=== PATIENT | female | born 1975 | race Caucasian/White ===

== ENCOUNTER 2022-03-19 15:25 | Outpatient (CLI) | payer OTHER, SELFPAY ==
--- NOTE | 2022-03-19 15:35 | ECG_ITS ---
Measurements Intervals [place] Rate: 85 P: 37 MO: 189 QRS: 49 QRSD: 89 T: 14 QT: 356 QTc: 425 Interpretive Statements SINUS RHYTHM POSSIBLE LEFT ATRIAL ENLARGEMENT [-0.1mV P WAVE IN V1/V2] NO PREVIOUS ECG AVAILABLE FOR COMPARISON Electronically Signed On 03-19-2022 21:12:52 CDT by Case Chauhan MD
[2022-03-19 16:15] LABS: Anion Gap 6 mmol/L (8-16); Blood Urea Nitrogen 15 mg/dL (7-17); Calcium 8.7 mg/dL (8.4-10.2); Carbon Dioxide 27 mmol/L (22-30); Chloride 103 mmol/L (98-107); Estimated Glomerular Filt Rate > 60; Glucose 254 mg/dL (65-110); Potassium 4.2 mmol/L (3.4-5.0); Sodium 136 mmol/L (137-145)
[2022-03-19 16:32] LABS: Beta HCG Quantitative < 2.39 mIU/ML
== END 2022-03-19 15:26 | disposition home or self-care (01) ==
PROVIDERS: Anesthesiology; PCP Family Medicine; Visit Provider Obstetrics & Gynecology
DX: Z30.09 Encounter for other general counseling and advice on contraception (principal); I10 Essential (primary) hypertension; N92.1 Excessive and frequent menstruation with irregular cycle; E11.9 Type 2 diabetes mellitus without complications
CPT/HCPCS: 36415; 80048; 84702; 86850; 86900; 86901; 93005

== ENCOUNTER 2022-03-21 00:08 | Day surgery (SDC) | payer OTHER, SELFPAY ==
[2022-03-13 18:49] VITALS: BMI 29.2
--- NOTE | 2022-03-13 19:06 | SUR.PREOP ---
Report to the Outpatient Waiting Room, entrance under the green pavilion located off [facility], at time _0900 on date _03/21/22 . OR Time: _1100 - You and your visitor will be asked a series of questions to screen for COVID 19 for your protection. - Only one visitor is allowed at this time. - The patient visitor is requested to leave or wait in car when not with patient. - A mask is required within the hospital. Patients may have clear liquids (water, carbonated beverages, clear teas, apple juice) until 3 hours prior to surgery with a maximum of 20 ounces. - No food from midnight until time of surgery - Infants may have breast milk until 4 hours before surgery, formula 6 hours prior to surgery. - Children will be allowed to drink immediately following surgery. If applicable, please bring a bottle or sippy cup to assist with drinking. Juice, water, soda, and popsicles are readily available. For infants on formula, please bring formula the day of surgery. Pacifiers are allowed. Take the following medications with a SIP of water the morning of surgery: _norvasc,symbicort,prednisone,albuterol neb,bring albuterol inhaler Medications to discontinue per physician ____vitamin supplements Date to take last dose__03/18/22 Please no make-up, nail kyrgyz, hairspray, perfume, deodorant, or body powder the day of surgery. No jewelry (including any body piercings) or valuables the day of surgery, leave them at home. Please take a shower or bath the night before, or the morning of, surgery with an antibacterial soap. Wear comfortable, loose fitting clothing. Children are encouraged to wear pajamas. - Jewelry must be removed prior to entering the operating room. Rings and piercings that are not removed may be cut off. - The hospital will not accept responsibility for valuables. - Please leave all valuables, including medications, at home the day of surgery. If you are going home after surgery, a licensed transport driver must drive you home. - NO public transportation without another adult. - We recommend that an adult stay with you for 24 hours following discharge. - We also recommend that you do not drive, make important decision, drink alcoholic beverages, or take any drugs that were not prescribed by your health care provider for at least 24 hours after your discharge time. For Pediatric surgeries, we recommend two adults accompany the child home (only one inside the building at this time). Follow any additional instructions given to you from your surgeon. If you or anyone in your household have experienced Covid symptoms in the past week, please notify your surgeon or the nurse liaison at the phone number below for possible testing. Telephone instructions given to janna simon and asked if any additional questions and then verbalized understanding. Patient advised to call surgeon office or pre surgery nurse liaison [phone] if any additional questions.
--- NOTE | 2022-03-20 15:10 | PM.IMHP ---
H&P: HPI History of Present Illness Date/Time: 03/20/22 15:11 47-year-old female 0 presents with longstanding though increasing recently symptomatology. States her cycles are coming at 2-3 week intervals and lasting 5-7 days with clotting cramping significant flow increased. She also is having pelvic pain intermittently in between her menstrual cycles which is also increasing. Between the bleeding and pain this is affecting her normal daily activities. We have discussed multiple options and she does desire to proceed with hysterectomy with ovarian preservation. Will be attempting this laparoscopically though she understands there is always a small chance that conversion to open procedure may be necessary both for completing stated procedure and or to evaluate for other potential abnormalities and complications intraoperatively. Chief Complaint: Symptomatic uterine fibroid Review of Systems Review of Systems: All systems reviewed & are unremarkable except as noted in HPI and below PMFSH Past Medical History Medical History Asthma Bronchitis COPD (chronic obstructive pulmonary disease) Diabetes type 2, controlled Fatty liver GERD (gastroesophageal reflux disease) Headache High cholesterol History of hypertension Screening mammogram, encounter for Stomach ulcer Surgical History Surgical History History of tonsillectomy Family History Family History Father Asthma Hypertension Diabetes mellitus Sibling Asthma Hypertension sister and brother Diabetes mellitus sister and brother Hypothyroidism sister Mother Hypertension Diabetes mellitus Hypothyroidism Social History Social History Smoking status: Never smoker Alcohol intake: never Substance use: never Substance use type: does not use Additional living arrangements comments: single Gender identity (if verbalized by the patient): Female Sexual Orientation (if Verbalized by the Patient): Straight or Heterosexual Spiritual care concerns: No Meds Home Medications and Allergies Home Medications Medication Instructions Recorded Confirmed Type atorvastatin 40 mg tablet 40 mg PO DAILY 01/23/22 03/13/22 History 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 meter,continuous 01/23/22 02/05/22 History (Dexcom G6 Hole Puncher Strap misc) budesonide-formoterol HFA 160 1 inh inhalation ONCE 01/23/22 03/13/22 History mcg-4.5 mcg/actuation aerosol inhaler (Symbicort) cholecalciferol (vitamin D3) 50 50 mcg PO DAILY 01/23/22 03/13/22 History mcg (2,000 unit) capsule (Vitamin D3) cyanocobalamin (vitamin B-12) 1,000 mcg sublingual DAILY 01/23/22 03/13/22 History 1,000 mcg sublingual tablet hydrochlorothiazide 25 mg tablet 25 mg PO DAILY 01/23/22 03/13/22 History metformin 500 mg tablet,extended 1,000 mg PO BID 01/23/22 03/13/22 History release 24 hr prednisone 10 mg tablet 10 mg PO DAILY 01/23/22 03/13/22 History prednisone 20 mg tablet 20 mg PO DAILY 01/23/22 03/13/22 History albuterol sulfate 2.5 mg/3 mL 1 ml inhalation Q4H 03/13/22 03/13/22 History (0.083 %) solution for nebulization albuterol sulfate 90 mcg/actuation 1 inh inhalation PRN 03/13/22 03/13/22 History aerosol inhaler amlodipine 10 mg tablet (Norvasc) 10 mg PO DAILY 03/13/22 03/13/22 History aspirin 81 mg tablet,delayed 81 mg PO DAILY 03/13/22 03/13/22 History release cetirizine 10 mg capsule (Zyrtec) 10 mg PO DAILY 03/13/22 03/13/22 History famotidine 40 mg tablet 1 tablet PO DAILY 03/13/22 03/13/22 History fenofibrate 160 mg tablet 1 tablet PO DAILY 03/13/22 03/13/22 History insulin glargine 100 unit/mL (3 20 unit subcut QAM 03/13/22 03/13/22 History mL) subcutaneous pen (Lantus Solostar U-100 Insulin) insulin lispro 100 unit/mL 1
[2022-03-21] VITALS (11 sets, daily range): BP systolic 111–157; BP diastolic 65–89; PULSE 69–102; RESP 11–20; TEMP 36.2–36.6; O2SAT 92–100
--- NOTE | 2022-03-21 07:22 | WPDHPUPDATE1 ---
History and Physical Update Update Date/Time: 03/21/22 07:22 History and Physical has been reviewed, including an updated exam of the patient. There are NO changes in the patient's condition. Risks, benefits, and alternatives have been discussed and questions answered. Patient agrees to proceed with procedure.
[2022-03-21] MEDS: ACETAMINOPHEN 500 MG TABLET 1000 MG PO (07:37)
--- NOTE | 2022-03-21 07:42 | WPDANESEPPF ---
Anes - Initial Pre Proc Eval Procedure: Operation Date: 03/21/22 08:30 Proposed Procedures p Robotic Assisted Total Laparoscopic Hysterectomy with Bilateral Salpingectomy - Blane Granda MD Date/Time: 03/21/22 07:42 Surgeon: lBane Granda MD Pre Op Diagnosis: menometrorrhagia, uterine fibroid Patient Data Age: 47 Gender: F Height: 1.6 m Weight: 75 kg Allergies Allergy/AdvReac Type Severity Reaction Status Date / Time prochlorperazine Allergy Severe BODY Verified 03/21/22 06:13 [From Compazine] BRIGHT RED/HOT, DIFFICULTY BREATHING sulfamethoxazole Allergy Mild HEADACHES Verified 03/21/22 06:13 AND NOSEBLEEDS trimethoprim Allergy Mild HEADACHES Verified 03/21/22 06:13 AND NOSEBLEEDS PHENAZOPYRIDINE HCL Allergy Severe ANAPHYLACTIC Uncoded 03/21/22 06:13 SHOCK Home Medications Medication Instructions Recorded Confirmed Type atorvastatin 40 mg tablet 40 mg PO DAILY 01/23/22 03/21/22 History 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 meter,continuous 01/23/22 03/21/22 History (Dexcom G6 Scrap Drop Operator misc) budesonide-formoterol HFA 160 1 inh inhalation ONCE 01/23/22 03/21/22 History mcg-4.5 mcg/actuation aerosol inhaler (Symbicort) cholecalciferol (vitamin D3) 50 50 mcg PO DAILY 01/23/22 03/21/22 History mcg (2,000 unit) capsule (Vitamin D3) cyanocobalamin (vitamin B-12) 1,000 mcg sublingual DAILY 01/23/22 03/21/22 History 1,000 mcg sublingual tablet hydrochlorothiazide 25 mg tablet 25 mg PO DAILY 01/23/22 03/21/22 History metformin 500 mg tablet,extended 1,000 mg PO BID 01/23/22 03/21/22 History release 24 hr prednisone 10 mg tablet 10 mg PO DAILY 01/23/22 03/21/22 History prednisone 20 mg tablet 20 mg PO DAILY 01/23/22 03/21/22 History albuterol sulfate 2.5 mg/3 mL 1 ml inhalation Q4H 03/13/22 03/21/22 History (0.083 %) solution for nebulization albuterol sulfate 90 mcg/actuation 1 inh inhalation PRN 03/13/22 03/21/22 History aerosol inhaler amlodipine 10 mg tablet (Norvasc) 10 mg PO DAILY 03/13/22 03/21/22 History aspirin 81 mg tablet,delayed 81 mg PO DAILY 03/13/22 03/21/22 History release cetirizine 10 mg capsule (Zyrtec) 10 mg PO DAILY 03/13/22 03/21/22 History famotidine 40 mg tablet 1 tablet PO DAILY 03/13/22 03/21/22 History fenofibrate 160 mg tablet 1 tablet PO DAILY 03/13/22 03/21/22 History insulin glargine 100 unit/mL (3 20 unit subcut QAM 03/13/22 03/21/22 History mL) subcutaneous pen (Lantus Solostar U-100 Insulin) insulin lispro 100 unit/mL 15 sliding scale dose subcut AC 03/13/22 03/21/22 History subcutaneous pen ipratropium bromide 0.02 % 1 ml inhalation Q2H 03/13/22 03/21/22 History solution for inhalation montelukast 10 mg tablet 1 tablet PO DAILY 03/13/22 03/21/22 History pantoprazole 40 mg tablet,delayed 40 mg PO QAM 03/13/22 03/21/22 History release (Protonix) tramadol 50 mg tablet 1 tablet PO PRN 03/13/22 03/21/22 History ECG: Date of Service: 03/19/22 Procedure(s): CA 12 lead EKG Accession Number(s): [id number] cc: ~ ? Measurements Intervals? [place]? Rate: ? 85 ? P:? 37 UT: ? 189? QRS:? 49 QRSD: ? 89 ? T:? 14 QT: ? 356? QTc:? 425? Interpretive Statements SINUS RHYTHM POSSIBLE LEFT ATRIAL ENLARGEMENT [-0.1mV P WAVE IN V1/V2] NO PREVIOUS ECG AVAILABLE FOR COMPARISON Electronically Signed On 03-19-2022 21:12:52 CDT by Case Chauhan MD Patient hx anesthesia problems: none Family hx anesthesia problems: none Results Review: All pre-operative results and documents have been reviewed as part of the pre-operative evaluation. [facility] Past Medical History Medical History (Updated 03/21/22 @ 07:48 by Constantine Hernandez MD)
[2022-03-21] MEDS: LACTATED RINGERS 1,000 ML 30 ML IV CONT ×2 (07:45→10:36)
[2022-03-21] MEDS: KETOROLAC 15 MG/ML VIAL (*BKC) IV PUSH (07:46)
[2022-03-21 07:54] LABS: Glucose Point of Care 191 mg/dl (65-105)
[2022-03-21] MEDS: ceFAZolin 2 GM/D5W 50 ML 2 GM/50 ML BAG IVPB (08:32)
--- NOTE | 2022-03-21 10:29 | W.PM.PROC2 ---
Procedure Note - Detailed Date of Procedure 03/21/22 Pre-op Diagnosis menometrorrhagia, uterine fibroid Post-op Diagnosis Same Procedure Performed Robotic assisted laparoscopic hysterectomy preservation. Also with bilateral salpingectomy. Surgeon Blane Granda MD Anesthesia General Findings Enlarged fibroid uterus. Ovaries without abnormality. Description of Procedure Patient prepped and draped usual manner for this procedure. Cervical os was placed for uterine mobility throughout the case. Abdominal trocar sites were marked and placed under direct visualization and then attached to the DA Simón system. Instruments were then placed under direct visualization. Surgeon moved to the console and findings were noted as above with enlarged uterus with normal tubes and ovaries. Round ligaments bilaterally cauterize cut bladder flap developed without difficulty. Posteriorly the broad ligament was also incised to isolate the uterine vessels. These were cauterized cut. Prior to this the utero-ovarian ligaments were cauterized cut and the fallopian tubes were removed by cauterized the mesosalpinx and removing the tubes separately. Once the uterine vessels had been cauterized and cut the posterior colpotomy incision was made this was carried circumferentially to separate the cervix from the vagina. The uterus was then delivered into the vagina without difficulty and the cuff was closed using V lock suture from the right angle to midline in the left and to midline with good approximation and hemostasis noted. Aleena was placed empirically over the vaginal incision. Gas was allowed to escape, instruments removed and the incisions were approximated using 4-0 Monocryl. Patient was then sent to recovery room in stable condition. Estimated Blood Loss 50 Drains No Packing No Pathology Yes Complications No immediate complications Disposition PACU [facility] Billing Surgery - Charge Forward: Surgery Billing
[2022-03-21] MEDS: fentaNYL CITRATE INJ (*CRX) 100 MCG/2 ML VIAL 25 MCG IV PUSH ×6 (10:42→11:52)
[2022-03-21 10:49] LABS: Glucose Point of Care 209 mg/dl (65-105)
[2022-03-21] MEDS: ONDANSETRON INJ 4 MG/2 ML VIAL IV PUSH (12:18)
--- NOTE | 2022-03-21 12:29 | PC.NURSE ---
This patient, Gaby Carey, was received from PACU via bed on 03/21/22 at 1215. Patient/family oriented to unit policies and routines
--- NOTE | 2022-03-21 14:00 | PC.NURSE ---
Pt requesting to wear O2 per NC while she is sleeping. She states she wears it sometimes at home during the night. O2 2L initiated per NC. Pt removed O2 about 45 minutes after initiating and decided to sit in a chair. No c/o difficulty breathing or SOB.
[2022-03-21] MEDS: LACTATED RINGERS 1,000 ML 125 ML IV CONT (14:08)
[2022-03-21] MEDS: KETOROLAC 30 MG/ML VIAL (*BKC) IV PUSH (14:10)
[2022-03-21] MEDS: METOCLOPRAMIDE HCL INJ 10 MG/2 ML VIAL IV PUSH (14:11)
[2022-03-21 14:28] LABS: Glucose Point of Care 230 mg/dl (65-105)
[2022-03-21] MEDS: LORazepam (*CRX) 0.5 MG TABLET 1 MG PO (15:40)
[2022-03-21] MEDS: ALBUTEROL SULFATE NEB 2.5 MG/3 ML INH INHALATION (15:46)
[2022-03-21] MEDS: IPRATROPIUM BR 0.02% INH SOLN 0.5 MG/2.5 ML VIAL INHALATION (15:46)
[2022-03-21] MEDS: metFORMIN HCL XR 500 MG TAB.SR.24H 1000 MG PO (17:03)
[2022-03-21] MEDS: HYDROcodone/acetaminophen (*CRX) 10-325 MG TABLET 1 TAB PO ×2 (17:03→23:08)
--- NOTE | 2022-03-21 19:00 | PC.NURSE ---
1440: Pt wanted to sit up in a chair; pt appeared restless in chair, shifting from one buttock to the other and stated that she could not get comfortable. Pt requested a rocking chair, stating that she likes to rock when she is in pain and feels anxious at home. Rocking chair brought into pt's room. Pt independently moved from chair to rocking chair with assistance of RN to hold IV tubing and cuellar catheter. Pt states she is more comfortable in rocking chair. 1510: Pt requesting to go back to bed; assisted pt back to bed; tolerated well. O2 2L per NC placed on pt per her request. 1540: Pr requesting to sit in rocking chair; assisted pt to rocking chair. 1542: Respiratory therapy here to give breathing treatment per pt's request. 1600: Assisted pt back to bed per her request. 1700: pt back in the rocking chair. Pt's family states they assisted her there per her request. 1715: Assisted pt back to the bed per her request. IV fluids d/c'd. Pt requesting her cuellar catheter come out tonight.
[2022-03-22 04:20] VITALS: BP 143/70; PULSE 78; RESP 16; TEMP 36.4
[2022-03-22] MEDS: HYDROcodone/acetaminophen (*CRX) 5-325 MG TABLET 1 TAB PO (04:34)
[2022-03-22 05:10] LABS: Basophils Percent Auto 0.4 % (0.2-1.2); Eosinophils Percent Auto 0.3 % (0-4.4); Hematocrit 36.8 % (37.0-47.0); Hemoglobin 11.3 g/dL (12.0-15.0); Immature Granulocyte Absolute 0.06 K/mm3 (0.00-0.031); Immature Granulocyte Percent A 0.5 % (0-0.5); Lymphocytes Absolute Auto 2.69 K/mm3 (0.9-3.2); Lymphocytes Percent Auto 23.6 % (18.3-44.2); Mean Corpuscular HGB Conc 30.7 g/dl (32-36); Mean Corpuscular Hemoglobin 25.2 pg (26-34); Mean Platelet Volume 10.4 fl (7.4-10.4); Monocytes Absolute Auto 0.9 K/mm3 (0.1-0.6); Monocytes Percent Auto 7.9 % (2.6-8.5); Neutrophils Absolute Auto 7.7 K/mm3 (1.3-6.7); Neutrophils Percent Auto 67.3 % (45.5-73.1); Platelet Count Result 363 k/mm3 (150-375); Red Blood Count 4.49 M/mm3 (4.2-5.4); Red Cell Distribution Width 14.6 % (11.5-14.5); White Blood Count 11.4 K/mm3 (4.5-10.0)
[2022-03-22 07:37] LABS: Glucose Point of Care 154 mg/dl (65-105)
[2022-03-22] MEDS: INSULIN GLARGINE (*BKC) 100 UNITS/ML 20 UNITS SUB-Q (07:44)
[2022-03-22 07:50] VITALS: BP 159/62; PULSE 77; RESP 18; TEMP 36.6; O2SAT 100
--- NOTE | 2022-03-22 07:52 | PM.DS ---
DS: Admitting Diagnosis Discharge Date 03/22/2022 Admitting Diagnosis symptomatic fibroid DS: Summary Hospital Course Hospital Course: 47-year-old female admitted for laparoscopic hysterectomy. Underwent procedure without difficulty and on the 1st postoperative day is ambulating voiding tolerated regular diet and on oral pain medications. Also has urinated and passing gas as well. Time Spent with Patient Time attestation: Total time spent providing and/or coordinating discharge services: Exam Narrative: Abdomen is soft with good bowel sounds. Incisions covered with dry bandage. DS: Data Data Completed and Pending Pending studies at discharge: Pending at discharge 03/21/22 09:39 Surgical [PTH] Routine Labs on day of discharge: Labs from last 24 hours 03/22/22 03/22/22 03/21/22 07:33 04:29 14:20 WBC 11.4 H RBC 4.49 Hgb 11.3 L Hct 36.8 L MCV 82.0 MCH 25.2 L MCHC 30.7 L RDW 14.6 H Plt Count 363 MPV 10.4 Immature Gran % (Auto) 0.5 Neut % (Auto) 67.3 Lymph % (Auto) 23.6 [place] % (Auto) 7.9 Eos % (Auto) 0.3 Baso % (Auto) 0.4 Lymph # (Auto) 2.69 [place] # (Auto) 0.9 H Eos # (Auto) 0.0 Baso # (Auto) 0.0 Abs Immat Gran (auto) 0.06 H Absolute Neuts (auto) 7.7 H Absolute Nucleated RBC 0.0 Nucleated RBC % 0.0 POC Capillary Glucose 154 H 230 H 03/21/22 03/21/22 10:46 07:49 WBC RBC Hgb Hct MCV MCH MCHC RDW Plt Count MPV Immature Gran % (Auto) Neut % (Auto) Lymph % (Auto) [place] % (Auto) Eos % (Auto) Baso % (Auto) Lymph # (Auto) [place] # (Auto) Eos # (Auto) Baso # (Auto) Abs Immat Gran (auto) Absolute Neuts (auto) Absolute Nucleated RBC Nucleated RBC % POC Capillary Glucose 209 H 191 H Procedures/Treatments: Robotic assisted hysterectomy with ovarian preservation Discharge Plan Discharge Patient Disposition: Home, Self-Care Patient Instructions: Laparoscopic Hysterectomy (DC) Discharge Medications: New hydrocodone-acetaminophen 5-325 mg Tablet 1 tablet PO Q3H PRN (Reason: Pain Rated 5 Or Less) Qty: 30 0RF ibuprofen 800 mg tablet 800 mg PO TID PRN (Reason: pain) Qty: 30 0RF Continued atorvastatin 40 mg tablet 40 mg PO DAILY cyanocobalamin (vitamin B-12) 1,000 mcg tablet, sublingual 1,000 mcg sublingual DAILY (DME) Dexcom G6 Columnist/Commentator Misc See Rx Instructions .Route Rx Instructions: As directed hydrochlorothiazide 25 mg tablet 25 mg PO DAILY metformin 500 mg tablet extended release 24 hr 1,000 mg PO BID prednisone 10 mg tablet 10 mg PO DAILY prednisone 20 mg tablet 20 mg PO DAILY budesonide-formoterol [Symbicort] 160-4.5 mcg/actuation HFA aerosol inhaler 1 inh inhalation ONCE cholecalciferol (vitamin D3) [Vitamin D3] 50 mcg (2,000 unit) capsule 50 mcg PO DAILY albuterol sulfate 2.5 mg /3 mL (0.083 %) solution for nebulization 1 ml inhalation Q4H famotidine 40 mg tablet 1 tablet PO DAILY montelukast 10 mg tablet 1 tablet PO DAILY albuterol sulfate 90 mcg/actuation HFA aerosol inhaler 1 inh INHALATION PRN ipratropium bromide 0.02 % solution 1 ml inhalation Q2H insulin lispro 100 unit/mL insulin pen 15 sliding scale dose subcut AC fenofibrate 160 mg tablet 1 tablet PO DAILY insulin glargine [Lantus Solostar U-100 Insulin] 100 unit/mL (3 mL) insulin pen 20 unit SUBCUT QAM aspirin 81 mg Tablet,Delayed Release (Dr/Ec) 81 mg PO DAILY amlodipine [Norvasc] 10 mg Tablet 10 mg PO DAILY pantoprazole [Protonix] 40 mg Tablet,Delayed Release (Dr/Ec) 40 mg PO QAM Zyrtec 10 mg Capsule 10 mg PO DAILY Held tramadol 50 mg tablet 1 tablet PO PRN Hold Instructions: Resume on 03/29/22. do not take concurrently with [place]
[2022-03-22] MEDS: HYDROcodone/acetaminophen (*CRX) 10-325 MG TABLET 1 TAB PO (08:25)
--- NOTE | 2022-03-22 08:33 | PC.NURSE ---
Pt refused all AM meds except for the Lantus insulin. She states she would take them at home after discharge.
--- NOTE | 2022-03-22 09:19 | WPDANESPN ---
Anes - Prog Note Post-Op Date/Time: 03/22/22 09:19 Cardiovascular status: normal Respiratory status: normal Airway patency: baseline Mental status: baseline Post-Op hydration status: normal Vital Signs: Last Vital Signs Temp 97.5 F L 03/22/22 04:20 Pulse 78 03/22/22 04:20 Resp 16 03/22/22 04:20 BP 143/70 H 03/22/22 04:20 Pulse Ox 100 03/21/22 12:20 O2 Del Method Room Air 03/22/22 07:40 O2 Flow Rate 10 03/21/22 11:21 Pain Score (VAS): 10/23 I/O: Intake & Output 03/21/22 03/22/22 03/22/22 23:59 07:59 15:59 Intake Total 1300 50 Output Total 2750 400 Balance -1450 -400 50 Laboratory Tests 03/22/22 04:29 03/21/22 03/21/22 03/22/22 10:46 14:20 04:29 WBC 11.4 H RBC 4.49 Hgb 11.3 L Hct 36.8 L MCV 82.0 MCH 25.2 L MCHC 30.7 L RDW 14.6 H Plt Count 363 MPV 10.4 Immature Gran % (Auto) 0.5 Neut % (Auto) 67.3 Lymph % (Auto) 23.6 [place] % (Auto) 7.9 Eos % (Auto) 0.3 Baso % (Auto) 0.4 Lymph # (Auto) 2.69 [place] # (Auto) 0.9 H Eos # (Auto) 0.0 Baso # (Auto) 0.0 Abs Immat Gran (auto) 0.06 H Absolute Neuts (auto) 7.7 H Absolute Nucleated RBC 0.0 Nucleated RBC % 0.0 POC Capillary Glucose 209 H 230 H 03/22/22 07:33 WBC RBC Hgb Hct MCV MCH MCHC RDW Plt Count MPV Immature Gran % (Auto) Neut % (Auto) Lymph % (Auto) [place] % (Auto) Eos % (Auto) Baso % (Auto) Lymph # (Auto) [place] # (Auto) Eos # (Auto) Baso # (Auto) Abs Immat Gran (auto) Absolute Neuts (auto) Absolute Nucleated RBC Nucleated RBC % POC Capillary Glucose 154 H Post-procedural complaints: none Patient Feedback: Patient satisfied with anesthetic care.
== END 2022-03-22 08:26 | disposition home or self-care (01) ==
LOC: ANHSURGERY 05:49 → ANHOB2 14:58
PROVIDERS: PCP Family Medicine; Visit Provider Obstetrics & Gynecology
PROC: (CPT 58552; principal; 2022-03-21 08:30)
DX: N92.1 Excessive and frequent menstruation with irregular cycle (principal); D25.2 Subserosal leiomyoma of uterus; N80.0 Endometriosis of uterus; N94.6 Dysmenorrhea, unspecified; Z79.82 Long term (current) use of aspirin; Z79.84 Long term (current) use of oral hypoglycemic drugs; Z79.4 Long term (current) use of insulin; Z79.51 Long term (current) use of inhaled steroids; J45.909 Unspecified asthma, uncomplicated; K21.9 Gastro-esophageal reflux disease without esophagitis; E78.00 Pure hypercholesterolemia, unspecified; K76.0 Fatty (change of) liver, not elsewhere classified; I10 Essential (primary) hypertension; E11.9 Type 2 diabetes mellitus without complications; J44.9 Chronic obstructive pulmonary disease, unspecified
CPT/HCPCS: 58552; S2900; 36415; 82948; 85025; 88307; 94640; 99199; A9270; J0360; J0690; J1100; J1815; J1885; J2250; J2405; J2704; J2710; J2765; J3010; J7030; J7120

== ENCOUNTER 2022-10-23 11:06 | Emergency (ER) | payer OTHER, SELFPAY ==
[2022-10-23] VITALS (10 sets, daily range): BP systolic 139–168; BP diastolic 89–97; PULSE 64–100; RESP 16–18; TEMP 36.6; O2SAT 95–100
--- NOTE | ~2022-10-23 | CT_ITS ---
EXAMINATION: CT abdomen pelvis w con DATE: 10/23/2022 14:36 INDICATION: Left upper quadrant abdominal pain. Vomiting. TECHNIQUE: Computed tomography (CT) of the abdomen and pelvis was performed without intravenous contr ast. Automated exposure control and iterative reconstruction technique were employed. The dose-length product was 568.86 mGy-cm. COMPARISON: None. FINDINGS: The visualized portions of the lung bases are clear without pneumonia or pleural effusion. The heart size is normal. No pericardial effusion. The liver, gallbladder, spleen, pancreas, adrenal glands, and kidneys are normal. There are no dilated loops of bowel. The appendix is normal. There is diverticulosis of the colon without evidence of diverticulitis. There are no pathologically enlarged lymph nodes. There is no free intraperitoneal fluid. There is mild thoracolumbar spondylosis. IMPRESSION: 1. No etiology for the patient's symptoms. Reviewed, dictated and finalized at [facility]. [employer]PECT[employer]
[2022-10-23 12:55] LABS: Basophils Percent Auto 0.4 % (0.2-1.2); Eosinophils Absolute Auto 0.1 K/mm3 (0-0.3); Eosinophils Percent Auto 0.5 % (0-4.4); Hematocrit 42.1 % (37.0-47.0); Hemoglobin 13.2 g/dL (12.0-15.0); Immature Granulocyte Absolute 0.05 K/mm3 (0.00-0.031); Immature Granulocyte Percent A 0.5 % (0-0.5); Lymphocytes Absolute Auto 2.41 K/mm3 (0.9-3.2); Lymphocytes Percent Auto 25.6 % (18.3-44.2); Mean Corpuscular HGB Conc 31.4 g/dl (32-36); Mean Corpuscular Hemoglobin 26.3 pg (26-34); Mean Platelet Volume 10.7 fl (7.4-10.4); Monocytes Absolute Auto 0.7 K/mm3 (0.1-0.6); Monocytes Percent Auto 7.9 % (2.6-8.5); Neutrophils Absolute Auto 6.1 K/mm3 (1.3-6.7); Neutrophils Percent Auto 65.1 % (45.5-73.1); Platelet Count Result 391 k/mm3 (150-375); Red Blood Count 5.01 M/mm3 (4.2-5.4); Red Cell Distribution Width 15.2 % (11.5-14.5); White Blood Count 9.4 K/mm3 (4.5-10.0)
[2022-10-23 13:03] LABS: Add Urine Microscopic? YES; Appearance Urine Clear (Clear); Blood Urine Negative (Negative); Color Urine Yellow (Yellow); Glucose Urine UA 3+ mg/dL (Negative); Ketones Urine Trace mg/dL (Negative); Protein Urine Negative (Negative); Specific Grav Ur 1.015 (1.001-1.035); pH Urine 5.5 (5.0-9.0)
[2022-10-23 13:04] LABS: Bilirubin Urine Negative (Negative); Leukocyte Esterase Ur Negative LEU/UL (Negative); Nitrate Urine Negative (Negative); Urobilinogen Urine 0.2 mg/dL (<2.0)
[2022-10-23 13:07] LABS: Bacteria Urine Trace /hpf; Mucus Urine Rare /lpf; Squamous Epithelial Cell Urine Occasional /hpf (Few); WBC Urine 0-3 /hpf
[2022-10-23 13:11] LABS: Alanine Aminotransferase 40 U/L (6-35); Albumin Level 4.7 g/dL (3.5-5.1); Alkaline Phosphatase 47 U/L (38-126); Anion Gap 9 mmol/L (8-16); Aspartate Amino Transferase 28 U/L (14-36); Bilirubin,Total 0.5 mg/dL (0.2-1.3); Blood Urea Nitrogen 15 mg/dL (7-17); Calcium 9.5 mg/dL (8.4-10.2); Carbon Dioxide 25 mmol/L (22-30); Chloride 96 mmol/L (98-107); Estimated CRCL calculation 78 ml/min; Estimated Glomerular Filt Rate > 60; Glucose 306 mg/dL (65-110); Lipase 170 U/L (23-300); Potassium 3.6 mmol/L (3.4-5.0); Sodium 130 mmol/L (137-145)
--- NOTE | 2022-10-23 13:55 | ED.ABDPAIN ---
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 Patient states that she got her monthly IgG infusion approximately 4 days ago. States that she often feels unwell following these infusions. States that the next day she then got her flu shot. States that she has had left upper quadrant pain for the last several days associated with vomiting. She has not used any of her Zofran at home. She denies fevers or chills, headache, chest pain, shortness of breath, cough, dysuria, diarrhea. States she had a normal bowel movement this morning. Related Data Home Medications Medication Instructions Recorded Confirmed atorvastatin 40 mg tablet 40 mg PO DAILY 01/23/22 05/08/22 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 meter,continuous 01/23/22 05/08/22 ([employer] G6 [employer] Feeder) budesonide-formoterol HFA 160 1 inh inhalation ONCE 01/23/22 05/08/22 mcg-4.5 mcg/actuation aerosol inhaler (Symbicort) cholecalciferol (vitamin D3) 50 50 mcg PO DAILY 01/23/22 05/08/22 mcg (2,000 unit) capsule (Vitamin D3) cyanocobalamin (vitamin B-12) 1,000 mcg sublingual DAILY 01/23/22 05/08/22 1,000 mcg sublingual tablet hydrochlorothiazide 25 mg tablet 25 mg PO DAILY 01/23/22 05/08/22 metformin 500 mg tablet,extended 1,000 mg PO BID 01/23/22 05/08/22 release 24 hr prednisone 10 mg tablet 10 mg PO DAILY 01/23/22 05/08/22 prednisone 20 mg tablet 20 mg PO DAILY 01/23/22 05/08/22 albuterol sulfate 2.5 mg/3 mL 1 ml inhalation Q4H 03/13/22 05/08/22 (0.083 %) solution for nebulization albuterol sulfate 90 mcg/actuation 1 inh inhalation PRN 03/13/22 05/08/22 aerosol inhaler amlodipine 10 mg tablet (Norvasc) 10 mg PO DAILY 03/13/22 05/08/22 aspirin 81 mg tablet,delayed 81 mg PO DAILY 03/13/22 05/08/22 release cetirizine 10 mg capsule (Zyrtec) 10 mg PO DAILY 03/13/22 05/08/22 famotidine 40 mg tablet 1 tablet PO DAILY 03/13/22 05/08/22 fenofibrate 160 mg tablet 1 tablet PO DAILY 03/13/22 05/08/22 insulin glargine 100 unit/mL (3 20 unit subcut QAM 03/13/22 05/08/22 mL) subcutaneous pen (Lantus Solostar U-100 Insulin) insulin lispro 100 unit/mL 15 sliding scale dose subcut AC 03/13/22 05/08/22 subcutaneous pen ipratropium bromide 0.02 % 1 ml inhalation Q2H 03/13/22 05/08/22 solution for inhalation montelukast 10 mg tablet 1 tablet PO DAILY 03/13/22 05/08/22 pantoprazole 40 mg tablet,delayed 40 mg PO QAM 03/13/22 05/08/22 release (Protonix) tramadol 50 mg tablet 1 tablet PO PRN 03/13/22 05/08/22 Allergies Allergy/AdvReac Type Severity Reaction Status Date / Time phenazopyridine Allergy Severe Anaphylactic Verified 05/08/22 15:32 Shock prochlorperazine Allergy Severe BODY Verified 05/08/22 15:32 [From Compazine] BRIGHT RED/HOT, DIFFICULTY BREATHING sulfamethoxazole Allergy Mild HEADACHES Verified 05/08/22 15:32 AND NOSEBLEEDS trimethoprim Allergy Mild HEADACHES Verified 05/08/22 15:32 AND NOSEBLEEDS Review of Systems Review of Systems: All systems reviewed & are unremarkable except as noted in HPI and below PMFSH Past Medical History Medical History Asthma Bronchitis CAD (coronary artery disease) Common variable immunodeficiency COPD (chronic obstructive pulmonary disease) home o2 at night Diabetes type 2, controlled Fatty liver GERD (gastroesophageal reflux disease) Headache High cholesterol History of hypertension Overweight (BMI 25.0-29.9) Screening mammogram, encounter for Stomach ulcer Surgical History Surgical History H/O: hysterectomy (03/21/22) RATLH w/ salpingecto
[2022-10-23] MEDS: SODIUM CHLORIDE 0.9% IV 1,000 ML 999 ML IV CONT (14:12)
[2022-10-23] MEDS: KETOROLAC 15 MG/ML VIAL (*BKC) IV PUSH (14:13)
[2022-10-23 14:25] LABS: CRP < 0.5 mg/dL (<1.0)
[2022-10-23 14:46] LABS: Erythrocyte Sedimentation Rate 4 mm/hr (0-20)
== END 2022-10-23 15:41 | disposition home or self-care (01) ==
PROVIDERS: Emergency Medicine; Emergency Provider Emergency Medicine; PCP Family Medicine
DX: R10.12 Left upper quadrant pain (principal); J45.909 Unspecified asthma, uncomplicated; I25.10 Atherosclerotic heart disease of native coronary artery without angina pectoris; J44.9 Chronic obstructive pulmonary disease, unspecified; K21.9 Gastro-esophageal reflux disease without esophagitis; E11.9 Type 2 diabetes mellitus without complications; I10 Essential (primary) hypertension; Z79.4 Long term (current) use of insulin
CPT/HCPCS: 36415; 74177; 80053; 81001; 83690; 85025; 85652; 86140; 96361; 96374; 96375; 99284; J0131; J1885; J7030; Q9967

== ENCOUNTER 2023-06-08 13:31 | Emergency (ER) | payer OTHER, SELFPAY ==
--- NOTE | ~2023-06-08 | CT_ITS ---
EXAMINATION: CT abdomen pelvis w con DATE: 06/08/2023 14:29 INDICATION: Upper abdominal pain TECHNIQUE: Computed tomography (CT) of the abdomen and pelvis was performed with 100 CC Omnipaque 350 intravenous contrast. Automated exposure control and iterative reconstruction technique were employe d. Exam dose: 626.70 mGy-cm total exam DLP. COMPARISON: None. FINDINGS: The lung bases are clear. Normal heart size. No pericardial or pleural effusion. Very small sliding hiatal hernia. There is diffuse hepatic steatosis. The liver, gallbladder, bile ducts, pancreas, pancreatic duct, sp danny, and adrenal glands and kidneys are unremarkable. No urinary tract calculus or hydroureteronephr osis. Small fat-containing umbilical hernia. No suspicious osteolytic or osteoblastic lesions. Normal appendix. Mild colonic diverticulosis; no CT evidence of diverticulitis. No bowel obstruction, bowel wall thickening, pneumatosis or intraperitoneal free air. Normal caliber and minimal atherosclerotic calcification of the abdominal aorta. No intraperitoneal o r retroperitoneal or pelvic mass lesion or adenopathy or ascites. Status post hysterectomy. The urinary bladder is unremarkable. The right ovary appears unremarkable. IMPRESSION: Very small sliding hiatal hernia Diffuse hepatic steatosis Normal appendix Mild colonic diverticulosis; no evidence of diverticulitis Status post hysterectomy Reviewed, dictated and finalized at [facility]. Reviewed, dictated and finalized at [facility].
[2023-06-08 13:36] VITALS: BP 173/80; PULSE 78; RESP 17; TEMP 36.9; O2SAT 100
--- NOTE | 2023-06-08 13:54 | ED.ABDPAIN ---
HPI - Abdominal Pain General Chief Complaint: Abdominal Pain Stated Complaint: UPPER ABD PAIN Time Seen by Provider: 06/08/23 13:54 Source: patient and family Mode of arrival: ambulatory History of Present Illness HPI narrative: 48 years old white female presented to the ED by private car with her complaining of upper abdominal pain for the last 4 days, steady, denies aggravating or relieving factors, associated with nausea. She denies any fever, chills, vomiting, diarrhea, constipation or urinary symptoms. History of pancreatitis/medication induced, hypertension, diabetes, hyperlipidemia, asthma, patient still me that she is immune compromised on IgG infusion every 20 days. Last 1 was 1 week ago. Patient denies smoking drinking or using drugs. History of hysterectomy. Patient reports a lot of stress lately history of panic attack Related Data Home Medications Medication Instructions Recorded Confirmed atorvastatin 40 mg tablet 40 mg PO DAILY 01/23/22 06/05/23 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 meter,continuous 01/23/22 06/05/23 (Dexcom G6 Child Adolescent Care) budesonide-formoterol HFA 160 1 inh inhalation ONCE 01/23/22 06/05/23 mcg-4.5 mcg/actuation aerosol inhaler (Symbicort) cholecalciferol (vitamin D3) 50 50 mcg PO DAILY 01/23/22 06/05/23 mcg (2,000 unit) capsule (Vitamin D3) cyanocobalamin (vitamin B-12) 1,000 mcg sublingual DAILY 01/23/22 06/05/23 1,000 mcg sublingual tablet hydrochlorothiazide 25 mg tablet 25 mg PO DAILY 01/23/22 06/05/23 metformin 500 mg tablet,extended 1,000 mg PO BID 01/23/22 06/05/23 release 24 hr albuterol sulfate 2.5 mg/3 mL 1 ml inhalation Q4H 03/13/22 06/05/23 (0.083 %) solution for nebulization albuterol sulfate 90 mcg/actuation 1 inh inhalation PRN 03/13/22 06/05/23 aerosol inhaler amlodipine 10 mg tablet (Norvasc) 10 mg PO DAILY 03/13/22 06/05/23 aspirin 81 mg tablet,delayed 81 mg PO DAILY 03/13/22 06/05/23 release cetirizine 10 mg capsule (Zyrtec) 10 mg PO DAILY 03/13/22 06/05/23 famotidine 40 mg tablet 1 tablet PO DAILY 03/13/22 06/05/23 fenofibrate 160 mg tablet 1 tablet PO DAILY 03/13/22 06/05/23 insulin glargine 100 unit/mL (3 20 unit subcut QAM 03/13/22 06/05/23 mL) subcutaneous pen (Lantus Solostar U-100 Insulin) insulin lispro 100 unit/mL 15 sliding scale dose subcut AC 03/13/22 06/05/23 subcutaneous pen ipratropium bromide 0.02 % 1 ml inhalation Q2H 03/13/22 06/05/23 solution for inhalation montelukast 10 mg tablet 1 tablet PO DAILY 03/13/22 06/05/23 pantoprazole 40 mg tablet,delayed 40 mg PO QAM 03/13/22 06/05/23 release (Protonix) tramadol 50 mg tablet 1 tablet PO PRN 03/13/22 06/05/23 prednisolone sodium phosphate 30 60 mg PO DAILY 06/05/23 06/05/23 mg disintegrating tablet Allergies Allergy/AdvReac Type Severity Reaction Status Date / Time phenazopyridine Allergy Severe Anaphylactic Verified 06/05/23 09:25 Shock prochlorperazine Allergy Severe BODY Verified 06/05/23 09:25 [From Compazine] BRIGHT RED/HOT, DIFFICULTY BREATHING sulfamethoxazole Allergy Mild HEADACHES Verified 06/05/23 09:25 AND NOSEBLEEDS trimethoprim Allergy Mild HEADACHES Verified 06/05/23 09:25 AND NOSEBLEEDS Review of Systems Review of Systems: All systems reviewed & are unremarkable except as noted in HPI and below PMFSH Past Medical History Medical History Asthma Bronchitis CAD (coronary artery disease) Common variable immunodeficiency COPD (chronic obstructive pulmonary disease) home o2 at night Diabetes type 2, controlled Fatty liver GERD (gastroesophageal reflux disease) Headache High cholesterol History of hypertension Overweight (BMI 25.0-29.9) Screening mammogram, encounter for Stomach ulcer Surgical History Surgical History H/O: hysterectomy (03/21/22) RATLH w/ salpingectomy History of tonsillectomy Fami
[2023-06-08 13:59] LABS: Basophils Absolute Auto 0.1 K/mm3 (0.0-0.1); Basophils Percent Auto 1.1 % (0.2-1.2); Eosinophils Absolute Auto 0.2 K/mm3 (0-0.3); Eosinophils Percent Auto 1.6 % (0-4.4); Hematocrit 39.2 % (37.0-47.0); Hemoglobin 12.5 g/dL (12.0-15.0); Immature Granulocyte Absolute 0.13 K/mm3 (0.00-0.031); Immature Granulocyte Percent A 1.4 % (0-0.5); Lymphocytes Absolute Auto 3.86 K/mm3 (0.9-3.2); Lymphocytes Percent Auto 40.6 % (18.3-44.2); Mean Corpuscular HGB Conc 31.9 g/dl (32-36); Mean Corpuscular Hemoglobin 26.9 pg (26-34); Mean Corpuscular Volume 84.3 fl (80-100); Mean Platelet Volume 10.8 fl (7.4-10.4); Monocytes Absolute Auto 0.9 K/mm3 (0.1-0.6); Monocytes Percent Auto 9.8 % (2.6-8.5); Neutrophils Absolute Auto 4.3 K/mm3 (1.3-6.7); Neutrophils Percent Auto 45.5 % (45.5-73.1); Platelet Count Result 487 k/mm3 (150-375); Red Blood Count 4.65 M/mm3 (4.2-5.4); Red Cell Distribution Width 13.9 % (11.5-14.5); White Blood Count 9.5 K/mm3 (4.5-10.0)
[2023-06-08 14:00] LABS: Appearance Urine Clear (Clear); Bilirubin Urine Negative (Negative); Blood Urine Negative (Negative); Color Urine Yellow (Yellow); Glucose Urine UA Negative (Negative); Ketones Urine Negative (Negative); Leukocyte Esterase Ur Negative LEU/UL (Negative); Nitrate Urine Negative (Negative); Protein Urine Negative (Negative); Specific Grav Ur 1.012 (1.001-1.035); Urobilinogen Urine 0.2 mg/dL (<2.0)
[2023-06-08] MEDS: ONDANSETRON INJ 4 MG/2 ML VIAL IV PUSH (14:02)
[2023-06-08] MEDS: SODIUM CHLORIDE 0.9% IV 1,000 ML 999 ML IV CONT (14:02)
[2023-06-08 14:07] LABS: Add Urine Microscopic? NO
[2023-06-08 14:10] LABS: Alanine Aminotransferase 35 U/L (6-35); Albumin Level 4.2 g/dL (3.5-5.1); Alkaline Phosphatase 51 U/L (38-126); Anion Gap 9 mmol/L (8-16); Aspartate Amino Transferase 25 U/L (14-36); Bilirubin,Total 0.5 mg/dL (0.2-1.3); Blood Urea Nitrogen 14 mg/dL (7-17); Calcium 9.2 mg/dL (8.4-10.2); Carbon Dioxide 25 mmol/L (22-30); Chloride 101 mmol/L (98-107); Estimated CRCL calculation 77 ml/min; Estimated Glomerular Filt Rate > 60; Glucose 171 mg/dL (65-110); Lipase 145 U/L (23-300); Potassium 3.7 mmol/L (3.4-5.0); Sodium 135 mmol/L (137-145)
[2023-06-08 15:39] VITALS: BP 172/85; PULSE 75; RESP 18; O2SAT 99
== END 2023-06-08 16:12 | disposition home or self-care (01) ==
PROVIDERS: Student in an Organized Health Care Education/Training Program; Emergency Provider Emergency Medicine; PCP Family Medicine
DX: R10.10 Upper abdominal pain, unspecified (principal); F41.9 Anxiety disorder, unspecified; I10 Essential (primary) hypertension; E11.9 Type 2 diabetes mellitus without complications; E78.5 Hyperlipidemia, unspecified; I25.10 Atherosclerotic heart disease of native coronary artery without angina pectoris; J44.9 Chronic obstructive pulmonary disease, unspecified
CPT/HCPCS: 36415; 74177; 80053; 81003; 83690; 85025; 96361; 96374; 96375; 99284; J2405; J7030; Q9967

== ENCOUNTER 2023-07-12 18:28 | Emergency (ER) | payer OTHER, SELFPAY ==
[2023-07-12 18:35] VITALS: BP 183/86; PULSE 96; RESP 18; TEMP 36.3; O2SAT 100
--- NOTE | 2023-07-12 19:04 | PC.NURSE ---
patient ambulatory to desk and stated she was leaving at this time. informed to come back if symptoms get worse.
== END 2023-07-12 19:04 | disposition left against medical advice (07) ==
PROVIDERS: PCP Family Medicine
DX: R51.9 Headache, unspecified (principal)
CPT/HCPCS: 99199

== ENCOUNTER 2023-12-06 06:39 | Emergency (ER) | payer OTHER, SELFPAY ==
[2023-12-06 06:41] VITALS: BP 151/88; PULSE 87; RESP 16; TEMP 36.6; O2SAT 99
[2023-12-06 07:00] LABS: Appearance Urine Clear (Clear); Bilirubin Urine Negative (Negative); Blood Urine Negative (Negative); Color Urine Yellow (Yellow); Glucose Urine UA 1+ mg/dL (Negative); Ketones Urine Negative (Negative); Leukocyte Esterase Ur Negative LEU/UL (Negative); Nitrate Urine Negative (Negative); Protein Urine Negative (Negative); Specific Grav Ur 1.013 (1.001-1.035); Urobilinogen Urine 0.2 mg/dL (<2.0); pH Urine 7.5 (5.0-9.0)
[2023-12-06 07:03] LABS: Add Urine Microscopic? NO
--- NOTE | 2023-12-06 07:10 | ED.ABDPAIN ---
HPI - Abdominal Pain General Chief Complaint: Abdominal Pain Stated Complaint: UTI or kidney infection Time Seen by Provider: 12/06/23 06:59 History of Present Illness HPI narrative: Patient is a 48-year-old female with a history of common variable immunodeficiency, chronic pancreatitis presenting with urinary frequency. Patient states that she was up all night last night due to frequent urination. She denies dysuria or hematuria. No vaginal discharge or irritation. States that she has had a hysterectomy. Complains of mild suprapubic and right lower abdominal pain. Complains of chronic nausea, no vomiting. No further complaints. Related Data Home Medications Medication Instructions Recorded Confirmed atorvastatin 40 mg tablet 40 mg PO DAILY 01/23/22 08/29/23 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 meter,continuous 01/23/22 08/29/23 ([employer] G6 [employer]) budesonide-formoterol HFA 160 1 inh inhalation ONCE 01/23/22 08/29/23 mcg-4.5 mcg/actuation aerosol inhaler (Symbicort) cholecalciferol (vitamin D3) 50 50 mcg PO DAILY 01/23/22 08/29/23 mcg (2,000 unit) capsule (Vitamin D3) cyanocobalamin (vitamin B-12) 1,000 mcg sublingual DAILY 01/23/22 08/29/23 1,000 mcg sublingual tablet hydrochlorothiazide 25 mg tablet 25 mg PO DAILY 01/23/22 08/29/23 metformin 500 mg tablet,extended 1,000 mg PO BID 01/23/22 08/29/23 release 24 hr albuterol sulfate 2.5 mg/3 mL 1 ml inhalation Q4H 03/13/22 08/29/23 (0.083 %) solution for nebulization albuterol sulfate 90 mcg/actuation 1 inh inhalation PRN 03/13/22 08/29/23 aerosol inhaler amlodipine 10 mg tablet (Norvasc) 10 mg PO DAILY 03/13/22 08/29/23 aspirin 81 mg tablet,delayed 81 mg PO DAILY 03/13/22 08/29/23 release famotidine 40 mg tablet 1 tablet PO DAILY 03/13/22 08/29/23 fenofibrate 160 mg tablet 1 tablet PO DAILY 03/13/22 08/29/23 insulin lispro 100 unit/mL 15 sliding scale dose subcut AC 03/13/22 06/05/23 subcutaneous pen ipratropium bromide 0.02 % 1 ml inhalation Q2H 03/13/22 08/29/23 solution for inhalation montelukast 10 mg tablet 1 tablet PO DAILY 03/13/22 08/29/23 pantoprazole 40 mg tablet,delayed 40 mg PO QAM 03/13/22 08/29/23 release (Protonix) tramadol 50 mg tablet 1 tablet PO PRN 03/13/22 08/29/23 prednisolone sodium phosphate 30 60 mg PO DAILY 06/05/23 08/29/23 mg disintegrating tablet cetirizine 10 mg capsule (Zyrtec) 10 mg PO BID 08/29/23 08/29/23 insulin glargine 100 unit/mL (3 20 unit subcut .sliding scale 08/29/23 08/29/23 mL) subcutaneous pen (Lantus Solostar U-100 Insulin) Allergies Allergy/AdvReac Type Severity Reaction Status Date / Time phenazopyridine Allergy Severe Anaphylactic Verified 12/06/23 07:11 Shock prochlorperazine Allergy Severe BODY Verified 12/06/23 07:11 [From Compazine] BRIGHT RED/HOT, DIFFICULTY BREATHING sulfamethoxazole Allergy Mild HEADACHES Verified 12/06/23 07:11 AND NOSEBLEEDS trimethoprim Allergy Mild HEADACHES Verified 12/06/23 07:11 AND NOSEBLEEDS Review of Systems Review of Systems: All systems reviewed & are unremarkable except as noted in HPI and below PMFSH Past Medical History Medical History Asthma Bronchitis CAD (coronary artery disease) Common variable immunodeficiency COPD (chronic obstructive pulmonary disease) home o2 at night Diabetes type 2, controlled Fatty liver GERD (gastroesophageal reflux disease) Headache High cholesterol History of hypertension Overweight (BMI 25.0-29.9) Screening mammogram, encounter for Stomach ulcer Surgical History Surgical History H/O: hysterectomy (03/21/22) RATLH w/ salpingectomy History of tonsillectomy Family History Family History Father Asthma Hypertension Diabetes mellitus Sibling Asthma Hypertension sister and brother
[2023-12-06 07:13] LABS: Basophils Absolute Auto 0.1 K/mm3 (0.0-0.1); Basophils Percent Auto 1.1 % (0.2-1.2); Eosinophils Absolute Auto 0.4 K/mm3 (0-0.3); Eosinophils Percent Auto 7.6 % (0-4.4); Hematocrit 43.2 % (37.0-47.0); Hemoglobin 13.6 g/dL (12.0-15.0); Immature Granulocyte Absolute 0.05 K/mm3 (0.00-0.031); Immature Granulocyte Percent A 0.9 % (0-0.5); Lymphocytes Absolute Auto 2.22 K/mm3 (0.9-3.2); Lymphocytes Percent Auto 39.9 % (18.3-44.2); Mean Corpuscular HGB Conc 31.5 g/dl (32-36); Mean Corpuscular Volume 85.9 fl (80-100); Mean Platelet Volume 10.9 fl (7.4-10.4); Monocytes Absolute Auto 0.5 K/mm3 (0.1-0.6); Monocytes Percent Auto 8.3 % (2.6-8.5); Neutrophils Absolute Auto 2.4 K/mm3 (1.3-6.7); Neutrophils Percent Auto 42.2 % (45.5-73.1); Platelet Count Result 378 k/mm3 (150-375); Red Blood Count 5.03 M/mm3 (4.2-5.4); Red Cell Distribution Width 13.9 % (11.5-14.5); White Blood Count 5.6 K/mm3 (4.5-10.0)
[2023-12-06 07:27] LABS: Alanine Aminotransferase 58 U/L (6-35); Albumin Level 5.3 g/dL (3.5-5.1); Alkaline Phosphatase 52 U/L (38-126); Anion Gap 9 mmol/L (8-16); Aspartate Amino Transferase 35 U/L (14-36); Bilirubin,Total 0.5 mg/dL (0.2-1.3); Blood Urea Nitrogen 15 mg/dL (7-17); Calcium 10.1 mg/dL (8.4-10.2); Carbon Dioxide 27 mmol/L (22-30); Chloride 103 mmol/L (98-107); Estimated CRCL calculation 77 ml/min; Estimated Glomerular Filt Rate > 60; Glucose 226 mg/dL (65-110); Sodium 139 mmol/L (137-145)
[2023-12-06 08:47] VITALS: BP 130/88; PULSE 80; RESP 14; O2SAT 98
== END 2023-12-06 08:48 | disposition home or self-care (01) ==
PROVIDERS: Student in an Organized Health Care Education/Training Program; Emergency Provider Emergency Medicine; PCP Family Medicine
DX: R35.0 Frequency of micturition (principal); D83.9 Common variable immunodeficiency, unspecified; J44.9 Chronic obstructive pulmonary disease, unspecified; I10 Essential (primary) hypertension; E11.9 Type 2 diabetes mellitus without complications; E78.00 Pure hypercholesterolemia, unspecified; E66.3 Overweight; K86.1 Other chronic pancreatitis; K21.9 Gastro-esophageal reflux disease without esophagitis; Z68.30 Body mass index [BMI] 30.0-30.9, adult; Z90.710 Acquired absence of both cervix and uterus; Z79.82 Long term (current) use of aspirin; Z79.4 Long term (current) use of insulin
CPT/HCPCS: 36415; 80053; 81003; 81025; 85025; 99283

== ENCOUNTER 2025-03-26 08:55 | Outpatient (CLI) | payer OTHER, SELFPAY ==
--- NOTE | ~2025-03-26 | XR_ITS ---
MODIFIED ESOPHAGRAM HISTORY: Orolaryngeal dysphagia TECHNIQUE: Modified barium esophagram was performed on 03/26/2025. I administered fluoroscopy and perf ormed the exam with speech pathologist. Patient was seated for lateral fluoroscopic imaging for jesenia stion of thin liquids, pudding, solids and quantified amounts, followed by thin liquids in uncontroll ed amounts. This was recorded on tape. A single fluoroscopic spot image was also recorded. The DAP fo r this procedure was 0.815 Gycm2. The amount of fluoroscopy time used during this procedure was 1 min utes. FINDINGS: Oral stage: Adequate function. Pharyngeal stage: Adequate function. Cervical/esophageal stage: Adequate function. IMPRESSION: Patient tolerated regular consistency oral feedings in the upright position. Please jaime elate with speech pathologist findings and specific feeding recommendations. Reviewed, dictated and finalized at location A. IMPRESSION: Patient tolerated regular consistency oral feedings in the upright position. Please correlate with speech pathologist findings and specific feedi ng recommendations.
--- OUTSIDE RECORDS SUMMARY | 2025-03-26 09:00 | XMS_ITS | Clinical Summary ---
Author Organization [facility] Address [address] [place] [address] Phone Care Team Providers Care Pest Management Supervisor Name Role Phone Tez Raya MD Primary Care Provider [phone] Allergies Active Allergy Reactions Criticality Noted Date Comments Aspirin Unknown 07/31/2017 Prochlorperazine Anxiety 07/23/2021 Phenazopyridine Hcl Unknown 07/02/2019 Sulfamethoxazole-Trimethoprim Unknown 2016 Medications montelukast (SINGULAIR) 10 MG Tablet Take 10 mg by mouth every evening. Active predniSONE (DELTASONE) 10 MG Tablet Take 30 mg by mouth daily. Active fenofibrate 160 MG Tablet Take 160 mg by mouth daily. Active hydroCHLOROthia zide 12.5 MG Tablet Take 25 mg by mouth daily. Active amLODIPine (NORVASC) 10 MG Tablet Take 10 mg by mouth daily. Active ipratropium (ATROVENT) 0.03 % Solution 2 Sprays by Nasal route every 12 hours. Active albuterol (VENTOLIN HFA) 108 (90 Base) MCG/ACT Aerosol Solution take 2 Puffs by inhalation every 4 hours as needed for Wheezing. Active albuterol (PROVENTIL, VENTOLIN) (2.5 MG/3ML) 0.083% Nebulizer Soln 2.5 mg by Nebulization route. Active fluticasone-ayo meterol (ADVAIR) 500-50 MCG/DOSE AEROSOL POWDER, BREATH ACTIVATED take 1 Puff by inhalation 2 times daily. Active ascorbic acid (ASCORBIC ACID) 500 MG Tablet Take 500 mg by mouth daily. Active Hydrocodone-Chl orpheniramine 5-4 MG/5ML Solution Take by mouth. Activ e atorvastatin (LIPITOR) 40 MG Tablet Take 40 mg by mouth daily. Active metFORMIN (GLUCOPHAGE) 500 MG Tablet Take 2 Tabs by mouth 2 times daily (with meals). 180 Tab 7 Active Lancets Misc Test twice daily 200 Lancet 3 7 Active Blood Glucose Monitoring Suppl Device Diagnosis: Diabetes type 2 Blood testing frequency: twice a day 200 Each 3 8 Active lisinopril (PRINIVIL, ZESTRIL) 20 MG Tablet TAKE 1 TABLET BY MOUTH EVERY DAY 90 Tab 8 Active Additional Information Patient taking differently: 2.5 mg Oral DAILY, Reported on 08/05/2021 SYMBICORT 160-4.5 MCG/ACT Aerosol 9 Active Glucose Blood (ONE TOUCH ULTRA TEST) Strip Test three times daily. 300 Strip 3 9 Active insulin glargine (LANTUS SOLOSTAR) 100 UNIT/ML Solution Pen-injector 16 Units by Subcutaneous route every morning. 15 mL 3 0 Active Additional Information Patient taking differently:16 Units Subcutaneous EVERY MORNING,Indications: sliding scale, Reported on 08/05/2021 Insulin Pen Needle (PEN NEEDLES) 32G X 5 MM Misc 4 times a day 400 Each 3 0 Active LORazepam (ATIVAN) 1 MG Tablet Take 1 Tab by mouth every 8 hours as needed for Anxiety. 12 Tab 1 Active glimepiride (AMARYL) 4 MG Tablet Take 4 mg by mouth every morning. Active nitroGLYCERIN (NITROSTAT) 0.4 MG SL Tablet 0.4 mg by Sublingual route as needed. 0 Active cetirizine (ZyrTEC Allergy) 10 MG Tablet Take 10 mg by mouth daily. Active glimepiride (AMARYL) 2 MG TabletIndicatio ns:may add a second 2mg for elevated blood sugar Take 2 mg by mouth nightly. Indications: may add a second 2mg for elevated blood sugar Active famotidine (Pepcid) 20 MG Tablet Take 40 mg by mouth 2 times daily. Active pantoprazole (PROTONIX) 40 MG Tablet Delayed Response Take 40 mg by mouth daily. Active Active Problems Problem Noted Date Diagnosed Date Type 2 diabetes mellitus wit hout complication, with long-term current use of insulin 05/07/2019 Class 1 obesity due to exces s calories with serious comorbidity and body mass index (BMI) of 31.0 to 31.9 in adult 05/07/2019 Current use of steroid medication 05/07/2019 Uncontrolled type 2 diabetes mellitus with hyper glycemia 2019 Family History Medical History Relation Name Comments Cancer Father Diabetes Father Heart Disease Father High Cholesterol Father Diabetes Mother High Cholesterol Mother Hypertension Mother Relation Name Status Comments Father Mother Alive Social History Tobacco Use Types Packs/Day Years Used Date Smoking Tobacco: Never Smokeless Tobacco: Never Tobacco Cessation:Counseling Given: No Alcohol Use Standard Drinks/Week Comments No 0 (1 standard drink = 0.6 oz pur e alcohol) Sexually Active Control Partners Comments Never Comments No Sex and Gender Information Value Date Recorded Sex Assigned at Not on file Legal Sex Female 1:17 PM CDT Gender Identity Not on file Sexual Orientation Not on file Last Filed Vital Signs Vital Sign Reading Time Taken Comments Blood Pressure 162/86 11/04/2022 12:22 PM VOCATIONAL EDUCATION TEACHER Pulse 87 11/04/2022 12:22 PM VOCATIONAL EDUCATION TEACHER Temperature 36.4 C (97.6 F) 11/04/2022 12:22 PM VOCATIONAL EDUCATION TEACHER Respiratory Rate 19 11/04/2022 12:22 PM VOCATIONAL EDUCATION TEACHER Oxygen Saturation 99% 11/04/2022 12:22 PM VOCATIONAL EDUCATION TEACHER Inhaled Oxygen Concentration - - Weight 77.1 kg (170 lb) 11/04/2022 12:22 PM VOCATIONAL EDUCATION TEACHER Height 160 cm (5' 3) 11/04/2022 12:22 PM VOCATIONAL EDUCATION TEACHER Body Mass Index 30.11 11/04/2022 12:22 PM VOCATIONAL EDUCATION TEACHER Plan of Treatment Health Maintenance Due Date Last Done Comments Diabetes: Foot Exam 1975 Hepatitis C Virus (HCV) Screening 1975 Mammogram 1975 Hepatitis B Immunization (1 of 3 - 19+ 3-dose series) 01/12/1995 Pap Smear 01/12/1997 Cervical Cancer Screening (CCS) 01/12/2006 HPV/Cotest 01/12/2006 Discussion re Starting/Frequency of Mammograms 2016 Diabetes: Eye Exam 08/28/2018 08/28/2017 Cologuard 01/12/2021 Colonoscopy 01/12/2021 Colorectal Cancer Screening 01/12/2021 Immunochemical Fecal Occult Blood 01/12/2021 Diabetes: Hemoglobin A1c 06/27/2023 023, 06/07/2022, 02/01/2022, Additional history exists Diabetes: Nephropathy Screening 04/04/2024 04/04/2023, 12/25/2022, 02/09/2022, Additional history exists SARS-COV-2 Immunization ( season) 2024 07/17/2021, 01/14/2021, 12/17/2020 Influenza Immunization (Season Ended) 2025 10/17/2021, 07/19/2020, 07/29/2019, Additional history exists Pneumococcal Immunization Combined (3 of 3 - PCV20 or PCV21) 01/12/2026 03/29/2020, 03/14/2015, 06/24/2013, Additional history exists Respiratory Syncytial Virus (RSV) Immunization (Adult) (1 - 1-dose 75+ series) 01/12/2051 DTaP/Tdap/Td Immunization Discontinued 04/06/2015 TdaP Immunization Completed 04/06/2015 Human Papillomavirus (HPV) Immunization Aged Out No longer eligible based on patient's age to complete this topic Meningococcal Immunization (ACWY) Aged Out No longer eligible based on patient's age to complete this topic Rotavirus Immunization Aged Out No lo nger eligible based on patient's age to complete this topic Procedures Procedure Name Priority Date/Time Associated Diagnosis Comments CMP (COMPREHENSIVE METABOLIC PANEL) 04/04/2023 12:00 AM CDT HEMOGLOBIN, A1C 12/25/2022 12:00 AM CDT from Last 3 Months or Most Recently Relevant to Health Maintenance Results * CMP (COMPREHENSIVE METABOLIC PANEL) (04/04/2023 12:00 AM CDT) 04/04/2023 us Provider Scan CHEMISTRY ORDERABLES Final Resul t SCAN * HEMOGLOBIN, A1C (12/25/2022 12:00 AM CDT) HGB-A1C 9 % SCAN 12/25/2022 us Provider Scan CHEMISTRY ORDERABLES Final Resul t SCAN from Last 3 Months or Most Recently Relevant to Health Maintenance Insurance MEDICAID [facility] Care Teams Pest Management Supervisor Relationship Specialty Start Date End Date Tez Raya MD [facility] [place] [address] PCP - General Utility Division Project Manager 07/23/21
--- OUTSIDE RECORDS SUMMARY | 2025-03-26 09:01 | XMS_ITS | Data Portability ---
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 Plan of Treatment Reminders Order Date Submit Date Provider Last Modified By Organization Details Last Modified Time Details Appointments None recorded. Lab hemoglobin A1C, fingerstic k 2024 025 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 Thank you, may have esophageal strictures ? Please call patient to schedule an appointmen t. Thank you. 2024 025 [facility], [address], [address], [place], [address], 5 11:15:29 Procedures None recorded. Surgeries None recorded. Imaging MAMMO, screening, digital, bilateral 2024 025 [facility], [address], [address], [place], [address], 5 14:23:00 Medication Orders promethazi ne-DM 6.25 mg-15 mg/5 mL oral syrup 2024 025 [facility][id number], [address], [place], [id number], 5 09:17:28 nitroglyce rin 0.4 mg sublingual tablet 2024 [facility]66, [address], [place], [id number], 5 09:15:11 acetaminop hen 300 mg-codeine 30 mg tablet 2024 [facility] #84759, [address], [place], [id number], 5 09:15:13 hydrochlor othiazide 25 mg tablet 2024 [facility]48703, [address], [place], [id number], 5 09:15:16 fenofibrat e 160 mg tablet 2024 [facility]46287, [address], [place], [id number], 5 16:13:11 fluticason e propionate 50 mcg/actuat ion nasal spray,susp ension [email or web address] [facility]99528, [address], [place], [id number], 5 13:12:44 lorazepam 1 mg tablet 2024 [facility]34084, [address], [place], [id number], 5 16:23:22 Humalog KwikPen (U-100) Insulin 100 unit/mL [facility] 20[facility] #59680, [address], [place], [id number], 5 16:32:41 pantoprazo le 40 mg tablet,del ayed release 2024 [facility] #81176, [address], [place], [id number], 5 16:59:33 amoxicilli n 875 mg-potassi um clavulanat e 125 mg tablet 2024 [facility] #37106, [address], [place], [id number], 5 16:23:21 prednisone 20 mg tablet 2024 [facility] #61924, [address], [place], [id number], 5 16:26:35 prednisone 20 mg tablet 2024 [facility] #29990, [address], [place], [id number], 5 10:47:23 azithromyc in 250 mg tablet 2024 [facility] #38357, [address], [place], [id number], 5 10:47:23 promethazi ne-DM 6.25 mg-15 mg/5 mL oral syrup 2024 [facility] #05330, [address], [place], [id number], 5 10:47:59 amoxicilli n 875 mg-potassi um clavulanat e 125 mg tablet 2024 025 [facility] #25031, [address], [place], [id number], 5 12:36:12 Depo-Medro l 80 mg/mL suspension for injection 2024 [email or web address] Not available 11:30:50 prednisone 20 mg tablet 2024 025 [facility] #46120, [address], [place], [id number], 5 11:02:04 erythromyc in 5 mg/gram (0.5 %) eye ointment 2024 [facility] #25559, [address], [place], [id number], 5 11:00:57 ofloxacin 0.3 % eye drops 2024 025 [facility] #59974, [address], [place], [id number], 5 11:00:55 ofloxacin 0.3 % eye drops 2024 025 [facility] #43642, [address], [place], [id number], 5 12:39:45 Pataday Once Daily Relief 0.2 % eye drops 2024 025 [facility] #28727, [address], [place], [id number], 5 12:41:53 Patient TargetsNo targets recorded. 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 Thank you, may have esophageal strictures? Please call patient to schedule an appointment. Thank you. Referring Physician: Gary Cade, Family Medicine, Encounter Date: 12/25/2024 Results Created Date Observation Date Name Description Value Unit Range Abnormal Flag Note LastModifiedBy Organization Detail LastModifiedTime 12/24/19 25 12/22/2024 imagi ng/di agnos tic resul t No observ ation record ed. [facility] [address] [place], [address], 12/23/2024 00:50:31 Result Notes None recorded. Problems Name Problem SNOMED Code Status Onset Date Resolution Date Notes Provider Name and Address Organization Details Recorded Time Hyperchol esterolem ia 32408849 Active 2020 Not Available [facility] 4 18:49:51 Asthma 373387493 Active 2020 Not Available [facility] 4 18:49:51 Steatotic liver disease 519009469 Active Not Available [facility] 4 18:49:51 Immunodef iciency disorder 876353613 Active 2020 getting infusions CHRISTIANO Peñaloza [address] [facility], [facility] [address], [place], [address] , [facility] [employer] [facility] 4 13:02:44 Mixed hyperlipi demia 926628208 Active 2021 Not Available [facility] 4 18:49:51 Occlusion of artery 3640122 Active 2020 Not Available [facility] 4 18:49:51 Bronchiti s 76957614 Active 2020 Not Available [facility] 4 18:49:51 Hypertens choco disorder 87621272 Active 2020 Not Available [facility] 4 18:49:51 Nausea 169786764 Active Not Available [facility] 4 18:49:52 Uncontrol led type 2 diabetes mellitus 758314180 Active 2021 Not Available [facility] 4 18:49:52 Derangeme nt of knee 01540560 Active Not Available [facility] 4 18:49:52 Diabetes mellitus 28829303 Active 2020 Not Available [facility] 4 18:49:52 Pancreati tis 97114859 Active 2020 Not Available [facility] 4 18:49:52 Fissure in skin 96327511 Active 2022 Not Available [facility] 4 18:49:52 Foot callus 023662694 Active 2022 Not Available [facility] 4 18:49:51 Pain in right foot 30429782230 9107 Active 2022 Not Available [facility] 4 18:49:51 Pain in both feet 53513677390 684058 Active 2022 Not Available [facility] 4 18:49:51 Vitamin B12 deficienc y (non anemic) 03838759 Active 2022 Not Available [facility] 4 18:49:52 Chronic back pain 678015206 Active 2022 Not Available [facility] 4 18:49:51 Psoriasis 7100260 Active 2022 Not Available [facility] 4 18:49:52 Anxiety disorder 598378170 Active 2022 Not Available [facility] 4 18:49:51 Persisten t cough 471249090 Active 2022 Not Available [facility] 4 18:49:51 Anxiety 37720904 Active 2022 Not Available [facility] 4 18:49:52 Left upper quadrant pain 770023175 Active 2022 Not Available [facility] 4 18:49:51 Acute sinusitis 70072886 Active 2022 Not Available [facility] 4 18:49:51 Type 2 diabetes mellitus without complicat ion 494038156 Active 2022 Not Available [facility] 4 18:49:51 Well controlle d type 2 diabetes mellitus 913772611 Active 2022 Not Available [facility] 4 18:49:52 Exocrine pancreati c insuffici ency 39999819 Active 2022 Not Available [facility] 4 18:49:52 Spasm of back muscles 816116862 Active 2022 Not Available [facility] 4 18:49:51 Epigastri c pain 86317042 Active 2022 Not Available [facility] 4 18:49:52 Cobalamin deficienc y 208368771 Active 2022 Not Available [facility] 4 18:49:51 Chronic sinusitis 42922667 Active 2022 Not Available [facility] 4 18:49:51 Migraine 40166436 Active 2022 Not Available [facility] 4 18:49:51 Acute conjuncti vitis 30089949 Active 2022 Not Available [facility] 4 18:49:52 Cough 65314408 Active 2022 Not Available [facility] 4 18:49:52 Acute right otitis media 701262220 Active 2023 Not Available [facility] 4 18:49:51 Diverticu litis of colon 050263999 Active 2023 CHRISTIANO Peñaloza [address], [address], [place], [address] , [employer] 4 10:10:45 Pain of right calf 96112862419 46159 Active 2023 CHRISTIANO Peñaloza [address], [address], [place], [address] , [employer] 4 12:10:25 Angina pectoris 722220327 Active 2023 CHRISTIANO Peñaloza [address], [address], [place], [address] , [employer] 4 11:16:40 Hypertrig lyceridem ia 634621120 Active 2023 CHRISTIANO Peñaloza [address], [address], [place], [address] , [facility] [employer] [facility] 4 09:19:06 Sinusitis 04887785 Active 2023 CHRISTIANO Peñaloza [address], [address], [place], [address] , [facility] [employer] [facility] [employer] [facility] 4 12:15:33 Adult health examinati on Active 2023 CHRISTIANO Peñaloza [address], [address], [place], [address] , [facility] [employer] [facility] [employer] [facility] 4 11:27:33 Allergic rhinitis 08947348 Active 2023 CHRISTIANO Peñaloza [address], [address], [place], [address] , [facility] [employer] [facility] 4 11:28:02 Gastroeso phageal reflux disease 317385859 Active 2023 Tran Tillman RN null, [facility] [employer] [facility] 4 14:28:50 Diverticu litis 689118535 Active 2023 CHRISTIANO Peñaloza [address], [address], [place], [address] , [facility] [employer] [facility] 4 13:03:13 Gastropar esis syndrome 046909696 Active 2023 CHRISTIANO Peñaloza [address], [address], [place], [address] , [facility] [employer] [facility] 4 13:08:58 Nausea and vomiting 51443211 Active 2023 Fanta Delarosa RN null, [facility] 4 15:13:43 Conjuncti vitis 0313918 Active 2024 CHRISTIANO Peñaloza [address], [address], [place], [address] , [employer] 5 12:38:51 Choking sensation 918134197 Active 2024 CHRISTIANO Peñaloza [address], [address], [place], [address] , [employer] 5 10:43:27 Screening mammograp hy Active 2024 CHRISTIANO Peñaloza [address], [address], [place], [address] , [facility] 5 10:50:45 Notes:Some problems listed i n Documents: #[id number], #[id number] could not be added to this patient's chart. Please review these documents and add these problems to the patient's chart manually as needed. Problem Notes None recorded. Procedures Surgical History Date Name Laterality Status Provider Name and Address Organization Details Recorded Time 02/27/20 23 Callus Debridement 2-4 completed Ed Bishop DPM [address], [place], [address], [employer] 02/26/2023 17:53:24 12/14/19 23 Callus Debridement 2-4 completed Ed Bishop DPM [address], [address], [place], [address], [employer] 12/13/2022 16:54:54 Tonsillectomy completed Not Available [facility] 12/12/2022 02:42:04 Imaging Results None recorded. Procedure Notes None recorded. Medical Equipment None Reported. Allergies Allergen ID Allergen Name Allergen Category Reaction Reaction Severity Criticality Documentation Date Start Date Code Code System Note Provider Name and Address Organization Details Recorded Time 4005 sulfameth oxazole / trimethop rim medicatio n Not available Not available Not available 12/12/2022 69465 RxNorm Not Available [facility] 02:51:50 4006 ibuprofen medicatio n Not available Not available Not available 12/12/2022 5640 RxNorm Tez Raya MD [address], [address], [place], [address], [employer] [facility] 3 06:26:56 4007 Compazine medicatio n Not available Not available Not available 12/12/202235544 6 RxNorm Not Available [facility] 3 02:51:50 4008 aspirin medicatio n Not available Not available Not available 12/12/2022 1191 RxNorm Not Available [facility] 3 02:51:50 13760 tomato allergeni c extract food Not available Not available Not available 12/31/2023 42964 9 RxNorm CHRISTIANO Peñaloza [address] [facility], [address], [place], [address] [place] [address] - [facility] [employer] 4 10:47:12 Medications Name Sig Start Date Stop Date Status Note LastModified by Organization Details LastModified Time Prescript ion - Renewal active Not Available Not Available Not Available cyclobenz aprine 10 mg tablet TAKE 1 TABLET BY MOUTH DAILY AT BEDTIME NEEDED FOR MUSCLE SPASMS active Not Available Not Available No t Available amoxicill in 500 mg capsule 12/17 completed Not Available Not Available Not Available pioglitaz one 15 mg tablet TK 1 T PO QD 01/11 completed Not Available Not Available Not Available atorvasta tin 40 mg tablet TAKE 1 TABLET BY MOUTH ONCE DAILY active Not Available Not Available No t Available Qvar 80 mcg/actua tion Metered Aerosol oral inhaler INHALE 2 PUFFS PO BID 01/11 completed Not Available Not Available Not Available promethaz ine-DM 6.25 mg-15 mg/5 mL oral syrup TAKE 5 ML BY MOUTH EVERY 4 HOURS FOR 10 DAYS NEEDED active Not Available Not Available No t Available prednison e 10 mg tablet TAKE 3 TABLETS BY MOUTH ONCE DAILY. DO NOT TAKE WHILE TAKING 40MG BEFORE IVIG INFUSION active Not Available Not Available No t Available doxycycli ne hyclate 100 mg capsule Take 1 capsule twice a day by oral route. active Not Available Not Available No t Available clindamyc in HCl 300 mg capsule Take 1 capsule every 6 hours by oral route for 10 days. active Not Available Not Available No t Available albuterol sulfate 2.5 mg/3 mL (0.083 %) solution for nebulizat ion USE 3 ML VIA NEBULIZE R EVERY 4 HOURS NEEDED FOR WHEEZING OR SHORTNES S OF BREATH active Not Available Not Available No t Available ammonium lactate 12 % lotion APPY TO THE AFFECTED AREA ONCE DAILY NEEDED FOR DRY SKIN active Not Available Not Available No t Available cetirizin e 10 mg tablet TAKE 1 TABLET BY MOUTH THREE TIMES DAILY active Not Available Not Available No t Available azithromy john 250 mg tablet TAKE 2 TABLETS BY MOUTH FOR 1 DAY THEN TAKE 1 TABLET BY MOUTH DAILY FOR 4 DAYS active Not Available Not Available No t Available cetirizin e 5 mg tablet TK 1 T PO BID active Not Available Not Available No t Available ibuprofen 800 mg tablet TAKE 1 TABLET BY MOUTH THREE TIMES DAILY active Not Available Not Available No t Available Glucagon Emergency Kit 1 mg solution for injection INJECT 1 MG UNDER THE SKIN PRN 12/30 completed Not Available Not Available Not Available ofloxacin 0.3 % eye drops INSTILL 1 DROP INTO THE AFFECTED LEFT EYE FOUR TIMES DAILY active Not Available Not Available No t Available theophyll ine ER 400 mg tablet,ex tended release 24 hr 01/11 completed Not Available Not Available Not Available fluconazo le 150 mg tablet TK 1 T PO ONCE 1 DOSE 01/11 completed Not Available Not Available Not Available benzonata te 200 mg capsule TAKE 1 CAPSULE BY MOUTH THREE TIMES DAILY NEEDED active Not Available Not Available No t Available metoprolo l succinate ER 50 mg tablet,ex tended release 24 hr TAKE 1 TABLET BY MOUTH EVERY EVENING 09/16 completed Not Available Not Available Not Available ketotifen 0.025 % (0.035 %) eye drops APPLY 2 DROPS INTO BOTH EYES EVERY DAY active Not Available Not Available No t Available hydrocodo ne 5 mg-acetam inophen 325 mg tablet 08/16 completed Not Available Not Available Not Available ondansetr on HCl 8 mg tablet TAKE 1 TABLET BY MOUTH EVERY 8 HOURS NEEDED 06/13 completed Not Available Not Available Not Available sucralfat e 1 gram tablet TAKE 1 TABLET BY MOUTH FOUR TIMES DAILY BEFORE MEALS active Not Available Not Available No t Available lisinopri l 20 mg tablet TK 1 T PO QD 01/11 completed Not Available Not Available Not Available famotidin e 40 mg tablet TAKE 1 TABLET BY MOUTH TWICE DAILY active Not Available Not Available No t Available prednison e 20 mg tablet Take 2 tabs PO twice daily for 2 days; 1 tab PO twice daily for 5 days; 1/2 tab PO twice daily for 2 days; 1/2 tab PO once for 1 day. TAKE 2ND DOSE EVERYDAY AT NOON-10 DAY COURSE active Not Available Not Available No t Available prednison e 5 mg tablet TAKE 1 TABLET BY MOUTH DAILY active Not Available Not Available No t Available terconazo le 0.8 % vaginal cream INSERT 1 APL VAGINALL Y QD FOR 3 DAYS 01/11 completed Not Available Not Available Not Available clobetaso l 0.05 % topical cream APPLY A THIN LAYER TO THE AFFECTED AREA(S) TOPICALL Y TWICE DAILY FOR 10 DAYS 12/30 completed Not Available Not Available Not Available clindamyc in HCl 150 mg capsule 08/16 completed Not Available Not Available Not Available penicilli n V potassium 500 mg tablet TK 1 T PO BID FOR 10 DAYS UTD 01/11 completed Not Available Not Available Not Available acetamino phen 300 mg-codein e 30 mg tablet TAKE 1 TABLET BY MOUTH THREE TIMES DAILY NEEDED active Not Available Not Available No t Available ciproflox acin 500 mg tablet TAKE 1 TABLET BY MOUTH EVERY 12 HOURS FOR 10 DAYS 11/18 completed Not Available Not Available Not Available folic acid 400 mcg tablet TAKE 1 TABLET BY MOUTH EVERY MORNING active Not Available Not Available No t Available omeprazol e 40 mg capsule,d elayed release TAKE 1 CAPSULE BY MOUTH TWICE DAILY active Not Available Not Available No t Available tramadol 50 mg tablet TAKE 1 TO 2 TABLETS BY MOUTH EVERY 8 HOURS 12/04 completed headache s Not Available Not Available Not Available triamcino lone acetonide 0.1 % topical cream APPLY TOPICALL Y TO THE AFFECTED AREA TWICE DAILY FOR 14 DAYS DIRECTED active Not Available Not Available No t Available simvastat in 40 mg tablet TK 1 T PO QD 11/14 completed Not Available Not Available Not Available glimepiri de 2 mg tablet TAKE 1 TABLET BY MOUTH EVERY DAY IN THE MORNING WITH FOOD 03/19 completed on 4 mg Not Available Not Available Not Available ondansetr on 8 mg disintegr ating tablet DISSOLVE 1 TABLET ON THE TONGUE EVERY 8 HOURS NEEDED FOR NAUSEA active Not Available Not Available No t Available theophyll ine ER 300 mg tablet,ex tended release,1 2 hr 06/13 completed Not Available Not Available Not Available Depo-Medr ol 80 mg/mL suspensio n for injection Take 1 mL by injectio n route. 02/05/ 2025 active Not Available Not Available Not Avai lable glimepiri de 1 mg tablet TK 1 T PO D active Not Available Not Available No t Available famotidin e 20 mg tablet TK 2 TS PO BID 06/13 completed Not Available Not Available Not Available metoclopr amide 5 mg tablet TAKE 1 TABLET BY MOUTH FOUR TIMES DAILY 01/27 completed dose adjustme nt Not Available Not Available Not Available dicyclomi ne 20 mg tablet TAKE 1 TABLET BY MOUTH FOUR TIMES DAILY NEEDED active Not Available Not Available No t Available OneToDmailer Ultra Test strips USE TO TEST FIVE TIMES DAILY active Not Available Not Available No t Available amitripty line 10 mg tablet TAKE 1 TABLET BY MOUTH EVERY DAY AT BEDTIME active Not Available Not Available No t Available meclizine 25 mg tablet TAKE 1 TABLET BY MOUTH THREE TIMES DAILY NEEDED 06/13 completed Not Available Not Available Not Available amlodipin e 10 mg tablet TAKE 1 TABLET BY MOUTH EVERY DAY active Not Available Not Available No t Available pantopraz ole 40 mg tablet,de layed release TAKE 1 TABLET BY MOUTH TWICE DAILY BEFORE MEALS active Not Available Not Available No t Available erythromy john 5 mg/gram (0.5 %) eye ointment APPLY 1 CM RIBBON INTO THE LOWER CONJUCTI CINDY SAC(S) IN THE AFFECTED EYE(S) EVERY NIGHT AT BEDTIME active Not Available Not Available No t Available oseltamiv ir 75 mg capsule 12/30 completed Not Available Not Available Not Available neomycin- polymyxin -dexameth 3.5 mg/mL-10, 000 unit/mL-0 .1% eye drops SHAKE LIQUID AND INSTILL 1 DROP IN AFFECTED EYE(S) EVERY 3 TO 4 HOURS 12/30 completed Not Available Not Available Not Available ranitidin e 150 mg tablet TK 1 T PO BID 01/11 completed Not Available Not Available Not Available lisinopri l 10 mg tablet Take 1 tablet every day by oral route. 02/14 completed pt states she is not taking this Not Available Not Available Not Available glimepiri de 4 mg tablet TAKE 1 TABLET BY MOUTH TWICE DAILY active Not Available Not Available No t Available hydrochlo rothiazid e 12.5 mg capsule TAKE 1 CAPSULE BY MOUTH EVERY DAY DIRECTED 09/16 completed Not Available Not Available Not Available Advair Diskus 500 mcg-50 mcg/dose powder for inhalatio n INL 1 PUFF PO BID 12/17 completed Not Available Not Available Not Available nitroglyc jo ann 0.4 mg sublingua l tablet DISSOLVE 1 TABLET UNDER THE TONGUE ONCE DAILY active Not Available Not Available No t Available betametha sone dipropion ate 0.05 % topical cream APPLY A THIN LAYER TO THE AFFECTED AREA ON HEELS ONCE DAILY 02/27 completed Not Available Not Available Not Available verapamil ER (SR) 240 mg tablet,ex tended release TAKE 1 TABLET BY MOUTH EVERY DAY 12/30 completed Not Available Not Available Not Available monteluka st 10 mg tablet TAKE 1 TABLET BY MOUTH EVERY DAY active Not Available Not Available No t Available ammonium lactate 12 % topical cream APPLY TOPICALL Y TO THE DRY SKIN NEEDED active Not Available Not Available No t Available codeine 10 mg-guaife nesin 100 mg/5 mL oral liquid TK 10 ML PO Q 4 TO 6 H PRN FOR COUGH 05/12 completed Not Available Not Available Not Available cyanocoba flores (vit B-12) 1,000 mcg sublingua l tablet Place 1 tablet every day by sublingu al route in the morning for 30 days. 07/13 completed Not Available Not Available Not Available lisinopri l 5 mg tablet TK 1 T PO QD active Not Available Not Available No t Available hydrochlo rothiazid e 25 mg tablet TAKE 1 TABLET BY MOUTH EVERY DAY 2024 active Not Available Not Available Not Avai lable lorazepam 1 mg tablet TAKE 1 TABLET BY MOUTH EVERY 8 HOURS NEEDED FOR ANXIETY MUST LAST 30 DAYS active Not Available Not Available No t Available azelastin e 137 mcg (0.1 %) nasal spray SPRAY TWICE IN EACH NOSTRIL TWICE DAILY 12/30 completed Not Available Not Available Not Available epinephri ne 0.3 mg/0.3 mL injection , auto-inje ctor INJECT 1 PEN INTO THE MUSCLE NEEDED FOR ANAPHYLA XIS active Not Available Not Available No t Available levofloxa john 500 mg tablet TAKE 1 TABLET BY MOUTH EVERY 24 HOURS FOR 10 DAYS active Not Available Not Available No t Available levofloxa john 750 mg tablet TAKE 1 TABLET BY MOUTH EVERY DAY 12/30 completed Not Available Not Available Not Available hydrocodo ne 10 mg-chlorp heniramin e 8 mg/5 mL oral susp extend.re l 12hr SHAKE LIQUID AND TAKE 5 ML BY MOUTH EVERY 12 HOURS NEEDED FOR COUGH active Not Available Not Available No t Available albuterol sulfate HFA 90 mcg/actua tion aerosol inhaler INHALE 2 PUFFS BY MOUTH EVERY 4 HOURS NEEDED FOR WHEEZING active Not Available Not Available No t Available ketoconaz ole 2 % topical cream APPLY TO THE AFFECTED AREA(S) heels BY TOPICAL ROUTE ONCE DAILY, 1 week 12/30 completed Not Available Not Available Not Available ondansetr on 4 mg disintegr ating tablet TAKE 1 TABLET BY MOUTH THREE TIMES DAILY NEEDED active Not Available Not Available No t Available cefdinir 300 mg capsule Take 1 capsule every 12 hours by oral route for 14 days. 12/30 completed Not Available Not Available Not Available losartan 100 mg tablet TAKE 1 TABLET BY MOUTH EVERY DAY active Not Available Not Available No t Available fluticaso ne propionat e 50 mcg/actua tion nasal spray,juju pension SHAKE LIQUID AND USE 2 SPRAYS IN EACH NOSTRIL TWICE DAILY active Not Available Not Available No t Available metformin ER 500 mg tablet,ex tended release 24 hr TAKE 2 TABLETS BY MOUTH TWICE DAILY WITH BREAKFAS T AND SUPPER active Not Available Not Available No t Available lisinopri l 2.5 mg tablet TAKE 1 TABLET BY MOUTH THREE TIMES DAILY active Not Available Not Available No t Available doxycycli ne hyclate 100 mg tablet 01/11 completed Not Available Not Available Not Available dicyclomi ne 10 mg capsule 11/02 completed Not Available Not Available Not Available ipratropi um bromide 21 mcg (0.03 %) nasal spray USE 2 SPRAYS IN EACH NOSTRIL FOUR TIMES DAILY NEEDED FOR RHINITIS active Not Available Not Available No t Available ipratropi um bromide 0.02 % solution for inhalatio n USE 1 VIAL VIA NEBULIZE R FOUR TIMES DAILY active Not Available Not Available No t Available metoclopr amide 10 mg tablet TAKE 1 TABLET BY MOUTH FOUR TIMES DAILY FOR 14 DAYS active Not Available Not Available No t Available amoxicill in 875 mg-potass ium clavulana te 125 mg tablet TAKE 1 TABLET BY MOUTH EVERY 12 HOURS FOR 14 DAYS active Not Available Not Available No t Available neomycin 3.5 mg/g-poly myxin B 10,000 unit/g-de xameth 0.1 % eye oint active Not Available Not Available Not Available neomycin- polymyxin -hydrocor t 3.5 mg-10,000 unit/mL-1 % ear drops,juju p INSTILL 3 DROPS INTO EACH EAR TWICE DAILY FOR 10 DAYS 05/12 completed Not Available Not Available Not Available escitalop seda 10 mg tablet TAKE 1 TABLET BY MOUTH EVERY DAY 03/15 completed Not Available Not Available Not Available Laxative (bisacody l) 5 mg tablet TK ALL 6 TS PO AT 8 AM ON 11/09 completed Not Available Not Available Not Available ciproflox acin 0.3 %-dexamet hasone 0.1 % ear drops,juju pension ADMINIST ER 4 DROPS INTO EACH EAR TWICE DAILY 09/16 completed Not Available Not Available Not Available Lancets,U ltra Thin TEST BS BID 12/30 completed Not Available Not Available Not Available fenofibra te 160 mg tablet TAKE 1 TABLET BY MOUTH EVERY DAY DIRECTED 2024 active Not Available Not Available Not Avai lable Asmanex Twisthale r 220 mcg/actua tion(120 doses) breath activated inhlr INHALE 2 PUFFS BY MOUTH TWICE DAILY active Not Available Not Available No t Available Pharos InnovationsTouch Ultra2 Meter kit USE TO TEST BID 12/30 completed Not Available Not Available Not Available Januvia 100 mg tablet TAKE 1 TABLET BY MOUTH EVERY DAY IN THE MORNING active Not Available Not Available No t Available olopatadi ne 0.2 % eye drops INSTILL 1 DROP INTO THE AFFECTED LEFT EYE ONCE DAILY active Not Available Not Available No t Available Symbicort 160 mcg-4.5 mcg/actua tion HFA aerosol inhaler INHALE 2 PUFFS BY MOUTH TWICE DAILY. RINSE MOUTH WITH WATER AFTER USE. DO NOT SWALLOW active Not Available Not Available No t Available Lantus Solostar U-100 Insulin 100 unit/mL (3 mL) subcutane ous pen INJECT 70 UNITS UNDER THE SKIN TWICE DAILY active Not Available Not Available No t Available Humalog KwikPen (U-100) Insulin 100 unit/mL subcutane ous INJECT 80 UNITS UNDER THE SKIN BEFORE EACH MEAL. 2024 active Not Available Not Available Not Avai lable olopatadi ne 0.6 % nasal spray SPRAY 1 SPRAY IN EACH NOSTRIL TWICE DAILY 12/30 completed Not Available Not Available Not Available cholecalc iferol (vitamin D3) 50 mcg (2,000 unit) capsule TAKE ONE CAPSULE BY MOUTH EVERY MORNING active Not Available Not Available No t Available cholecalc iferol (vitamin D3) 50 mcg (2,000 unit) tablet TAKE 2 TABLETS BY MOUTH EVERY MORNING 06/13 completed Not Available Not Available Not Available GaviLyte- G 236 gram-22.7 4 gram-6.74 gram-5.86 gram oral solution 03/10 completed Not Available Not Available Not Available Prevnar 13 (PF) 0.5 mL intramusc ular syringe ADM 0.5ML IM UTD 11/14 completed Not Available Not Available Not Available butalbita l-acetami nophen-ca ffeine 50 mg-300 mg-40 mg capsule TAKE 1 CAPSULE BY MOUTH EVERY 4 HOURS NEEDED FOR HEADACHE active Not Available Not Available No t Available Dulera 200 mcg-5 mcg/actua tion HFA aerosol inhaler INL 2 PFS PO BID 01/11 completed Not Available Not Available Not Available Gamunex-C 10 gram/100 mL (10 %) injection solution 06/13 completed Not Available Not Available Not Available Gamunex-C 5 gram/50 mL (10 %) injection solution 06/13 completed Not Available Not Available Not Available Gamunex-C 20 gram/200 mL (10 %) injection solution active Not Available Not Available Not Available OptiChamb er Marilu C spacer 12/30 completed Not Available Not Available Not Available Easy Touch Alcohol Prep Pads USE WITH INSULIN INJECTIO NS active Not Available Not Available No t Available TRUEplus Insulin 1 mL 31 gauge x 5/16 syringe USE THREE TIMES DAILY BEFORE MEALS active Not Available Not Available No t Available Victoza 2-Marko 0.6 mg/0.1 mL (18 mg/3 mL) subcutane ous pen injector 01/11 completed Not Available Not Available Not Available Vascepa 1 gram capsule TAKE 2 CAPSULES BY MOUTH TWICE DAILY 06/13 completed Not Available Not Available Not Available butalbita l 50 mg-acetam inophen 300 mg-caffei ne 40 mg-codein e 30 mg cap TAKE 1 CAPSULE BY MOUTH EVERY 4 HOURS active Not Available Not Available No t Available Trulicity 0.75 mg/0.5 mL subcutane ous pen injector ADMINIST ER 0.75 MG UNDER THE SKIN EVERY WEEK active Not Available Not Available No t Available Spiriva Respimat 2.5 mcg/actua tion solution for inhalatio n INL 2 PFS PO D 01/11 completed Not Available Not Available Not Available Incruse Ellipta 62.5 mcg/actua tion powder for inhalatio n INL 1 PUFF PO D active Not Available Not Available No t Available Spiriva Respimat 1.25 mcg/actua tion solution for inhalatio n INHALE 2 PUFFS BY MOUTH TWICE DAILY active Not Available Not Available No t Available TRUEplus Pen Needle 31 gauge x 5/16 USE TO INJECT 4-5 TIMES DAILY 07/13 completed Not Available Not Available Not Available TRUEplus Pen Needle 31 gauge x 1/4 USE WITH INJECTIO NS FIVE TIMES DAILY 07/13 completed Not Available Not Available Not Available TRUEplus Pen Needle 31 gauge x 3/16 USE TO INJECT INSULIN 4 TO 5 TIMES DAILY active Not Available Not Available No t Available Dupixent 300 mg/2 mL subcutane ous syringe 01/11 completed Not Available Not Available Not Available immun glob,rolando( IgG) 10 %-gly-IgA 0 to 50 mcg/mL intraveno us solution Inject every month by intraven ous route. 11/02 completed Not Available Not Available Not Available Zenpep 40,000 unit-126, 000 unit-168, 000 unit capsule,d elayed release TAKE 1 CAPSULE BY MOUTH THREE TIMES DAILY BEFORE MEALS x 90 DAYS 2023 active Not Available Not Available Not Avai lable OneTouch Ultra Blue Test Strip test 3 TIMES DAILY WITH MEALS x 90 days 07/13 completed Not Available Not Available Not Available Dexcom G6 Transmitt er device USE EVERY 90 DAYS active Not Available Not Available No t Available BD Joellen 2nd Gen Pen Needle 32 gauge x 5/32 USE TO INJECT INSULIN 5X DAILY active Not Available Not Available No t Available OneTouch Delica Plus Lancet 33 gauge USE TO TEST BLOOD SUGAR FOUR TIMES DAILY active Not Available Not Available No t Available M-Dryl 12.5 mg/5 mL oral liquid 06/13 completed Not Available Not Available Not Available Gvoke HypoPen 2-Pack 1 mg/0.2 mL subcutane ous auto-inje ctor INJECT 1 MG UNDER THE SKIN ONCE NEEDED FOR VERY LOW BLOOD SUGAR active Not Available Not Available No t Available Afluria Qd 2019- (36 mos up)(PF)60 mcg (15 mcg x4)/0.5 mL IM syringe ADM 0.5ML IM UTD 11/14 completed Not Available Not Available Not Available Paxlovid 300 mg (150 mg x 2)-100 mg tablets in a dose pack Use as directed 3 capsule BID x 5 days. 06/13 completed Not Available Not Available Not Available Dexcom G7 Supervisor Last Model Department USE DIRECTED active Not Available Not Available No t Available Dexcom G7 Sensor device CHANGE SENSOR EVERY 10 DAYS active Not Available Not Available No t Available Vitals Date Recorded Body height Body mass index (BMI) Body weight Body temperature Heart rate Oxygen saturation Oxygen saturation in Arterial blood by Pulse oximetry Systolic blood pressure Diastolic blood pressure Provider Name and Address Organization Details Last Updated DateTime 5 162.56 cm 28.5 kg/m2 59501.9 7 g 98.1 [degF] 91 /min 98 % 98 % 150 mm[Hg] 90 mm[Hg] CLARICE Costa [employer] [facility] 5 12:16:03 Date Recorded Body height Body mass index (BMI) Body weight Body temperature Oxygen saturation Oxygen saturation in Arterial blood by Pulse oximetry Heart rate Systolic blood pressure Diastolic blood pressure Provider Name and Address Organization Details Last Updated DateTime 5 162.56 cm 28.6 kg/m2 85849.2 1 g 98.1 [degF] 95 % 95 % 78 /min 160 mm[Hg] 84 mm[Hg] CLARICE Costa [employer] [facility] 5 10:47:54 Date Recorded Body height Body mass index (BMI) Body weight Body temperature Oxygen saturation Oxygen saturation in Arterial blood by Pulse oximetry Heart rate Systolic blood pressure Diastolic blood pressure Provider Name and Address Organization Details Last Updated DateTime 5 162.56 cm 27.7 kg/m2 19080.1 7 g 98.6 [degF] 97 % 97 % 89 /min 170 mm[Hg] 80 mm[Hg] Gaby Reardon RN [facility] [employer] [facility] 5 10:21:56 Date Recorded Body height Body mass index (BMI) Body weight Body temperature Systolic blood pressure Diastolic blood pressure Provider Name and Address Organization Details Last Updated DateTime 162.56 cm 28.5 kg/m2 94199.3 3 g 97.6 [degF] 142 mm[Hg] 82 mm[Hg] Ligia Singer [facility] [employer] [facility] 5 15:41:23 Date Recorded Body height Body mass index (BMI) Body weight Body temperature Oxygen saturation Oxygen saturation in Arterial blood by Pulse oximetry Heart rate Systolic blood pressure Diastolic blood pressure Provider Name and Address Organization Details Last Updated DateTime 162.56 cm 28.2 kg/m2 66569.1 5 g 97.3 [degF] 99 % 99 % 88 /min 140 mm[Hg] 86 mm[Hg] Ligia Singer [facility] [employer] [facility] 5 09:02:55 Social History Question Answer Notes LastModified by Organizat ion Details LastModified Time Tobacco Smoking Status Never Smoker Not Available [facility] 12/12/2022 02:41:44 If You Are , What Was Your Level Of Alcohol Consumption Prior To ? None Information not available 12/13/2022 What Is Your Level Of Caffeine Consumption? Moderate [id number] Information not available 12/12/2022 How Much Tobacco Do You Chew? None [id number] Information not available 12/12/2022 In The 14 Days Before Symptom Onset, Have You Had Close Contact With A Laboratory-confirm ed COVID-19 While That Case Was Ill? No [id number] Information not available 12/12/2022 In The 14 Days Before Symptom Onset, Have You Had Close Contact With A Person Who Is Under Investigation For COVID-19 While That Person Was Ill? No [id number] Information not available 12/12/2022 Which Illicit Or Recreational Drugs Have You Used? None [id number] Information not available 12/12/2022 What Was The Date Of Your Most Recent Tobacco Screening? 12/13/2022 Information not available 12/13/2022 Has Tobacco Cessation Counseling Been Provided? No Information not available 12/13/2022 Have You Recently Traveled Abroad? No [id number] Information not available 12/12/2022 Sex: Unknown Functional Status Question Answer Note LastModified by Organizat ion Details LastModified Time Do you use any illicit or recreational drugs? No Information not available 12/13/2022 Do you or have you ever used any other forms of tobacco or nicotine? No Information not available 12/13/2022 What is your level of alcohol consumption? None [id number] Information not available 12/12/2022 Do you or have you ever used smokeless tobacco? Never used smokeless tobacco [id number] Information not available 12/12/2022 Do you or have you ever used e-cigarettes or vape? Never used electronic cigarettes [id number] Information not available 12/12/2022 Mental Status None recorded. Family History Relationship Description Onset Age of this Age Resolved Age Notes LastModified by Organization Details LastModified Time Sister Asthma [id number] Not available 12/12/2022 02:42:09 Sister Hypertensive disorder [id number] Not available 12/12/2022 02:42:09 Sister Diabetes mellitus [id number] Not available 12/12/2022 02:42:09 Sister Hyperthyroid ism [email or web address] Not available 09/16 13:51:31 Father Asthma [id number] Not available 12/12/2022 02:42:09 Father Hypertensive disorder [id number] Not available 12/12/2022 02:42:09 Father Diabetes mellitus [id number] Not available 12/12/2022 02:42:09 Father Family history of malignant neoplasm [email or web address] Not available 09/16 13:51:31 Mother Hypertensive disorder [id number] Not available 12/12/2022 02:42:09 Mother Diabetes mellitus [id number] Not available 12/12/2022 02:42:09 Mother Hyperthyroid ism [email or web address] Not available 09/16 13:51:31 Brother Hypertensive disorder [id number] Not available 12/12/2022 02:42:09 Brother Diabetes mellitus [id number] Not available 12/12/2022 02:42:09 Maternal Uncle Family history of malignant neoplasm [email or web address] Not available 09/16 13:51:31 Medical History Condition Response MRSA N SLEEP APNEA N ALLERGIES/HAYFEVER N LUNG DISEASE/DISORDER Y HISTORY OF DRUG ABUSE N INSOMNIA N RADIATION / CHEMOTHERAPY N COPD Y HIGH CHOLESTEROL / HYPERLIPIDEMIA Y HYPERTHYROIDISM N BLOOD DISEASES N EAR OR HEARING PROBLEMS N HYPOTHYROIDISM N SHINGLES N DEPRESSION (INCLUDING POST ) N HAVE YOU BEEN HOSPITALIZED OR SEEN IN [facility] ER IN THE PAST YEAR ? N STROKE/TIA N ULCERS N OBESITY N ANEURYSM N HISTORY WITH COMPLICATIONS WITH ANESTHES IA ? N USE OF BLOOD THINNERS Y NO SIGNIFICANT PAST MEDICAL HISTORY N DIABETES, TYPE Y PARATHYROID DISEASE N ENT N SEASONAL ALLERGIES Y HEARTBURN / REFLUX Y HEPATITIS / LIVER DISEASE N PULMONARY DISEASE Y SLEEP DISORDER N SEIZURES/EPILEPSY N HEADACHES/MIGRAINES Y CHF N PACEMAKER N DIZZINESS N AIDS/HIV N KIDNEY DISEASE Y HEART DISEASE/HEART PROBLEMS Y FRACTURES N LIVER DISEASE Y HYPERTENSION Y CANCER: SPECIFY N TOURETTE'S N BLOOD TRANSFUSION N ANEMIA/BLOOD DISORDER N ANESTHESIA COMPLICATIONS N CHRONIC EAR INFECTIONS N TUBERCULOSIS N Gynecological HistoryNo gynecological history recorded. Obstetrics History GPAL:G 0 P 0 0 0 0 Immunizations Vaccine Type Date Status Note Provider Nam e and Address Organization Details Recorded Time Influenza, split virus, quadrivalent, PF 10/17/2021 completed Not Available [facility] 18:49:53 Past Encounters Encounter ID Performer Location Encounter Start Date Encounter Closed Date Diagnosis/Indication Diagnosis SNOMED-CT Code Diagnosis ICD10 Code Diagnosis Note [id number] Tez Raya MD [facility] Krissy tucker [facility] [place] [address] 12/29/2020 00:00:00 12/29/2020 21:27:14 [id number] Rachael Padilla MD _CARLOS_ IGRATION_ DEFAULT_1 _1 , 01/19/2021 00:00:00 01/19/2021 18:43:29 [id number] Tez Raya MD [facility] Krissy tucker [address] [place] [address] 03/20/2021 00:00:00 03/20/2021 21:06:49 [id number] Tez Raya MD [facility] Family [facility] [place] [address] [address] , [place] [address] 04/04/2021 00:00:00 04/04/2021 21:10:27 [id number] [facility] [place] [address] , [place] [address] 08/18/2021 00:00:00 08/18/2021 15:35:59 [id number] Franklin Newell MD [facility] ENT [place] Boyer [address] [place] [address] 09/05/2021 00:00:00 09/05/2021 14:25:49 [id number] Rachael Padilla MD _ATHENA_M IGRATION_ DEFAULT_1 _1 , 10/12/2021 00:00:00 10/12/2021 14:42:15 [id number] [facility] Family Practice [address] , [place] [address] 10/17/2021 00:00:00 10/17/2021 19:03:[id number] [facility] Family Practice [place] [address] , [place] [address] 12/08/2021 00:00:00 12/08/2021 21:37:[id number] [facility] Family Practice [place] [address] [place] [address] 12/22/2021 00:00:00 12/22/2021 15:40:58 [id number] Tez Raya MD [facility] Family Practice [address] [place] [address] 02/14/2022 00:00:00 02/15/2022 05:44:10 [id number] [facility] _ATHENA_M IGRATION_ DEFAULT_1 _1 , 04/12/2022 00:00:00 04/12/2022 12:37:24 [id number] Tez Raya MD [facility] Family Practice [address] , [place] [address] 05/09/2022 00:00:00 05/09/2022 12:50:09 [id number] Tez Raya MD [facility] Family Practice [address] [address] , [place] [address] 06/05/2022 00:00:00 06/05/2022 10:38:[id number] [facility] Family Practice [place] [address] [facility] y , [place] [address] 08/09/2022 00:00:00 08/09/2022 18:34:12 [id number] Rachael Padilla MD [facility] Endo Rogers [address] [place] [address] 08/16/2022 00:00:00 08/16/2022 10:18:[id number] [facility] Family Practice [place] [address] [facility] y , [place] [address] 09/17/2022 00:00:00 09/17/2022 20:22:56 [id number] Clarke garcia MD [facility] General Surgery [address] [facility] [address] [place] [address] 09/25/2022 00:00:00 09/25/2022 16:12:12 [id number] Rachael Padilla MD [facility] Endo Rogers [address] [place] [address] 10/23/2022 00:00:00 10/23/2022 11:58:07 [id number] Tez Raya MD [address] [place] [address] 11/02/2022 00:00:00 11/02/2022 17:54:55 [id number] [address] Bishop [address]PM [facility] Podiatry [place] [address] [place] [address] 12/13/2022 15:55:09 12/18/2022 16:20:52 Fissure in skin 29262307 R23.4 x1 bilateral heeldebrid ed without incidentCo ntinue AmlactinEd ucated on shoe gearRecomm end no further use of sandalsmay require orthoticsf ollow-up 1 month Foot callus 795393642 L8 4 as above Pain in both feet 006281 8229 8975219 M79.671 M79.672 secondary to skin fissure and callusing of the heelno signs of infectionr ecommend supportive shoe gear [id number] Tez Raya MD [address] [place] [address] 12/17/2022 11:48:54 12/17/2022 12:11:26 Asthma 141882071 J45.909 Breztri samples given x 4 [id number]PM [facility] Podiatry [place] [address] [place] [address] 01/10/2023 16:21:51 01/11/2023 15:12:03 Fissure in skin 25085992 R23.4 x1 bilateral heeldebrid ed without incidentCo ntinue AmlactinEd ucated on shoe gearRecomm end no further use of sandalsmay require orthoticsf ollow-up 1 month Foot callus 627832893 L8 4 as aboveRx custom orthotics control heel and foot function to reduce friction and calluses Pain in both feet 118257 3177 2387269 M79.671 M79.672 secondary to skin fissure and callusing of the heelno signs of infectionr ecommend supportive shoe gear Psoriasis 9101044 L40.9 referral rheumatolo gy [id number] Tez Raya MD [facility] Kriss[address] t[address] [place] [address] 02/01/2023 11:57:01 02/01/2023 12:36:53 Anxiety disorder 982147504 F41.9 May try taking 1/2 tab of lorazepam in the day time.F/u in 6 weeks. s/e of meds discussed with pt. [id number] Ed Bishop DPM [facility] Podiatry [place] [address] [facility] [address] [place] [address] 02/26/2023 16:51:20 02/26/2023 17:57:40 Fissure in skin 72546910 R23.4 x2 bilateral heeldebrid ed without incidentCo ntinue AmlactinEd ucated on shoe gearRecomm end no further use of sandalsfol low-up 1 month Foot callus 503655720 L8 4 as aboveRx custom orthotics Did not obtain [id number] Tez Raya MD [facility] Krissy tucker [address] [place] [address] [place] [address] 03/15/2023 10:39:52 03/15/2023 11:26:49 Anxiety 11518044 F41.9 Continue lorazepam as needed f/u in 3 months. [id number] Tez Raya MD [facility] Krissy tucker [facility] [place] [address] 04/04/2023 14:00:35 04/04/2023 14:24:18 Pancreatitis 69440617 K85.90 Left upper quadrant pain 627926491 R10.12 Could be d/t gastropare sis. [id number] Tez Raya MD [facility] Krissy tucker [address] [place] [address] 05/02/2023 13:53:15 05/02/2023 14:20:21 Acute sinusitis 67673038 J01.90 Simply saline nasal spray, hot packs to face [id number] Tez Raya MD [facility] Family Practice [place] [address] [place] [address] 06/10/2023 09:04:32 06/10/2023 09:30:27 Epigastric pain 04772364 R10.13 Was given doxy for stomach. Chronic back pain 304260 002 M54.9 [id number] Rachael Padilla MD [facility] Endo Fernando Boyer [address] [place] [address] 06/13/2023 10:52:26 06/13/2023 11:51:16 Uncontrolled type 2 diabetes mellitus 733867624 E11.65 a1c of 8.3% down from 8.8%- she is on high doses of insulin due to high dose prednisone therapy and insurance will not cover humalog- we have tried multiple times in past for approval and they will only approve lispro which patient has to double her dose to get same effect - she is taking up to 50-60 units TID before meals- she is on carb ratio 1:2 along with correction of 2U:05>150 mg/dL on premeal sugars. Continue lantus 60 units twice daily and she is aware of self titration to maintain fasting glucose of 90-130 mg/dL. Send in [facility] for hypoglycem ia rescue. Continue on dexcom as patient is compliant with use and shares her data with clinic- she wishes to continue therapy. Patient will be transition ed to see Dr. Hamlin at [facility] in October due to my resignatio n. She has refills up to 6 months for transition . Mixed hyperlipidemia 267 360467 E78.2 Continue statin therapy as LDL in range. Vitamin B1 2 deficiency (non anemic) 67604774 E53.8 Continue folic acid and B12 supplement ation. Exocrine p ancreatic insufficiency 17690527 K86.81 Continue zenpep to help regulate stools and digestion. Spent up to 25 minutes preparing to see the patient (eg, review of tests), obtaining and/or reviewing separately obtained history, performing a medically appropriat e examinatio n and evaluation , counseling and educating the patient, ordering medication s, tests, along with documentin g clinical informatio n in the electronic health record, independen tly interpreti ng results and communicat ing results to the patient. Patient can be followed by PCP - she/he is aware of my resignatio n and last day of July 26. If needed his/her PCP can refer patient to another endocrinol ogist in the area. All questions /concerns answered and refills necessary at visit today. [id number] Tez Raya MD [facility] rKissy tucker [address] [place] [address] [address] [place] [address] 06/26/2023 14:24:59 06/26/2023 15:32:50 Chronic sinusitis 19091356 J32.9 Persistent cough 5961857 02 R05.3 [id number] Tez Raya MD [facility] Krissy tucker [address] [place] [address] [address] [place] [address] 07/31/2023 16:14:43 08/01/2023 08:06:52 Chronic sinusitis 98460882 J32.9 Use saline nasal spray ice packs to face Migraine 63644375 G43.90 9 [facility] Screening for malignant neoplasm of breast 369089079 Z12.39 [id number] Tez Raya MD [facility] Krissy tucker [address] [place] [address] [address] [place] [address] 10/01/2023 09:18:25 10/01/2023 10:02:32 Essential hypertension 35324165 I10 Type 2 lisa betes mellitus without complication 701904054 E11.9 Diabetes mellitus 240688 09 E11.9 [id number] Tez Raya MD [facility] Krissy tucker [address] [place] [address] [address] [place] [address] 11/26/2023 11:57:29 11/26/2023 12:26:51 Acute right otitis media 810293200 H66.91 Acute sinusitis 69148341 J01.90 Anxiety 36874872 F41.9 Asthma 992252495 J45.90 9 Chronic back pain 071742 002 M54.9 Hypertensive disorder 38 421387 I10 Immunodefi ciency disorder 535162380 D84.9 Type 2 lisa betes mellitus without complication 379391388 E11.9 Vitamin B1 2 deficiency (non anemic) 21837895 E53.8 [id number] Tez Raya MD [place] [address] [address] [place] [address] 12/31/2023 09:53:30 12/31/2023 10:22:58 Diverticulitis of colon 241600817 K57.32 Irritable bowel syndrome 85069765 K58.9 Pancreatitis 67217269 K8 5.90 Nausea 028410910 R11.0 Anxiety 19267342 F41.9 Asthma 378932331 J45.90 9 Chronic back pain 118412 002 M54.9 Cobalamin deficiency 190 735306 E53.8 Exocrine p ancreatic insufficiency 68741768 K86.81 Immunodefi ciency disorder 259393609 D84.9 Mixed hyperlipidemia 267 807906 E78.2 Steatotic liver disease 724500330 K76.0 Type 2 lisa betes mellitus without complication 656746860 E11.9 [id number] Inderjit Camarillo [facility] [place] [address] 01/28/2024 11:46:40 01/28/2024 12:13:47 Asthma 425468866 J45.909 Spasm of back muscles 20 2596072 M62.830 Pain of right calf 49201 92944 979132 M79.661 Anxiety 86352547 F41.9 Chronic back pain 110573 002 M54.9 Cobalamin deficiency 190 749512 E53.8 Diverticul itis of colon 925670611 K57.32 Exocrine p ancreatic insufficiency 60118677 K86.81 Hypertensive disorder 38 299295 I10 Immunodefi ciency disorder 275598688 D84.9 Mixed hyperlipidemia 267 215476 E78.2 Type 2 lisa betes mellitus without complication 689818870 E11.9 Psoriasis 2163442 L40.9 [id number] Inderjit Camarillo MD [facility] [place] [address] 02/25/2024 11:54:22 02/25/2024 12:33:18 Acute sinusitis 75077186 J01.90 Anxiety 05726806 F41.9 Asthma 702729593 J45.90 9 Cobalamin deficiency 190 326421 E53.8 Exocrine p ancreatic insufficiency 80214292 K86.81 Hypertensive disorder 38 641762 I10 Immunodefi ciency disorder 093167591 D84.9 Mixed hyperlipidemia 267 133869 E78.2 Type 2 lisa betes mellitus without complication 265504966 E11.9 Vitamin B1 2 deficiency (non anemic) 82301593 E53.8 [id number] Inderjit Camarillo MD [facility] Krissy tucker [address] [facility] [place] [address] 04/10/2024 11:53:05 04/10/2024 12:19:20 Diverticulitis of colon 810441192 K57.32 Sinusitis 19510038 J32.9 [id number] Inderjit Camarillo MD [facility] Krissy tucker [facility] [facility] [place] [address] 05/12/2024 10:40:58 05/12/2024 11:28:00 Adult health examination 140602295 Z00.00 Allergic rhinitis 548674 04 J30.9 Anxiety disorder 9799629 06 F41.9 Asthma 306626402 J45.90 9 Chronic back pain 105386 002 M54.9 [id number] Inderjit Camarillo MD [facility] Krissy tucker [facility] [facility] [place] [address] 07/29/2024 14:44:14 07/29/2024 15:33:08 Cough 42193238 R05.9 Acute righ t otitis media 816843589 H66.91 Asthma 076448309 J45.90 9 Anxiety 32114652 F41.9 Allergic rhinitis 840972 04 J30.9 Gastroesop hageal reflux disease 197404352 K21.9 Hypertensive disorder 38 790794 I10 Mixed hyperlipidemia 267 864560 E78.2 Type 2 lisa betes mellitus without complication 698806862 E11.9 Vitamin B1 2 deficiency (non anemic) 97276427 E53.8 [id number] Inderjit Camarillo MD [facility] [address] [place] [address] [address] [place] [address] 08/12/2024 11:41:52 08/12/2024 12:02:12 Well controlled type 2 diabetes mellitus 326135323 E11.9 Type 2 lisa betes mellitus without complication 708767239 E11.9 Allergic rhinitis 627210 04 J30.9 Anxiety 40253779 F41.9 Asthma 457739743 J45.90 9 Chronic back pain 765355 002 M54.9 Gastroesop hageal reflux disease 500476556 K21.9 Hypertensive disorder 38 984038 I10 Mixed hyperlipidemia 267 482443 E78.2 Psoriasis 9966711 L40.9 Steatotic liver disease 580784745 K76.0 [id number] Inderjit Camarillo [facility] [address] [facility] y Kael [place] [address] 08/26/2024 12:14:16 08/26/2024 13:17:14 Diverticulitis 130664613 K57.92 Hypercholesterolemia 136 47978 E78.00 Gastropare sis syndrome 810241517 K31.84 Exocrine p ancreatic insufficiency 08449500 K86.81 Epigastric pain 46199626 R10.13 Type 2 lisa betes mellitus without complication 439197168 E11.9 [id number] Inderjit Camarillo MD [address] [address] 09/16/2024 13:51:21 09/16/2024 14:26:25 Diverticulitis 807916876 K57.92 Irritable bowel syndrome 50097924 K58.9 Asthma 071068267 J45.90 9 [id number] Inderjit Camarillo MD [address] [address] 10/29/2024 12:07:37 10/29/2024 12:58:13 Acute conjunctivitis 85838925 H10.33 left [id number] Inderjit Camarillo MD [address] [address] 11/18/2024 10:33:47 11/18/2024 11:30:03 Type 2 diabetes mellitus without complication 910471491 E11.9 Conjunctivitis 0413626 H 10.9 Asthma 790096203 J45.90 9 Acute righ t otitis media 499827766 H66.91 [id number] Inderjit Camarillo MD [address] [address] 12/25/2024 10:05:03 12/25/2024 12:34:50 Choking sensation 577721263 R09.89 Bronchitis 98976718 J40 Screening mammography 24 358164 Z12.31 Type 2 lisa betes mellitus without complication 190118797 E11.9 [id number] Inderjit Camarillo MD [address] [address] 02/09/2025 15:30:46 02/09/2025 16:46:52 Hypertriglyceridemia 785205741 E78.2 Allergic rhinitis 464149 04 J30.9 Sinusitis 56343517 J32.9 Anxiety 03684758 F41.9 Uncontroll ed type 2 diabetes mellitus 774753071 E11.65 Gastroesop hageal reflux disease without esophagitis 145809922 K21.9 [id number] Inderjit Camarillo MD [address] [address] 02/24/2025 08:55:38 02/24/2025 09:28:25 Exocrine pancreatic insufficiency 67526626 K86.81 Essential hypertension 85653975 I10 Angina pectoris 78167311 0 I20.9 Bronchitis 22655158 J40 Allergic rhinitis 377190 04 J30.9 Anxiety 75057157 F41.9 Asthma 661634602 J45.90 9 Chronic back pain 236845 002 M54.9 Gastroesop hageal reflux disease 045714617 K21.9 Immunodefi ciency disorder 956870543 D84.9 Steatotic liver disease 499981153 K76.0 Well contr olled type 2 diabetes mellitus 829276160 E11.9 Vitamin 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 deficiency (non anemic) 49370581 E53.8 Health Concerns Section Related Observation LastModified by Organization Detai ls LastModified Time None Recorded Concern Status LastModified by Organization Details LastModified Time None Recorded Advance Directives Directive None Recorded Payers Insurance Date Sequence Insurance Name Policy Number Policy Lazaro Covered Member ID Lazaro Member ID Guarantor Name 03/02/2025 1 [facility] - DOS ON OR AFTER 21 (MEDICAID REPLACEMENT - HMO) Gaby Wolfbrook [id number] Gaby Wolfbrook Notes Date Note Type Note Provider Name and Address Organization Details Recorded Time 10/29/2024 text/html eyes red . burning , ointment does not help CHRISTIANO Peñaloza [address], [place], [address], [employer] 11/04/2024 16:41:29 11/18/2024 text/html itchy , gravely eyes , CHRISTIANO Peñaloza [address], [place], [address], [employer] 11/21/2024 09:43:00 12/25/2024 text/html coughing , sore epigastrum from coughing so much , no fever CHRISTIANO Peñaloza [address], [place], [address], [employer] 01/02/2025 12:43:02 02/09/2025 text/html this is a recurring thing , they will not do an endoscopy because her blood sugar .is not controlled . No fever . also lispro does not work at all , wants to go back to [facility] CHRISTIANO Peñaloza [address], [place], [address], [employer] 02/15/2025 12:05:23 02/24/2025 text/html she just got her cough back , no fever . needs refills CHRISTIANO Peñaloza [address], [place], [address], [employer] 02/28/2025 17:35:09 OBGyn Episode No OBEpisode recorded.
--- OUTSIDE RECORDS SUMMARY | 2025-03-26 09:01 | XMS_ITS | Data Portability ---
Author Organization JONNA Cornelius HUBBARD Address [address] [place] [address] Care Team Providers Care Dairy Husbandry Teacher Name Role Phone ESTUARDOYann REYES Target Man [phone] DENIZ ELIZABETH Nurse Chemical Dependency Unavailable Assessment No assessment recorded. Plan of Treatment Reminders Order Date Submit Date Provider Last Modified By Organization Details Last Modified Time Details Appointments None recorded . Lab drug screen, urine 2019 020 [facility], [address] [place] [address], [address], [place], [address], 0 17:07:35 lipase, serum or plasma 2019 020 [facility], [address] [place] [address], [address], [place], [address], 0 17:07:36 HbA1c (hemoglo bin A1c), blood 2019 020 [facility], [address] [place] [address], [address], [place], [address], 0 09:11:04 lipid panel, serum 2019 020 [facility], [address] [place] [address], [address], [place], [address], 0 09:11:03 Referral diabetic ophthalm ology referral 2020 021 [email or web address], [address], [place], [address], 1 12:07:09 psychiat rist referral 2020 021 [email or web address] Not available 1 16:57:[address] referral - Recurent pancreat itis 2019 020 ankur Yan MD, [address] [facility], [address], [place], [address], 0 10:11:44 gynecolo gist referral 2019 [facility] Not available 0 15:52:20 Procedures None recorded . Surgeries None recorded . Imaging MAMMO, screenin g, bilatera l 2020 021 [facility] ([facility]), [address] [place], [address], 1 11:15:53 US, abdomen, limited - Reported mass LUQ, left subcosta l margin 2019 020 [facility] ([facility]), [address] [place], [address], 0 10:32:34 Medication Orders acetamin ophen 300 mg-codei ne 30 mg tablet 2019 020 [id number] [address], [place], [id number], 0 15:57:53 Patient TargetsNo targets recorded. Patient Instructions Encounter Date Encounter Id Patient Instructions Last Modified By Organization Details Last Modified Time 10/19/2019 [id number] Please have the endocrinology referral resent with her new insurance Labs Follow up in 4 months oajao Not available 10/19/2019 15:54:31 Her medication reconciliation was done, she takes Metformin XR/24 hour 1000 mg BID instead of 2000 mg daily. She states that her contract administration coordinator is aware. oajao Not available 10/19/2019 15:55:51 02/03/2020 [id number] Stress Incontinence: Care Instructions oajao Not available 02/04/2020 08:48:47 Tylenol #3, side effects were discussed GI follow up ER with worsening of her symptoms Follow up in 4 weeks ER reports Most recent office consultation notes from her picking supervisor, Dr Yan oajustinao Not available 02/03/2020 15:39:55 She can be seeen in the office, however due to the current pandemic, office visits have been discouraged. She also has a lot of risk factors and should probably limit unnecessary exposure. oajao Not available 02/03/2020 18:40:07 02/23/2020 [id number] Labs as previous ly ordered US GI as previously referred or in the event that we are not making much progress, she may warrant a second opinion. Tylenol #3 as prescribed on the lat visit oajao Not available 02/23/2020 13:06:03 Detailed explanation oajao Not available 02/23/2020 13:06:12 07/13/2020 [id number] thyroid nodules: care instructions oajao Not available 07/13/2020 17:10:43 abdominal pain: care instructions oajao Not available 07/13/2020 17:09:01 ER report, daniel delcid Most recent consultation note from her flexible shaft winder, Dr Manuel Follow up in 4 months oajao Not available 07/13/2020 19:44:31 11/07/2020 [id number] learning about breast cancer screening oajao Not available 11/07/2020 10:45:11 Most recent HBA1 C and lipid panel from [facility] Endocrinology note from Dr Padilla Follow up with the flexible shaft winder and contract administration coordinator She needs to clarify with her flexible shaft winder how much HCTZ they want her on Follow up in 3 months and PRN Psychiatrist to see regarding the neeed for a BZD Addendum [facility] oajao Not available 11/07/2020 10:52:41 Detailed discuss ion Detailed visit Ms Brown ended the call oajao Not available 11/07/2020 10:55:17 Reason for Referral Nurse Chemical Dependency Referral for Sc reening for malignant neoplasm of cervix Referring Physician: James Jordan, Internal Medicine, Encounter Date: 10/19/2019 Office Clinician Referral for Recurrent pancreatitis Recurrent pancreatitis Recurent pancreatitis Referring Physician: James Jordan, Internal Medicine, Encounter Date: 02/03/2020 Psychiatrist Referral for An xiety Anxiety disorder Referring Physician: James Jordan, Internal Medicine, Encounter Date: 11/07/2020 Diabetic Ophthalmology Refer ral for Uncontrolled type 2 diabetes mellitus Referring Physician: James Jordan, Internal Medicine, Encounter Date: 11/07/2020 Results Created Date Observation Date Name Description Value Unit Range Abnormal Flag Note LastModifiedBy Organization Detail LastModifiedTime 02/23/2002/24/2020 lipid panel , serum cholesterol, total 162 mg/dL 100-19 9 Not Available [facility] ([facility]) [address] [place], [address], 02/24/2020 09:11:03 02/23/2002/24/2020 lipid panel , serum triglyceride s 117 mg/dL 0-149 Not Available [facility] ([facility]) [address] [place], [address], 02/24/2020 09:11:03 02/23/2002/24/2020 lipid panel , serum HDL cholesterol 49 mg/dL >39 Not Available [facility]) [address] [place], [address], 02/24/2020 09:11:03 02/23/2002/24/2020 lipid panel , serum VLDL cholesterol acosta 23 mg/dL 5-40 Not Available [facility] ([facility]) [address] [place], [address], 02/24/2020 09:11:03 02/23/2002/24/2020 lipid panel , serum LDL cholesterol calc 90 mg/dL 0-99 Not Available [facility] ([facility]) [address] [place], [address], 02/24/2020 09:11:03 02/23/2002/24/2020 lipid panel , serum comment: SENIOR CATEGORY MANAGER Not Available [facility] ([facility]) [address] [place], [address], 02/24/2020 09:11:03 02/23/2002/24/2020 lipid panel , serum LDL/HDL ratio 1.8 ratio 0.0-3. 2 LDL/H DL Ratio Men Women 1/2 Avg.R isk 1.0 1.5 Avg.R isk 3.6 3.2 2X Avg.R isk 6.2 5.0 3X Avg.R isk 8.0 6.1 Not Available [facility] ([facility]) [address] [facility], [place], [address], 02/24/2020 09:11:03 02/23/2002/24/2020 HbA1c (hemo globi n A1c), blood hemoglobin A1C 8.6 % 4.8-5. 6 above high normal Predi abete s: 5.7 - 6.4 Diabe leo: >6.4 Glyce michael contr ol for adult s with diabe leo: <7.0 Not Available [facility] ([facility]) [address] [facility], [place], [address], 02/24/2020 09:11:04 02/23/2002/24/2020 diabe leo patie nt educa tion pdf image . Not Available [facility] ([facility]) [address] [place], [address], 02/24/2020 09:11:05 03/17/2003/18/2020 drug scree n, urine amphetamines , urine NEGATI VE NG/mL cutoff =1000 Amphe tamin e test inclu rah Amphe tamin e and Metha mphet amine . Not Available [facility] ([facility]) [address] [place], [address], 03/20/2020 17:07:35 03/17/20 03/18/2020 drug scree n, urine barbiturate NEGATI VE NG/mL cutoff =300 Not Available [facility] ([facility]) [address] [place], [address], 03/20/2020 17:07:35 03/17/20 20 03/18/2020 drug scree n, urine benzodiazepi lauren NEGATI VE NG/mL cutoff =300 Not Available [facility] ([facility]) [address] [place], [address], 03/20/2020 17:07:35 03/17/20 20 03/18/2020 drug scree n, urine cannabinoid NEGATI VE NG/mL cutoff =50 Not Available [facility] ([facility]) [address] [place], [address], 03/20/2020 17:07:35 03/17/20 20 03/18/2020 drug scree n, urine cocaine (metab.) NEGATI VE NG/mL cutoff =300 Not Available [facility] ([facility]) [address] [place], [address], 03/20/2020 17:07:35 03/17/20 20 03/18/2020 drug scree n, urine opiates SEE FINAL RESULT S NG/mL cutoff =300 Opiat e test inclu rah Codei ne and Morph ine only. Not Available [facility] ([facility]) [address] [place], [address], 03/20/2020 17:07:35 03/17/20 20 03/18/2020 drug scree n, urine phencyclidin e NEGATI VE NG/mL cutoff =25 Not Available [facility] ([facility]) [address] [place], [address], 03/20/2020 17:07:35 03/17/20 20 03/18/2020 drug scree n, urine methadone screen, urine NEGATI VE NG/mL cutoff =300 Not Available [facility] ([facility]) [address] [facility], [place], [address], 03/20/2020 17:07:35 03/17/20 20 03/18/2020 drug scree n, urine propoxyphene , urine NEGATI VE NG/mL cutoff =300 Not Available [facility] ([facility]) [address] [place], [address], 03/20/2020 17:07:35 03/17/20 20 03/20/2020 drug scree n, urine opiates NEGATI VE cutoff =300 Opiat e test inclu rah Codei ne and Morph ine only. Not Available [facility] ([facility]) [address] [facility], [place], [address], 03/20/2020 17:07:35 03/17/20 20 03/18/2020 lipas e, serum or plasm a lipase 30 U/L Not Available [facility] ([facility]) [address] [facility], [place], [address], 03/20/2020 17:07:36 08/04/20 20 08/08/2020 drug scree n, urine summary report (summary) FINAL ===== ===== ===== ===== ===== ===== ===== ===== ===== ===== ===== ===== ===== === TOXAS SURE COMP DRUG YUSRA SIS,U R ===== ===== ===== ===== ===== ===== ===== ===== ===== ===== ===== ===== ===== === Test Resul t Flag Units Drug Absen t but Decla red for Presc ripti on Verif icati on Codei ne Not Detec jone UNEXP ECTED ng/mg creat [place] codon e Not Detec jone UNEXP ECTED ng/mg creat Cyclo benza mckinley Not Detec jone UNEXP ECTED Aceta minop hen Not Detec jone UNEXP ECTED Aceta minop hen, as indic ated in the decla red medic ation list, is not alway s detec jone even when used as direc jone. Chlor pheni johana e Not Detec jone UNEXP ECTED ===== ===== ===== ===== ===== ===== ===== ===== ===== ===== ===== ===== ===== === Test Resul t Flag Units Ref Range Creat inine 45 mg/dL >=20 ===== ===== ===== ===== ===== ===== ===== ===== ===== ===== ===== ===== ===== === Decla red Medic ation s: The james ing and inter preta tion on this repor t are based on the follo wing decla red medic ation s. Unexp ected resul ts may arise from inacc uraci es in the decla red medic ation s. Not e: The testi ng scope of this panel inclu rah these medic ation s: Chlor pheni johana e Codei ne Cyclo benza mckinley [place] codon e Not e: The testi ng scope of this panel does not inclu de small to moder ate amoun ts of these repor jone medic ation s: Aceta minop hen Not e: The testi ng scope of this panel does not inclu de follo wing repor jone medic ation s: Albut bernadine Amlod ipine Atorv astat in Azela yancy Cetir izine Epine phrin e Famot idine Fenof ibrat e Fluti rona e Glime pirid e Gluca justyn [place] chlor othia zide (HCTZ ) Insul in Iprat ropiu m Topic al ===== ===== ===== ===== ===== ===== ===== ===== ===== ===== ===== ===== ===== === For clini acosta consu ltati on, pleas e call . ===== ===== ===== ===== ===== ===== ===== ===== ===== ===== ===== ===== ===== === Not Available [facility] [address], [place], [address], 08/08/2020 17:08:56 08/04/20 20 08/08/2020 drug scree n, urine pdf . Not Available [facility] [address] [facility], [place], [address], 08/08/2020 17:08:56 05/23/20 21 05/23/2021 lab* CMP Not Available [facility] [address] [place], [address], 05/23/2021 12:49:10 05/23/20 21 05/23/2021 lab* [facility] [address] [place], [address], 05/23/2021 12:49:10 05/23/20 21 05/23/2021 lab* A1C Not Available [facility] [address] [place], [address], 05/23/2021 12:49:10 10/28/19 20 10/28/2019 CT, abdom en + pelvi s, w/ contr ast No observ ation record ed. [facility] (Im[facility]) [address] [place], [address], 02/03/2020 15:04:45 10/31/19 20 10/31/2019 CT, abdom en + pelvi s, w/o contr ast No observ ation record ed. [facility] ([facility]) [address] [place], [address], 02/03/2020 15:04:45 03/01/20 20 03/01/2020 US, abdom en, limit ed No observ ation record ed. [facility] ([facility]) [address] [place], [address], 07/13/2020 17:03:39 03/01/20 20 03/01/2020 US, head + neck, soft tissu e No observ ation record ed. [facility] ([facility]) [address] [place], [address], 07/13/2020 17:03:39 06/28/20 20 06/27/2020 CT, abdom en + pelvi s, w/o contr ast No observ ation record ed. [facility] ([facility]) [address] [place], [address], 07/13/2020 17:03:39 09/20/20 20 09/20/2020 XR, chest , 2 view No observ ation record ed. [facility] [address] [place], [address], 11/07/2020 10:10:27 04/08/20 23 04/08/2023 trans -thor acic echoc ardio gram (TTE) (PROC ) No observ ation record ed. [facility] [address], [place], [address], 04/08/2023 22:31:53 Result Notes None recorded. Problems Name Problem SNOMED Code Status Onset Date Resolution Date Notes Provider Name and Address Organization Details Recorded Time Severe persistent asthma 606244078 Active 2016 Not Available [facility] 2 00:28:43 Subluxation of patellofemora l joint 594293541 Active 2017 Not Available [facility] 2 00:28:43 Calcification of coronary artery 771587480 Active 2018 Not Available [facility] 2 00:28:42 Metabolic dysfunction-a ssociated steatohepatit is 427474594 Active 2018 Not Available [facility] 2 00:28:42 Urinary incontinence 667361678 Active 2019 Not Available [facility] 2 00:28:43 Recurrent pancreatitis 482048636 Active 2019 Not Available [facility] 2 00:28:42 Laboratory test result abnormal 253481163 Active 2020 Not Available [facility] 2 00:28:42 Essential hypertension 15936540 Active 2020 Not Available [facility] 2 00:28:43 Diabetes mellitus 71277676 Active Not Available [facility] 2 00:28:43 Gastroesophag eal reflux disease 455965427 Active Not Available [facility] 2 00:28:43 Disorder of lipid metabolism 434671657 Active Not Available [facility] 2 00:28:42 Uncontrolled type 2 diabetes mellitus 405810349 Active Not Available [facility] 2 00:28:42 Genital herpes simplex 40715705 Active Not Available [facility] 2 00:28:42 Herpes simplex 08783998 Active Not Available [facility] 2 00:28:43 Problem Notes Documentation Provider Name and Address Organization Details Recorded Time Allergy Consult Note : This document (1 of 1) was received from [email or web address] on 07/12/2023 through Direct Message along with the following message body content: Patient Name: PAULIE BROWN. Patient : 1975. Patient . JONNA Yusuf SINess 08/07/2023 15:17:04 Allergy Consult Note : This document (1 of 1) was received from [email or web address] on 08/03/2023 through Direct Message along with the following message body content: Patient Name: PAULIE BROWN. Patient : 1975. Patient . [facility], [facility] 08/14/2023 15:49:18 Procedures Surgical History Date Name Laterality Status Provider Name and Address Organization Details Recorded Time 0 EGD completed James Jordan MD Attn: Accounting,[address] [place], [address], [facility] 11/27/2019 10:17:13 0 Colonoscopy completed James Jordan MD Attn: Accounting[address] [place], [address], [facility] 11/13/2019 12:41:40 Tonsillectomy completed James scott MD Attn: Accounting[address] [place], [address], [facility] 11/28/2015 11:56:01 Imaging Results None recorded. Procedure Notes None recorded. Medical Equipment None Reported. Allergies Allergen ID Allergen Name Allergen Category Reaction Reaction Severity Criticality Documentation Date Start Date Code Code System Note Provider Name and Address Organization Details Recorded Time 464329 Compazine medicatio n other Not available Not available 11/07/202010742 6 RxNorm Elva Phillips MA null, [facility] 1 09:55:31 95304 aspirin medicatio n other Not available Not available 04/06/2015 1191 RxNorm Epist axis James Jordan MD Attn: Lali dennis,[address] [facility], [place], [address], [facility] 6 11:55:18 52793 sulfameth oxazole / trimethop rim medicatio n Not available Not available Not available 06/30/2015 41248 RxNorm ? James Jordan MD Attn: Lali dennis,[address] [place], [address], [facility] 6 11:55:18 Medications Name Sig Start Date Stop Date Status Note LastModified by Organization Details LastModified Time Prescript ion - Prior Authoriza tion Request active Not Available Not Available Not Available OneTouch Ultra Blue Test Strips BID testing 2018 active Not Available Not Available Not Avai lable cyclobenz aprine 10 mg tablet One po daily PRN active Not Available Not Available No t Available pioglitaz one 15 mg tablet TAKE 1 TABLET BY MOUTH EVERY DAY active Not Available Not Available No t Available atorvasta tin 40 mg tablet TAKE 1 TABLET BY MOUTH EVERY DAY active Not Available Not Available No t Available Qvar 80 mcg/actua tion Metered Aerosol oral inhaler 02/25 completed Not Available Not Available Not Available prednison e 10 mg tablet TK 1 T PO TID active Not Available Not Available No t Available clindamyc in HCl 300 mg capsule 07/15 completed Not Available Not Available Not Available albuterol sulfate 2.5 mg/3 mL (0.083 %) solution for nebulizat ion INHALE 3 ML VIA NEBULIZE R EVERY 4 HOURS NEEDED FOR WHEEZING OR SHORTNES S OF BREATH active Not Available Not Available No t Available ammonium lactate 12 % lotion APPLY TOPICALL Y DAILY NEEDED FOR DRY SKIN active Not Available Not Available No t Available azithromy john 250 mg tablet 07/13 completed Not Available Not Available Not Available cetirizin e 5 mg tablet active Not Available Not Available Not Available Glucagon Emergency Kit 1 mg solution for injection INJECT 1 MG UNDER THE SKIN PRN active Not Available Not Available No t Available theophyll ine ER 400 mg tablet,ex tended release 24 hr 07/15 completed Not Available Not Available Not Available fluconazo le 150 mg tablet Take 1 tablet every day by oral route. 07/29 completed Not Available Not Available Not Available ketotifen 0.025 % (0.035 %) eye drops INSTILL 2 DROPS INTO BOTH EYES BID active Not Available Not Available No t Available hydrocodo ne 5 mg-acetam inophen 325 mg tablet 01/08 completed Not Available Not Available Not Available lisinopri l 20 mg tablet Take 1 tablet every day by oral route for 30 days. 07/29 completed Not Available Not Available Not Available famotidin e 40 mg tablet TAKE 1 TABLET BY MOUTH TWICE DAILY active Not Available Not Available No t Available prednison e 20 mg tablet Take 2 tablets every day by oral route with meals for 5 days. 09/07 completed Not Available Not Available Not Available prednison e 5 mg tablet 10/03 completed Not Available Not Available Not Available terconazo le 0.8 % vaginal cream Insert 1 applicat orful every day by vaginal route for 3 days. 04/21 completed Not Available Not Available Not Available clindamyc in HCl 150 mg capsule 01/08 completed Not Available Not Available Not Available pioglitaz one 45 mg tablet 02/05 completed Not Available Not Available Not Available penicilli n V potassium 500 mg tablet Take 1 tablet twice a day by oral route as directed for 10 days. 07/29 completed Not Available Not Available Not Available acetamino phen 300 mg-codein e 30 mg tablet Take 1 tablet(s ) every day by oral route as needed for 10 days. active Not Available Not Available No t Available ciproflox acin 500 mg tablet 07/15 completed Not Available Not Available Not Available folic acid 400 mcg tablet TAKE 1 TABLET BY MOUTH EVERY MORNING FOR 30 DAYS active Not Available Not Available No t Available tramadol 50 mg tablet TAKE 1 TABLET BY MOUTH EVERY 6 HOURS FOR 14 DAYS active Before her infusion s from Dr Bradley Not Available Not Available Not Available triamcino lone acetonide 0.1 % topical cream APPLY TOPICALL Y TO THE AFFECTED AREA TWICE DAILY FOR 14 DAYS DIRECTED . FOLLOW UP active Not Available Not Available No t Available simvastat in 40 mg tablet Take 1 tablet every day by oral route for 30 days. 02/25 completed Not Available Not Available Not Available glimepiri de 2 mg tablet TAKE 1 TABLET BY MOUTH EVERY DAY IN THE MORNING WITH FOOD active Not Available Not Available No t Available ondansetr on 8 mg disintegr ating tablet active Not Available Not Available Not Available glimepiri de 1 mg tablet 07/10 completed Not Available Not Available Not Available famotidin e 20 mg tablet 02/02 completed Not Available Not Available Not Available dicyclomi ne 20 mg tablet 02/02 completed Nausea worsened Not Available Not Available Not Available OneTouch Ultra Test strips active Not Available Not Available Not Available amlodipin e 10 mg tablet TK 1 T PO QD active Not Available Not Available No t Available cephalexi n 500 mg capsule 04/06 completed Not Available Not Available Not Available pantopraz ole 40 mg tablet,de layed release TAKE 1 TABLET BY MOUTH EVERY DAY active Not Available Not Available No t Available ranitidin e 150 mg tablet TAKE 1 TABLET BY MOUTH TWICE DAILY 02/02 completed I ain't took Ranitidi ne in a long time: Not Available Not Available Not Available glimepiri de 4 mg tablet TK 1 T PO BID active Not Available Not Available No t Available hydrochlo rothiazid e 12.5 mg capsule TAKE 1 CAPSULE BY MOUTH EVERY DAY DIRECTED active Not Available Not Available No t Available Advair Diskus 500 mcg-50 mcg/dose powder for inhalatio n Inhale 1 puff twice a day by inhalati on route. 01/08 completed Not Available Not Available Not Available nitroglyc jo ann 0.4 mg sublingua l tablet active Not Available Not Available Not Available Valtrex 1 gram tablet Take 1 tablet every 12 hours by oral route for 10 days. 11/28 completed Not Available Not Available Not Available monteluka st 10 mg tablet TK 1 T PO QD active Not Available Not Available No t Available ranitidin e 150 mg capsule one po bid 04/06 completed Not Available Not Available Not Available lisinopri l 5 mg tablet TAKE 1 TABLET BY MOUTH EVERY DAY 07/13 completed Not Available Not Available Not Available hydrochlo rothiazid e 25 mg tablet TAKE 1 TABLET BY MOUTH EVERY DAY active Not Available Not Available No t Available lorazepam 1 mg tablet TAKE 1 TABLET BY MOUTH EVERY 8 HOURS NEEDED FOR ANXIETY active Not Available Not Available No t Available azelastin e 137 mcg (0.1 %) nasal spray SPRAY TWICE IN EACH NOSTRIL TWICE DAILY active Not Available Not Available No t Available epinephri ne 0.3 mg/0.3 mL injection , auto-inje ctor INJECT 0.3 ML INTO THE MUSCLE PRN FOR ALLERGIC REACTION . CALL 911 AFTER USE active Not Available Not Available No t Available levofloxa john 500 mg tablet 04/21 completed Not Available Not Available Not Available levofloxa john 750 mg tablet Take 1 tablet every day by oral route for 5 days. 04/21 completed Not Available Not Available Not Available hydrocodo ne 10 mg-chlorp heniramin e 8 mg/5 mL oral susp extend.re l 12hr active Not Available Not Available Not Available albuterol sulfate HFA 90 mcg/actua tion aerosol inhaler INHALE 1-2 PUFFS BY MOUTH EVERY 4 HOURS NEEDED FOR WHEEZING OR SHORTNES S OF BREATH active Not Available Not Available No t Available ondansetr on 4 mg disintegr ating tablet active Not Available Not Available Not Available fluticaso ne propionat e 50 mcg/actua tion nasal spray,juju pension SHAKE LIQUID AND USE 2 SPRAYS IN EACH NOSTRIL DAILY active Not Available Not Available No t Available metformin ER 500 mg tablet,ex tended release 24 hr TAKE 4 TABLETS BY MOUTH EVERY DAY DIRECTED . FOLLOW UP active Not Available Not Available No t Available lisinopri l 2.5 mg tablet TAKE 2 TABLETS BY MOUTH ONCE DAILY active Not Available Not Available No t Available doxycycli ne hyclate 100 mg tablet 07/15 completed Not Available Not Available Not Available ipratropi um bromide 21 mcg (0.03 %) nasal spray INSTILL 2 SPRAYS IN EACH NOSTRIL FOUR TIMES DAILY PRN FOR RUNNY NOSE active Not Available Not Available No t Available ipratropi um bromide 0.02 % solution for inhalatio n USE 1 VIAL VIA NEBULIZE R FOUR TIMES DAILY active Not Available Not Available No t Available amoxicill in 875 mg-potass ium clavulana te 125 mg tablet TAKE 1 TABLET BY MOUTH TWICE DAILY 11/07 completed Not Available Not Available Not Available insulin lispro (U-100) 100 unit/mL subcutane ous pen 12-15 Units with meals active Not Available Not Available No t Available BD Ultra-Fin e Mini Pen Needle 31 gauge x 3/16 USE TWICE DAILY active Not Available Not Available No t Available Lancets,U ltra Thin active Not Available Not Available No t Available Byetta 5 mcg/dose (250 mcg/mL)1. 2 mL subcutane ous pen injector INJECT 5 MCG UNDER THE SKIN TWICE DAILY 01/08 completed Not Available Not Available Not Available fenofibra te 160 mg tablet TK 1 T PO QD UTD active Not Available Not Available No t Available clarithro mycin 07/15 completed Not Available Not Available Not Available Tylenol active Not Available Not Avail able Not Available OneTouch Ultra2 Meter kit active Not Available Not Available No t Available fenofibra te nanocryst allized 145 mg tablet 11/28 completed Not Available Not Available Not Available Symbicort 160 mcg-4.5 mcg/actua tion HFA aerosol inhaler INHALE 2 PUFFS BY MOUTH TWICE DAILY. RINSE MOUTH WITH WATER AFTER USE. DO NOT SWALLOW active Not Available Not Available No t Available Lantus Solostar U-100 Insulin 100 unit/mL (3 mL) subcutane ous pen INJECT 26 UNITS UNDER THE SKIN EVERY MORNING active 14-26 Not Available Not Available No t Available olopatadi ne 0.6 % nasal spray SPRAY 1 SPRAY IN EACH NOSTRIL TWICE DAILY active Not Available Not Available No t Available Vitamin D3 50 mcg (2,000 unit) tablet TAKE 1 TABLET BY MOUTH EVERY MORNING FOR 30 DAYS active Not Available Not Available No t Available GaviLyte- G 236 gram-22.7 4 gram-6.74 gram-5.86 gram oral solution 02/02 completed Not Available Not Available Not Available Prevnar 13 (PF) 0.5 mL intramusc ular syringe 11/07 completed Not Available Not Available Not Available BD Ultra-Fin e Joellen Pen Needle 32 gauge x active Not Available Not Available Not Available Dulera 200 mcg-5 mcg/actua tion HFA aerosol inhaler 07/15 completed Not Available Not Available Not Available Easy Touch Alcohol Prep Pads USE DIRECTED EVERY DAY active Not Available Not Available No t Available Super Thin Lancets 28 gauge active Not Available Not Available Not Available Victoza 3-Marko 0.6 mg/0.1 mL (18 mg/3 mL) subcutane ous pen injector INJECT 0.6MG UNDER THE SKIN EVERY DAY 02/05 completed Not Available Not Available Not Available Virtussin AC 10 mg-100 mg/5 mL oral liquid 07/15 completed Not Available Not Available Not Available True Metrix Glucose Meter active Not Available Not Available Not Available Spiriva Respimat 2.5 mcg/actua tion solution for inhalatio n 07/29 completed Not Available Not Available Not Available Incruse Ellipta 62.5 mcg/actua tion powder for inhalatio n 07/13 completed Not Available Not Available Not Available Afluria 8209-6811 (PF) 45 mcg (15 mcg x 3)/0.5 mL IM syringe 03/08 completed Not Available Not Available Not Available Spiriva Respimat 1.25 mcg/actua tion solution for inhalatio n INHALE 2 PUFFS BY MOUTH DAILY active Not Available Not Available No t Available TechLITE Pen Needle 31 gauge x 5/16 USE TO INJECT INSULIN QID active Not Available Not Available No t Available Fluvirin 9538-4161 45 mcg (15 mcg x 3)/0.5 mL intramusc ular suspensio n 03/08 completed Not Available Not Available Not Available TRUEplus Pen Needle 31 gauge x 1/4 USE WITH INSULIN FIVE TIMES DAILY active Not Available Not Available No t Available Dupixent 300 mg/2 mL subcutane ous syringe Inject every 2 weeks by sub-q route for 28 days. 02/02 completed Not Available Not Available Not Available fluticaso ne 232 mcg-salme terol 14 mcg/actua tion breath activated powdr 02/05 completed Not Available Not Available Not Available Steglatro 5 mg tablet Take 1 tablet every day by oral route as directed for 30 days. 02/05 completed Not Available Not Available Not Available OneTouch Ultra Blue Test Strip TEST FOUR TIMES DAILY BEFORE MEALS AND BEDTIME active Not Available Not Available No t Available Dexcom G6 Sensor device CHAGE SENSOR EVERY ACUTE OPIOID THERAPY DAYS. active Not Available Not Available No t Available Dexcom G6 Transmitt er device CHANGE TRANSMIT TER EVERY 90 DAYS active Not Available Not Available No t Available OneTouch Delica Plus Lancet 33 gauge US TO TEST TWICE DAILY. active Not Available Not Available No t Available Afluria Qd (36 mos up)(PF)60 mcg (15 mcg x4)/0.5 mL IM syringe ADM 0.5ML IM UTD 11/07 completed Not Available Not Available Not Available Vitals Date Recorded Body height Body mass index (BMI) Body weight Body temperature Heart rate Oxygen saturation Oxygen saturation in Arterial blood by Pulse oximetry Systolic blood pressure Diastolic blood pressure Provider Name and Address Organization Details Last Updated DateTime 0 162.56 cm 31.8 kg/m2 03767.5 9 g 97.6 [degF] 80 /min 99 % 99 % 130 mm[Hg] 80 mm[Hg] Elva Phillips [place] [facility] [place] 0 14:59:25 Date Recorded Body height Provider Name an d Address Organization Details Last Updated DateTime 11/07/2020 162.56 cm Elva Phillips MA [facility] 021 09:51:42 Date Recorded Body height Provider Name an d Address Organization Details Last Updated DateTime 02/03/2020 162.56 cm Elva Phillips MA [facility] 020 14:48:41 Date Recorded Body height Body mass index (BMI) Body weight Heart rate Oxygen saturation Oxygen saturation in Arterial blood by Pulse oximetry Respiratory rate Systolic blood pressure Diastolic blood pressure Provider Name and Address Organization Details Last Updated DateTime 0 162.56 cm 30 kg/m2 98538.9 5 g 80 /min 100 % 100 % 14 /min 124 mm[Hg] 80 mm[Hg] Elva Phillips MA [facility] 0 12:17:51 Date Recorded Body height Provider Name an d Address Organization Details Last Updated DateTime 07/13/2020 162.56 cm Elva Phillips MA [facility] 020 15:57:24 Social History Question Answer Notes LastModified by Organizat ion Details LastModified Time Tobacco Smoking Status Never Smoker James Jordan MD Attn: Accounting,[address] [place], [address], [facility] [place] 04/06/2015 13:16:18 Do You Have An Advance Directive? No Information not available 08/22/2017 Is Blood Transfusion Acceptable In An Emergency? Yes Information not available 08/22/2017 What Is Your Level Of Caffeine Consumption? Occasional Information not available 08/22/2017 What Type Of Diet Are You Following? DIABETIC Information not available 08/22/2017 Education 2 Year College Informatio n not available 08/22/2017 Live Alone Or With Others? With Others Information not available 08/22/2017 What Was The Date Of Your Most Recent Tobacco Screening? 11/07/2020 Information not available 11/07/2020 How Many Children Do You Have? 0 Information not available 08/22/2017 Performs Monthly Self-breast Exam? No Information no t available 08/22/2017 Do You Use Protection During Sex? No Information not available 08/22/2017 What Is Your Relationship Status? Single Information not available 08/22/2017 Seat Belts Used Routinely Yes Information not available 08/22/2017 Are You Sexually Active? No Information not available 08/22/2017 How Much Tobacco Do You Smoke? No Information not available 03/08/2017 General Stress Level Low Information not available 08/22/2017 Do You Use Sunscreen Routinely? Yes Information not available 08/22/2017 On What Date Was Tobacco Cessation Counseling Provided? 10/19/2019 Information not available 10/19/2019 How Many Years Have You Smoked Tobacco? 0 Information not available 03/08/2017 Sex: Unknown Functional Status Question Answer Note LastModified by Organizat ion Details LastModified Time What is your level of alcohol consumption? None Information not available 08/22/2017 Do you or have you ever used smokeless tobacco? Never used smokeless tobacco Information not available 10/19/2019 Are you currently employed? No Information not available 08/22/2017 What is your occupation? disabled Information not available 08/22/2017 Do you or have you ever used e-cigarettes or vape? Never used electronic cigarettes Information not available 10/19/2019 What is your exercise level? Occasional Information not available 08/22/2017 Mental Status None recorded. Family History Relationship Description Onset Age of this Age Resolved Age Notes LastModified by Organization Details LastModified Time Mother Diabetes mellitus asavala Not available 2014 12:45:51 Mother Disorder of thyroid gland asavala Not available 2014 12:45:51 Mother Hypertensive disorder asavala Not available 2014 12:45:51 Mother Hypercholest erolemia asavala Not available 2014 12:45:51 Mother Malignant neoplasm of ovary asavala Not available 2014 12:45:51 Father Harmful pattern of use of alcohol asavala Not available 2014 12:45:51 Father Cerebrovascu lar accident asavala Not available 12:45:51 Father Diabetes mellitus asavala Not available 2014 12:45:51 Father Heart disease asavala Not available 2014 12:45:51 Father Hypertensive disorder asavala Not available 2014 12:45:51 Father Hypercholest erolemia asavala Not available 2014 12:45:51 Medical History Condition Response Diabetes Y Acid Reflux (GERD) Y High Blood Pressure Y Asthma Y Allergies Y High Cholesterol Y Gynecological History Statement/Question Response Abnormal Pap N Flow Moderate STIs/STDs Y HPV Vaccine N Duration of Flow (days) 3 Age at Menarche 13 Current Control Method None Frequency of Cycle (Q days) 21 Sexually Active? Y Menses Monthly Y Date of Last Pap Smear Sexual Problems? Y LMP Definite Desired Control Method None Obstetrics History GPAL:G 0 P 0 0 0 0 Type Value Living 0 Total 0 Immunizations Vaccine Type Date Status Note Provider Nam e and Address Organization Details Recorded Time Influenza, split virus, quadrivalent, preservative 0 completed Not Available [facility] 01/02/2022 00:28:43 COVID-19, mRNA, LNP-S, PF, 100 mcg/0.5mL dose or 50 mcg/0.25mL dose 1 completed Not Available [facility] 01/02/2022 00:28:43 COVID-19, mRNA, LNP-S, PF, 100 mcg/0.5mL dose or 50 mcg/0.25mL dose 1 completed Not Available [facility] 01/02/2022 00:28:43 Influenza, split virus, quadrivalent, preservative 7 completed Not Available [facility] 10/31/2019 02:34:20 Influenza, split virus, quadrivalent, PF 8 completed Not Available [facility] 10/31/2019 02:45:31 Influenza, high-dose, trivalent, PF 5 completed Not Available [facility] 01/02/2022 00:28:43 Influenza, split virus, quadrivalent, preservative 9 completed Not Available [facility] 10/31/2019 02:38:15 Tdap 5 completed Not Available [facility] 10/31/2019 02:41:30 Pneumococcal conjugate PCV 13 5 completed Not Available [facility] 01/02/2022 00:28:43 pneumococcal polysaccharide PPV23 3 completed Not Available [facility] 01/02/2022 00:28:43 Influenza, split virus, quadrivalent, preservative 6 completed Not Available [facility] 01/02/2022 00:28:43 Past Encounters Encounter ID Performer Location Encounter Start Date Encounter Closed Date Diagnosis/Indication Diagnosis SNOMED-CT Code Diagnosis ICD10 Code Diagnosis Note [id number] MD Jacklyn Saavedra (Adult Med) [address] [place] [id number] 04/06/2015 12:30:11 04/06/2015 15:04:49 Diabetes mellitus [id number] I think she can safely switch to once a day testing Gastroesop hageal reflux disease 511437441 No relief from Ranitidine , she has implemente d life style changes. She was prescribed Famotidine in January and she states that she was unaware that this was ever prescribed . RF Famotidine 40 [id number] MD Jacklyn Saavedra (Adult Med) [address] [place] [address] [phone] 06/08/2015 11:23:28 06/08/2015 15:33:55 Disorder of lipid metabolism 016522426 She was previously well controlled on Atorvastat in, however her lipid panel is much worse on Simvastati n despite compliance . She however admits to missing a few doses of the medication due to ongoing family issues Uncontroll ed type 2 diabetes mellitus [id number] Her HBA1C is now 7.7, previously 6.9. She is on 40mg of Prednisone and she will be going back down to 10 mg in another week. I believe this may be playing a role. [id number] Davion Pedersen PA-C [facility] [address] [place] [address] 06/30/2015 15:55:52 06/30/2015 16:26:38 Venereal disease screening [id number] MD Jacklyn Saavedra (Adult Med) [address] [place] [address] [phone] 0 11/28/2015 11:27:47 11/28/2015 16:13:12 Venereal disease screening 384482022 Z11.3 Uncontroll ed type 2 diabetes mellitus 874227776 E11.65 Her HBA1C is now 8.1, she is on 10mg of Prednisone , I will check her labs before deciding on the need for an increase in the dose of her Amaryl. 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 I have discussed the significan ce of her positive HSV I & II test results with her and I have recommende d an annual ADMIN DIR follow up [id number] MD Jacklyn Saavedra (Adult Med) [address] [place] [address] [phone] 0 10/03/2016 09:56:31 10/03/2016 15:39:48 Uncontrolled type 2 diabetes mellitus 216235208 E11.65 Her HbA1C is now 8.2, she is on 10mg of Prednisone , I will add Pioglitazo ne 15mg to her regimen, side effects were discussed. Disorder o f lipid metabolism 085374531 E78.9 Uncontroll ed on Simvastati n despite full compliance , I will switch her back to a more potent statin Acute asthma 038905499 J 45.901 Uncontroll ed despite maximum therapy, I will increase her Prednisone to 40mg for 5 days. I have tried to reach Dr. Manuel, I was transferre d to the [facility] office and then the DE's , I have asked Ms. Brown to let Dr. Manuel know about the short course of Prednisone . SHe was offered a treatment with nebulized medication s, she declined. Diabetes mellitus 790448 09 E11.9 [id number] MD Jacklyn Saavedra (Adult Med) [address] [place] [address] [phone] 0 03/08/2017 15:16:44 03/12/2017 12:53:29 Uncontrolled type 2 diabetes mellitus 557397368 E11.65 Her HbA1C is now 10, she is on 30mg of Prednisone , I will increase her dose of Metformin and she needs to clarify the dose of her Glimepirid e, although I strongly suspect the need for a third agent Disorder o f lipid metabolism 171952186 E78.9 I switched her a more potent statin, she now thinks she is taking Fenofibrat e, Zocor and Lipitor, she will need to clarify her regimen. Benign ess ential hypertension 4014854 I10 Worsened by the Nucala infusion which has been discontinu ed, she will need an PILLO- in addition to her Amlodipine . Side effects were discussed, BMP in a few weeks and the opinion of an endocrinol ogist. [id number] MD Jacklyn Saavedra (Adult Med) [address] [place] [address] [phone] 0 07/10/2017 15:47:30 07/10/2017 16:46:51 Uncontrolled type 2 diabetes mellitus 085034593 E11.65 Her HbA1C was 10, she is on 30mg of Prednisone , I had increased her dose of Metformin and she has been compliant with all her meds including her pioglitazo ne and Amaryl. She was referred to the endocrinol ogist, she states that she has not been contacted. She however admits that there was an issue with one of her phones. Benign ess ential hypertension 7357233 I10 She feels that it was made worse by the Nucala infusion which has been discontinu ed, she is on an PILLO- , HCTZ and Amlodipine . 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 Obese 296874985 E66.9 Counseled About weight loss, diet and excercise. Patient refused digital sales executive consult Screening mammography 24 076909 Z12.31 Family his tory of malignant neoplasm of ovary 796091892 Z80.41 OFFERED GENETIC COUNSELING AND TESTING. 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 746490125 M23.51 Severe per sistent asthma 536635973 J45.50 On samples of Advair/Doni vent or Qvar/Duler a (covered by her insurance) [id number] MD Jacklyn Saavedra (Adult Med) [address] [place] [address] [id number] 0 02/25/2018 14:30:24 02/25/2018 15:56:26 Uncontrolled type 2 diabetes mellitus 677263984 E11.65 Asthma 544309078 J45.90 9 Subluxatio n of patellofemoral joint 689193921 S83.001A [id number] MD Jacklyn Saavedra (Adult Med) [address] [place] [address] [phone] 0 07/15/2018 11:59:42 07/16/2018 12:55:51 Administration of influenza vaccine 77102443 Z23 Uncontroll ed type 2 diabetes mellitus 400505987 E11.65 Screening for malignant neoplasm of breast 091233027 Z12.31 Medication monitoring 39 0533138 Z51.81 [id number] MD Jacklyn Saavedra (Adult Med) [address] [place] [address] [phone] 0 01/08/2019 09:42:49 01/08/2019 10:43:41 Calcification of coronary artery 449395911 I25.84 Uncontroll ed type 2 diabetes mellitus 833234656 E11.65 Nausea and vomiting 1693 2000 R11.2 Most likely due to the Victoza Metabolic dysfunction-associate d steatohepatitis 096559748 K75.81 [id number] MD Jacklyn Saavedra (Adult Med) [address] [place] [address] [id number] 0 02/05/2019 15:26:15 02/06/2019 09:11:50 Sinusitis 56591767 J32.9 Complete course of Azithromyc inRecently used Augmentin before her ER visit. Uncontroll ed type 2 diabetes mellitus 702241732 E11.65 Managed by her endocrinol ogist [id number] MD Jacklyn Saavedra (Adult Med) [address] [place] [address] [id number] 0 04/21/2019 15:18:57 04/21/2019 16:29:50 Acute pharyngitis 689294476 J02.9 Pharyngiti s vs a dental source as she has a filling in the left lower molar Uncontroll ed type 2 diabetes mellitus 790816690 E11.65 Managed by her endocrinol ogist, she had an eye exam in December in [place], [place] Asthma 488497441 J45.90 9 Discussed Eczema 77193153 L30.9 Screening for malignant neoplasm of breast 502555707 Z12.31 [id number] MD Jacklyn Saavedra (Adult Med) [address] [place] [address] [phone] 0 07/29/2019 14:12:56 07/29/2019 14:58:33 Administration of influenza vaccine 88934203 Z23 Body mass index 30+ - obesity 316190442 Z68.31 Nausea 681357664 R11.0 Possible DM gastropare sis Headache 47316210 R51 The Tylenol #3 is for her acute pain onlyThe pain is most likely due to her sinusitis which was recently treated with antibiotic sILPMP data was reviewedCT scan if there is no improvemen t Eczema 36764549 L30.9 Uncontroll ed type 2 diabetes mellitus 619712802 E11.65 Managed by her endocrinol ogist [id number] MD Jacklyn Saavedra (Adult Med) [address] [place] [address] [id number] 0 09/07/2019 15:39:22 09/07/2019 16:15:02 History of pancreatitis 0569128756 9107 Z87.19 The etiology is unclear.Me ds?Lipids? Metabolic dysfunction-associate d steatohepatitis 160897830 K75.81 Discussed Uncontroll ed type 2 diabetes mellitus 027657587 E11.65 Managed by her endocrinol ogist [id number] MD Jacklyn Saavedra (Adult Med) [address] [place] [address] [id number] 0 10/19/2019 14:45:34 10/20/2019 09:27:25 Uncontrolled type 2 diabetes mellitus 559363268 E11.65 Managed by her endocrinol [id number] 8.2 09/08/2019 She needs a new endocrinol ogist Screening for malignant neoplasm of cervix 759838546 Z12.4 [id number] James Jordan MD [facility] (Adult Med) [address] [place] [address] [phone] 0 02/03/2020 14:37:50 02/04/2020 11:17:07 Recurrent pancreatitis 406028136 K86.1 Abdominal pain 65118045 R10.9 [place] She has had a recent EGD (Gastritis ) colonoscop y (Diverticu losis) and CT scan (Diverticu losis) She was admitted with pancreatit is last year, it is possible that this is flaring up again but it is unclear what the trigger is, There are unfortunat tammy a myriad of possibilit ies (Meds, TG, and structural abnormalit ies) Dicyclomin e has not helped and she appears to be on the verge of polypharma cy. Urinary incontinence 165 358102 R32 She has requested incontinen ce pads [id number] [facility] [address] [place] [address] [phone] 0 02/23/2020 12:08:18 02/24/2020 05:19:55 Recurrent pancreatitis 043963269 K86.1 Abdominal mass 659271276 R19.00 Splenic tip?US Abdominal pain 17781396 R10.9 She has had a recent EGD (Gastritis ) colonoscop y (Diverticu losis) and CT scan (Diverticu losis) She was admitted with pancreatit is last year, it is quite possible that this is flaring up again but it is unclear what the other triggers might be, although there is an associatio n with all meals. There are unfortunat tammy a myriad of other possibilit ies (Meds, TG, and structural abnormalit ies). She has had at least 3-4 CT scans of the A&P in the last year and I am not certain that a repeat study will be useful, one should also be concerned about exposing her to unnecessar y radiation. I wonder if an MRI or an MRCP will be of any use and I will need an opinion from GI. Tylenol #3 PRN Dicyclomin e has not helped and she appears to be on the verge of polypharma cy. [id number] MD Jacklyn Saavedra (Adult Med) [address] [place] [address] 07/13/2020 08:17:25 07/14/2020 08:53:56 Needs influenza immunization 487695265 Z28.3 Cyst of right ovary 1223 685384 5112457 N83.201 She has an appointmen t with a new gynecologi st in the [facility] Abdominal pain 91326387 R10.9 She has had a recent EGD (Gastritis ) colonoscop y (Diverticu losis) and CT scan (Diverticu losis) She was admitted with pancreatit is last year, it is quite possible that this is flaring up again but it is unclear what the other triggers might be, although there is an associatio n with all meals. There are unfortunat tammy a myriad of other possibilit ies (Meds, TG, and structural abnormalit ies). She has had at least 3-4 CT scans of the A&P in the last year and I am not certain that a repeat study will be useful, one should also be concerned about exposing her to unnecessar y radiation. I wonder if an MRI or an MRCP will be of any use and I will need an opinion from GI. Tylenol #3 PRN Dicyclomin e has not helped and she appears to be on the verge of polypharma cy. Addendum 07/12/2020T he mst recent CT scan done on 06/27/2020 confirmed a fatty liver and a possible right ovarian cyst.Her most recent lipase was also normal.She takes Tylenol #3 PRN and she still has a few pills left Thyroid nodule 265211601 E04.1 The US was ordered by her endocrinol ogist, she should follow up Drug of abuse screen 897 69272 Z02.83 Her most recent UDS did not confirm any opiates, she states that she takes the Hydrocodon e/Chlorphe niramine and Tylenol #3 PRN only. Immunization due 7272462 08 Z28.3 [id number] MD Jacklyn Saavedra (Adult Med) [address] [place] [address] 11/07/2020 08:05:29 11/08/2020 07:57:29 Uncontrolled type 2 diabetes mellitus 374251965 E11.65 Managed by her endocrinol [id number] 8.6 02/23/2020 Laboratory test result abnormal 233180653 R89.9 Her drug screen from 08/04/2020 is not consistent with what she is prescribed , I have explained this to her and she is aware that she has a signed controlled drug agreement on file and if the repeat drug screen ordered on 11/03/2020 is again negative, I will no longer able to prescribe her controlled drug, Tylenol #3.She states that she takes the Tramadol from Dr Bradley and the Tylenol #3 prescribed by me only on a PRN basis. Medication requested [id number] Z23 I am not willing to refill her Lorazepam. She stated that she is aware that I can prescribe anxiety medication , as I have her mother on anxiety medication s, I made it very clear that I cannot discuss another patient's medical issues with her. She also should be aware that each patient is unique.the other issue is that she is already on Tramadol, Tylenol #3 and Hydrocodon e/Chlophen iramine cough syrup Anxiety [id number] F41.9 Screening for malignant neoplasm of breast [id number] Z12.31 Essential hypertension [id number] I10 She needs to clarify with her pulmonolog ist how much HCTZ they want her on, she states that she was told to take possibly a total of 37.5 mg of HCTZ Health Concerns Section Related Observation LastModified by Organization Detai ls LastModified Time None Recorded Concern Status LastModified by Organization Details LastModified Time None Recorded Advance Directives Directive N: Payers Insurance Date Sequence Insurance Name Policy Number Policy Lazaro Covered Member ID Lazaro Member ID Guarantor Name 10/16/2019 1 [facility] PRIOR TO 04/13/2021 (MEDICAID REPLACEMENT - HMO) Paulie Brown [id number] Paulie Brown 11/04/2020 1 [facility] (MEDICAID REPLACEMENT - HMO) [id number] Paulie Brown [id number] Paulie Brown 06/30/2015 1 [facility] PRIOR TO 04/13/2021 (MEDICAID REPLACEMENT - HMO) Paulie Brown [id number] Paulie Brown 02/17/2018 1 [facility] (MEDICAID HMO) [id number] Paulie Brown [id number] Paulie Brown 01/08/2019 1 [employer] [facility] (MEDICAID HMO) Paulie Brown [id number] Paulie Brown Notes Date Note Type Note Provider Name and Address Organization Details Recorded Time 10/19/2019 text/html Diabetes F/URepo rted bypatient.Review finger sticks:fastin; pre lunch: ; post lunch: 140-200; post dinner: 140-200 Labs:last A1C result: 8.2 Context:taking aspirin daily; not missing doses of medications; no side effects from medications;home blood sugar range high Associated Symptoms:no weight gain; no weight loss; no dizziness; no sweats; no headaches; no confusion; no increased thirst; no increased appetite; no increased urination; no blurred vision; no numbness of feet; no calluses on feet They don't take any of the insurances Ms Brown returns, she was on [facility] her contract administration coordinator no longer accepts and she then switched it to [facility] which the hospital accepts but not her contract administration coordinator. James Jordan MD Attn: Accounting,[address] [facility], [place], [address], [facility] 10/19/2019 15:56:01 02/03/2020 text/html Abdominal PainRe ported bypatient.Location:LUQ Quality:pain Severity:severe Duration:constant Onset/Timing:worse; wax/wane Modifying Factors:eating Associated Symptoms:nausea Phone visit due to the COVID-19 pandemic The pain was tolerable, now the pain is unbearableThe pancreatitis Ms Silva has been having a flare ups of her LUQ abdominal pain again, she had an EGD, colonoscopy, she was seen in the ER and in her picking supervisor's office and told to follow up with her primary for her pancreatitis. James Jordan MD Attn: Accounting,[address] [facility], [place], [address], [facility] 02/04/2020 09:02:32 02/23/2020 text/html Abdominal PainRe ported bypatient.Location:LUQ Quality:pain Severity:severe Duration:intermittent Onset/Timing:worse; wax/wane Modifying Factors:eating Associated Symptoms:no fever; no chills; no blood in the urine; no heartburn; no shortness of breath;nausea Other:denies possible Just that pain hereI seen Yuriy Ms Brown returns, on her most recent visit (Telehealth), the plan was a reevaluation by GI and a short course of Tylenol #3, as Tylenol was ineffective. She was contacted by the referral team and declined a new referral as she was already seeing Dr Yan, she also states that she was unaware that a script for Tylenol #3 was ever written. She continues to have intermittent LUQ abdominal pian and feels that she can at times feel a lump in the LUQ, around the left subcostal margin. Note, she has no lump on her left thigh James Jordan MD Attn: Accounting[address] [place], [address], [facility] 02/23/2020 13:08:34 07/13/2020 text/html Abdominal PainRe ported bypatient.Location:LLQ ; RLQ Quality:pain Severity:mild Duration:intermittent; constant Onset/Timing:worse Modifying Factors:nothing gives relief Associated Symptoms:no fever; no chills; no blood in the urine; no heartburn; no shortness of breath Other:denies possible Phone visit due to the Covid 19 pandemic ER wanted me to follow up with you because I was getting lots of pain on my right sideThey are giving me Plasma once a month Ms Brown returns, in the interim, she was apparently diagnosed with an Immunodeficiency and now receives therapy at home. She continues to have RLQ and LLQ abdominal pain, she was concerned about her appendix and went to the ER. A CT scan suggested a right ovarian cyst, she still feels that the LLQ abdominal pain is from her pancreatitis. James Jordan MD Attn: Accounting[address] [place], [address], [facility] 07/13/2020 19:53:37 11/07/2020 text/html Diabetes F/URepo rted bypatient.Review finger sticks:fastin Labs:last A1C result: 8.6 Context:seeing eye doctor regularly; checking feet regularly;home blood sugar range high Associated Symptoms:no weight gain; no weight loss; no dizziness; no sweats; no headaches; no confusion; no increased thirst; no increased appetite; no increased urination; no blurred vision; no numbness of feet; no calluses on feetHypertension F/UReported bypatient.Associated Symptoms:no dizziness; no lightheadedness; no chest pain; no shortness of breath; no palpitations; no edema; no calf pain with exertion Lifestyle:regular exercise; limiting/avoiding salt Medications:taking medications as directed; no side effects from medication; checks blood pressure at home, range: (141/82) Phone visit due to the Covid 19 pandemic They [facility]? In the interim, she had elevated blood pressure and blood sugars shortly after her infusion and was seen in the ER at [facility] on 10/31/2020, she states that her blood pressure was in the 200's. The ER record lists her blood pressure at 141/70 and her blood sugar at 329. She states that this has never happened in the past, both are however better controlled at this time.She states that she was told that it may have been anxiety and she was discharged on Lorazepam and told to request further refills from me. She admits that she has no prior history of anxiety disorder in the past James Jordan MD Attn: Accounting[address] [place], [address], [facility] 11/07/2020 10:55:34 OBGyn Episode No OBEpisode recorded.
--- NOTE | 2025-03-26 10:32 | REHSTMBS ---
Assessment and note entered by MERT Cortes Modified Barium Swallow Evaluation ICD-10 Condition Codes (ST) Dysphagia, unspecified R13.1 Feeding Type Recommended Oral Food Consistency Regular, Level 7 Liquid Consistency Thin (0) ST Clinical Summary The above pleasant and cooperative pt was seen for an outpatient modified barium swallow. She was alert, oriented, and able to follow commands. She is on a regular diet and reports that she doesn't really feel she has a swallowing problem but post nasal drip. However, she reports a 70 pound weight loss over the past year, severe asthma, and chronic bronchitis. Pt has many other medical issues but denies neuro deficits and recent hospitalizations. She denied coughing or choking associated with liquids or solids. Oral mucosa is normal; natural dentition is in good condition; Informal oral peripheral exam revealed lingual and labial structures to be normal. She was able to dry swallow on command and exhibited clear vocal quality. The patient was seated for a lateral view and presented with 5 ml of thin liquid barium via a spoon, pudding consistency barium via a spoon, a cracker coated with barium pudding via a spoon, a full size barium pill, and uncontrolled thin liquid barium. This was presented via a cup & straw. Oral preparatory and oral phase symptoms: none. Pharyngeal phase symptoms: none. Esophageal stage symptoms: none. No laryngeal penetration or aspiration occurred. Impressions: Normal swallow Ability No further ST is warranted at this time.
== END 2025-03-26 08:56 | disposition home or self-care (01) ==
PROVIDERS: PCP Physician Assistant; Visit Provider Nurse Practitioner
DX: R13.10 Dysphagia, unspecified (principal)
CPT/HCPCS: 92611

== ENCOUNTER 2025-04-15 10:54 | Outpatient (CLI) | payer OTHER, SELFPAY ==
--- NOTE | ~2025-04-15 | CT_ITS ---
EXAMINATION: CT sinus wo con DATE: 04/15/2025 11:16 INDICATION: Chronic sinusitis TECHNIQUE: Computed tomography (CT) of the paranasal sinuses was performed without intravenous contra st. The dose-length product was 314.73 mGy-cm. Automated exposure control and iterative reconstructio n technique were employed. COMPARISON: None FINDINGS: Leftward nasal septal deviation. Ostiomeatal units are patent. No mucosal thickening or air -fluid levels. No mucoperiosteal reaction. Small left mastoid effusion. Right mastoid air cells are p neumatized. IMPRESSION: 1. No significant sinus disease. Reviewed, dictated and finalized at location A.
--- OUTSIDE RECORDS SUMMARY | 2025-04-15 10:58 | XMS_ITS | Clinical Summary ---
Author Organization [facility] Address [address] [place] [address] Phone Care Team Providers Care Field Recorder Name Role Phone Tez Raya MD Primary Care Provider [phone] Allergies Active Allergy Reactions Criticality Noted Date [...] Comments Blood Pressure 162/86 11/04/2022 12:22 PM [employer] Pulse 87 11/04/2022 12:22 PM [employer] Temperature 36.4 C (97.6 F) 11/04/2022 12:22 PM [employer] Respiratory Rate 19 11/04/2022 12:22 PM [employer] Oxygen Saturation 99% 11/04/2022 12:22 PM [employer] Inhaled Oxygen Concentration - - Weight 77.1 kg (170 lb) 11/04/2022 12:22 PM [employer] Height 160 cm (5' 3) 11/04/2022 12:22 PM [employer] Body Mass Index 30.11 11/04/2022 12:22 PM [employer] Plan of Treatment Health Maintenance Due Date [...] season) 2024 07/17/2021, 01/14/2021, 12/17/2020 Influenza Immunization (#1) 2025 01/0 01/2022, 07/19/2020, 07/29/2019, Additional history exists Pneumococcal Immunization [...] Recently Relevant to Health Maintenance Insurance MEDICAID [employer] Care Teams Field Recorder Relationship Specialty Start Date End Date Tez Raya MD [facility] [address] PCP - General Entry Level Business Analyst 07/23/21
--- OUTSIDE RECORDS SUMMARY | 2025-04-15 10:59 | XMS_ITS | Data Portability ---
Author Organization JONNA TAYLERCornelius [facility] Address [address] [place] [address] Care Team Providers Care Centura Technical Lead Senior Developer Name Role Phone Yann SHEARER Kitchen Cleaner [phone] DENIZ ELIZABETH Charity Fundraiser Unavailable Assessment No assessment recorded. Plan of Treatment Reminders Order Date Submit Date Provider Last Modified By Organization Details Last Modified Time Details Appointments None recorded . Lab drug screen, urine 2019 020 [facility], [address] [place] [address], [address], [place], [address], 0 17:07:35 lipase, serum or plasma 2019 020 [facility], [address] [place] [address], [address], [place], [address], 0 17:07:36 HbA1c (hemoglo bin A1c), blood 2019 020 [facility], [address] [facility], [address], [place], [address], 0 09:11:04 lipid panel, serum 2019 020 [facility], [address] [facility], [address], [place], [address], 0 09:11:03 Referral diabetic ophthalm ology referral 2020 021 [email or web address], [address], [place], [address], 1 12:07:09 psychiat rist referral 2020 021 [email or web address] Not available 1 16:57:[address] referral - Recurent pancreat itis 2019 020 ankur Yan MD, [address] [facility], [address], [place], [address], 0 10:11:44 gynecolo gist referral 2019 020 [facility] Not available 0 15:52:20 Procedures None recorded . Surgeries None recorded . Imaging MAMMO, screenin g, bilatera l 2020 021 [facility] ([facility]), [address] [place], [address], 1 11:15:53 US, abdomen, limited - Reported mass LUQ, left subcosta l margin 2019 020 [facility] ([facility]), [address] [place], [address], 0 10:32:34 Medication Orders acetamin ophen 300 mg-codei ne 30 mg tablet 2019 020 [id number], [address] [place] [address], [place], [id number], 0 15:57:53 Patient TargetsNo targets recorded. Patient Instructions Encounter Date Encounter Id Patient Instructions Last Modified By Organization Details Last Modified Time 10/19/2019 [id number] Please have the endocrinology referral resent with her new insurance Labs Follow up in 4 months oajao Not available 10/19/2019 15:54:31 Her medication reconciliation was done, she takes Metformin XR/24 hour 1000 mg BID instead of 2000 mg daily. She states that her fan blade aligner is aware. oajao Not available 10/19/2019 15:55:51 02/03/2020 [id number] Stress Incontinence: Care Instructions oajao Not available 02/04/2020 08:48:47 Tylenol #3, side effects were discussed GI follow up ER with worsening of her symptoms Follow up in 4 weeks ER reports Most recent office consultation notes from her regulatory internship, Dr Yan oajustinao Not available 02/03/2020 15:39:55 She can be seeen in the office, however due to the current pandemic, office visits have been discouraged. She also has a lot of risk factors and should probably limit unnecessary exposure. oajao Not available 02/03/2020 18:40:07 02/23/2020 [id number] Labs as previous ly ordered US GI as previously referred or in the event that we are not making much progress, she may warrant a second opinion. Tylenol #3 as prescribed on the lat visit oajao Not available 02/23/2020 13:06:03 Detailed explanation oajao Not available 02/23/2020 13:06:12 07/13/2020 [id number] thyroid nodules: care instructions oajao Not available 07/13/2020 17:10:43 abdominal pain: care instructions oajao Not available 07/13/2020 17:09:01 ER report, daniel delcid Most recent consultation note from her cylinder press feeder, Dr Shearer Follow up in 4 months oajao Not available 07/13/2020 19:44:31 11/07/2020 [id number] learning about breast cancer screening oajao Not available 11/07/2020 10:45:11 Most recent HBA1 C and lipid panel from [facility] Endocrinology note from Dr Padilla Follow up with the cylinder press feeder and fan blade aligner She needs to clarify with her cylinder press feeder how much HCTZ they want her on Follow up in 3 months and PRN Psychiatrist to see regarding the neeed for a BZD Addendum [facility] oajao Not available 11/07/2020 10:52:41 Detailed discuss ion Detailed visit Ms Brown ended the call oajao Not available 11/07/2020 10:55:17 Reason for Referral Charity Fundraiser Referral for Sc reening for malignant neoplasm of cervix Referring Physician: James Jordan, Internal Medicine, Encounter Date: 10/19/2019 Picker And Sorter Load And Unload Referral for Recurrent pancreatitis Recurrent pancreatitis Recurent [...] 162 mg/dL 100-19 9 Not Available [facility] [address] [place], [address], 02/24/2020 09:11:03 02/23/2002/24/2020 lipid panel , serum triglyceride s 117 mg/dL 0-149 Not Available [facility] [address] [place], [address], 02/24/2020 09:11:03 02/23/2002/24/2020 lipid panel , serum HDL cholesterol 49 mg/dL >39 Not Available [facility] [address] [place], [address], 02/24/2020 09:11:03 02/23/2002/24/2020 lipid panel , serum VLDL cholesterol acosta 23 mg/dL 5-40 Not Available [facility] [address] [place], [address], 02/24/2020 09:11:03 02/23/2002/24/2020 lipid panel , serum LDL cholesterol calc 90 mg/dL 0-99 Not Available [facility] [address] [place], [address], 02/24/2020 09:11:03 02/23/2002/24/2020 lipid panel , serum comment: PACKAGE LINE OPERATOR Not Available [facility] [address] [place], [address], 02/24/2020 09:11:03 02/23/2002/24/2020 lipid panel , serum LDL/HDL ratio 1.8 ratio 0.0-3. 2 LDL/H DL Ratio Men Women 1/2 Avg.R isk 1.0 1.5 Avg.R isk 3.6 3.2 2X Avg.R isk 6.2 5.0 3X Avg.R isk 8.0 6.1 Not Available [facility] [address] [place], [address], 02/24/2020 09:11:03 02/23/2002/24/2020 HbA1c (hemo globi n A1c), blood hemoglobin A1C 8.6 % 4.8-5. 6 above high normal Predi abete s: 5.7 - 6.4 Diabe leo: >6.4 Glyce michael contr ol for adult s with diabe leo: <7.0 Not Available [facility] [address], [place], [place], [address], 02/24/2020 09:11:04 02/23/2002/24/2020 diabe leo patie nt educa tion pdf image . Not Available [facility] [address] [place], [address], 02/24/2020 09:11:05 03/17/2003/18/2020 drug scree n, urine amphetamines , urine NEGATI VE NG/mL cutoff =1000 Amphe tamin e test inclu rah Amphe tamin e and Metha mphet amine . Not Available [facility] [address] [place], [address], 03/20/2020 17:07:35 03/17/20 20 03/18/2020 drug scree n, urine barbiturate NEGATI VE NG/mL cutoff =300 Not Available [facility] [address] [place], [address], 03/20/2020 17:07:35 03/17/20 20 03/18/2020 drug scree n, urine benzodiazepi lauren NEGATI VE NG/mL cutoff =300 Not Available [facility] [address] [place], [address], 03/20/2020 17:07:35 03/17/20 20 03/18/2020 drug scree n, urine cannabinoid NEGATI VE NG/mL cutoff =50 Not Available [facility] [address] [place], [address], 03/20/2020 17:07:35 03/17/20 20 03/18/2020 drug scree n, urine cocaine (metab.) NEGATI VE NG/mL cutoff =300 Not Available [facility] [address] [place], [address], 03/20/2020 17:07:35 03/17/20 20 03/18/2020 drug scree n, urine opiates SEE FINAL RESULT S NG/mL cutoff =300 Opiat e test inclu rah Codei ne and Morph ine only. Not Available [facility] [address] [place], [address], 03/20/2020 17:07:35 03/17/20 20 03/18/2020 drug scree n, urine phencyclidin e NEGATI VE NG/mL cutoff =25 Not Available [facility] [address] [place], [address], 03/20/2020 17:07:35 03/17/20 20 03/18/2020 drug scree n, urine methadone screen, urine NEGATI VE NG/mL cutoff =300 Not Available [facility] [address] [place], [place], [address], 03/20/2020 17:07:35 03/17/20 20 03/18/2020 drug scree n, urine propoxyphene , urine NEGATI VE NG/mL cutoff =300 Not Available [facility] [address] [place], [address], 03/20/2020 17:07:35 03/17/20 20 03/20/2020 drug scree n, urine opiates NEGATI VE cutoff =300 Opiat e test inclu rah Codei ne and Morph ine only. Not Available [facility] [address] [place], [place], [address], 03/20/2020 17:07:35 03/17/20 20 03/18/2020 lipas e, serum or plasm a lipase 30 U/L Not Available [facility] [address] [place], [place], [address], 03/20/2020 17:07:36 08/04/20 20 08/08/2020 drug scree [...] Not Detec jone UNEXP ECTED ng/mg creat [place] codon e Not Detec jone UNEXP ECTED [...] johana e Codei ne Cyclo benza mckinley [place] codon e Not e: The testi ng [...] rona e Glime pirid e Gluca justyn [place] chlor othia zide (HCTZ ) Insul in Iprat ropiu m Topic al ===== ===== ===== ===== ===== ===== ===== ===== ===== ===== ===== ===== ===== === For clini acosta consu ltati on, pleas e call . ===== ===== ===== ===== ===== ===== ===== ===== ===== ===== ===== ===== ===== === Not Available [facility] [address], [place], [address], 08/08/2020 17:08:56 08/04/20 20 08/08/2020 drug scree n, urine pdf . Not Available [facility] [address] [facility], [place], [address], 08/08/2020 17:08:56 05/23/20 21 05/23/2021 lab* CMP Not Available [facility] Orders [address] [place], [address], 05/23/2021 12:49:10 05/23/20 21 05/23/2021 lab* lipid panel Not Avai lable [facility] Orders [address] [place], [address], 05/23/2021 12:49:10 05/23/20 21 05/23/2021 lab* A1C Not Available [facility] [address] [place], [address], 05/23/2021 12:49:10 10/28/19 20 10/28/2019 CT, abdom en + pelvi s, w/ contr ast No observ ation record ed. [facility] ([facility]) [address] [place], [address], 02/03/2020 15:04:45 10/31/19 20 10/31/2019 CT, abdom en + pelvi s, w/o contr ast No observ ation record ed. oajao [facility] (Imaging) [address] [place], [address], 02/03/2020 15:04:45 03/01/20 20 03/01/2020 US, abdom en, limit ed No observ ation record ed. [facility] ([facility]) [address] [place], [address], 07/13/2020 17:03:39 03/01/20 20 03/01/2020 US, head + neck, soft tissu e No observ ation record ed. [facility] ([facility]) [address] [place], [address], 07/13/2020 17:03:39 06/28/20 20 06/27/2020 CT, abdom en + pelvi s, w/o contr ast No observ ation record ed. [facility] ([facility]) [address] [place], [address], 07/13/2020 17:03:39 09/20/20 20 09/20/2020 XR, chest , 2 view No observ ation record ed. [facility] [address] [place], [address], 11/07/2020 10:10:27 04/08/20 23 04/08/2023 trans -thor acic echoc ardio gram (TTE) (PROC ) No observ ation record ed. [email or web address] [address], [place], [address], 04/08/2023 22:31:53 Result Notes None recorded. Problems Name Problem SNOMED Code Status Onset Date Resolution Date Notes Provider Name and Address Organization Details Recorded Time Severe persistent asthma 819717340 Active 2016 Not Available [facility] 2 00:28:43 Subluxation of patellofemora l joint 466716718 Active 2017 Not Available [facility] 2 00:28:43 Calcification of coronary artery 424167160 Active 2018 Not Available [facility] 2 00:28:42 Metabolic dysfunction-a ssociated steatohepatit is 481047335 Active 2018 Not Available [facility] 2 00:28:42 Urinary incontinence 316003957 Active 2019 Not Available [facility] 2 00:28:43 Recurrent pancreatitis 944918225 Active 2019 Not Available [facility] 2 00:28:42 Laboratory test result abnormal 204570609 Active 2020 Not Available [facility] 2 00:28:42 Essential hypertension 28108693 Active 2020 Not Available [facility] 2 00:28:43 Diabetes mellitus 32988808 Active Not Available [facility] 2 00:28:43 Gastroesophag eal reflux disease 513172026 Active Not Available [facility] 2 00:28:43 Disorder of lipid metabolism 402121032 Active Not Available [facility] 2 00:28:42 Uncontrolled type 2 diabetes mellitus 469818129 Active Not Available [facility] 2 00:28:42 Genital herpes simplex 91802306 Active Not Available [facility] 2 00:28:42 Herpes simplex 79107592 Active Not Available [facility] 2 00:28:43 Problem Notes Documentation Provider Name and Address Organization Details Recorded Time Allergy Consult Note : This document (1 of 1) was received from [email or web address] on 07/12/2023 through Direct Message along with the following message body content: Patient Name: PAULIE BROWN. Patient : 1975. Patient . JONNA Yusuf [facility] 08/07/2023 15:17:04 Allergy Consult Note : This document (1 of 1) was received from [email or web address] on 08/03/2023 through Direct Message along with the following message body content: Patient Name: PAULIE BROWN. Patient : 1975. Patient . Keyshawn Hammond null, [facility] 08/14/2023 15:49:18 Procedures Surgical History Date Name Laterality Status Provider Name and Address Organization Details Recorded Time 0 EGD completed James Jordan MD Attn: Accounting,[address] [place], [address], [facility] 11/27/2019 10:17:13 0 Colonoscopy completed James Jordan MD Attn: Accounting,[address] [place], [address], [facility] 11/13/2019 12:41:40 Tonsillectomy completed James scott MD Attn: Accounting,[address] [place], [address], [facility] 11/28/2015 11:56:01 Imaging Results None recorded. Procedure Notes None recorded. Medical Equipment None Reported. Allergies Allergen ID Allergen Name Allergen Category Reaction Reaction Severity Criticality Documentation Date Start Date Code Code System Note Provider Name and Address Organization Details Recorded Time 604630 Compazine medicatio n other Not available Not available 11/07/202040891 6 RxNorm Elva Phillips MA null, [facility] 1 09:55:31 51597 aspirin medicatio n other Not available Not available 04/06/2015 1191 RxNorm Epist axis James Jordan MD Attn: Lali dennis,[address] [facility], [place], [address], [facility] 6 11:55:18 27997 sulfameth oxazole / trimethop rim medicatio n Not available Not available Not available 06/30/2015 20751 RxNorm ? James Jordan MD Attn: Lali dennis,[address] [facility], [place], [address], [facility] 6 11:55:18 Medications [...] Not Available Not Available Not Available Afluria 3012-5720 (PF) 45 mcg (15 mcg x 3)/0.5 mL IM syringe 03/08 completed Not Available Not Available Not Available Spiriva Respimat 1.25 mcg/actua tion solution for inhalatio n INHALE 2 PUFFS BY MOUTH DAILY active Not Available Not Available No t Available TechLITE Pen Needle 31 gauge x 5/16 USE TO INJECT INSULIN QID active Not Available Not Available No t Available Fluvirin 1166-0523 45 mcg (15 mcg x 3)/0.5 mL [...] in Arterial blood by Pulse oximetry Systolic And Diastolic Provider Name and Address Organization Details Last Updated DateTime 0 162.56 cm 31.8 kg/m2 39093.5 9 g 97.6 [degF] 80 /min 99 % 99 % 130/80 mm[Hg] Elva [place] MA [place] [facility] 0 14:59:25 Date Recorded Body height Provider Name an d Address Organization Details Last Updated DateTime 11/07/2020 162.56 cm Elva Phillips MA [facility] 021 09:51:42 Date Recorded Body height Provider Name an d Address Organization Details Last Updated DateTime 02/03/2020 162.56 cm Elva Phillips MA [facility] 020 14:48:41 Date Recorded Body height Body mass index (BMI) Body weight Heart rate Oxygen saturation Oxygen saturation in Arterial blood by Pulse oximetry Respiratory rate Systolic And Diastolic Provider Name and Address Organization Details Last Updated DateTime 0 162.56 cm 30 kg/m2 51066.9 5 g 80 /min 100 % 100 % 14 /min 124/80 mm[Hg] Elva Phillips MA [facility] 0 12:17:51 Date Recorded Body height Provider Name an d Address Organization Details Last Updated DateTime 07/13/2020 162.56 cm Elva Phillips MA [facility] 020 15:57:24 Social History Question Answer Notes LastModified by Organizat ion Details LastModified Time Tobacco Smoking Status Never Smoker James Jordan MD Attn: Accounting,[address] [place], [address], [facility] 04/06/2015 13:16:18 Do You Have An [...] virus, quadrivalent, preservative 0 completed Not Available [facility] 01/02/2022 00:28:43 COVID-19, mRNA, LNP-S, PF, 100 mcg/0.5mL dose or 50 mcg/0.25mL dose 1 completed Not Available [facility] 01/02/2022 00:28:43 COVID-19, mRNA, LNP-S, PF, 100 mcg/0.5mL dose or 50 mcg/0.25mL dose 1 completed Not Available [facility] 01/02/2022 00:28:43 Influenza, split virus, quadrivalent, preservative 7 completed Not Available [facility] 10/31/2019 02:34:20 Influenza, split virus, quadrivalent, PF 8 completed Not Available [facility] 10/31/2019 02:45:31 Influenza, high-dose, trivalent, PF 5 completed Not Available [facility] 01/02/2022 00:28:43 Influenza, split virus, quadrivalent, preservative 9 completed Not Available [facility] 10/31/2019 02:38:15 Tdap 5 completed Not Available [facility] 10/31/2019 02:41:30 Pneumococcal conjugate PCV 13 5 completed Not Available [facility] 01/02/2022 00:28:43 pneumococcal polysaccharide PPV23 3 completed Not Available [facility] 01/02/2022 00:28:43 Influenza, split virus, quadrivalent, preservative 6 completed Not Available [facility] 01/02/2022 00:28:43 Past Encounters Encounter ID Performer Location Encounter Start Date Encounter Closed Date Diagnosis/Indication Diagnosis SNOMED-CT Code Diagnosis ICD10 Code Diagnosis Note [id number] MD Jacklyn Saavedra (Adult Med) [address] [place] [phone] 04/06/2015 12:30:11 04/06/2015 15:04:49 Diabetes mellitus 54691293 I think she can safely switch to once a day testing Gastroesop hageal reflux disease 099680577 No relief from Ranitidine , she has implemente d life style changes. She was prescribed Famotidine in January and she states that she was unaware that this was ever prescribed . RF Famotidine 40 [id number] MD Jacklyn Saavedra (Adult Med) [address] [place] [phone] 06/08/2015 11:23:28 06/08/2015 15:33:55 Disorder of lipid metabolism 761099980 She was previously well controlled on Atorvastat in, however her lipid panel is much worse on Simvastati n despite compliance . She however admits to missing a few doses of the medication due to ongoing family issues Uncontroll ed type 2 diabetes mellitus 154604691 Her HBA1C is now 7.7, previously 6.9. She is on 40mg of Prednisone and she will be going back down to 10 mg in another week. I believe this may be playing a role. [id number] Davion Pedersen PA-C [facility] [address] [place] [address] 06/30/2015 15:55:52 06/30/2015 16:26:38 Venereal disease screening 137148243 [id number] MD Jacklyn Saavedra (Adult Med) [address] [place] [phone] 11/28/2015 11:27:47 11/28/2015 16:13:12 Venereal disease screening 908063845 Z11.3 Uncontroll ed type 2 diabetes mellitus 734187525 E11.65 Her HBA1C is now 8.1, she is on 10mg of Prednisone , I will check her labs before deciding on the need for an increase in the dose of her Amaryl. Herpes simplex 48410207 B00.9 Positive HSV I & II 06/08/2015 Reported genital lesions, she was prescibed Valtrex, she now states that she never took the medication . I have discussed the significan ce of her positive HSV I & II test results with her and I have recommende d an annual ELECTRO MECHANICAL TECHNOLOGIST follow up [id number] MD Jacklyn Saavedra (Adult Med) [address] [place] [phone] 10/03/2016 09:56:31 10/03/2016 15:39:48 Uncontrolled type 2 diabetes mellitus 453624142 E11.65 Her HbA1C is now 8.2, she is on 10mg of Prednisone , I will add Pioglitazo ne 15mg to her regimen, side effects were discussed. Disorder o f lipid metabolism 508971512 E78.9 Uncontroll ed on Simvastati n despite full compliance , I will switch her back to a more potent statin Acute asthma 892152731 J 45.901 Uncontroll ed despite maximum therapy, I will increase her Prednisone to 40mg for 5 days. I have tried to reach Dr. Shearer, I was transferre d to the [facility] office and then the [facility], I have asked Ms. Brown to let Dr. Shearer know about the short course of Prednisone . SHe was offered a treatment with nebulized medication s, she declined. Diabetes mellitus 304744 09 E11.9 [id number] MD Jacklyn Saavedra (Adult Med) [address] [place] [id number] 03/08/2017 15:16:44 03/12/2017 12:53:29 Uncontrolled type 2 diabetes mellitus 225681068 E11.65 Her HbA1C is now 10, she is on 30mg of Prednisone , I will increase her dose of Metformin and she needs to clarify the dose of her Glimepirid e, although I strongly suspect the need for a third agent Disorder o f lipid metabolism 694850544 E78.9 I switched her a more potent statin, she now thinks she is taking Fenofibrat e, Zocor and Lipitor, she will need to clarify her regimen. Benign ess ential hypertension 6531429 I10 Worsened by the Nucala infusion which has been discontinu ed, she will need an PILLO- in addition to her Amlodipine . Side effects were discussed, BMP in a few weeks and the opinion of an endocrinol ogist. [id number] MD Jacklyn Saavedra (Adult Med) [address] [place] [phone] 07/10/2017 15:47:30 07/10/2017 16:46:51 Uncontrolled type 2 diabetes mellitus 790813999 E11.65 Her HbA1C was 10, she is [...] of her phones. Benign ess ential hypertension 2756467 I10 She feels that it was made worse by the Nucala infusion which has been discontinu ed, she is on an PILLO- , HCTZ and Amlodipine . 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 Obese 148066887 E66.9 Counseled About weight loss, diet and excercise. Patient refused heel sander rubber consult Screening mammography 24 395193 Z12.31 Family his tory of malignant neoplasm of ovary 926111369 Z80.41 OFFERED GENETIC COUNSELING AND TESTING. 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 799179554 M23.51 Severe per sistent asthma 025108736 J45.50 On samples of Advair/Doni vent or Qvar/Duler a (covered by her insurance) [id number] MD Jacklyn Saavedra (Adult Med) [address] [place] [id number] 02/25/2018 14:30:24 02/25/2018 15:56:26 Uncontrolled type 2 diabetes mellitus 347768375 E11.65 Asthma 918451186 J45.90 9 Subluxatio n of patellofemoral joint 502667707 S83.001A [id number] MD Jacklyn Saavedra (Adult Med) [address] [place] [phone] 07/15/2018 11:59:42 07/16/2018 12:55:51 Administration of influenza vaccine 03325433 Z23 Uncontroll ed type 2 diabetes mellitus 254543960 E11.65 Screening for malignant neoplasm of breast 793694287 Z12.31 Medication monitoring 39 1120802 Z51.81 [id number] MD Jacklyn Saavedra (Adult Med) [address] [place] [address] [phone] 0 01/08/2019 09:42:49 01/08/2019 10:43:41 Calcification of coronary artery 609348828 I25.84 Uncontroll ed type 2 diabetes mellitus 685093600 E11.65 Nausea and vomiting 1693 2000 R11.2 Most likely due to the Victoza Metabolic dysfunction-associate d steatohepatitis 324917107 K75.81 [id number] MD Jacklyn Saavedra (Adult Med) [address] [place] [address] [phone] 02/05/2019 15:26:15 02/06/2019 09:11:50 Sinusitis 86719033 J32.9 Complete course of Azithromyc inRecently used Augmentin before her ER visit. Uncontroll ed type 2 diabetes mellitus 349820111 E11.65 Managed by her endocrinol ogist [id number] MD Jacklyn Saavedra (Adult Med) [address] [place] [address] [phone] 0 04/21/2019 15:18:57 04/21/2019 16:29:50 Acute pharyngitis 151328409 J02.9 Pharyngiti s vs a dental source as she has a filling in the left lower molar Uncontroll ed type 2 diabetes mellitus 569764139 E11.65 Managed by her endocrinol ogist, she had an eye exam in December in [place], [place] Asthma 389515570 J45.90 9 Discussed Eczema 01059645 L30.9 Screening for malignant neoplasm of breast 510690565 Z12.31 [id number] MD Jacklyn Saavedra (Adult Med) [address] [place] [address] [phone] 0 07/29/2019 14:12:56 07/29/2019 14:58:33 Administration of influenza vaccine 11944200 Z23 Body mass index 30+ - obesity 102099386 Z68.31 Nausea 199950273 R11.0 Possible DM gastropare sis Headache 64223668 R51 The Tylenol #3 is for her acute pain onlyThe pain is most likely due to her sinusitis which was recently treated with antibiotic sILPMP data was reviewedCT scan if there is no improvemen t Eczema 73601867 L30.9 Uncontroll ed type 2 diabetes mellitus 388948753 E11.65 Managed by her endocrinol ogist [id number] MD Jacklyn Saavedra (Adult Med) [address] [place] [address] [phone] 0 09/07/2019 15:39:22 09/07/2019 16:15:02 History of pancreatitis 5298134986 9107 Z87.19 The etiology is unclear.Me ds?Lipids? Metabolic dysfunction-associate d steatohepatitis 344342224 K75.81 Discussed Uncontroll ed type 2 diabetes mellitus 324313985 E11.65 Managed by her endocrinol ogist [id number] MD Jacklyn Saavedra (Adult Med) [address] [place] [address] [phone] 0 10/19/2019 14:45:34 10/20/2019 09:27:25 Uncontrolled type 2 diabetes mellitus 880281317 E11.65 Managed by her endocrinol [id number] 8.2 09/08/2019 She needs a new endocrinol ogist Screening for malignant neoplasm of cervix 779880265 Z12.4 [id number] MD Jacklyn Saavedra (Adult Med) [address] [place] [address] [phone] 0 02/03/2020 14:37:50 02/04/2020 11:17:07 Recurrent pancreatitis 639046669 K86.1 Abdominal pain 45182944 R10.9 [place] She has had a [...] verge of polypharma cy. Urinary incontinence 165 940973 R32 She has requested incontinen ce pads [id number] James Jordan MD [facility] (Adult Med) [address] [place] [address] [phone] 0 02/23/2020 12:08:18 02/24/2020 05:19:55 Recurrent pancreatitis 364730985 K86.1 Abdominal mass 580100177 R19.00 Splenic tip?US Abdominal pain 26744731 R10.9 She has had a recent EGD [...] be on the verge of polypharma cy. [id number] MD Jacklyn Saavedra (Adult Med) [address] [place] [address] 07/13/2020 08:17:25 07/14/2020 08:53:56 Needs influenza immunization 634157478 Z28.3 Cyst of right ovary 1223 471649 8400423 N83.201 She has an appointmen t with a new gynecologi st in the [facility] Abdominal pain 30263730 R10.9 She has had a recent EGD [...] has a few pills left Thyroid nodule 780717036 E04.1 The [place] was ordered by her endocrinol ogist, she should follow up Drug of abuse screen 897 73847 Z02.83 Her most recent UDS did not confirm any opiates, she states that she takes the Hydrocodon e/Chlorphe niramine and Tylenol #3 PRN only. Immunization due 9710272 08 Z28.3 [id number] MD Jacklyn Saavedra (Adult Med) [address] [place] [address] 11/07/2020 08:05:29 11/08/2020 07:57:29 Uncontrolled type 2 diabetes mellitus 313470680 E11.65 Managed by her endocrinol [id number] 8.6 02/23/2020 Laboratory test result abnormal 385080530 R89.9 Her drug screen from 08/04/2020 is [...] on a PRN basis. Medication requested 182 667106 Z23 I am not willing to refill [...] and Hydrocodon e/Chlophen iramine cough syrup Anxiety 31696577 F41.9 Screening for malignant neoplasm of breast 425651080 Z12.31 Essential hypertension 60405191 I10 She needs to clarify with her [...] Lazaro Member ID Guarantor Name 10/16/2019 1 [facility] PRIOR TO 04/13/2021 (MEDICAID REPLACEMENT - HMO) Paulie Brown [id number] Paulie Brown 11/04/2020 1 [facility] (MEDICAID REPLACEMENT - HMO) [id number] Paulie Brown [id number] Paulie Brown 06/30/2015 1 [facility] PRIOR TO 04/13/2021 (MEDICAID REPLACEMENT - HMO) Paulie Brown [id number] Paulie Brown 02/17/2018 1 [facility] (MEDICAID HMO) [id number] Paulie Brown [id number] Paulei Brown 01/08/2019 1 [facility] (MEDICAID HMO) Paulie Brown [id number] Paulie Brown Notes Date Note Type Note [...] insurances Ms Brown returns, she was on [facility] her fan blade aligner no longer accepts and she then switched it to [facility] which the hospital accepts but not her fan blade aligner. James Jordan MD Attn: Accounting,[address] 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 James Jordan MD Attn: Accounting,[address] [facility], [place], [address], [facility] 02/04/2020 09:02:32 02/23/2020 text/html Abdominal PainRe ported [...] left thigh James Jordan MD Attn: Accounting,[address] [place], [address], [facility] 02/23/2020 13:08:34 07/13/2020 text/html Abdominal PainRe ported [...] pancreatitis. James Jordan MD Attn: Accounting,[address] [place], [address], [facility] 07/13/2020 19:53:37 11/07/2020 text/html Diabetes F/URepo rted [...] [facility]? In the interim, she had elevated blood pressure and blood sugars shortly after her infusion and was seen in the ER at [facility] on 10/31/2020, she states that her blood [...] past James Jordan MD Attn: Accounting,[address] [place], [address], [facility] 11/07/2020 10:55:34 OBGyn Episode No OBEpisode recorded.
--- OUTSIDE RECORDS SUMMARY | 2025-04-15 10:59 | XMS_ITS | Data Portability ---
Author Organization [facility] [employer] [facility], Main Office Address [address] [place] [address] Care Team Providers Care Speech/Language Therapist Name Role Phone GARY CADE Primary Care Provider GARY CADE Referring Provider [phone] Assessment No assessment recorded. Plan of Treatment Reminders Order Date Submit Date Provider Last Modified By Organization Details Last Modified Time Details Appointments None recorded. Lab hemoglobin A1C, fingerstick 2024 025 [facility], [address] [place] [address], [address], 5 11:31:05 Referral gastroenter ologist referral - Choking sensation .Please eval and treat . Thank you, may have esophageal strictures? Please call patient to schedule an appointment . Thank you. 2024 025 [email or web address] [facility], [address], [address], [place], [address], 5 11:49:48 Procedures None recorded. Surgeries None recorded. Imaging MAMMO, screening, digital, bilateral 2024 025 [email or web address] [facility], [address], [facility], [place], [address], 5 11:24:11 Medication Orders promethazin e-DM 6.25 mg-15 mg/5 mL oral syrup 2024 025 [place] [facility]16765, [address], [place], [id number], 5 09:17:28 nitroglycer in 0.4 mg sublingual tablet 2024 [facility] #54425, [address], [place], [id number], 5 09:15:11 acetaminoph en 300 mg-codeine 30 mg tablet 2024 [facility] #00796, [address], [place], [id number], 5 09:15:13 hydrochloro thiazide 25 mg tablet 2024 [facility] #70163, [address], [place], [id number], 5 09:15:16 fenofibrate 160 mg tablet 2024 025 [facility] #64461, [address], [place], [id number], 5 16:13:11 fluticasone propionate 50 mcg/actuati on nasal spray,suspe nsion [email or web address] [facility] #13962, [address], [place], [id number], 5 13:12:44 lorazepam 1 mg tablet 2024 025 [facility] #88173, [address], [place], [id number], 5 16:23:22 Humalog KwikPen (U-100) Insulin 100 unit/mL subcutaneou s 2024 025 [facility] #26866, [address], [place], [id number], 5 16:32:41 pantoprazol e 40 mg tablet,bina yed release 2024 025 [facility] #93763, [address], [place], [id number], 16:59:33 amoxicillin 875 mg-potassiu m clavulanate 125 mg tablet 2024 025 [facility] #55042, [address], [place], [id number], 5 16:23:21 prednisone 20 mg tablet 2024 025 [facility] #17434, [address], [place], [id number], 5 16:26:35 prednisone 20 mg tablet 2024 025 [facility] #11475, [address], [place], [id number], 5 10:47:23 azithromyci n 250 mg tablet 2024 025 [facility] #11583, [address], [place], [id number], 5 10:47:23 promethazin e-DM 6.25 mg-15 mg/5 mL oral syrup 2024 025 [facility] #75149, [address], [place], [id number], 5 10:47:59 amoxicillin 875 mg-potassiu m clavulanate 125 mg tablet 2024 025 [facility] #81780, [address], [place], [id number], 5 12:36:12 Depo-Medrol 80 mg/mL suspension for injection 2024 025 [email or web address] Not available 11:30:50 prednisone 20 mg tablet 2024 [facility] #53550, [address], [place], [id number], 5 11:02:04 erythromyci n 5 mg/gram (0.5 %) eye ointment 2024 [facility] #16482, [address], [place], [id number], 11:00:57 ofloxacin 0.3 % eye drops 2024 025 [facility] #10926, [address], [place], [id number], 11:00:55 ofloxacin 0.3 % eye drops 2024 025 [facility] #97032, [address], [place], [id number], 12:39:45 Pataday Once Daily Relief 0.2 % eye drops 2024 025 [facility] #39686, [address], [place], [id number], 5 12:41:53 Patient TargetsNo targets recorded. 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 Thank you, may have esophageal strictures? Please call patient to schedule an appointment. Thank you. Referring Physician: Gary Cade, Family Medicine, Encounter Date: 12/25/2024 Results Created Date Observation Date Name Description Value Unit Range Abnormal Flag Note LastModifiedBy Organization Detail LastModifiedTime 12/24/1912/22/2024 imagi ng/di agnos tic resul t No observ ation record ed. [facility] [address] [place], [address], 12/23/2024 00:50:31 03/26/20 25 03/26/2025 imagi ng/di agnos tic resul t No observ ation record ed. [place] [id number], [place], [address], 03/26/2025 18:24:49 Result Notes None recorded. Problems Name Problem SNOMED Code Status Onset Date Resolution Date Notes Provider Name and Address Organization Details Recorded Time Hyperchol esterolem ia 26933219 Active 2020 Not Available [facility] 4 18:49:51 Asthma 431607306 Active 2020 Not Available [facility] 4 18:49:51 Steatotic liver disease 704800289 Active Not Available [facility] 4 18:49:51 Immunodef iciency disorder 448114734 Active 2020 getting infusions CHRISTIANO Peñaloza [address] [facility], [facility] [address], [place], [address] , [facility] [employer] 4 13:02:44 Mixed hyperlipi demia 859747117 Active 2021 Not Available [facility] 4 18:49:51 Occlusion of artery 0192279 Active 2020 Not Available [facility] 4 18:49:51 Bronchiti s 07978400 Active 2020 Not Available [facility] 4 18:49:51 Hypertens choco disorder 98492362 Active 2020 Not Available [employer] 4 18:49:51 Nausea 641086894 Active Not Available [facility] 4 18:49:52 Uncontrol led type 2 diabetes mellitus 419883093 Active 2021 Not Available [facility] 4 18:49:52 Derangeme nt of knee 37120818 Active Not Available [facility] 4 18:49:52 Diabetes mellitus 99320296 Active 2020 Not Available [facility] 4 18:49:52 Pancreati tis 96161736 Active 2020 Not Available [facility] 4 18:49:52 Fissure in skin 59410827 Active 2022 Not Available [facility] 4 18:49:52 Foot callus 799417990 Active 2022 Not Available [facility] 4 18:49:51 Pain in right foot 07229933456 9107 Active 2022 Not Available [facility] 4 18:49:51 Pain in both feet 89854089825 517829 Active 2022 Not Available [facility] 4 18:49:51 Vitamin B12 deficienc y (non anemic) 98374133 Active 2022 Not Available [facility] 4 18:49:52 Chronic back pain 653365522 Active 2022 Not Available [facility] 4 18:49:51 Psoriasis 8193089 Active 2022 Not Available [facility] 4 18:49:52 Anxiety disorder 803555930 Active 2022 Not Available [facility] 4 18:49:51 Persisten t cough 323258093 Active 2022 Not Available [facility] 4 18:49:51 Anxiety 36248267 Active 2022 Not Available [facility] 4 18:49:52 Left upper quadrant pain 517989142 Active 2022 Not Available [facility] 4 18:49:51 Acute sinusitis 61478543 Active 2022 Not Available [facility] 4 18:49:51 Type 2 diabetes mellitus without complicat ion 562556934 Active 2022 Not Available [facility] 4 18:49:51 Well controlle d type 2 diabetes mellitus 937821289 Active 2022 Not Available [facility] 4 18:49:52 Exocrine pancreati c insuffici ency 16706058 Active 2022 Not Available [facility] 4 18:49:52 Spasm of back muscles 361689288 Active 2022 Not Available [facility] 4 18:49:51 Epigastri c pain 11575884 Active 2022 Not Available [facility] 4 18:49:52 Cobalamin deficienc y 284589703 Active 2022 Not Available [facility] 4 18:49:51 Chronic sinusitis 72376204 Active 2022 Not Available [facility] 4 18:49:51 Migraine 94312353 Active 2022 Not Available [facility] 4 18:49:51 Acute conjuncti vitis 58495862 Active 2022 Not Available [facility] 4 18:49:52 Cough 86518782 Active 2022 Not Available [facility] 4 18:49:52 Acute right otitis media 024965992 Active 2023 Not Available [facility] 4 18:49:51 Diverticu litis of colon 777776086 Active 2023 CHRISTIANO Peñaloza [address], [place], [address] , [employer] [facility] [employer] 4 10:10:45 Pain of right calf 23417380047 85001 Active 2023 CHRISTIANO Peñaloza [address], [place], [address] , [facility] [employer] 4 12:10:25 Angina pectoris 818784532 Active 2023 CHRISTIANO Peñaloza [address], [place], [address] , [facility] S [facility] [employer] [facility] 4 11:16:40 Hypertrig lyceridem ia 615133940 Active 2023 CHRISTIANO Peñaloza [address], [place], [address] , [facility] [employer] 4 09:19:06 Sinusitis 64198117 Active 2023 CHRISTIANO Peñaloza [address], [place], [address] , [facility] [employer] 4 12:15:33 Adult health examinati on Active 2023 CHRISTIANO Peñaloza [address], [place], [address] , [facility] [employer] 4 11:27:33 Allergic rhinitis 56277160 Active 2023 CHRISTIANO Peñaloza [address], [place], [address] , [facility] [employer] [facility] 4 11:28:02 Gastroeso phageal reflux disease 317823490 Active 2023 Tran Tillman RN null, [facility] [employer] [facility] [employer] [facility] 4 14:28:50 Diverticu litis 176539037 Active 2023 CHRISTIANO Peñaloza [address], [place], [address] , [employer] [facility] [employer] [facility] [employer] [facility] 4 13:03:13 Gastropar esis syndrome 534989898 Active 2023 CHRISTIANO Peñaloza [address], [place], [address] , [facility] [employer] [facility] [employer] [facility] 4 13:08:58 Nausea and vomiting 28558043 Active 2023 Fanta Delarosa RN null, [facility] [employer] [facility] 4 15:13:43 Conjuncti vitis 4933380 Active 2024 CHRISTIANO Peñaloza [address], [place], [address] , [facility] [employer] [facility] 5 12:38:51 Choking sensation 223991871 Active 2024 CHRISTIANO Peñaloza [address], [place], [address] , [facility] [employer] [facility] [employer] [facility] 5 10:43:27 Screening mammograp hy Active 2024 CHRISTIANO Peñaloza [address], [place], [address] , [facility] [employer] [facility] [employer] [facility] 5 10:50:45 Notes:Some problems listed i n Documents: #[id number], #[id number] could not be added to this patient's chart. Please review these documents and add these problems to the patient's chart manually as needed. Problem Notes None recorded. Procedures Surgical History Date Name Laterality Status Provider Name and Address Organization Details Recorded Time 02/27/20 23 Callus Debridement 2-4 completed Ed Bishop DPM [address], [place], [address], [facility] [employer] [facility] 02/26/2023 17:53:24 12/14/19 23 Callus Debridement 2-4 completed Ed Bishop DPM [address], [place], [address], [facility] [employer] [facility] 12/13/2022 16:54:54 Tonsillectomy completed Not Available [facility] 12/12/2022 02:42:04 Imaging Results None recorded. Procedure Notes None recorded. Medical Equipment None Reported. Allergies Allergen ID Allergen Name Allergen Category Reaction Reaction Severity Criticality Documentation Date Start Date Code Code System Note Provider Name and Address Organization Details Recorded Time 4005 sulfameth oxazole / trimethop rim medicatio n Not available Not available Not available 12/12/2022 24846 RxNorm Not Available [facility] 3 02:51:50 4006 ibuprofen medicatio n Not available Not available Not available 12/12/2022 5640 RxNorm Tez Raya MD [address], [place], [address], [facility] [employer] [facility] 3 06:26:56 4007 Compazine medicatio n Not available Not available Not available 12/12/2022 11439 6 RxNorm Not Available [facility] 3 02:51:50 4008 aspirin medicatio n Not available Not available Not available 12/12/2022 1191 RxNorm Not Available [facility] 3 02:51:50 61535 tomato allergeni c extract food Not available Not available Not available 12/31/2023 62701 9 RxNorm CHRISTIANO Peñaloza [address], [place], [address], [employer] 4 10:47:12 Medications Name Sig Start Date Stop Date Status Note LastModified by Organization Details LastModified Time cyclobenz aprine 10 mg tablet TAKE 1 [...] triamcino lone acetonide 0.1 % topical cream active Not Available Not Available Not Available simvastat in 40 mg tablet TK 1 T PO QD 11/14 completed Not Available Not Available Not Available glimepiri de 2 mg tablet TAKE 1 TABLET BY MOUTH EVERY DAY IN THE MORNING WITH FOOD 03/19 completed on 4 mg Not Available Not Available Not Available ondansetr on 8 mg disintegr ating tablet DIS ONE T PO Q 8 H PRF NAUSEA active Not Available Not Available No t Available theophyll ine ER 300 mg tablet,ex tended release,1 2 hr 06/13 completed Not Available Not Available Not Available Depo-Medr ol 80 mg/mL suspensio n for injection Take 1 mL by injectio n route. 2024 active Not Available Not Available Not [...] Not Available Not Available No t Available [employer] Ultra Test strips USE TO TEST FIVE [...] APPLY 1 CM RIBBON INTO THE LOWER CONJUNCT IVAL SAC(S) IN THE AFFECTED EYE(S) BY OPHTHALM IC ROUTE at bedtime active Not Available Not Available No t [...] Not Avai lable lorazepam 1 mg tablet active Not Available Not Available Not Available azelastin e 137 mcg (0.1 %) [...] t Available lisinopri l 2.5 mg tablet active Not Available Not Available Not Available doxycycli ne hyclate 100 mg tablet [...] Not Available Not Available No t Available [employer] Ultra2 Meter kit USE TO TEST BID [...] Not Available Not Available [employer] [employer] [facility] spacer 12/30 completed Not Available Not Available [...] Available Not Available Not Available [employer] G7 [employer] Specialist USE DIRECTED active Not Available Not Available [...] Updated DateTime 5 162.56 cm 28.5 kg/m2 31570.9 7 g 98.1 [degF] 91 /min 98 % 98 % 150/90 mm[Hg] Nick Peña RN [facility] [employer] [facility] 5 12:16:03 Date Recorded Body height Body mass index (BMI) Body weight Body temperature Oxygen saturation Oxygen saturation in Arterial blood by Pulse oximetry Heart rate Systolic And Diastolic Provider Name and Address Organization Details Last Updated DateTime 5 162.56 cm 28.6 kg/m2 36853.2 1 g 98.1 [degF] 95 % 95 % 78 /min 160/84 mm[Hg] Nick Peña RN [facility] [employer] [facility] 5 10:47:54 Date Recorded Body height Body mass index (BMI) Body weight Body temperature Oxygen saturation Oxygen saturation in Arterial blood by Pulse oximetry Heart rate Systolic And Diastolic Provider Name and Address Organization Details Last Updated DateTime 5 162.56 cm 27.7 kg/m2 47422.1 7 g 98.6 [degF] 97 % 97 % 89 /min 170/80 mm[Hg] Gaby Reardon RN [facility] [employer] [facility] 5 10:21:56 Date Recorded Body height Body mass index (BMI) Body weight Body temperature Systolic And Diastolic Provider Name and Address Organization Details Last Updated DateTime 02/09/2025 162.56 cm 28.5 kg/m2 84238.3 3 g 97.6 [degF] 142/82 mm[Hg] Ligia Singer [facility] 5 15:41:23 Date Recorded Body height Body mass index (BMI) Body weight Body temperature Oxygen saturation Oxygen saturation in Arterial blood by Pulse oximetry Heart rate Systolic And Diastolic Provider Name and Address Organization Details Last Updated DateTime 162.56 cm 28.2 kg/m2 70620.1 5 g 97.3 [degF] 99 % 99 % 88 /min 140/86 mm[Hg] Ligia Singer [facility] 09:02:55 Social History Question Answer Notes LastModified by Organizat ion Details LastModified Time Tobacco Smoking Status Never Smoker Not Available [facility] 12/12/2022 02:41:44 If You Are , What Was Your Level Of Alcohol Consumption Prior To ? None Information not available 12/13/2022 What Is Your Level Of Caffeine Consumption? Moderate [id number] Information not available 12/12/2022 How Much Tobacco Do You Chew? None [id number] Information not available 12/12/2022 In The 14 Days Before Symptom Onset, Have You Had Close Contact With A Laboratory-confirm ed COVID-19 While That Case Was Ill? No [id number] Information not available 12/12/2022 In The 14 Days Before Symptom Onset, Have You Had Close Contact With A Person Who Is Under Investigation For COVID-19 While That Person Was Ill? No [id number] Information not available 12/12/2022 Which Illicit Or Recreational Drugs Have You Used? None [id number] Information not available 12/12/2022 What Was The Date Of Your Most Recent Tobacco Screening? 12/13/2022 Information not available 12/13/2022 Has Tobacco Cessation Counseling Been Provided? No Information not available 12/13/2022 Have You Recently Traveled Abroad? No [id number] Information not available 12/12/2022 Sex: Unknown Functional Status Question Answer Note LastModified by Organizat ion Details LastModified Time Do you use any illicit or recreational drugs? No Information not available 12/13/2022 Do you or have you ever used any other forms of tobacco or nicotine? No Information not available 12/13/2022 What is your level of alcohol consumption? None [id number] Information not available 12/12/2022 Do you or have you ever used smokeless tobacco? Never used smokeless tobacco [id number] [id number] Information not available 12/12/2022 Do you or have you ever used e-cigarettes or vape? Never used electronic cigarettes [id number] Information not available 12/12/2022 Mental Status None recorded. Family History Relationship Description Onset Age of this Age Resolved Age Notes LastModified by Organization Details LastModified Time Sister Asthma [id number] Not available 12/12/2022 02:42:09 Sister Hypertensive disorder [id number].252 [id number] Not available 12/12/2022 02:42:09 Sister Diabetes mellitus [id number].940 [id number] Not available 12/12/2022 02:42:09 Sister Hyperthyroid ism [email or web address] Not available 09/16 13:51:31 Father Asthma MIGRATION.762 [id number] Not available 12/12/2022 02:42:09 Father Hypertensive disorder MIGRATION.475 [id number] Not available 12/12/2022 02:42:09 Father Diabetes mellitus [id number].462 [id number] Not available 12/12/2022 02:42:09 Father Family history of malignant neoplasm [email or web address] Not available 09/16 13:51:31 Mother Hypertensive disorder [id number].179 [id number] Not available 12/12/2022 02:42:09 Mother Diabetes mellitus [id number].255 [id number] Not available 12/12/2022 02:42:09 Mother Hyperthyroid ism [email or web address] Not available 09/16 13:51:31 Brother Hypertensive disorder [id number].833 [id number] Not available 12/12/2022 02:42:09 Brother Diabetes mellitus MIGRATION.724 [id number] Not available 12/12/2022 02:42:09 Maternal Uncle Family history of malignant neoplasm [id number] Not available 09/16 13:51:31 Medical History Condition Response MRSA N LUNG DISEASE/DISORDER Y HISTORY OF DRUG ABUSE N COPD Y RADIATION / CHEMOTHERAPY N BLOOD DISEASES N EAR OR HEARING PROBLEMS N SHINGLES N DEPRESSION (INCLUDING POST ) N STROKE/TIA N ULCERS N OBESITY N ANEURYSM N USE OF BLOOD THINNERS Y PARATHYROID DISEASE N CHF N AIDS/HIV N FRACTURES N LIVER DISEASE Y HYPERTENSION Y TOURETTE'S N BLOOD TRANSFUSION N ANEMIA/BLOOD DISORDER N CHRONIC EAR INFECTIONS N TUBERCULOSIS N SLEEP APNEA N ALLERGIES/HAYFEVER N INSOMNIA N HIGH CHOLESTEROL / HYPERLIPIDEMIA Y HYPERTHYROIDISM N HYPOTHYROIDISM N HAVE YOU BEEN HOSPITALIZED OR SEEN IN [facility] ER IN THE PAST YEAR ? N HISTORY WITH COMPLICATIONS WITH ANESTHES IA ? N NO SIGNIFICANT PAST MEDICAL HISTORY N DIABETES, TYPE Y ENT N SEASONAL ALLERGIES Y HEARTBURN / REFLUX Y HEPATITIS / LIVER DISEASE N PULMONARY DISEASE Y SLEEP DISORDER N SEIZURES/EPILEPSY N HEADACHES/MIGRAINES Y PACEMAKER N DIZZINESS N KIDNEY DISEASE Y HEART DISEASE/HEART PROBLEMS Y CANCER: SPECIFY N ANESTHESIA COMPLICATIONS N Gynecological HistoryNo gynecological history recorded. Obstetrics History GPAL:G 0 P 0 0 0 0 Immunizations Vaccine Type Date Status Note Provider [facility] e and Address Organization Details Recorded Time Influenza, split virus, quadrivalent, PF 10/17/2021 completed Not Available [facility] 18:49:53 Past Encounters Encounter ID Performer Location Encounter Start Date Encounter Closed Date Diagnosis/Indication Diagnosis SNOMED-CT Code Diagnosis ICD10 Code Diagnosis Note [id number] Tez Raya MD [facility] [address] [place] [address] 12/29/2020 00:00:00 12/29/2020 21:27:14 [id number] Rachael Padilla MD _[place]_ [employer]_ DEFAULT_1 _1 , 01/19/2021 00:00:00 01/19/2021 18:43:29 [id number] Tez Raya MD [facility] [address] [place] [address] 03/20/2021 00:00:00 03/20/2021 21:06:49 [id number] Tez Raya MD [facility] [address] [place] [address] 04/04/2021 00:00:00 04/04/2021 21:10:27 [id number] Tez Raya MD [facility] Family Practice [address] llbhavin [address] [place] [address] 08/18/2021 00:00:00 08/18/2021 15:35:59 [id number] Franklin Newell MD [facility] ENT [place] [address] [place] [address] 09/05/2021 00:00:00 09/05/2021 14:25:49 [id number] Rachael Padilla MD _[place] [facility]_ DEFAULT_1 _1 , 10/12/2021 00:00:00 10/12/2021 14:42:15 [id number] Tez Raya MD [facility] Family Practice [address] [facility] [address] [place] [address] 10/17/2021 00:00:00 10/17/2021 19:03:25 [id number] Tez Raya MD [facility] Family Practice [address] [facility] [address] [place] [address] 12/08/2021 00:00:00 12/08/2021 21:37:50 [id number] Tez Raya MD [facility] Family Practice Y[address]is [address] [facility] [address] [place] [address] 12/22/2021 00:00:00 12/22/2021 15:40:58 [id number] MD CINDI [facility] Family Practice Yarelis tucker [facility] y , [place] [address] 02/14/2022 00:00:00 02/15/2022 05:44:10 [id number] [facility] ic_Gateway _CARLOS_M IGRATION_ DEFAULT_1 _1 , 04/12/2022 00:00:00 04/12/2022 12:37:24 [id number] Tez Raya MD [facility] Family Practice Yarelis llbhavin [address] [place] [address] y , [place] [address] 05/09/2022 00:00:00 05/09/2022 12:50:09 [id number] Tez Raya MD [facility] Family Practice [place] [address] [place] [address] y , [place] [address] 06/05/2022 00:00:00 06/05/2022 10:38:59 [id number] Tez Raya MD [facility] Family Practice [place] [address] [place] [address] y , [place] [address] 08/09/2022 00:00:00 08/09/2022 18:34:12 [id number] Rachael Padilla MD [facility] [place] [address] [place] [address] 08/16/2022 00:00:00 08/16/2022 10:18:20 [id number] Tez Raya MD [facility] Family Practice Yarelis hansone [address] [place] [address] y , [place] [address] 09/17/2022 00:00:00 09/17/2022 20:22:56 [id number] Clarke garcia MD [facility] General Surgery [address] [address] 09/25/2022 00:00:00 09/25/2022 16:12:12 [id number] Rachael Padilla MD [facility] [place] [place] [address] [place] [address] 10/23/2022 00:00:00 10/23/2022 11:58:07 [id number] Tez Raya MD [facility] Family Practice Yarelis tucker [address] [place] [address] y , [place] [address] 11/02/2022 00:00:00 11/02/2022 17:54:55 [id number] Ed Bishop DPM [facility] Podiatry [place] [address] [place] [address] 12/13/2022 15:55:09 12/18/2022 16:20:52 Fissure in skin 22823455 R23.4 x1 bilateral heeldebrid ed without incidentCo ntinue AmlactinEd ucated on shoe gearRecomm end no further use of sandalsmay require orthoticsf ollow-up 1 month Foot callus 401297941 L8 4 as above Pain in both feet 142019 5556 4247649 M79.671 M79.672 secondary to skin fissure and callusing of the heelno signs of infectionr ecommend supportive shoe gear [id number] Tez Raya MD [address] [place] [address] 12/17/2022 11:48:54 12/17/2022 12:11:26 Asthma 976787572 J45.909 Breztri samples given x 4 [id number] Ed Bishop DPM [facility] Podiatry [place] [address] [place] [address] 01/10/2023 16:21:51 01/11/2023 15:12:03 Fissure in skin 65056834 R23.4 x1 bilateral heeldebrid ed without incidentCo ntinue AmlactinEd ucated on shoe gearRecomm end no further use of sandalsmay require orthoticsf ollow-up 1 month Foot callus 374956444 L8 4 as aboveRx custom orthotics control heel and foot function to reduce friction and calluses Pain in both feet 971188 3412 3266393 M79.671 M79.672 secondary to skin fissure and callusing of the heelno signs of infectionr ecommend supportive shoe gear Psoriasis 1194039 L40.9 referral rheumatolo gy [id number] Tez Raya MD [facility] Family [facility] [address] [place] [address] [place] [address] 02/01/2023 11:57:01 02/01/2023 12:36:53 Anxiety disorder 264497332 F41.9 May try taking 1/2 tab of lorazepam in the day time.F/u in 6 weeks. s/e of meds discussed with pt. [id number] Ed Bishop DPM [facility] Podiatry [place] [address] [facility] [address] [place] [address] 02/26/2023 16:51:20 02/26/2023 17:57:40 Fissure in skin 93243762 R23.4 x2 bilateral heeldebrid ed without incidentCo ntinue AmlactinEd ucated on shoe gearRecomm end no further use of sandalsfol low-up 1 month Foot callus 494201990 L8 4 as aboveRx custom orthotics Did not obtain [id number] Tez Raya MD [facility] Yarelis tucker [address] [place] [address] [place] [address] 03/15/2023 10:39:52 03/15/2023 11:26:49 Anxiety 83072251 F41.9 Continue lorazepam as needed f/u in 3 months. [id number] Tez Raya MD [facility] Yarelis tucker [address] [place] [address] [place] [address] 04/04/2023 14:00:35 04/04/2023 14:24:18 Pancreatitis 47590938 K85.90 Left upper quadrant pain 384335095 R10.12 Could be d/t gastropare sis. [id number] Tez Raya MD [facility] Yarelis tucker [address] [place] [address] [place] [address] 05/02/2023 13:53:15 05/02/2023 14:20:21 Acute sinusitis 51409525 J01.90 Simply saline nasal spray, hot packs to face [id number] Tez Raya MD [facility] Yarelis tucker [address] [place], [place] [address]it [place] [address] 06/10/2023 09:04:32 06/10/2023 09:30:27 Epigastric pain 39082410 R10.13 Was given doxy for stomach. Chronic back pain 873055 002 M54.9 [id number] Rachael Padilla MD [facility] End[facility] [place] [address] [place] [address] 06/13/2023 10:52:26 06/13/2023 11:51:16 Uncontrolled type 2 diabetes mellitus 808106518 E11.65 a1c of 8.3% down from 8.8%- [...] transition ed to see Dr. Hamlin at [facility] in October due to my resignatio n. She has refills up to 6 months for transition . Mixed hyperlipidemia 267 077926 E78.2 Continue statin therapy as LDL in range. Vitamin B1 2 deficiency (non anemic) 86051377 E53.8 Continue folic acid and B12 supplement ation. Exocrine p ancreatic insufficiency 91930675 K86.81 Continue zenpep to help regulate stools [...] answered and refills necessary at visit today. [id number] Tez Raya MD [facility] Y[place]is [place] [address] 06/26/2023 14:24:59 06/26/2023 15:32:50 Chronic sinusitis 92933148 J32.9 Persistent cough 1343524 02 R05.3 [id number] Tez Raya MD [facility] Yarelis Gregory[address] [place] [address] [place] [address] 07/31/2023 16:14:43 08/01/2023 08:06:52 Chronic sinusitis 41776524 J32.9 Use saline nasal spray ice packs to face Migraine 22738256 G43.90 9 [facility] Screening for malignant neoplasm of breast 241599888 Z12.39 [id number] Tez Raya MD [facility] Yarelis tucker [address] [place] [address] [place] [address] 10/01/2023 09:18:25 10/01/2023 10:02:32 Essential hypertension 36688500 I10 Type 2 lisa betes mellitus without complication 585543028 E11.9 Diabetes mellitus 567101 09 E11.9 [id number] Tez Raya MD [facility] Yarelis tucker [address] [place] [address] [place] [address] 11/26/2023 11:57:29 11/26/2023 12:26:51 Acute right otitis media 064877313 H66.91 Acute sinusitis 06340170 J01.90 Anxiety 34047939 F41.9 Asthma 960924741 J45.90 9 Chronic back pain 801154 002 M54.9 Hypertensive disorder 38 705294 I10 Immunodefi ciency disorder 105693014 D84.9 Type 2 lisa betes mellitus without complication 593874486 E11.9 Vitamin B1 2 deficiency (non anemic) 59589292 E53.8 [id number] Tez Raya MD [place] [address] [place] [address] 12/31/2023 09:53:30 12/31/2023 10:22:58 Diverticulitis of colon 086276699 K57.32 Irritable bowel syndrome 93440351 K58.9 Pancreatitis 36186579 K8 5.90 Nausea 213659352 R11.0 Anxiety 60239955 F41.9 Asthma 307630015 J45.90 9 Chronic back pain 160921 002 M54.9 Cobalamin deficiency 190 012843 E53.8 Exocrine p ancreatic insufficiency 65109751 K86.81 Immunodefi ciency disorder 804233764 D84.9 Mixed hyperlipidemia 267 654184 E78.2 Steatotic liver disease 090535035 K76.0 Type 2 lisa betes mellitus without complication 065544561 E11.9 [id number] Inderjit Camarillo MD [place] [address] [place] [address] 01/28/2024 11:46:40 01/28/2024 12:13:47 Asthma 937558530 J45.909 Spasm of back muscles 20 8806065 M62.830 Pain of right calf 47498 58274 061336 M79.661 Anxiety 90709756 F41.9 Chronic back pain 532284 002 M54.9 Cobalamin deficiency 190 609823 E53.8 Diverticul itis of colon 811770823 K57.32 Exocrine p ancreatic insufficiency 83092425 K86.81 Hypertensive disorder 38 933201 I10 Immunodefi ciency disorder 105065218 D84.9 Mixed hyperlipidemia 267 608688 E78.2 Type 2 lisa betes mellitus without complication 819566901 E11.9 Psoriasis 4206175 L40.9 [id number] Inderjit Camarillo MD [place] [address] [place] [address] 02/25/2024 11:54:22 02/25/2024 12:33:18 Acute sinusitis 06860176 J01.90 Anxiety 30684264 F41.9 Asthma 297203103 J45.90 9 Cobalamin deficiency 190 620661 E53.8 Exocrine p ancreatic insufficiency 66728260 K86.81 Hypertensive disorder 38 877982 I10 Immunodefi ciency disorder 386569661 D84.9 Mixed hyperlipidemia 267 509470 E78.2 Type 2 lisa betes mellitus without complication 138595398 E11.9 Vitamin B1 2 deficiency (non anemic) 75041922 E53.8 [id number] Inderjit Camarillo MD [facility] [place] [address] [facility] [place] [address] 04/10/2024 11:53:05 04/10/2024 12:19:20 Diverticulitis of colon 680920616 K57.32 Sinusitis 32120212 J32.9 [id number] Inderjit Camarillo MD [facility] [place] [address] [facility] [place] [address] 05/12/2024 10:40:58 05/12/2024 11:28:00 Adult health examination 295841047 Z00.00 Allergic rhinitis 401957 04 J30.9 Anxiety disorder 7507876 06 F41.9 Asthma 518432714 J45.90 9 Chronic back pain 756738 002 M54.9 [id number] Inderjit Camarillo MD [facility] [place] [address] [facility] [place] [address] 07/29/2024 14:44:14 07/29/2024 15:33:08 Cough 89466120 R05.9 Acute righ t otitis media 260375714 H66.91 Asthma 138343640 J45.90 9 Anxiety 69740220 F41.9 Allergic rhinitis 319668 04 J30.9 Gastroesop hageal reflux disease 604180008 K21.9 Hypertensive disorder 38 505000 I10 Mixed hyperlipidemia 267 859286 E78.2 Type 2 lisa betes mellitus without complication 140362664 E11.9 Vitamin B1 2 deficiency (non anemic) 65709474 E53.8 [id number] Inderjit Camarillo MD [facility] [place] [address] [place] [address] 08/12/2024 11:41:52 08/12/2024 12:02:12 Well controlled type 2 diabetes mellitus 405776557 E11.9 Type 2 lisa betes mellitus without complication 382247419 E11.9 Allergic rhinitis 984736 04 J30.9 Anxiety 51996428 F41.9 Asthma 570996565 J45.90 9 Chronic back pain 324678 002 M54.9 Gastroesop hageal reflux disease 909054014 K21.9 Hypertensive disorder 38 135334 I10 Mixed hyperlipidemia 267 144066 E78.2 Psoriasis 3478017 L40.9 Steatotic liver disease 880471051 K76.0 [id number] Inderjit Camarillo MD [facility] [place] [address] [facility] y [place] [address] 08/26/2024 12:14:16 08/26/2024 13:17:14 Diverticulitis 542156831 K57.92 Hypercholesterolemia 136 35454 E78.00 Gastropare sis syndrome 624975152 K31.84 Exocrine p ancreatic insufficiency 96260495 K86.81 Epigastric pain 73011654 R10.13 Type 2 lisa betes mellitus without complication 543031291 E11.9 [id number] Inderjit Camarillo MD [address] [address] 09/16/2024 13:51:21 09/16/2024 14:26:25 Diverticulitis 915169038 K57.92 Irritable bowel syndrome 34808971 K58.9 Asthma 993198620 J45.90 9 [id number] Inderjit Camarillo MD [address] [address] 10/29/2024 12:07:37 10/29/2024 12:58:13 Acute conjunctivitis 68780202 H10.33 left [id number] Inderjit Camarillo MD [address] [address] 11/18/2024 10:33:47 11/18/2024 11:30:03 Type 2 diabetes mellitus without complication 185811306 E11.9 Conjunctivitis 2100746 H 10.9 Asthma 967600397 J45.90 9 Acute righ t otitis media 891917174 H66.91 [id number] Inderjit Camarillo MD [address] [address] 12/25/2024 10:05:03 12/25/2024 12:34:50 Choking sensation 986868586 R09.89 Bronchitis 90456016 J40 Screening mammography 24 696715 Z12.31 Type 2 lisa betes mellitus without complication 162280429 E11.9 [id number] Inderjit Camarillo MD [address] [address] 02/09/2025 15:30:46 02/09/2025 16:46:52 Hypertriglyceridemia 292696065 E78.2 Allergic rhinitis 790225 04 J30.9 Sinusitis 94931776 J32.9 Anxiety 06945626 F41.9 Uncontroll ed type 2 diabetes mellitus 469071586 E11.65 Gastroesop hageal reflux disease without esophagitis 851531312 K21.9 [id number] Inderjit Camarillo MD [address] [address] 02/24/2025 08:55:38 02/24/2025 09:28:25 Exocrine pancreatic insufficiency 55109073 K86.81 Essential hypertension 74869527 I10 Angina pectoris 30920023 0 I20.9 Bronchitis 93387769 J40 Allergic rhinitis 159529 04 J30.9 Anxiety 58537274 F41.9 Asthma 500876536 J45.90 9 Chronic back pain 744127 002 M54.9 Gastroesop hageal reflux disease 450307758 K21.9 Immunodefi ciency disorder 880563919 D84.9 Steatotic liver disease 504356524 K76.0 Well contr olled type 2 diabetes mellitus 309927876 E11.9 Vitamin B1 2 deficiency (non anemic) 72944836 E53.8 Health Concerns Section Related Observation LastModified by Organization Detai ls LastModified Time None Recorded Concern Status LastModified by Organization Details LastModified Time None Recorded Advance Directives Directive None Recorded Payers Insurance Date Sequence Insurance Name Policy Number Policy Lazaro Covered Member ID Lazaro Member ID Guarantor Name 04/12/2025 1 [facility] ON OR AFTER 04/13/21 (MEDICAID REPLACEMENT - HMO) Gaby Carey [id number] Gaby [place] Notes Date Note Type Note Provider Name and Address Organization Details Recorded Time 10/29/2024 text/html eyes red . burning , ointment does not help CHRISTIANO Peñaloza [address], [place], [address], [place] 11/04/2024 16:41:29 11/18/2024 text/html itchy , gravely eyes , CHRISTIANO Peñaloza [address], [place], [address], [place] 11/21/2024 09:43:00 12/25/2024 text/html coughing , sore epigastrum from coughing so much , no fever CHRISTIANO Peñaloza [address], [place], [address], [place] 01/02/2025 12:43:02 02/09/2025 text/html this is a recurring thing , they will not do an endoscopy because her blood sugar .is not controlled . No fever . also lispro does not work at all , wants to go back to humalog CHRISTIANO Peñaloza [address], [place], [address], [place] 02/15/2025 12:05:23 02/24/2025 text/html she just got her cough back , no fever . needs refills CHRISTIANO Peñaloza [address], [place], [address], [place] 02/28/2025 17:35:09 OBGyn Episode No OBEpisode recorded.
== END 2025-04-15 10:55 | disposition home or self-care (01) ==
PROVIDERS: PCP Physician Assistant; Visit Provider Otolaryngology
DX: J32.9 Chronic sinusitis, unspecified (principal); R09.82 Postnasal drip; R09.A2 Foreign body sensation, throat
CPT/HCPCS: 70486

== ENCOUNTER 2025-09-08 08:53 | Outpatient (CLI) | payer OTHER, SELFPAY ==
--- OUTSIDE RECORDS SUMMARY | 2022-03-06 13:39 | XMS_ITS | Encounter Summary ---
Author Organization [facility] Address [address] [place] [address] Phone Care Team Providers Care Heel Seat Fitter Name Role Phone Tez Raya MD Primary Care Provider [phone] Reason for Referral * Pulmonology (Routine) - Closed Specialty Diagnoses / Procedures Referred By Mei farris Referred To Contact Transplant Diagnoses Very poorly controlled severe persistent asthma with acute exacerbation (HCC) Procedures Pulmonary Function Test -[facility] Adult PFT Lab- [facility]; Spirometry with Bronchodilator Barbara De Jesus MD [address] [place] [address] Phone: tel: fax: [facility] Pulmonary [address] [facility] Advanced Medicine [address]th [place] [address] [place] [address] Phone: tel: fax: Referral ID Status Reason Start Date Expiration Date Visits Re quested Visits Authorized [id number] Closed 02/06/2022 03/08/2023 25 25 Reason for Visit * Pulmonology (Routine) - Closed Specialty Diagnoses / Procedures Referred By Mei farris Referred To Contact Transplant Diagnoses Very poorly controlled severe persistent asthma with acute exacerbation (HCC) Procedures Pulmonary Function Test -[facility] Adult PFT [facility]- [facility]; Spirometry with Bronchodilator Barbara De Jesus MD [address] [place] [address] Phone: tel: fax: [facility] Medicine Pulmonary [address] [facility] 8th [place] [address] [place] [address] Phone: tel: fax: Referral ID Status Reason Start Date Expiration Date Visits Re quested Visits Authorized [id number] Closed 02/06/2022 03/08/2023 25 25 Encounter Details Date Type Department Care Team (Latest Contact Info) Description 03/06/2022 2:39 PM CDT Hospital Encounter [facility] Medicine PFT Lab [address] [facility] [address] [place] [id number] Very poorly controlled severe persistent asthma with acute exacerbation (HCC) Social History Tobacco Use Types Packs/Day Years Used Date Smoking Tobacco: Never Smokeless Tobacco: Never Alcohol Use Standard Drinks/Week Comments No 0 (1 standard drink = 0.6 oz pur e alcohol) PHQ-2 Answer Date Recorded PHQ-2 Total Score (If total score is 3 or more points, staff should administer the PHQ-9) 0 02/01/2022 AUDIT-C Answer Date Recorded Frequency of Alcohol Consumption Not on file 09/01/2025 Q2: How many drinks containi ng alcohol do you have on a typical day when you are drinking? Patient does not drink Frequency of Binge Drinking Not on file 08/14 Comments No Sex and Gender Information Value Date Recorded Sex Assigned at Not on file Legal Sex Female 8:27 AM PROVIDER RELATIONS CONSULTANT Gender Identity Not on file Sexual Orientation Not on file documented as of this encounter Functional Status * BP Location Answer Date of Assessment Author Left arm 09/01/2025 10:54 AM PROVIDER RELATIONS CONSULTANT Carolina Lechuga CMA * Alcohol Withdrawal BP Hierarchy Answer Date of Assessment Author 100 08/13/2023 3:26 PM CDT Killian Townsend, RMA * Alcohol Use Question Answer Date of Assessment Author Q1: How often do you have a drink containing alcohol? Never 07/16/2023 3:25 PM CDT Waleska Hylton CMA Q2: How many drinks containing alcohol do you have on a typical day when you are drinking? Patient does not drink 09/01/2025 10:54 AM Carolina Sanders CMA * BP Location Answer Date of Assessment Author Left arm 09/01/2025 10:54 AM Carolina Sanders CMA documented as of this encounter Plan of Treatment Not on file documented as of this encounter Procedures Procedure Name Priority Date/Time Associated Diagnosis Comments PULMONARY FUNCTION TEST (PFT) Routine 03/06/2022 4:13 PM CDT Very poorly controlled severe persistent asthma with acute exacerbation (HCC) documented in this encounter Results * Pulmonary Function Test - (03/06/2022 4:13 PM CDT) FVC PRE 2.10 L [facility] FVC %PRE PRED 61 % [facility] FVC POST 2.28 L [facility] FVC %POST PRED 66 % [facility] FEV1 PRE 1.60 L [facility] FEV1 %PRE PRED 57 % [facility] FEV1 POST 1.68 L [facility] FEV1 %POST PRED 60 % [facility] FEV1/FVC PRE 75.9 % [facility] FEV1/FVC POST 73.6 % [facility] Anatomical Region Laterality Modality PFT 03/06/2022 3:04 PM CDT Narrative 03/19/2022 5:33 PM CDT SEE PDF PFT performed at:->[facility] U Adult PFT Lab- [facility] Procedure:->Spirometry with Bronchodilator us Barbara De Jesus MD PFT ORDERABLES Final Result documented in this encounter Visit Diagnoses Diagnosis Very poorly controlled severe persistent asthma with acute exacerbation (HCC) documented in this encounter Care Teams Heel Seat Fitter Relationship Specialty Start Date End Date Tez Raya MD [address] [place] [address] [place] [address] PCP - General Family Medicine 10/23/21 documented as of this encounter
--- OUTSIDE RECORDS SUMMARY | 2024-01-21 14:05 | XMS_ITS | Encounter Summary ---
Author Organization [facility] Address [address] [place] [address] Phone Care Team Providers Care Systems Programmer Analyst Name Role Phone Tez Raya MD Primary Care Provider [phone]- [phone] Reason for Referral * Procedure (Routine) - Closed Specialty Diagnoses / Procedures Referred By Mei farris Referred To Contact Diagnoses Severe persistent asthma with acute exacerbation (HCC) On home O2 Procedures Pulmonary Function Test -[facility] Adult PFT Lab- [facility]; Walk for Distance Yann Manuel MD [address] [place] [address] Phone: tel: fax: Referral ID Status Reason Start Date Expiration Date Visits Re quested Visits Authorized [id number] Closed 01/16/2024 02/14/2025 1 1 Reason for Visit * Procedure (Routine) - Closed Specialty Diagnoses / Procedures Referred By Mei farris Referred To Contact Diagnoses Severe persistent asthma with acute exacerbation (HCC) On home O2 Procedures Pulmonary Function Test -[facility] Adult PFT Lab- [facility]; Walk for Distance Yann Manuel MD [address] [facility] [address] [place] [address] Phone: tel: fax: Referral ID Status Reason Start Date Expiration Date Visits Re quested Visits Authorized [id number] Closed 01/16/2024 02/14/2025 1 1 Encounter Details Date Type Department Care Team (Latest Contact Info) Description 01/21/2024 3:05 PM CDT Hospital Encounter [facility] Medicine PFT Lab [address] [facility] Medical Office Building [address] [place] [address] Severe persistent asthma with acute exacerbation (HCC); On home O2 Social History Tobacco Use Types Packs/Day Years [...] on file Legal Sex 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 Patient does not drink 09/01/2025 10:54 AM STOCK REPAIRER Carolina Lechuga CMA * BP Location Answer Date of Assessment Author Left arm 09/01/2025 10:54 AM Carolina Sanders CMA documented as of this encounter Plan of Treatment Not on file documented as of this encounter Procedures Procedure Name Priority Date/Time Associated Diagnosis Comments PULMONARY FUNCTION TEST (PFT) Routine 01/21/2024 4:03 PM CDT Severe persistent asthma with acute exacerbation (HCC) On home O2 documented in this encounter Results * Pulmonary Function Test -[facility] Adult PFT Lab- [facility]; Walk for Distance (01/21/2024 4:03 PM CDT) Anatomical Region Laterality Modality PFT Narrative 01/22/2024 1:02 PM CDT Table formatting from the original result was not included. [facility] Division of Pulmonary & Critical Care Medicine [address] [place] [address]; [address]; [place] [address]; [phone] Pulmonary Function Laboratory Pulmonary Stress Test Simple/Oxygen Assessment Patient: Gaby Carey Date: 01/21/2024 : 1975 Ht: 63 IN Wt: 170 LBS Time (min) Distance (ft)/ Choudhary O2 L/M SpO2 HR Rama* BP FEV1 % Pred Rest: RA 100 98 0 168/95 % Walk/Bike: 1 RA 100 105 0 2 RA 100 110 6 3 RA 100 117 0 4 RA 100 115 10 5 6 min 0 sec Recovery: 1 RA 100 103 8-9 180/98 3 RA 99 99 7 *Rama rate of perceived exertion (1-10 dyspnea scale) Ronald, CHEST 2003; 123:[id number] Walk Test Summary: Six Minute Walk Distance: 600 ft Six-minute Walk Work [distance (m) x body wt (kg)]: 02091 kg.m (normal >60,000kg.m) Oxygen required to maintain SpO2 greater than 90% during six minutes of walkin L/M Comments: ATS SCRIPT, HEAD SENSOR,(TEST STOPPED AT 3 1/2 MINUES DUE TO SHORTNESS OF BREATHING AND WHEEZING. Interpretation: Breathing room air, SpO2 is normal at rest and during exercise sufficient to increase pulse from 98 to 117 b/min, SpO2 is stable. On this basis, SpO2 is adequate at rest breathing room air and while walking breathing room air. . Callum Christiansen M.D. By signing this report, the attending pulmonary physician certifies that he/she has personally reviewed and interpreted the graphic and numerical data associated with this pulmonary function study and has reviewed and /or edited a preliminary draft report and agrees with the written final report. [facility] Anthony Manuel MD PFT ORDERABLES Final Result documented in this encounter Visit Diagnoses Diagnosis Severe persistent asthma with acute exacerbation (HCC) On home O2 Dependence on supplemental oxygen documented in this encounter Care Teams Systems Programmer Analyst Relationship Specialty Start Date End Date Tez Raya MD [facility] [place] [address] PCP - General Family Medicine 10/23/21 documented as of this encounter
--- NOTE | 2025-09-08 09:05 | ECG_ITS ---
Test Date: 2025-09-08 09:16:41 Measurements Intervals [place] Rate: 80 P: 46 [place]: 179 QRS: 61 QRSD: 91 T: -1 QT: 354 QTc: 411 Interpretive Statements SINUS RHYTHM POSSIBLE LEFT ATRIAL ENLARGEMENT [-0.1mV P WAVE IN V1/V2] NONSPECIFIC T-WAVE ABNORMALITY No previous ECG available for comparison Electronically Signed On 09-08-2025 13:35:54 AIRFIELD ENGINEER OFFICER by Morgan Delgado M.D.
--- OUTSIDE RECORDS SUMMARY | 2025-09-08 09:20 | XMS_ITS | Encounter Summary ---
Author Organization [facility] Address [address] [place] [address] Phone Care Team Providers Care Peoplesoft Analyst Name Role Phone James Jordan MD Primary Care Provider Tez Raya MD Primary Care Provider [phone]- [phone] Encounter Details Date Type Department Care Team (Latest Contact Info) Description 01/24/2021 Orders Only [facility] Scanning, Provider Social History Tobacco Use Types Packs/Day Years Used Date Smoking Tobacco: Never Smokeless Tobacco: Never Alcohol Use Standard Drinks/Week Comments No 0 (1 standard drink = 0.6 oz pur e alcohol) Comments Unknown Sex and Gender Information Value Date Recorded Sex Assigned at Not on file 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 Gender Identity Not on file Sexual Orientation Not on file documented as of this encounter Plan of Treatment Not on file documented as of this encounter Procedures Procedure Name Priority Date/Time Associated Diagnosis Comments SCAN - LABS 01/24/2021 documented in this encounter Results * SCAN - LABS (01/24/2021) us Provider Scanning Final Result documented in this encounter Visit Diagnoses Not on filedocumented in this encounter Care Teams Peoplesoft Analyst Relationship Specialty [place] [address] [place] [address] PCP - General 02/12/17 10/22/21 Tez Raya MD [facility] [place] [address] PCP - General Family Medicine 10/23/21 documented as of this encounter
--- OUTSIDE RECORDS SUMMARY | 2025-09-08 09:20 | XMS_ITS | Encounter Summary ---
Author Organization [facility] Address [address] [place] [address] Phone Care Team Providers Care Chemistry Specialist Name Role Phone James Jordan MD Primary Care Provider Tez Raya MD Primary Care Provider [phone]- [phone] Encounter Details Date Type Department Care Team (Latest Contact Info) Description 08/26/2020 Orders Only [facility] Scanning, Provider Social History Tobacco Use Types Packs/Day Years Used Date Smoking Tobacco: Never Smokeless Tobacco: Never Alcohol Use Standard Drinks/Week Comments No 0 (1 standard drink = 0.6 oz pur e alcohol) Comments Unknown Sex and Gender Information Value Date Recorded Sex Assigned at Not on file 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 Gender Identity Not on file Sexual Orientation Not on file documented as of this encounter Plan of Treatment Not on file documented as of this encounter Procedures Procedure Name Priority Date/Time Associated Diagnosis Comments SCAN - LABS 08/26/2020 documented in this encounter Results * SCAN - LABS (08/26/2020) us Provider Scanning Edited Result - Final documented in this encounter Visit Diagnoses Not on filedocumented in this encounter Care Teams Chemistry Specialist Relationship Specialty Start Date End Date James Jordan MD [address] [place] [address] PCP - General 02/12/17 10/22/21 Tez Raya MD [facility] [place] [address] PCP - General Family Medicine 10/23/21 documented as of this encounter
--- OUTSIDE RECORDS SUMMARY | 2025-09-08 09:20 | XMS_ITS | Encounter Summary ---
Author Organization [facility] Address [address] [place] [address] Phone Care Team Providers Care Grave Cleaner Name Role Phone James Jordan MD Primary Care Provider Tez Raya MD Primary Care Provider [phone]- [phone] Encounter Details Date Type Department Care Team (Latest Contact Info) Description 04/01/2017 Orders Only [facility] CON[facility] Scanning, Provider Social History Tobacco Use Types Packs/Day Years Used Date Smoking Tobacco: Never Assessed Comments Unknown Sex and Gender Information Value Date Recorded Sex Assigned at Not on file 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 Gender Identity Not on file Sexual Orientation Not on file documented as of this encounter Plan of Treatment Not on file documented as of this encounter Procedures Procedure Name Priority Date/Time Associated Diagnosis Comments PULMONARY FUNCTION TEST (PFT) 04/01/2017 1:49 PM CDT documented in this encounter Results * PULMONARY FUNCTION TEST (PFT) (04/01/2017 1:49 PM CDT) Anatomical Region Laterality Modality PFT us Provider Scanning PFT ORDERABLES Final Result documented in this encounter Visit Diagnoses Not on filedocumented in this encounter Care Teams Grave Cleaner Relationship Specialty Start Date End Date James Jordan MD [address] [place] [address] PCP - General 02/12/17 10/22/21 Tez Raya MD [address] [place] [address] [place] [address] PCP - General Family Medicine 10/23/21 documented as of this encounter
--- OUTSIDE RECORDS SUMMARY | 2025-09-08 09:20 | XMS_ITS | Encounter Summary ---
Author Organization [facility] Address [address] [place] [address] Phone Care Team Providers Care Channel Marketing Manager Name Role Phone James Jordan MD Primary Care Provider Tez Raya MD Primary Care Provider [phone]- [phone] Encounter Details Date Type Department Care Team (Latest Contact Info) Description 09/20/2020 Orders Only [facility] Scanning, Provider Social History Tobacco Use Types Packs/Day Years Used Date Smoking Tobacco: Never Smokeless Tobacco: Never Alcohol Use Standard Drinks/Week Comments No 0 (1 standard drink = 0.6 oz pur e alcohol) Comments Unknown Sex and Gender Information Value Date Recorded Sex Assigned at Not on file 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 Gender Identity Not on file Sexual Orientation Not on file documented as of this encounter Plan of Treatment Not on file documented as of this encounter Procedures Procedure Name Priority Date/Time Associated Diagnosis Comments SCAN - RADIOLOGY/IMAGING 09/20/2020 documented in this encounter Results * SCAN - RADIOLOGY/IMAGING (09/20/2020) Anatomical Region Laterality Modality Other us Provider Scanning Final Result documented in this encounter Visit Diagnoses Not on filedocumented in this encounter Care Teams Channel Marketing Manager Relationship Specialty [place] [address] [place] [address] PCP - General 02/12/17 10/22/21 Tez Raya MD [address] [facility] [place] [address] PCP - General Family Medicine 10/23/21 documented as of this encounter
--- OUTSIDE RECORDS SUMMARY | 2025-09-08 09:20 | XMS_ITS | Encounter Summary ---
Author Organization [facility] Address [address] [place] [address] Phone Care Team Providers Care Magazine Worker Name Role Phone Michelet Wallace MD Primary Care Provider [phone] Encounter Details Date Type Department Care Team (Late st Contact Info) Description 08/02/2025 Results Follow-Up [facility] Emergency [address] [place] [address] Harry Chandler, [address] [place] [address] CT SINUSES W/O CONTRAST, CT - HEAD/NECK Social History Tobacco Use Types Packs/Day Years [...] on file documented as of this encounter Visit Diagnoses Not on filedocumented in this encounter Care Teams Magazine Worker Relationship Specialty Start Date End Date Michelet Wallace MD [address] [place] [address] PCP - General Internal Medicine 07/31/25 documented as of this encounter
--- OUTSIDE RECORDS SUMMARY | 2025-09-08 09:20 | XMS_ITS | Encounter Summary ---
Author Organization [facility] Address [address] [place] [address] Phone Care Team Providers Care Residential Sales Executive Name Role Phone James Jordan MD Primary Care Provider Tez Raya MD Primary Care Provider [phone]- [phone] Encounter Details Date Type Department Care Team (Latest Contact Info) Description 05/04/2020 Orders Only [facility] Scanning, Provider Social History Tobacco Use Types Packs/Day Years Used Date Smoking Tobacco: Never Smokeless Tobacco: Never Alcohol Use Standard Drinks/Week Comments No 0 (1 standard drink = 0.6 oz pur e alcohol) Comments Unknown Sex and Gender Information Value Date Recorded Sex Assigned at Not on file 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 Gender Identity Not on file Sexual Orientation Not on file documented as of this encounter Functional Status documented as of this encounter Plan of Treatment Not on file documented as of this encounter Procedures Procedure Name Priority Date/Time Associated Diagnosis Comments SCAN - LABS 05/04/2020 documented in this encounter Results * SCAN - LABS (05/04/2020) us Provider Scanning Final Result documented in this encounter Visit Diagnoses Not on filedocumented in this encounter Care Teams Residential Sales Executive Relationship Specialty Start Date End Date James Jordan MD [address] [place] [address] PCP - General 02/12/17 10/22/21 Tez Raya MD [facility] [place] [facility] [address] PCP - General Family Medicine 10/23/21 documented as of this encounter
--- OUTSIDE RECORDS SUMMARY | 2025-09-08 09:20 | XMS_ITS | Encounter Summary ---
Author Organization [facility] Address [address] [place] [address] Phone Care Team Providers Care Market Relationship Manager Name Role Phone James Jordan MD Primary Care Provider Tez Raya MD Primary Care Provider [phone]- [phone] Encounter Details Date Type Department Care Team (Latest Contact Info) Description 02/29/2020 Orders Only [facility] Scanning, Provider Social History Tobacco Use Types Packs/Day Years Used Date Smoking Tobacco: Never Smokeless Tobacco: Never Alcohol Use Standard Drinks/Week Comments No 0 (1 standard drink = 0.6 oz pur e alcohol) Comments Unknown Sex and Gender Information Value Date Recorded Sex Assigned at Not on file 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 Gender Identity Not on file Sexual Orientation Not on file documented as of this encounter Plan of Treatment Not on file documented as of this encounter Procedures Procedure Name Priority Date/Time Associated Diagnosis Comments SCAN - LABS 02/29/2020 documented in this encounter Results * SCAN - LABS (02/29/2020) us Provider Scanning Final Result documented in this encounter Visit Diagnoses Not on filedocumented in this encounter Care Teams Market Relationship Manager Relationship Specialty Start Date End Date James Jordan MD [address] [place] [address] PCP - General 02/12/17 10/22/21 Tez Raya MD [facility] [place] [address] PCP - General Family Medicine 10/23/21 documented as of this encounter
--- OUTSIDE RECORDS SUMMARY | 2025-09-08 09:20 | XMS_ITS | Encounter Summary ---
Author Organization [facility] Address [address] [place] [address] Phone Care Team Providers Care Business Management Associate Name Role Phone Tez Raya MD Primary Care Provider +1- [phone] Encounter Details Date Type Department Care Team (Late st Contact Info) Description 07/05/2023 Orders Only [facility] Medicine Allergy and Immunology [address] [facility] [address] [place] [id number] Yann Manuel MD [address] [place] [address] Social History Tobacco Use Types Packs/Day Years Used Date Smoking Tobacco: Never Smokeless Tobacco: Never Alcohol Use Standard Drinks/Week Comments No 0 (1 standard drink = 0.6 oz pur e alcohol) AUDIT-C Answer Date Recorded Q1: How often do you have a drink containing alcohol? Never 06/13/2023 Q2: How many drinks containi ng alcohol do you have on a typical day when you are drinking? Patient does not drink Frequency of Binge Drinking Not on file 05/16 PHQ-2 Answer Date Recorded PHQ-2 Total Score (If total score is 3 or more points, staff should administer the PHQ-9) 0 02/01/2022 Comments Unknown Sex and Gender Information Value Date Recorded Sex Assigned at Not on file Legal Sex Female 8:27 AM RN REFERRAL Gender Identity Not on file Sexual Orientation Not on file documented as of this encounter Plan of Treatment Not on file documented as of this encounter Visit Diagnoses Not on filedocumented in this encounter Care Teams Business Management Associate Relationship Specialty Start Date End Date Tez Raya MD [facility] [place] [address] PCP - General Family Medicine 10/23/21 documented as of this encounter
--- OUTSIDE RECORDS SUMMARY | 2025-09-08 09:20 | XMS_ITS | Encounter Summary ---
Author Organization [facility] Address [address] [place] [address] Phone Care Team Providers Care Associate Entertainment Editor Name Role Phone James Jordan MD Primary Care Provider Tez Raya MD Primary Care Provider [phone]- [phone] Encounter Details Date Type Department Care Team (Latest Contact Info) Description 02/25/2018 Orders Only [facility] Scanning, Provider Social History Tobacco Use Types Packs/Day Years Used Date Smoking Tobacco: Never Comments Unknown Sex and Gender Information Value Date Recorded Sex Assigned at Not on file 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 Gender Identity Not on file Sexual Orientation Not on file documented as of this encounter Plan of Treatment Not on file documented as of this encounter Procedures Procedure Name Priority Date/Time Associated Diagnosis Comments PULMONARY FUNCTION TEST (PFT) 02/25/2018 1:06 PM CDT documented in this encounter Results * PULMONARY FUNCTION TEST (PFT) (02/25/2018 1:06 PM CDT) Anatomical Region Laterality Modality PFT us Provider Scanning PFT ORDERABLES Final Result documented in this encounter Visit Diagnoses Not on filedocumented in this encounter Care Teams Associate Entertainment Editor Relationship Specialty Start Date End Date James Jordan MD [address] [place], [place] [id number] PCP - General 02/12/17 10/22/21 Tez Raya MD [address] [place] [address] PCP - General Family Medicine 10/23/21 documented as of this encounter
--- OUTSIDE RECORDS SUMMARY | 2025-09-08 09:20 | XMS_ITS | Encounter Summary ---
Author Organization [facility] Address [address] [place] [address] Phone Care Team Providers Care Residential Door Unit Installer Name Role Phone James Jordan MD Primary Care Provider Tez Raya MD Primary Care Provider [phone]- [phone] Encounter Details Date Type Department Care Team (Latest Contact Info) Description 03/16/2020 Orders Only [facility] Scanning, Provider Social History Tobacco Use Types Packs/Day Years Used Date Smoking Tobacco: Never Smokeless Tobacco: Never Alcohol Use Standard Drinks/Week Comments No 0 (1 standard drink = 0.6 oz pur e alcohol) Comments Unknown Sex and Gender Information Value Date Recorded Sex Assigned at Not on file 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 Gender Identity Not on file Sexual Orientation Not on file documented as of this encounter Plan of Treatment Not on file documented as of this encounter Procedures Procedure Name Priority Date/Time Associated Diagnosis Comments SCAN - LABS 03/16/2020 documented in this encounter Results * SCAN - LABS (03/16/2020) us Provider Scanning Final Result documented in this encounter Visit Diagnoses Not on filedocumented in this encounter Care Teams Residential Door Unit Installer Relationship Specialty Start Date End Date James Jordan MD [address] [place] [address] PCP - General 02/12/17 10/22/21 Tez Raya MD [facility] [place] [address] PCP - General Family Medicine 10/23/21 documented as of this encounter
--- OUTSIDE RECORDS SUMMARY | 2025-09-08 09:20 | XMS_ITS | Encounter Summary ---
Author Organization [facility] Address [address] [place] [address] Phone Care Team Providers Care Dental Financial Coordinator Name Role Phone James Jordan MD Primary Care Provider Tez Raya MD Primary Care Provider [phone]- [phone] Encounter Details Date Type Department Care Team (Latest Contact Info) Description 04/28/2020 Orders Only [facility] Scanning, Provider Social History Tobacco Use Types Packs/Day Years Used Date Smoking Tobacco: Never Smokeless Tobacco: Never Alcohol Use Standard Drinks/Week Comments No 0 (1 standard drink = 0.6 oz pur e alcohol) Comments Unknown Sex and Gender Information Value Date Recorded Sex Assigned at Not on file Legal Sex Female 8:27 AM WAGE HAND Gender Identity Not on file Sexual Orientation Not on file documented as of this encounter Plan of Treatment Not on file documented as of this encounter Procedures Procedure Name Priority Date/Time Associated Diagnosis Comments SCAN - LABS 04/28/2020 documented in this encounter Results * SCAN - LABS (04/28/2020) us Provider Scanning Final Result documented in this encounter Visit Diagnoses Not on filedocumented in this encounter Care Teams Dental Financial Coordinator Relationship Specialty Start Date End Date James Jordan MD [address] [place] [address] PCP - General 02/12/17 10/22/21 Tez Raya MD [facility] [place] [address] PCP - General Family Medicine 10/23/21 documented as of this encounter
--- OUTSIDE RECORDS SUMMARY | 2025-09-08 09:20 | XMS_ITS | Clinical Summary ---
Author Organization [facility] Address [address] [place] [address] Phone Care Team Providers Care Gas Usage Meter Clerk Name Role Phone Michelet Wallace MD Primary Care Provider [phone] Allergies Active Allergy Reactions Criticality Noted Date Comments Aspirin Unknown 07/31/2017 Prochlorperazine Anxiety 07/23/2021 Phenazopyridine Hcl Unknown 07/02/2019 Metoclopramide Other (see Comments) 07/31/2025 Sulfamethoxazole-Trimethoprim Unknown 2016 Medications montelukast (SINGULAIR) 10 [...] 2 diabetes mellitus with hyper glycemia 2019 Encounters Date Type Department Care Team Description 08/02/2025 [facility] [address] [place] [address] Harry Chandler, [place] CT SINUSES W/O CONTRAST, CT - HEAD/NECK 07/31/2025 5:05 PM CDT - 07/31/2025 10:11 PM CDT [facility] [address] [place] [address] Harry Weber, SHOCK ABSORBER INSTALLER, CATALOG SPECIALIST Anxiety Discharge Disposition: Discharged to home or Selfcare 07/31/2025 Travel from Last 3 Months Family History Medical History Relation Name Comments [...] Sign Reading Time Taken Comments Blood Pressure 112/74 07/31/2025 10:10 PM CDT Pulse 93 07/31/2025 10:10 PM CDT Temperature 36.2 C (97.1 F) 07/31/2025 5:03 PM CDT Respiratory Rate 16 07/31/2025 10:10 PM CDT Oxygen Saturation 98% 07/31/2025 10:10 PM CDT Inhaled Oxygen Concentration - - Weight 70.3 kg (155 lb) 07/31/2025 5:03 PM CDT Height 160 cm (5' 3) 07/31/2025 5:03 PM CDT Body Mass Index 27.46 07/31/2025 5:03 PM CDT Plan of Treatment Health Maintenance Due Date Last Done Comments Diabetes: Foot Exam 1975 Hepatitis C Virus (HCV) Screening 1975 Mammogram 1975 Varicella Immunization (1 of 2 - 13+ 2-dose series) 01/12/1989 Hepatitis B Immunization (1 of 3 - 19+ 3-dose series) 01/12/1995 Pap Smear 01/12/1997 Cervical Cancer Screening (CCS) 01/12/2006 HPV/Cotest 01/12/2006 Discussion re Starting/Frequency of Mammograms 2016 Cologuard 01/12/2021 Colonoscopy 01/12/2021 Colorectal Cancer Screening 01/12/2021 Immunochemical Fecal Occult Blood 01/12/2021 Diabetes: Eye Exam 03/13/2024 03/13/2023, 08/28/2017 SARS-COV-2 Immunization ( season) 2025 07/17/2021, 01/14/2021, 12/17/2020 Pneumococcal Immunization Combined (3 of 3 - PCV20 or PCV21) 01/12/2026 03/29/2020, 03/14/2015, 06/24/2013, Additional history exists Diabetes: Hemoglobin A1c 01/19/2026 025, 12/25/2022, 06/07/2022, Additional history exists Diabetes: Nephropathy Screening 07/31/2026 07/31/2025, 04/04/2023, 12/25/2022, Additional history exists Respiratory Syncytial Virus (RSV) Immunization (Adult) (1 - 1-dose 75+ series) 01/12/2051 DTaP/Tdap/Td Immunization Discontinued 04/06/2015 TdaP Immunization Completed 04/06/2015 Influenza Immunization Completed , 06/24/2024, 09/25/2023, Additional history exists Human Papillomavirus (HPV) Immunization Aged Out No longer eligible based on patient's age to complete this topic Meningococcal Immunization (ACWY) Aged Out No longer eligible based on patient's age to complete this topic Rotavirus Immunization Aged Out No lo nger eligible based on patient's age to complete this topic Procedures Procedure Name Priority Date/Time Associated Diagnosis Comments CT SOFT TISSUE NECK W CONTRAST Stat with Interpretation 07/31/2025 7:[address] SINUSES W/O CONTRAST Stat with Interpretation 07/31/2025 7:37 PM CDT URINALYSIS REFLEX IF INDICATED BY ABNORMAL RESULTS STAT 07/31/2025 6:47 PM CDT CBC WITH AUTO DIFFERENTIAL STAT 07/31/2025 6:30 PM CDT THYROID STIMULATING HORMONE (TSH) STAT 07/31/2025 6:30 PM CDT C-REACTIVE PROTEIN (CRP) QUANT STAT 07/31/2025 6:30 PM CDT ERYTHROCYTE SEDIMENTATION RATE (ESR) STAT 07/31/2025 6:30 PM CDT CMP (COMPREHENSIVE METABOLIC PANEL) STAT 07/31/2025 6:30 PM CDT COMPLETE BLOOD COUNT (CBC) WITH DIFF STAT 07/31/2025 6:[address] - HEAD/NECK 07/31/2025 12:00 AM CDT HEMOGLOBIN, A1C 12/25/2022 12:00 AM CDT from Last 3 Months or Most Recently Relevant to Health Maintenance Results * CT SOFT TISSUE NECK W CONTRAST (07/31/2025 7:40 PM CDT) Anatomical Region Laterality Modality Spine N/A Computed Tomogra phy 07/31/2025 7:40 PM CDT Impressions 08/01/2025 4:51 AM CDT IMPRESSION: Trace left mastoid effusion of doubtful clinical significance. The preliminary report and any related communication were provided by [facility]'s After Hours service, as documented in the medical record. Narrative 08/01/2025 4:51 AM CDT DICTATING PHYSICIAN: Jacob Spears M.D., [facility] EXAM: CT SOFT TISSUE NECK W CONTRAST 07/31/2025 7:40 PM Patient : 1975 Age: 50 years Gender: Female NUMBER OF IMAGES \ views: 345 INDICATION: Left-sided throat swelling, dysphagia for 3-4 weeks, burning left maxillary sinus COMPARISON: None TECHNIQUE: Technique: Low-dose CT acquisition technique included one of following options; 1 . Automated exposure control, 2. Adjustment of MA and or KV according to patient's size or 3. Use of iterative reconstruction. A total of 75 mL of Isovue 370 was used for intravenous contrast. Multiple computerized tomography sections with sagittal and coronal MPR reconstructions were obtained from the base of the skull to the aortic arch. FINDINGS: The larynx appears unremarkable The soft tissues appear unremarkable. Scattered lymph nodes are visualized which do not meet the CT criteria for adenopathy. Trace fluid within the left mastoid air cells. The paranasal sinuses, middle ears and right mastoid air cells are clear. Procedure Note Jacob Wolfe MD - 08/01/2025 DICTATING PHYSICIAN: Jacob Spears M.D., [facility] EXAM: CT SOFT TISSUE NECK W CONTRAST 07/31/2025 7:40 PM Patient : 1975 Age: 50 years Gender: Female NUMBER OF IMAGES \ views: 345 INDICATION: Left-sided throat swelling, dysphagia for 3-4 weeks, burningleft maxillary sinus COMPARISON: None TECHNIQUE: Technique: Low-dose CT acquisition technique included one of followingoptions; 1 . Automated exposure control, 2. Adjustment of MA and or KVaccording to patient's size or 3. Use of iterative reconstruction. A total of 75 mL of Isovue 370 was used for intravenous contrast. Multiple computerized tomography sections with sagittal and coronal MPRreconstructions were obtained from the base of the skull to the aorticarch. FINDINGS: The larynx appears unremarkable The soft tissues appear unremarkable. Scattered lymph nodes are visualized which do not meet the CT criteria foradenopathy. Trace fluid within the left mastoid air cells. The paranasal sinuses,middle ears and right mastoid air cells are clear. IMPRESSION: Trace left mastoid effusion of doubtful clinical significance. The preliminary report and any related communication [facility], as documented in the medical record. us Harry Weber APRN, [facility] IM CT ORDERABLES Final Result * CT SINUSES W/O CONTRAST (07/31/2025 7:37 PM CDT) Anatomical Region Laterality Modality Head N/A Computed Tomogra phy 07/31/2025 7:37 PM CDT Impressions 08/01/2025 5:04 AM CDT IMPRESSION: 1. No evidence of sinusitis. 2. Perforation of the anterior soft tissue component of the nasal septum. 3. Trace left mastoid effusion of doubtful clinical significance. The preliminary report and any related communication were provided by [facility]'s After Hours service, as documented in the medical record. Narrative 08/01/2025 5:04 AM CDT DICTATING PHYSICIAN: Jacob Spears M.D., [facility] Exam: CT SINUSES W/O CONTRAST 07/31/2025 7:37 PM Patient : 1975 Age: 50 years Gender: Female Number of Images: 842 views Indication: sinus pressure Comparison: None. TECHNIQUE: Axial CT of the paranasal sinuses was obtained. Sagittal and coronal MPR reconstructions were performed and uploaded to PACS for evaluation. Low-dose CT acquisition technique included one of following options; 1 . Automated exposure control, 2. Adjustment of MA and or KV according to patient's size or 3. Use of iterative reconstruction. FINDINGS: Postoperative changes: None Maxillary sinuses: No significant mucosal thickening or fluid levels. Ethmoid sinuses: No significant mucosal thickening or fluid levels. Frontal sinuses: No significant mucosal thickening or fluid levels. Sphenoid sinuses: No significant mucosal thickening or fluid levels. Nasal cavity: A 1.7 cm perforation is seen within the anterior aspect of the soft tissue nasal septum. The anterior aspect of the bony nasal septum is deviated to the right. The posterior aspect of the bony nasal septum is deviated to the left. The cribriform plates and fovea ethmoidalis are intact. Paranasal sinus drainage pathways: The ostiomeatal units, frontal recesses, and sphenoid ostia are patent. Trace fluid within some of the left mastoid air cells. The right mastoid air cells and bilateral middle ears are clear. Procedure Note Jacob Wolfe MD - 08/01/2025 DICTATING PHYSICIAN: Jacob Spears M.D., [facility] Exam: CT SINUSES W/O CONTRAST 07/31/2025 7:37 PM Patient : 1975 Age: 50 years Gender: Female Number of Images: 842 views Indication: sinus pressure Comparison: None. TECHNIQUE: Axial CT of the paranasal sinuses was obtained. Sagittal andcoronal MPR reconstructions were performed and uploaded to PACS forevaluation. Low-dose CT acquisition technique included one of followingoptions; 1 . Automated exposure control, 2. Adjustment of MA and or KVaccording to patient's size or 3. Use of iterative reconstruction. FINDINGS: Postoperative changes: None Maxillary sinuses: No significant mucosal thickening or fluid levels. Ethmoid sinuses: No significant mucosal thickening or fluid levels. Frontal sinuses: No significant mucosal thickening or fluid levels. Sphenoid sinuses: No significant mucosal thickening or fluid levels. Nasal cavity: A 1.7 cm perforation is seen within the anterior aspect ofthe soft tissue nasal septum. The anterior aspect of the bony nasalseptum is deviated to the right. The posterior aspect of the bony nasalseptum is deviated to the left. The cribriform plates and fovea ethmoidalis are intact. Paranasal sinus drainage pathways: The ostiomeatal units, frontalrecesses, and sphenoid ostia are patent. Trace fluid within some of the left mastoid air cells. The right mastoidair cells and bilateral middle ears are clear. IMPRESSION: 1. No evidence of sinusitis. 2. Perforation of the anterior soft tissue component of the nasalseptum. 3. Trace left mastoid effusion of doubtful clinical significance. The preliminary report and any related communication [facility], as documented in the medical record. Harry Weber APRN, CATALOG SPECIALIST IMG CT ORDERABLES Final Result * (ABNORMAL) URINALYSIS REFLEX IF INDICATED BY ABNORMAL RESULTS (07/31/2025 6:47 PM CDT) SPECIFIC GRAVITY 1.015 1.003 - 1.030 07/31/2025 7:05 PM CDT [email or web address] URINE PH 6.0 5.0 - 9.0 07/31/2025 7:05 PM CDT [email or web address] WBC ESTERASE Negative Negative 07/31/2025 7:05 PM CDT [email or web address] NITRITE Negative Negative 07/31/2025 7:05 PM CDT [email or web address] PROTEIN, RANDOM URINE Negative Negative 07/31/2025 7:05 PM CDT [email or web address] URINE GLUCOSE, QUAL 1000 mg/dL(A) Negative 07/31/2025 7:05 PM CDT [email or web address] URINE KETONES Negative Negative 07/31/2025 7:05 PM CDT [email or web address] UROBILINOGEN Normal Normal mg/dL 07/31/2025 7:05 PM CDT [email or web address] URINE BLOOD Negative Negative jimmie/ul 07/31/2025 7:05 PM CDT [email or web address] LAB URINALYSIS COLOR Yellow 07/31/20 7:05 PM CDT [email or web address] LAB URINALYSIS CLARITY Clear 07/31/2025 7:05 PM CDT [facility] Urine URINE SPECIMEN OBTAINED BY CLEAN CATCH PROCEDURE / Unknown Non-Phlebotomy Collection / Unknown 07/31/2025 6:47 PM CDT 07/31/2025 7:00 PM CDT us Harry Weber SHOCK ABSORBER INSTALLER, CATALOG SPECIALIST URINE ORDERABLES Final Result [facility] [address] [place] [address] * (ABNORMAL) CBC with Auto Differential (07/31/2025 6:30 PM CDT) [facility] WBC 8.15 4.00 - 12.00 10(3)/mcL 07/31/2025 6:54 PM CDT [email or web address] RBC 4.73 3.80 - 5.30 10(6)/mcL 07/31/2025 6:54 PM CDT [email or web address] LAB HEMOGLOBIN (HGB) 13.3 12.0 - 15.8 g/dL 07/31/2025 6:54 PM CDT [email or web address] LAB HEMATOCRIT (HCT) 41.4 36.0 - 47.0 % 07/31/2025 6:54 PM CDT [email or web address] LAB MCV 87.5 82.0 - 96.0 fL 07/31/2025 6:54 PM CDT [email or web address] LAB MCH 28.1 26.0 - 34.0 pg 07/31/2025 6:54 PM CDT [email or web address] MCHC 32.1 31.0 - 36.0 g/dL 07/31/2025 6:54 PM CDT [email or web address] LAB PLATELET COUNT 424 140 - 440 10(3)/mcL 07/31/2025 6:54 PM CDT [email or web address] LAB RDW 12.7 11.8 - 15.5 % 07/31/2025 6:54 PM CDT [email or web address] LAB MPV 10.6 9.7 - 12.4 fL 07/31/2025 6:54 PM CDT [email or web address] LAB NEUTROPHILS 64.8 47.0 - 73.0 % 07/31/2025 6:54 PM CDT [email or web address] LAB LYMPHOCYTES 25.4 18.0 - 42.0 % 07/31/2025 6:54 PM CDT [email or web address] LAB MONOCYTES 7.5 4.0 - 12.0 % 07/31/2025 6:54 PM CDT [email or web address] LAB EOSINOPHILS 0.9 0.0 - 5.0 % 07/31/2025 6:54 PM CDT [email or web address] LAB BASOPHILS 0.9 0.0 - 1.0 % 07/31/2025 6:54 PM CDT [email or web address] LAB IMMATURE GRANULOCYTE 0.5(H) 0.0 - 0.4 % 07/31/2025 6:54 PM CDT [email or web address] LAB Comment:Immature Granulocyte s includes Metamyelocytes, Myelocytes, and Promyelocytes. ABSOLUTE NEUTROPHILS 5.29 1.60 - 7.70 10(3)/[facility] 07/31/2025 6:54 PM CDT [email or web address] LAB ABSOLUTE LYMPHOCYTES 2.07 1.30 - 3.20 10(3)/mcL 07/31/2025 6:54 PM CDT [email or web address] LAB ABSOLUTE MONOCYTES 0.61 0.20 - 1.00 10(3)/[facility] 07/31/2025 6:54 PM CDT [email or web address] LAB ABSOLUTE EOSINOPHIL 0.07 0.00 - 0.40 10(3)/[facility] 07/31/2025 6:54 PM CDT [email or web address] LAB ABSOLUTE BASOPHILS 0.07 0.00 - 0.10 10(3)/[facility] 07/31/2025 6:54 PM CDT [email or web address] LAB ABSOLUTE IMMATURE GRANULOCYTE 0.04(H) 0.00 - 0.03 10 (3) [facility]. 07/31/2025 6:54 PM CDT [facility] NRBC PER 100 WBC 0 07/31/20 25 6:54 PM CDT [facility] Blood Venipuncture / Unknown 07/31/2025 6:30 PM CDT 07/31/2025 6:52 PM CDT us Harry Weber SHOCK ABSORBER INSTALLER, CATALOG SPECIALIST HEMATOLOGY ORDERABLES F inal Result [facility] [address] [place] [address] * Thyroid Stimulating Hormone (TSH) [id number] (07/31/2025 6:30 PM CDT) TSH 3.339 0.300 - 5.000 mIU/L 07/31/2025 7:32 PM CDT [facility] Blood Venipuncture / Unknown 07/31/2025 6:30 PM CDT 07/31/2025 6:52 PM CDT us Harry Weber APRN, CATALOG SPECIALIST CHEMISTRY ORDERABLES Fi nal Result Performing Organization Address City/[facility]/ZIP Co de Phone Number [facility] [address] [place] [address] * Sed Rate (Esr) [id number] (07/31/2025 6:30 PM CDT) Pathologist [facility] ESR (SED RATE, ERYTHROCYTE SEDIMENTATION RATE) <1 <20 mm/h 07/31/2025 6:57 PM CDT [email or web address] LAB Comment: Patients presenting with increased level of fibrinogen, gamma globulins, or abnormally shaped RBCs could affect the results for the erythrocyte sedimentation rate (ESR). Results should be clinically correlated. Blood Venipuncture / Unknown 07/31/2025 6:30 PM CDT 07/31/2025 6:52 PM CDT Harry Weber APRN, CNP HEMATOLOGY ORDERABLES F inal Result Performing Organization Address [facility]/ZIP Co de Phone Number [facility] [address] [place] [address] * (ABNORMAL) Comprehensive Metabolic Panel (Cmp) [id number] (07/31/2025 6:30 PM CDT) Pathologist [facility] SODIUM 138 136 - 145 mmol/L 07/31/2025 7:15 PM CDT [email or web address] POTASSIUM 4.1 3.5 - 5.1 mmol/L 07/31/2025 7:15 PM CDT [email or web address] LAB CHLORIDE 104 98 - 107 mmol/L 07/31/2025 7:15 PM CDT [email or web address] LAB CO2, VENOUS 23 22 - 30 mmol/L 07/31/2025 7:15 PM CDT [email or web address] LAB ANION GAP 15.1 <18.0 mmol/L 07/31/2025 7:15 PM CDT [email or web address] LAB GLUCOSE 283(H) 70 - 99 mg/dL 07/31/2025 7:15 PM CDT [facility] BUN 18 5 - 18 mg/dL 07/31/2025 7:15 PM CDT [facility] CREATININE, BLOOD 0.80 0.60 - 1.00 mg/dL 07/31/2025 7:15 PM CDT [facility] BUN/CREATININE RATIO 23(H) 12 - 20 ratio 07/31/2025 7:15 PM CDT [facility] TOTAL PROTEIN 7.2 6.0 - 8.0 g/dL 07/31/2025 7:15 PM CDT [facility] ALBUMIN 4.6 3.5 - 5.0 g/dL 07/31/2025 7:15 PM T [facility] A/G RATIO 1.8 1.0 - 2.2 07/31/2025 7:15 PM CDT [facility] CALCIUM 9.7 8.7 - 10.5 mg/dL 07/31/2025 7:15 PM CDT [facility] T BILI 0.3 0.2 - 1.2 mg/dL 07/31/2025 7:15 PM T [facility] SGOT (AST) 26 <43 U/L 07/31/2025 7:15 PM T [facility] SGPT (ALT) 37 <56 U/L 07/31/2025 7:15 PM T [facility] ALKALINE PHOSPHATASE 48 40 - 150 U/L 07/31/2025 7:15 PM T [facility] GFR, ESTIMATED >60 >=60 07/31/2025 7:15 PM T [facility] Comment: Creatinine Clearance is the preferred criteria for selecting drug dose adjustments in renally impaired patients. The GFR is provided as additional pertinent clinical information. GFR is reported in mL/min/1.73 sq m. Calculation based on the 2020 Chronic Kidney Disease Epidemiology Collaboration (CKD-EPI) equation refit without adjustment for race. GFR, EST. >60 >=60 025 7:15 PM CDT [facility] Comment: Creatinine Clearance is the preferred criteria for selecting drug dose adjustments in renally impaired patients. The GFR is provided as additional pertinent clinical information. GFR is reported in mL/min/1.73 sq m. Calculation based on the 2009 Chronic Kidney Disease Epidemiology Collaboration (CKD-EPI). GFR, EST. NONAFRICAN >60 >=60 07/31/2025 7:15 PM CDT [email or web address] LAB Comment: Creatinine Clearance is the preferred criteria for selecting drug dose adjustments in renally impaired patients. The GFR is provided as additional pertinent clinical information. GFR is reported in mL/min/1.73 sq m. Calculation based on the 2009 Chronic Kidney Disease Epidemiology Collaboration (CKD-EPI). Blood Venipuncture / Unknown 07/31/2025 6:30 PM CDT 07/31/2025 6:52 PM CDT Harry Weber SHOCK ABSORBER INSTALLER, CATALOG SPECIALIST CHEMISTRY ORDERABLES Fi nal Result Performing Organization Address City/[facility]/ZIP Co de Phone Number [email or web address] LAB [address] [place] [address] * C-Reactive Protein Qnt (Crp) (07/31/2025 6:30 PM CDT) C-REACTIVE PROTEIN <0.10 <0.50 mg/dL 07/31/2025 7:27 PM CDT [email or web address] Blood Venipuncture / Unknown 07/31/2025 6:30 PM CDT 07/31/2025 6:52 PM CDT Harry Weber SHOCK ABSORBER INSTALLER, CATALOG SPECIALIST CHEMISTRY ORDERABLES Fi nal Result Performing Organization Address City/[facility]/ZIP Co de Phone Number [facility] [address] [place] [address] * CT - HEAD/NECK (07/31/2025 12:00 AM CDT) 07/31/2025 us Provider Scan IMG CT ORDERABLES Final Result SCAN * HEMOGLOBIN, A1C (12/25/2022 12:00 AM CDT) HGB-A1C 9 % SCAN 12/25/2022 us Provider Scan CHEMISTRY ORDERABLES Final Resul t SCAN from Last 3 Months or Most Recently Relevant to Health Maintenance Insurance Care Teams Gas Usage Meter Clerk Relationship Specialty Start Date End Date Michelet Wallace MD [address] [place] [address] PCP - General Internal Medicine 07/31/25
--- OUTSIDE RECORDS SUMMARY | 2025-09-08 09:21 | XMS_ITS | Clinical Summary ---
Author Organization [facility] Medical 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 Manager Name Role Phone Tez Raya MD Primary Care Provider [phone] Allergies Active Allergy Reactions Criticality Noted Date Comments Aspirin Other (See comments),Unknown Low 07/31/2017 aspirin Empagliflozin Unknown Low 09/11/2023 Ibuprofen Wheezing Medium 01/05/2021 Insulin Aspart Vomiting High 08/17/2025 Metoprolol Cough High 09/11/2023 Phenazopyridine Hcl Unknown 07/02/2019 Prochlorperazine Dystonia,Other (See comments),Unknown High 11/07/2020 Semaglutide Unknown Low 09/11/2023 Sulfamethoxazole Shortness of breath High 07/26/2015 Sulfamethoxazole-Trimetho prim Headache,Unknown, Other (See comments) Low 07/16/2008 sulfamethoxazole / trimethoprim Theophylline Muscle pain,Dizziness,Na usea only Medium 10/16/2022 Tomato Fruit Extract Other (See comments) Low 02/18/2024 Trimethoprim Shortness of breath High 07/26/2015 Medications ascorbic acid (VITAMIN C) 500 mg tablet,chewable Take 1 tablet/chew tab (500 mg total) by mouth daily Active atorvastatin (LIPITOR) 40 mg tablet Take 1 tablet (40 mg total) by mouth daily Active blood pressure monitor kit please admister 1 kit 017 Active amLODIPine (NORVASC) 10 mg tablet daily Active hydroCHLOROthiaz elver (MICROZIDE) 12.5 mg capsule TAKE 1 CAPSULE(12.5 MG) BY MOUTH DAILY 30 capsule Active triamcinolone (KENALOG) 0.1 % creamIndications :diaper rash Apply 1 g topically 2 (two) times a day as needed for irritation (groin diaper rash) 453.6 g 1 Active fenofibrate (TRIGLIDE) 160 mg tabletIndication s:Diabetes mellitus due to underlying condition with ketoacidosis without coma, without long-term current use of insulin (HCC) TAKE 1 TABLET(160 MG) BY MOUTH DAILY [address] (PROTONIX) 40 mg EC tablet TK 1 T PO QD Active Vitamin D3 50 mcg (2,000 unit) tablet daily Active folic acid (FOLVITE) 400 mcg tablet daily Active lisinopriL (PRINIVIL,ZESTRI L) 2.5 mg tablet TK 2 TS PO ONCE D Active nitroglycerin (NITROSTAT) 0.4 mg SL tablet as needed Active nebulizer accessories kit 5 each as needed (wheezing and SOB) Use as directed 5 kit 11 Active glucagon 1 mg injection INJECT 1 MG UNDER THE SKIN PRN Active LORazepam (ATIVAN) 1 mg tablet Take 1 tablet (1 mg total) by mouth every 8 (eight) hours as needed for anxiety 30 tablet Active cyanocobalamin (Vitamin B-12) 1,000 mcg sublingual tablet cyanocobalamin (vit B-12) 1,[address] 1 tablet every day by sublingual route in the morning for 30 days. Active ondansetron ODT (ZOFRAN-ODT) 4 mg disintegrating tablet DISSOLVE 1 TABLET(4 MG) ON THE TONGUE EVERY 8 HOURS NEEDED FOR NAUSEA OR VOMITING 30 tablet 11 Active dicyclomine (BENTYL) 20 mg tablet daily Active traMADoL (ULTRAM) 50 mg tablet as needed Active azelastine (ASTELIN) 137 mcg (0.1 %) nasal spray SPRAY TWICE IN EACH NOSTRIL TWICE DAILY 30 mL 5 021 Active nebulizers misc Pt needs nebulizer masks only 10 each 11 021 Active guaiFENesin-code ine (GUAITUSS AC) liquid 100-10 mg/5 mL as needed Active nebulizer accessories kit 5 each as needed (prn wheezing and sob) 5 kit 11 022 Active Gvoke HypoPen 2-Pack 1 mg/0.2 mL auto-injector as needed 022 Active ibuprofen (ADVIL,MOTRIN) 800 mg tablet as needed 022 Active inhalational spacing device (Aerochamber Plus Z Stat) spacerIndication s:Severe persistent asthma, unspecified whether complicated (HCC) 1 applicator 2 (two) times a day 1 each 023 Active clobetasoL (TEMOVATE) 0.05 % cream as needed 023 Active Zenpep 40,000-126,000- 168,000 unit per capsule daily 023 Active hydroCHLOROthiaz elver (HYDRODIURIL) 25 mg tablet daily 023 Active lancets 33 gauge misc Inject 1 applicator as directed 2 (two) times a day 60 each 3 023 Active metoclopramide (REGLAN) 5 mg tablet 023 Active ketoconazole (NIZORAL) 2 % cream APPLY TO THE AFFECTED AREA(S) heels BY TOPICAL ROUTE ONCE DAILY, 1 week 023 Active ondansetron ODT (ZOFRAN-ODT) 8 mg disintegrating tablet 023 Active olopatadine 0.6 % spray,non-aeroso l SPRAY 1 SPRAY IN EACH NOSTRIL TWICE DAILY Active neomycin-polymyx in-dexAMETHasone (MAXITROL) 3.5mg/mL-10,000 unit/mL-0.1 % ophthalmic suspension 023 Active promethazine-DM (PROMETHAZINE-DM ) 1.25-3 mg/mL syrup 024 Active metoclopramide (REGLAN) 10 mg tablet 024 Active Januvia 100 mg tabletIndication s:Type 2 diabetes mellitus with hyperglycemia, with long-term current use of insulin (HCC) Take 1 tablet (100 mg total) by mouth daily 30 tablet Active acetaminophen-co deine (TYLENOL with CODEINE #3) 300-30 mg per tablet 2 tablets as needed Active aspirin (Aspirin Childrens) 81 mg chewable tablet daily Acti ve naltrexone-bupro pion (Contrave) 8-90 mg tablet extended release Take by mouth daily Active neomycin-polymyx in-HC (CORTISPORIN) 3.5-10,000-1 mg/mL-unit/mL-% otic suspension INSTILL 3 DROPS INTO EACH EAR TWICE DAILY FOR 10 DAYS Active sucralfate (CARAFATE) 1 gram tablet TAKE 1 TABLET BY MOUTH FOUR TIMES DAILY BEFORE MEALS Active cholecalciferol (VITAMIN D-3) 2000 unit capsule Take 2 capsules (4,000 Units total) by mouth every morning Active Dexcom G7 [place] Master miscIndications: Type 2 diabetes mellitus with hyperglycemia, with long-term current use of insulin ([facility]) Continuous glucose monitor 1 each Active cetirizine (ZyrTEC) 5 mg tablet TAKE 1 TABLET(5 MG) BY MOUTH TWICE DAILY 60 tablet 10 Active butalbitaL-aceta [id number] mg capsule TAKE 1 CAPSULE BY MOUTH EVERY 4 HOURS Active Asmanex Twisthaler 220 mcg/ actuation (120) aerosol powdr breath activatedIndicat ions:Very poorly controlled asthma with acute exacerbation, unspecified asthma severity, unspecified whether persistent INHALE 2 PUFFS BY MOUTH TWICE DAILY 1 each 3 Active metFORMIN XR (GLUCOPHAGE XR) 500 mg 24 hr tabletIndication s:Type 2 diabetes mellitus with hyperglycemia, with long-term current use of insulin ([facility]) TAKE 2 TABLETS BY MOUTH TWICE DAILY WITH BREAKFAST AND SUPPER 360 tablet 3 Active HYDROcodone-chlo rpheniramine ER (TUSSIONEX PENNKINETIC) 2-1.6 mg/mL ER suspension Take 5 mL by mouth every 12 (twelve) hours as needed for cough 300 mL Active ipratropium (ATROVENT) 21 mcg (0.03 %) nasal sprayIndications :Chronic maxillary sinusitis Administer 2 sprays into each nostril 4 (four) times a day as needed for rhinitis 30 mL 10 024 Active ketotifen fumarate (ZADITOR) 0.035 % (0.025% of ketotifen) ophthalmic solution Administer 1 drop into both eyes 2 (two) times a day 15 mL 5 024 Active cyclobenzaprine (FLEXERIL) 10 mg tabletIndication s:Spasm Take 1 tablet (10 mg total) by mouth 3 (three) times a day as needed for muscle spasms for muscle spasms 120 tablet 3 024 Active fluticasone propionate (FLONASE) 50 mcg/actuation nasal spray SHAKE LIQUID AND USE 2 SPRAYS IN EACH NOSTRIL DAILY 16 g 11 Active insulin glargine (LANTUS) 100 unit/mL (3 mL) pen for injectionIndicat ions:Type 2 diabetes mellitus with hyperglycemia, with long-term current use of insulin ([facility]) Inject 70 Units under the skin 2 (two) times a day 70 units am 70 pm 135 mL 3 025 2025 Active BD Alcohol Swabs pads, medicatedIndicat ions:Type 2 diabetes mellitus with hyperglycemia, with long-term current use of insulin ([facility]) Use to clean skin prior to insulin injections 400 each 3 025 Active predniSONE (DELTASONE) 20 mg tabletIndication s:Severe persistent asthma with acute exacerbation (HCC) TAKE 2 TABLETS BY MOUTH 2 DAYS PRIOR TO IVIG 20 tablet 1 025 Active erythromycin (ILOTYCIN) ophthalmic ointment Active ofloxacin (OCUFLOX) 0.3 % ophthalmic solution INSTILL 1 DROP INTO THE AFFECTED LEFT EYE FOUR TIMES DAILY 025 Active predniSONE (DELTASONE) 5 mg tablet Take 1 tablet (5 mg) by mouth daily Add to home dose of prednisone 30 mg daily for total dose of 35 mg daily for 14 days 14 tablet 025 Active immun glob G,IgG,-gly-IgA ov50 (Cuvitru) 1 gram/5 mL (20 %) solution Inject 13 g under the skin once a week 260 mL 11 025 Active Dexcom G7 Sensor deviceIndication s:Type 2 diabetes mellitus with hyperglycemia, with long-term current use of insulin (HCC) CHANGE SENSOR EVERY 10 DAYS 9 each 3 Active amitriptyline (ELAVIL) 10 mg tablet Take 1 tablet (10 mg total) by mouth nightly at bedtime Active methylPREDNISolo ne acetate (DEPO-MedroL) 80 mg/mL injection Take 1 mL by injection route. Active neomycin-polymyx in B-dexAMETHasone (MAXITROL) 3.5 mg/g-10,000 unit/g-0.1 % ointment Active olopatadine (PATADAY) 0.2 % ophthalmic solution INSTILL 1 DROP INTO THE AFFECTED LEFT EYE ONCE DAILY Active omeprazole (PriLOSEC) 40 mg capsule Take 1 capsule (40 mg total) by mouth 2 (two) times a day Active butalbital-aceta minophen-caffein e (FIORICET) 50-300-40 mg per capsule Take 1 capsule by mouth every 4 (four) hours as needed for headaches 60 capsule 2 Active Asmanex Twisthaler 220 mcg/ actuation (120) aerosol powdr breath activated Inhale 2 puffs 2 (two) times a day 1 each 11 025 2025 Active TRUEplus Pen Needle 31 gauge x 3/16 needleIndication s:Type 2 diabetes mellitus with hyperglycemia, with long-term current use of insulin (HCC) Use to inject insulin 6 times daily 600 each 3 Active albuterol 2.5 mg /3 mL (0.083 %) nebulizer solutionIndicati ons:Severe persistent asthma without complication (HCC) Use 3 ML via nebulizer every 4 hours as needed for wheezing or shortness of breath. 540 mL 3 025 Active budesonide-formo teroL (Symbicort) 160-4.5 mcg/actuation inhalerIndicatio ns:Severe persistent asthma without complication (HCC) Inhale 2 puffs 2 (two) times a day Rinse mouth with water after use. Do not swallow. 10.2 g 1 Active ammonium lactate (AMLACTIN) 12 % cream Apply topically as needed for dry skin 385 g 6 025 Active 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 meter (Contour Plus Blue Meter) miscIndications: Type 2 diabetes mellitus with hyperglycemia, with long-term current use of insulin ([facility]) USE TO TEST FIVE TIMES DAILY Dx: E11.65 1 each 025 Active lancets miscIndications: Type 2 diabetes mellitus with hyperglycemia, with long-term current use of insulin ([facility]) Microlet lancets USE TO TEST FIVE TIMES DAILY Dx: E11.65 100 each 11 025 Active glimepiride (AMARYL) 4 mg tabletIndication s:Type 2 diabetes mellitus with hyperglycemia, with long-term current use of insulin ([facility]) Take 1 tablet (4 mg total) by mouth 2 (two) times a day before breakfast and dinner 180 tablet 3 025 2025 Active EPINEPHrine 0.3 mg/0.3 mL auto-injection syringe Inject 0.3 mL (0.3 mg total) into the muscle as instructed as needed for anaphylaxis 2 each 2 025 Active ipratropium (ATROVENT) 0.02 % nebulizer solutionIndicati ons:Severe persistent asthma without complication ([facility]) USE 1 VIAL VIA NEBULIZER FOUR TIMES DAILY 300 mL 3 Active montelukast (SINGULAIR) 10 mg tablet Take 1 tablet (10 mg total) by mouth daily 90 tablet 3 025 Active Dexcom G6 Sensor deviceIndication s:Type 2 diabetes mellitus with hyperglycemia, with long-term current use of insulin ([facility]) Continuous glucose monitor. Change sensor every 10 days 10 each 3 025 Active Dexcom G6 [place] miscIndications: Type 2 diabetes mellitus with hyperglycemia, with long-term current use of insulin ([facility]) Continuous glucose monitor. 1 each 025 Active Dexcom G6 Transmitter deviceIndication s:Type 2 diabetes mellitus with hyperglycemia, with long-term current use of insulin ([facility]) Continuous glucose monitor. Change transmitter every 90 days 3 each 3 025 Active tiotropium bromide (Spiriva Respimat) 1.25 mcg/actuation inhaler Inhale 2 puffs 2 (two) times a day 4 g 5 025 Active blood glucose diagnostic (Contour Plus Test Strip) stripIndications :Type 2 diabetes mellitus with hyperglycemia, with long-term current use of insulin (HCC) TEST FOUR TIMES DAILY 400 strip 3 Active albuterol HFA (PROVENTIL HFA,VENTOLIN HFA,PROAIR HFA) 90 mcg/actuation inhalerIndicatio ns:Severe persistent asthma without complication (HCC) INHALE 2 PUFFS EVERY 4 HOURS NEEDED FOR WHEEZING. 8.5 g 3 Active insulin lispro (HumaLOG) 200 unit/mL (3 mL) pen for injectionIndicat ions:type 2 diabetes mellitus Inject 0.4-0.43 mL (80-86 Units total) under the skin 3 (three) times a day before meals 116.1 mL 3 2025 Active predniSONE (DELTASONE) 20 mg tablet TAKE 2 TABLETS BY MOUTH THE DAY BEFORE, THE DAY OF,& THE DAY AFTER YOUR SCIG 24 tablet 3 Active cetirizine (ZyrTEC) 10 mg tablet TAKE 1 TABLET BY MOUTH THREE TIMES DAILY 90 tablet 10 Active predniSONE (DELTASONE) 10 mg tablet TAKE 3 TABLETS BY MOUTH ONCE DAILY. DO NOT TAKE WHILE TAKING 40MG BEFORE IVIG INFUSION 90 tablet 11 Active lancets (Microlet Lancet) misc TEST FOUR TIMES DAILY 400 each 3 Active Cuvitru subcutaneous infusion once a week Active amoxicillin-clav ulanate (AUGMENTIN) 875-125 mg per tabletIndication s:Acute maxillary sinusitis, recurrence not specified Take 1 tablet by mouth 2 (two) times a day for 10 days 20 tablet 2024 Active benzonatate (TESSALON) 200 mg capsule Take 1 capsule (200 mg total) by mouth 3 (three) times a day as needed for cough 30 capsule Active guaiFENesin (ROBITUSSIN) syrup 100 mg/5 mL Take 10 mL (200 mg total) by mouth 4 (four) times a day as needed for cough 120 mL Active famotidine (PEPCID) 40 mg tablet Take 1 tablet (40 mg total) by mouth 2 (two) times a day 60 tablet 3 025 2025 Active benzonatate (TESSALON) 200 mg capsule as needed 2024 Discontinued(D uplicate order) theophylline (THEODUR) 300 mg 12 hr tablet Take 1 tablet (300 mg total) by mouth nightly 30 tablet 11 2024 Discontinued cetirizine (ZyrTEC) 10 mg tablet TAKE 1 TABLET BY MOUTH THREE TIMES DAILY 90 tablet 10 2024 Discontinued predniSONE (DELTASONE) 10 mg tablet Take 3 tablets (30 mg) by mouth daily Hold while taking 40mg before IVIG infusion 90 tablet 11 2024 Discontinued famotidine (PEPCID) 40 mg tablet Take 1 tablet (40 mg total) by mouth 2 (two) times a day 60 tablet 11 2024 Discontinued(R eorder) insulin lispro (HumaLOG, ADMELOG) 100 unit/mL pen for injectionIndicat ions:Type 2 diabetes mellitus with hyperglycemia, with long-term current use of insulin ([facility]) INJECT 80-85 UNITS UNDER THE SKIN THREE TIMES DAILY BEFORE MEALS 225 mL 3 2024 Discontinued(R eorder) lancets 33 gauge misc Use to check blood sugar 4 times as instructed in case of CGM failure. 400 each 1 2024 Discontinued blood glucose diagnostic (Contour Plus Test Strip) stripIndications :Type 2 diabetes mellitus with hyperglycemia, with long-term current use of insulin ([facility]) USE TO TEST FIVE TIMES DAILY Dx: E11.65 100 strip 11 2024 Discontinued albuterol HFA (PROVENTIL HFA,VENTOLIN HFA,PROAIR HFA) 90 mcg/actuation inhalerIndicatio ns:Severe persistent asthma without complication ([facility]) INHALE 2 PUFFS EVERY 4 HOURS NEEDED FOR WHEEZING. 8.5 g 3 2024 Discontinued predniSONE (DELTASONE) 20 mg tablet TAKE 2 TABLETS BY MOUTH THE DAY BEFORE, THE DAY OF,& THE DAY AFTER YOUR SCIG 24 tablet 3 2024 Discontinued insulin lispro (HumaLOG, ADMELOG) 100 unit/mL pen for injectionIndicat ions:Type 2 diabetes mellitus with hyperglycemia, with long-term current use of insulin (HCC) Inject 80-85 units under the skin three times daily before meals 225 mL 3 025 2024 Discontinued insulin aspart (NovoLOG) 100 unit/mL (3 mL) pen for injectionIndicat ions:Type 2 diabetes mellitus with hyperglycemia, with long-term current use of insulin (HCC) Inject 80-85 units under the skin three times daily before meals 225 mL 3 025 2024 Discontinued insulin lispro (HumaLOG, ADMELOG) 100 unit/mL pen for injectionIndicat ions:type 2 diabetes mellitus Inject 80-85 units under the skin three times daily before meals 225 mL 3 025 2024 Discontinued Active Problems Problem Noted Date Diagnosed Date Hypertension associated with type 2 diabetes alton litus 08/12/2023 Assessment & Plan (07/21/2025 10:03 AM CDT): Chronic problem. Controlled on current Lisinopril 2.5mg tid, amlodipine 10mg daily, HCTZ 25mg daily Assessment & Plan (04/20/2025 9:58 AM CDT): Chronic problem. Controlled on current Lisinopril 2.5mg tid, amlodipine 10mg daily, HCTZ 25mg daily Assessment & Plan (02/04/2025 10:19 AM CDT): Chronic problem. Controlled on current Lisinopril 2.5mg tid, amlodipine 10mg daily, HCTZ 25mg daily Will update labs. Verified that she uses [facility]. Aware to check results/results letter in [facility]. Will contact by phone if needed. Assessment & Plan (07/09/2024 10:19 AM CDT): Chronic problem. Controlled on current Lisinopril 2.5mg tid, amlodipine 10mg daily, HCTZ 25mg daily BP elevated upon arrival & on recheck. Has not yet taken antihypertensives. Assessment & Plan (02/27/2024 1:28 PM CDT): Chronic problem. Controlled on current lisinopril 2.5mg daily, metoprolol XL 50mg daily, amlodipine 10mg daily, verapamil SR 240mg daily Will update labs. Verified that she uses [facility]. Aware to check results/results letter in [facility]. Will contact by phone if needed. 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 Controlled on current lisinopril 2.5mg daily, metoprolol XL 50mg daily, amlodipine 10mg daily, verapamil SR 240mg daily Assessment & Plan (08/12/2023 10:57 AM CDT): Chronic problem. Controlled on current Lisinopril 2.5mg daily, amlodipine 10mg daily, HCTZ 25mg daily. Severe persistent asthma with exacerbation 10/23 Hyperlipidemia associated with type 2 diabetes radha elioyoana 06/06/2022 Assessment & Plan (07/21/2025 10:03 AM CDT): Chronic problem. Not on goal but improving on current Atorvastatin 40mg & fenofibrate 160mg. Last lipid panel: 02/04/25 LDL=81, TG=83. Assessment & Plan (04/20/2025 9:58 AM CDT): Chronic problem. Not on goal but improving on current Atorvastatin 40mg & fenofibrate 160mg. Last lipid panel: 02/04/25 LDL=81, TG=83. Assessment & Plan (02/04/2025 10:18 AM CDT): Chronic problem. Not on goal on current Atorvastatin 40mg & fenofibrate 160mg. Last lipid panel: 02/27/24 LDL=67, MU=994. Will update labs.Verified that she uses [facility]. Aware to check results/results letter in [facility]. Will contact by phone if needed. Assessment & Plan (07/09/2024 10:12 AM CDT): Chronic problem. Not on goal on current Atorvastatin 40mg & fenofibrate 160mg. Last lipid panel: 02/27/24 LDL=67, GE=028. Assessment & Plan (02/27/2024 1:28 PM CDT): Chronic problem. Not on goal on current Atorvastatin 40mg & fenofibrate 160mg. Last lipid panel: 12/25/22 JOB=529, GF=346. Will update lipid panel today. Verified that she uses [facility]. Aware to check results/results letter in [facility]. Will contact by phone if needed. 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 Not on goal on current Atorvastatin 40mg & fenofibrate 160mg. Last lipid panel: 12/25/22 ITV=281, PM=116. Assessment & Plan (08/12/2023 10:58 AM CDT): Chronic problem. Not on goal on current Atorvastatin 40mg & fenofibrate 160mg. Last lipid panel: 12/25/22 YUU=506, ZQ=142. Assessment & Plan (06/07/2022 3:14 PM CDT): Chronic problem. On statin therapy, no changes. 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 Not at goal and A1c improved from 8.4% 04/20/25 to now 8.0%. Blood sugars postprandial rise pBK & then borderline upper limits/hyperglycemia until 10p Current medications: Metformin XR 1000 mg twice daily with meals Januvia 100mg daily Glimepiride 4mg before breakfast & dinner Lantus 70 units twice daily Lispro 80-85 units three times daily with meals; If over 300: 2-3 units every 4 hours until it started dropping. UTD DM eye exam (03/04/24 no DMR [facility] in [place]). Had again 02/2025. Letter sent to get copy of report. UTD on labs. Strive for regular exercise (30min most days) and diet (get at least 4-5 servings of fruit and veggies daily, avoid processed foods, increase lean protein intake and decrease carb portions as well as fruit juices, regular soda & desserts). Watch carbs and simple sugars. Check the blood sugar dexcom G7. Check the feet daily for skin breakdown and infection. Assessment & Plan (04/20/2025 10:37 AM CDT): Chronic problem. Not at goal and A1c worsened from 8.0% 02/05/24 to now 8.4%. Issues w/chronic steroids d/t chronic lung disease causing persistently elevated BG & increasing need for insulin. Will try to get PA on branded Humalog as she feels that it controls her BG much better. Current medications: Metformin XR 1000 mg twice daily with meals Januvia 100mg daily Glimepiride 4mg before breakfast & dinner Lantus 70 units twice daily Lispro 80-85 units three times daily with meals; If over 300: 2-3 units every 4 hours until it started dropping. UTD DM eye exam (03/04/24 no DMR [facility] in [place]). Had again 02/2025. Letter sent to get copy of report. UTD on labs. Strive for regular exercise (30min most days) and diet (get at least 4-5 servings of fruit and veggies daily, avoid processed foods, increase lean protein intake and decrease carb portions as well as fruit juices, regular soda & desserts). Watch carbs and simple sugars. Check the blood sugar dexcom G7. Check the feet daily for skin breakdown and infection. Assessment & Plan (02/04/2025 10:48 AM CDT): Chronic problem. Not at goal and A1c worsened from 7.8% 07/09/24 to now 8.0%. Issues w/chronic steroids d/t chronic lung disease causing persistently elevated BG & increasing need for insulin. Current medications: Metformin XR 1000 mg twice daily with meals Januvia 100mg daily Glimepiride 4mg before breakfast & dinner Lantus 70 units twice daily Lispro 80-85 units three times daily with meals; If over 300: 2-3 units every 4 hours until it started dropping. UTD DM eye exam (06/2023). Appt at [email or web address] [place] 03/04/24; no report rec'd. 3rd request letter sent Will update labs. Verified that she uses [facility]. Aware to check results/results letter in [facility]. Will contact by phone if needed. Strive for regular exercise (30min most days) and diet (get at least 4-5 servings of fruit and veggies daily, avoid processed foods, increase lean protein intake and decrease carb portions as well as fruit juices, regular soda & desserts). Watch carbs and simple sugars. Check the blood sugar dexcom G7. Check the feet daily for skin breakdown and infection. Assessment & Plan (07/17/2024 11:46 AM CDT): Chronic problem. Not at goal but A1c improved from 8.4% 02/27/24 to now 7.8%. Issues w/chronic steroids d/t chronic lung disease causing persistently elevated BG & increasing need for insulin. At times has to take 80-85 units of insulin based on larger doses of steroids. Current medications: Metformin XR 1000 mg twice daily with meals Januvia 100mg daily (historical provider) Glimepiride 4mg before breakfast & dinner Lantus 70 units twice daily Lispro 70-85 units three times daily with meals; If over 300: 2-3 units every 4 hours until it started dropping. UTD DM eye exam (06/2023). Appt at [facility] [place] next week. UTD on labs. Strive for regular exercise (30min most days) and diet (get at least 4-5 servings of fruit and veggies daily, avoid processed foods, increase lean protein intake and decrease carb portions as well as fruit juices, regular soda & desserts). Watch carbs and simple sugars. Check the blood sugar dexcom G7. Check the feet daily for skin breakdown and infection. Assessment & Plan (02/27/2024 1:48 PM CDT): Chronic problem. Not at goal. A1c decreased from 8.7% 2/1/24 to now 8.4%. Issues w/chronic steroids d/t chronic lung disease. Current medications: Metformin 1000 mg twice daily with meals Januvia 100mg daily (historical provider) Glimepiride 4mg before breakfast & dinner Lantus 70 units twice daily Lispro 70-75 units three times daily with meals; If over 300: 2-3 units every 4 hours until it started dropping. UTD DM eye exam (06/2023). Appt at [facility] next week. Will update labs. Verified that she uses [facility]. Aware to check results/results letter in [facility]. Will contact by phone if needed. Strive for regular exercise (30min most days) and diet (get at least 4-5 servings of fruit and veggies daily, avoid processed foods, increase lean protein intake and decrease carb portions as well as fruit juices, regular soda & desserts). Watch carbs and simple sugars. Check the blood sugar dexcom G6 new G7 sent in today. Check the feet daily for skin breakdown and infection. Assessment & Plan (11/14/2023 1:45 PM STAFF CONSULTANT): Chronic problem. Not at goal. A1c increased from 8.5% 08/12/23 to now 8.7%. Issues w/chronic steroids d/t chronic lung disease. Current medications: Metformin 1000 mg twice daily with meals Januvia 100mg daily (historical provider) Glimepiride 4mg before breakfast & dinner Lantus 70 units twice daily Lispro 70-75 units three times daily with meals; If over 300: 2-3 units every 4 hours until it started dropping. UTD DM eye exam (06/2023) UTD on labs. Strive for regular exercise (30min most days) and diet (get at least 4-5 servings of fruit and veggies daily, avoid processed foods, increase lean protein intake and decrease carb portions as well as fruit juices, regular soda & desserts). Watch carbs and simple sugars. Check the blood sugar dexcom. Check the feet daily for skin breakdown and infection. Assessment & Plan (08/12/2023 11:10 AM CDT): Chronic problem. Not at goal. A1c 8.5%. reports that it improved from 9s at last endo. Issues w/chronic steroids d/t chronic lung disease. Current medications: Metformin 1000 mg twice daily with meals Lantus 70 units twice daily Lispro 65-70 units three times daily with meals; If over 300: 2-3 units every 4 hours until it started dropping. Letter sent to [facility] for DM eye exam 06/2023. Will update MA/Cr today. Verified that she uses [facility]. Aware to check results/results letter in [facility]. Will contact by phone if needed. Strive for regular exercise (30min most days) and diet (get at least 4-5 servings of fruit and veggies daily, avoid processed foods, increase lean protein intake and decrease carb portions as well as fruit juices, regular soda & desserts). Watch carbs and simple sugars. Check the blood sugar dexcom. Check the feet daily for skin breakdown and infection. Assessment & Plan (06/07/2022 3:20 PM CDT): Chronic problem, not at goal. We dicussed her insulin dosing, there are episodes of insulin stacking where she ends up with hypoglycemia. So she should limit how frequently she doses to avoid insulin stacking. We also discussed that depending on her prednisone dose (eg right now taking 60 mg) she will need higher insulin doses, and in this case probably better to give a larger dose aC than give frequent small doses throughout the day. She should also increase Lantus by 5-10 units when on higher dose steroids. We discussed insulin pumps again but she is not interested. She does not feel her dexcom is accurate enough. Assessment & Plan (02/01/2022 3:55 PM CDT): Hba1c was Lab Results Component Value Date HGBA1C 8.1 02/01/2022 today, indicating inadequate DM control Goal Hba1c and blood glucose explained Diet and exercise were advised Prevention and treatment of hyypoglcyemia were discussed with the patient Blood glucose monitoring : dexcom Adjustment to medications: Take Lantus, 30 units in the morning Take Lispro insulin at meals times ( even if you are not eating ) , as follows: When taking more than 30 mg of prednisone daily Sugars Units of Lispro Before BF and Lunch Before dinner Less than 100 None ( take 6 units if you are eating ) None ( 4 units if eating ) 100-150 12 8 151-200 16 12 201-250 18 14 251-300 20 16 300-350 24 20 Over 351 28 24 When taking 30 mg of prednisone daily Sugars Units of Lispro Before BF and Lunch Before dinner Less than 100 None ( take 4 units if you are eating ) None ( 4 units if eating ) 100-150 8 8 151-200 10 10 201-250 12 12 251-300 16 14 300-350 18 16 Over 351 20 20 Assessment & Plan (12/14/2021 12:48 PM STAFF CONSULTANT): Hba1c was Lab Results Component Value Date HGBA1C 7.9 12/14/2021 today, indicating inadequate DM control with hypo and hyperglycemia Goal Hba1c and blood glucose explained Diet and exercise were advised Prevention and treatment of hyypoglcyemia were discussed with the patient Blood glucose monitoring : Glance App Clarity dada set up , now sharing data with our office Adjustment to medications: Continue using the DEXCOM Stop Glimepiride Take Lantus, 30 units in the morning Take Lispro insulin at meals times ( even if you are not eating ) , as follows: When taking more than 30 mg of prednisone daily Sugars Units of Lispro Before BF and Lunch Before dinner Less than 100 None ( take 6 units if you are eating ) None ( 4 units if eating ) 100-150 8 6 151-200 12 8 201-250 14 10 251-300 16 12 300-350 18 14 Over 351 20 16 When taking 30 mg of prednisone daily Sugars Units of Lispro Before BF and Lunch Before dinner Less than 100 None ( take 4 units if you are eating ) None ( 4 units if eating ) 100-150 6 4 151-200 8 6 201-250 10 8 251-300 12 10 300-350 14 12 Over 351 16 14 Will continue to make adjustments, every 1-2 weeks as per DEXCOM data Insulin pump strongly recommended. Patient declining at this moment. Gastroesophageal reflux disease without esophagi tis 06/24/2018 Other chronic sinusitis 05/13/2018 Subluxation of patellofemoral joint 02/25/2018 Severe persistent asthma 10/08/2017 Perennial allergic rhinitis with seasonal variat ion 01/29/2013 Hay fever 01/29/2013 Cough 01/29/2013 Disorder of vocal cord 01/29/2013 Asthma, very poorly controlled 12/10/2010 Exacerbation of asthma 12/10/2010 Resolved Problems Problem Noted Date Diagnosed Date Resolved Date Type II diabetes mellitus, uncontrolled 04/09/2019 07/09/2024 Encounters Date Type Department Care Team Description 09/02/2025 Orders Only [facility] [address] [place] [address] [address] [place] [address] Chastity Weiss NP 09/01/2025 11:00 AM STAFF CONSULTANT Office Visit [facility] [address] [place] [address] [address] [place] [address] Chastity Weiss NP Acute maxillary sinusitis, recurrence not specified (Primary Dx); CVID (common variable immunodeficiency); Severe persistent asthma without complication (HCC); Allergic rhinitis due to other allergic trigger, unspecified seasonality 09/01/2025 Orders Only [facility] [address] [place] [address] [address] [place] [address] Chastity Weiss NP 09/01/2025 Telephone [facility] [address] [place] [address] [address] [place] [address] Yann Manuel MD Med Management 09/01/2025 Telephone [facility]ology [address] [place] [address] [address] [place] [address] Yann Manuel MD Med Refill 08/18/2025 Orders Only [facility] Diabetes and Endocrinology [address] [place] [phone] Janet Walls NP Type 2 diabetes mellitus with hyperglycemia, with long-term current use of insulin (HCC) (Primary Dx) 08/17/2025 Orders Only [facility] Diabetes and Endocrinology [address] [place] [phone] Janet Walls NP Type 2 diabetes mellitus with hyperglycemia, with long-term current use of insulin (HCC) 08/16/2025 Telephone [facility] Diabetes and Endocrinology [address] [place] [phone] Janet Walls NP Med Refill 08/06/2025 Telephone [facility] Medicine Scheduling [address] [place] [address] Yann Manuel MD Prior Auth (Spiriva Respimat 1.25MCG/ACT aerosol) 08/05/2025 Telephone [facility] All[facility] Immunology [address] [place] [address] Office [address] [place] [phone] Yann Manuel MD 07/29/2025 Orders Only [facility] All[facility] Immunology [address] [place] [address] [address] [place] [phone] Yann Manuel MD 07/29/2025 Telephone [facility] All[facility] Immunology [address] [place] [address] [address] [place] [phone] Yann Manuel MD Med Management; Sick Visit 07/27/2025 Telephone [facility] All[facility] Immunology [address] [facility] [address] [place] [phone] Alicia Brian RN Ammonium Lactate Cream Prior Auth 07/27/2025 Telephone [facility] Diabetes and Endocrinology [address] [place] [phone] Janet Walls NP Prior Auth (Dexcom G6 Sensor, Harbor Master, and Transmitter) 07/21/2025 10:30 AM CDT Office Visit [facility] Diabetes and Endocrinology [address] [place] [phone] Janet Walls NP Type 2 diabetes mellitus with hyperglycemia, with long-term current use of insulin (HCC) (Primary Dx); Hypertension associated with type 2 diabetes mellitus (HCC); Hyperlipidemia associated with type 2 diabetes mellitus (HCC) 07/20/2025 Telephone [facility] All[facility] Immunology [address] [place] [address] Office [address] [place] [phone] Anai Lin CMA 06/29/2025 4:20 PM CDT Office Visit [facility] Allergy and Immunology [address] [facility] Office [address] [place] [address] Yann Manuel MD Severe persistent asthma without complication (HCC) (Primary Dx); CVID (common variable immunodeficiency); Allergic rhinitis due to other allergic trigger, unspecified seasonality; Other chronic sinusitis; Perennial allergic rhinitis with seasonal variation; Chronic maxillary sinusitis; Perforated nasal septum from Last 3 Months Immunizations Immunization Administration Dates Next Due Influenza, Quadrivalent, Spl it, Intramuscular 07/29/2019,07/10/2017,08/07/2016 Influenza, Quadrivalent, Spl it, Preservative Free, Intramuscular 07/15/2018 Influenza, Trivalent, High D ose, Split, Preservative Free, Intramuscular 07/06/2015 Influenza, Trivalent, IM (MDV) 07/16/2014,2012 Influenza, Trivalent, Preser vative Free, Intramuscular 08/26/2016,07/06/2015 Pneumococcal Conjugate PCV 13 03/29/2020, 015 Pneumococcal Polysaccharide PPV23 06/24/2013 Tdap 04/06/2015 Surgical History Surgery Date Site/Laterality Comments HYSTERECTOMY 03/21/2022 Medical History Medical History Date Comments Finding of body mass index Body Mass Index - (Added by TW Conv) CVID (common variable immunodeficiency) 05/09/2020 Diabetes mellitus Asthma Family History Medical History Relation Name Comments Cancer Father Diabetes Father Heart disease Father Hypertension Father Diabetes Mother Hypertension Mother Relation Name Status Comments Father Mother Alive Social History Tobacco Use Types Packs/Day Years Used Date Smoking Tobacco: Never Smokeless Tobacco: Never Tobacco Cessation:Counseling Given: Not Answered Alcohol Use Standard Drinks/Week Comments No 0 [...] on file Legal Sex Female 8:27 AM STAFF CONSULTANT Gender Identity Not on file Sexual Orientation Not on file Last Filed Vital Signs Vital Sign Reading Time Taken Comments Blood Pressure 147/87 09/01/2025 10:54 AM STAFF CONSULTANT Pulse 90 09/01/2025 10:54 AM STAFF CONSULTANT Temperature 36.8 C (98.2 F) 09/01/2025 10:54 AM STAFF CONSULTANT Respiratory Rate 18 07/21/2025 10:07 AM CDT Oxygen Saturation 98% 09/01/2025 10:54 AM STAFF CONSULTANT Inhaled Oxygen Concentration - - Weight 74.4 kg (164 lb) 09/01/2025 10:54 AM STAFF CONSULTANT Height 160 cm (5' 3) 09/01/2025 10:54 AM STAFF CONSULTANT Body Mass Index 29.05 09/01/2025 10:54 AM STAFF CONSULTANT Plan of Treatment Health Maintenance Due Date Last Done Comments Colon Cancer Screening-Colonoscopy 1975 Hepatitis C Screening 1975 Hepatitis B Screening 01/12/1994 Regular Well Visit/Exam 18-64 01/12/1994 Zoster Vaccine (1 of 2) 01/12/1995 Pneumococcal vaccine <65 (3 of 3 - PCV20 or PCV21) 05/24/2020 03/29/2020, 03/14/2015, 06/24/2013 Covid-19 Vaccine (3 - Modern a risk series) 02/11/2021 01/14/2021, 12/17/2020 Depression Screening 02/01/2023 02/01/2022 Breast Cancer Screening-Mammogram 02/21/2023 022, 05/25/2019 DTaP/Tdap/Td Vaccine (2 - Td or Tdap) 04/06/2025 04/06/2015 Influenza Vaccine (#1) 2025 , 07/19/2020, 07/29/2019, Additional history exists Hemoglobin A1C 01/19/2026 07/21/2025, 07/0 05/2025, 02/04/2025, Additional history exists Albumin Creatinine Ratio, Urine 02/04/2026 02/04/2025, 08/12/2023, 02/01/2022 Foot Exam 02/04/2026 02/04/2025, 10, 12/14/2021 Lipid Panel 02/04/2026 02/04/2025, 02/11, 12/25/2022, Additional history exists eGFR 02/04/2026 02/04/2025, 02/11, 12/25/2022 Dilated Eye Exam 03/04/2026 03/04/2024, , 03/04/2021 Procedures Procedure Name Priority Date/Time Associated Diagnosis Comments POCT HEMOGLOBIN A1C Routine 07/21/2025 1 0:15 AM CDT Type 2 diabetes mellitus with hyperglycemia, with long-term current use of insulin (HCC) POCT GLUCOSE Routine 07/21/2025 10:10 AM CDT Type 2 diabetes mellitus with hyperglycemia, with long-term current use of insulin (HCC) EGFR Routine 02/04/2025 10:55 AM CDT Type 2 diabetes mellitus with hyperglycemia, with long-term current use of insulin (HCC) Hypertension associated with type 2 diabetes mellitus (HCC) LIPID PANEL Routine 02/04/2025 10:55 AM CDT Type 2 diabetes mellitus with hyperglycemia, with long-term current use of insulin (HCC) Hyperlipidemia associated with type 2 diabetes mellitus (HCC) ALBUMIN CREATININE RATIO, URINE Routine 02/04/2025 10:55 AM CDT Type 2 diabetes mellitus with hyperglycemia, with long-term current use of insulin (HCC) HM DIABETES EYE EXAM Routine 03/04/2024 from Last 3 Months or Most Recently Relevant to Health Maintenance Results * (ABNORMAL) POCT hemoglobin A1c (07/21/2025 10:15 AM CDT) Hemoglobin A1C, POC 8.0(A) 4.0 - 5.6 % Blood 07/21/2025 10:1 5 AM CDT us Janet Walls SAFETY ENGINEER [employer] POINT OF CARE TEST ORDERA BLES Final Result * (ABNORMAL) POCT glucose (07/21/2025 10:10 AM CDT) Glucose Blood, POC 248 Normal Fasting 70 - 100, Random <200 mg/dL Blood 07/21/2025 10:1 0 AM CDT us Janet Walls SAFETY ENGINEER [employer] POINT OF CARE TEST ORDERA BLES Final Result * eGFR (02/04/2025 10:55 AM CDT) eGFR >90 >=60 mL/min/1. 73 m2 Comment: Interpretive Data Reference Interval Normal >/= 90 mL/min/1.73m2 Mildly decreased* 60 - 89 mL/min/1.73m2 Mildly to moderately decreased 45 - 59 mL/min/1.73m2 Moderately to severely decreased 30 - 44 mL/min/1.73m2 Severely decreased 15 - 29 mL/min/1.73m2 Kidney Failure < 15 mL/min/1.73m2 *Relative to young adult level Estimated glomerular filtration rate is determined by the 2020 CKD-EPI equation recommended by the National Kidney Foundation (A Unifying Approach to GFR Estimation: Recommendations of the NKF-ASK Task Force on Reassessing the Inclusion of Race in Diagnosing Kidney Disease, JASN 2020). The CKD-EPI equation should not be used for patients with unstable renal function and has not been validated in children and those over 70. Current interpretive data was last reviewed 2021. Blood 02/04/2025 10:5 5 AM CDT 02/04/2025 8:08 PM CDT us Janet Walls SAFETY ENGINEER [employer] LAB BLOOD ORDERABLES Dayanna l Result [facility] [address] [place] [address] * Albumin Creatinine Ratio, Urine (02/04/2025 10:55 AM CDT) Albumin Ur 38.9 mg/L Comment: Interpretive Data No reference range established. Current interpretive data was last revised 2019. Creatinine Ur 250.5 mg/dL [facility] Comment: Interpretive Data No reference range established. Current interpretive data was last revised 2019. Albumin Creatinine Ratio, Ur 16 1 - 29 mg/g [facility] Urine 02/04/2025 10:5 5 AM CDT 02/04/2025 8:05 PM CDT us Janet Walls SAFETY ENGINEER [employer] LAB URINE ORDERABLES Dayanna clark Result [facility] [address] [place] [address] * Lipid panel (02/04/2025 10:55 AM CDT) Cholesterol 150 30 - 199 mg/dL Comment: Interpretive Data Ages < or = 19 years Acceptable: <170 mg/dL Borderline high: 170-199 mg/dL High: >or= 200 mg/dL Ages > or = 20 years Desirable: <200 mg/dL Borderline high: 200-239 mg/dL High: >or= 240 mg/dL Literature References: 1. Expert Panel on Integrated Guidelines for Cardiovascular Health and Risk Reduction in Children and Adolescents. Pediatrics 2011;128:S213 2. NCEP Expert Panel. Circulation 2004;110:227 Current Interpretive Data was last revised on 2018. Triglycerides 83 <=149 mg/dL [facility] Comment: Interpretive Data Ages < or = 9 years Acceptable: <75 mg/dL Borderline high: 75-99 mg/dL High: >or= 100 mg/dL Ages 10 to 20 years Acceptable: <90 mg/dL Borderline high: 90-129 mg/dL High: >or= 130 mg/dL Ages > or = 20 years Desirable: <150 mg/dL Borderline high: 150-199 mg/dL High: 200-499 mg/dL Very high: >or= 499 mg/dL Literature References: 1. Expert Panel on Integrated Guidelines for Cardiovascular Health and Risk Reduction in Children and Adolescents. Pediatrics 2011;128:S213 2. NCEP Expert Panel. Circulation 2004;110:227 Current Interpretive Data was last revised on 2018. HDL 53 >=40 mg/dL [facility] Comment: Interpretive Data Ages < or = 19 years Acceptable: >45 mg/dL Borderline low: 40-45 mg/dL Low: <40 mg/dL Ages > or = 20 years Desirable: >or= 60 mg/dL Low: <40 mg/dL Literature References: 1. Expert Panel on Integrated Guidelines for Cardiovascular Health and Risk Reduction in Children and Adolescents. Pediatrics 2011;128:S213 2. NCEP Expert Panel. Circulation 2004;110:227 Current Interpretive Data was last revised on 2018. LDL, calculated 81 <=129 mg/dL [facility] HANSON Comment: Interpretive Data Ages < or = 19 years Acceptable: <110 mg/dL Borderline high: 110-129 mg/dL High: >or= 130 mg/dL Ages > or = 20 years Optimal: <100 mg/dL Near optimal: 100-129 mg/dL Borderline high: 130-159 mg/dL High: >160 mg/dL Calculated using the Brett LDL-C estimating equation. This equation was implemented on 2024. Prior to this date LDL-C was estimated using the Friedewald equation. Literature References: 1. Expert Panel on Integrated Guidelines for Cardiovascular Health and Risk Reduction in Children and Adolescents. Pediatrics 2011;128:S213 2. NCEP Expert Panel. Circulation 2004;110:227 3. Brett M et al. ASHLEY Cardiol. 2020 February 11;5(5):540-548. doi: [email or web address] Current Interpretive Data was last revised on 2024. Non-HDL Cholesterol 97 mg/dL [facility] HANSON Comment: Interpretive Data Ages < or = 19 years Acceptable: <120 mg/dL Borderline high: 120-144 mg/dL High: >145 mg/dL Ages > or = 20 years When triglycerides are >200 mg/dL, Non-HDL cholesterol is a secondary target of therapy with treatment goals that are 30 mg/dL greater than the LDL cholesterol target. Literature References: 1. Expert Panel on Integrated Guidelines for Cardiovascular Health and Risk Reduction in Children and Adolescents. Pediatrics 2011;128:S213 2. NCEP Expert Panel. Circulation 2004;110:227 Current Interpretive Data was last revised on 2018. Chol/HDL ratio 3 [facility] Blood 02/04/2025 10:5 5 AM CDT 02/04/2025 8:05 PM CDT Janet Walls NP LAB BLOOD ORDERABLES Dayanna clark Result [facility] [address] [place] [address] * DIABETES EYE EXAM (03/04/2024) SCRIBED DIABETIC DILATED EYE EXAM Normal 03/04/2024 Historical Provider HEALTH MAINTENANCE Edited Result - Final from Last 3 Months or Most Recently Relevant to Health Maintenance Insurance [facility] Care Teams Industrial Maintenance Manager Relationship Specialty Start Date End Date Tez Raya MD [facility] [place] [address] PCP - General Family Medicine 10/23/21
[2025-09-08 10:25] LABS: Anion Gap 7 mmol/L (4-12); Blood Urea Nitrogen 15 mg/dL (7-17); Calcium 9.4 mg/dL (8.4-10.2); Carbon Dioxide 26 mmol/L (22-30); Chloride 103 mmol/L (98-107); Estimated Glomerular Filt Rate > 60; Glucose 168 mg/dL (65-110); Potassium 3.7 mmol/L (3.4-5.0); Sodium 136 mmol/L (137-145)
== END 2025-09-08 08:54 | disposition home or self-care (01) ==
LOC: ANHSURGERY 08:57
PROVIDERS: Anesthesiology; PCP Internal Medicine; Visit Provider Otolaryngology
DX: E11.9 Type 2 diabetes mellitus without complications (principal); I10 Essential (primary) hypertension; Z01.818 Encounter for other preprocedural examination
CPT/HCPCS: 36415; 80048; 93005

== ENCOUNTER 2025-09-13 02:03 | Day surgery (SDC) | payer OTHER, SELFPAY ==
--- OUTSIDE RECORDS SUMMARY | 2022-03-06 13:39 | XMS_ITS | Encounter Summary ---
Author Organization [facility] Address [address] [place] [address] Phone Care Team Providers Care Sales Representative Publications Name Role Phone Tez Raya MD Primary Care Provider [phone]- [phone] Reason for Referral * Pulmonology (Routine) - Closed Specialty Diagnoses / Procedures Referred By Mei farris Referred To Contact Transplant Diagnoses Very poorly controlled severe persistent asthma with acute exacerbation (HCC) Procedures Pulmonary Function Test -[facility] Adult PFT Lab- [facility]; Spirometry with Bronchodilator Barbara De Jesus MD [address] [place] [address] Phone: tel: fax: [facility] Pulmonary [address] [facility] Advanced Medicine 8th [place] [address] [place] [address] Phone: tel: fax: Referral ID Status Reason Start Date Expiration Date Visits Re quested Visits Authorized [id number] Closed 02/06/2022 03/08/2023 25 25 Reason for Visit * Pulmonology (Routine) - Closed Specialty Diagnoses / Procedures Referred By Mei farris Referred To Contact Transplant Diagnoses Very poorly controlled severe persistent asthma with acute exacerbation (HCC) Procedures Pulmonary Function Test -[facility] Adult PFT Lab- [facility]; Spirometry with Bronchodilator Barbara De Jesus MD [address] [place] [address] Phone: tel: fax: [facility] Medicine Pulmonary [address] [facility] 8th [place] [address] [place] [address] Phone: tel: fax: Referral ID Status Reason Start Date Expiration Date Visits Re quested Visits Authorized [id number] Closed 02/06/2022 03/08/2023 25 25 Encounter Details Date Type Department Care Team (Latest Contact Info) Description 03/06/2022 2:39 PM CDT Hospital Encounter [facility] Medicine PFT Lab [address] [facility] [address] [place] [phone] Very poorly controlled severe persistent asthma with [...] on file Legal Sex Female 8:27 AM FIELD APPLICATION ENGINEER Gender Identity Not on file Sexual Orientation Not on file documented as of this encounter Functional Status * BP Location Answer Date of Assessment Author Left arm 09/01/2025 10:54 AM FIELD APPLICATION ENGINEER Carolina Lechuga CMA * Alcohol Withdrawal BP [...] 5:33 PM CDT SEE PDF PFT performed at:->[facility] U Adult PFT Lab- [facility] Procedure:->Spirometry with Bronchodilator us Barbara De Jesus MD PFT ORDERABLES Final Result documented in this encounter Visit Diagnoses Diagnosis Very poorly controlled severe persistent asthma with acute exacerbation (HCC) documented in this encounter Care Teams Sales Representative Publications Relationship Specialty Start Date End Date Tez Raya MD [address] [place] [address] [place] [address] PCP - General Family Medicine 10/23/21 documented as of this encounter
--- OUTSIDE RECORDS SUMMARY | 2024-01-21 14:05 | XMS_ITS | Encounter Summary ---
Author Organization [facility] Address [address] [place] [address] Phone Care Team Providers Care Sales Engineering Manager Name Role Phone Tez Raya MD Primary Care Provider [phone]- [phone] Reason for Referral * Procedure (Routine) - Closed Specialty Diagnoses / Procedures Referred By Mei farris Referred To Contact Diagnoses Severe persistent asthma with acute exacerbation (HCC) On home O2 Procedures Pulmonary Function Test -[facility] Adult PFT Lab- [facility]; Walk for Distance Yann Manuel MD [address] [place] [address] Phone: tel: fax: Referral ID Status Reason Start Date Expiration Date Visits Re quested Visits Authorized [id number] Closed 01/16/2024 02/14/2025 1 1 Reason for Visit * Procedure (Routine) - Closed Specialty Diagnoses / Procedures Referred By Mei farris Referred To Contact Diagnoses Severe persistent asthma with acute exacerbation (HCC) On home O2 Procedures Pulmonary Function Test -[facility] Adult PFT Lab- [facility]; Walk for Distance Yann Manuel MD [address] [facility] [address] [address] [place] [address] Phone: tel: fax: Referral ID Status Reason Start Date Expiration Date Visits Re quested Visits Authorized [id number] Closed 01/16/2024 02/14/2025 1 1 Encounter Details Date Type Department Care Team (Latest Contact Info) Description 01/21/2024 3:05 PM CDT Hospital Encounter [facility] Medicine PFT Lab 10 [facility] Medical Office Building [address] [place] [address] Severe persistent asthma with acute exacerbation (HCC); [...] on file Legal Sex Female 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 Patient does not drink 09/01/2025 10:54 AM POOL SERVICER Carolina Lechuga CMA * BP Location Answer [...] this encounter Results * Pulmonary Function Test -[facility] Adult PFT Lab- [facility]; Walk for Distance (01/21/2024 4:03 PM CDT) Anatomical Region Laterality Modality PFT Narrative 01/22/2024 1:02 PM CDT Table formatting from the original result was not included. [facility] Division of Pulmonary & Critical Care Medicine [address] [place] [address]; [place] [address]; [place] [address]; [phone] Pulmonary Function Laboratory Pulmonary Stress Test Simple/Oxygen [...] Work [distance (m) x body wt (kg)]: 41199 kg.m (normal >60,000kg.m) Oxygen required to maintain [...] and agrees with the written final report. [facility] Anthony Manuel MD PFT ORDERABLES Final Result documented in this encounter Visit Diagnoses Diagnosis Severe persistent asthma with acute exacerbation (HCC) On home O2 Dependence on supplemental oxygen documented in this encounter Care Teams Sales Engineering Manager Relationship Specialty Start Date End Date Tez Raya MD [facility] [place] [address] PCP - General Family Medicine 10/23/21 documented as of this encounter
[2025-09-06 14:44] VITALS: BMI 27.6
--- NOTE | 2025-09-06 15:49 | PC.NURSE ---
[facility] has started construction of its new state of the art ER which will open Spring 2026. With this, we anticipate parking may be a challenge for some our surgical patients and families. Parking spaces are limited but are available for all Surgical, obstetrics, and ER patients sharing this lot. If you arrive and find you are having a hard time finding a parking space, please note that we understand the challenges, please drive around the hospital and park near Hospital Entrance 1. When you enter this entrance, you can ask a volunteer to direct or take you back to the surgical waiting area to check in. We appreciate everyone?s understanding of these expected challenges while we build for your future. Report to the Outpatient Waiting Room, entrance under the green pavilion located off [address], at time _10:45AM on date _09/13/25 . Planned Procedure Time: _12:45PM .? Time changes happen often and if your time is changed the preop area will call you the afternoon before. - You and your visitor will be asked to self-screen and do not enter if you have any COVID symptoms. Please call surgeon if you need to reschedule. - A mask is optional within the hospital at this time. Patients may have clear liquids (water, carbonated beverages, clear teas, apple juice) until 3 hours prior to surgery with a maximum of 20 ounces. - No food from midnight until time of surgery and no smoking, or chewing tobacco (or any form of nicotine). No chewing gum, candy or mints. Take only the following medications with a SIP of water on the morning of surgery: _LORAZEPAM, NORVASC, NEBULIZERS AND INHALERS, FENOFIBRATE; MORNING STEROID DOSE NO CHANGES TO NIGHT TIME INSULIN; NO MORNING INSULIN OR ORAL DIABETIC MEDS IF YOU HAVE ANY BLOOD SUGAR CONCERNS ON THE MORNING OF SURGERY, PLEASE CALL THE PREOP RN @ [phone] DO NOT STOP ANY OF YOUR OTHER PRESCRIPTION MEDICATIONS PRIOR TO SURGERY EXCEPT THE FOLLOWING Hold all vitamins and supplements for 3 days per anesthesiologist. Medications to discontinue per physician ASPIRIN-CURRENTLY ON HOLD PER DR. WATERS Date to take last dose Please no make-up, nail tamazight, hairspray, perfume, deodorant, or body powder the day of surgery.? No jewelry (including any body piercings) or valuables the day of surgery, leave them at home.? Please take a shower or bath the night before, or the morning of, surgery with an antibacterial soap.? Wear comfortable, loose fitting clothing.? - Jewelry must be removed prior to entering the operating room.? Rings and piercings that are not removed may be cut off. - The hospital will not accept responsibility for valuables.? - Please leave all valuables, including medications, at home the day of surgery. If you are going home after surgery, a licensed salesperson driver must drive you home.? - NO public transportation without another adult if you receive anesthesia. - We recommend that an adult stay with you for 24 hours following discharge. - We also recommend that you do not drive, make important decision, drink alcoholic beverages, or take any drugs that were not prescribed by your health care provider for at least 24 hours after your discharge time. Follow any additional instructions given to you from your surgeon. Telephone instructions given to BRIANNE and asked if any additional questions and then verbalized understanding. Patient advised to call surgeon office or pre surgery nurse liaison [phone] if any additional questions.
--- NOTE | 2025-09-12 15:03 | PM.IMHP ---
H&P: HPI History of Present Illness Date/Time: 09/12/25 15:03 Chief Complaint: Dysphagia, tongue base cyst Narrative: planned surgical procedure Review of Systems Review of Systems: All systems reviewed & are unremarkable except as noted in HPI and below [facility] Past Medical History Medical History Common variable immunodeficiency Overweight (BMI 25.0-29.9) CAD (coronary artery disease) Screening mammogram, encounter for COPD (chronic obstructive pulmonary disease) home o2 at night Stomach ulcer Diabetes type 2, controlled Fatty liver History of hypertension High cholesterol GERD (gastroesophageal reflux disease) Headache Bronchitis Asthma Surgical History Surgical History H/O: hysterectomy (03/21/22) RATLH w/ salpingectomy History of tonsillectomy Family History Family History Father Asthma Hypertension Diabetes mellitus Sibling Asthma Hypertension sister and brother Diabetes mellitus sister and brother Hypothyroidism sister Mother Hypertension Diabetes mellitus Hypothyroidism Social History Social History Smoking status: Never smoker Second hand tobacco smoke exposure: No Alcohol intake: never Substance use: never Substance use type: does not use Lack of Transportation: No Lack of Food: Never True Current Housing: I Have Housing Concerned About Future Housing: No Difficulty Paying Gas/Electric Bills: YES Difficulty Paying for Meds: No Currently Unemployed: No Education: High School Diploma/GED Difficulty w/ Childcare or Family Care: No Living arrangements: with family Additional living arrangements comments: single Occupation/Education: unemployed Additional occupation/education comments: disabled Gender identity (if verbalized by the patient): Female Sexual Orientation (if Verbalized by the Patient): Straight or Heterosexual Spiritual care concerns: No Meds Home Medications and Allergies Home Medications ?Medication ?Instructions ?Recorded ?Confirmed ?Type atorvastatin 40 mg tablet 40 mg PO DAILY 01/23/22 09/06/25 History 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,government relations manager,cont 01/23/22 08/09/25 History (Dexcom G6 Tool Analyst) budesonide-formoterol HFA 160 2 inh inhalation Q12H 01/23/22 09/06/25 History mcg-4.5 mcg/actuation aerosol inhaler (Symbicort) cholecalciferol (vitamin D3) 50 50 mcg PO DAILY 01/23/22 09/06/25 History mcg (2,000 unit) capsule (Vitamin D3) cyanocobalamin (vitamin B-12) 1,000 mcg sublingual DAILY 01/23/22 09/06/25 History 1,000 mcg sublingual tablet hydrochlorothiazide 25 mg tablet 25 mg PO DAILY 01/23/22 09/06/25 History metformin 500 mg tablet,extended 1,000 mg PO BID 01/23/22 09/06/25 History release 24 hr albuterol sulfate 2.5 mg/3 mL 1 ml inhalation .Q3 03/13/22 09/06/25 History (0.083 %) solution for nebulization albuterol sulfate 90 mcg/actuation 1 inh inhalation PRN 03/13/22 09/06/25 History aerosol inhaler amlodipine 10 mg tablet (Norvasc) 10 mg PO DAILY 03/13/22 09/06/25 History aspirin 81 mg tablet,delayed 81 mg PO DAILY 03/13/22 09/06/25 History release famotidine 40 mg tablet 1 tablet PO DAILY 03/13/22 09/06/25 History fenofibrate 160 mg tablet 1 tablet PO DAILY 03/13/22 09/06/25 History ipratropium bromide 0.02 % 1 ml inhalation Q2H 03/13/22 09/06/25 History solution for inhalation montelukast 10 mg tablet 1 tablet PO DAILY 03/13/22 09/06/25 History ibuprofen 800 mg tablet 800 mg PO TID PRN pain #30 tabs 04/04/22 09/06/25 Rx prednisolone sodium phosphate 30 30 mg PO DAILY 06/05/23 09/06/25 History mg disintegrating tablet cetirizine 10 mg capsule (Zyrtec) 10 mg PO TID 08/29/23 09/06/25 History insulin glargine 100 unit/mL (3 See Rx Instructions subcut .COMPLEX 08/29/23 09/06/25 History mL) subcutaneous pen (Lantus Solostar U-100 Insulin) pantoprazole 40 mg tablet,delayed 40 mg PO BID #60 tabs 10/15/24 09/06/25 Rx release ketotifen fumarate 0.025 % (0.035 1 drp EACH EYE BID 12/09/24 09/06/25 History %) eye drops lisinopril 2.5 mg tablet 2.5 mg PO BID 12/09/24 09/06/25 History cyclobenzaprine 10 mg tablet 10 mg PO TID 12/10/24 09/06/25 History triamcinolone acetonide 0.025 % 1 applic topical BID 12/10/24 09/06/25 History topical cream immun glob G 1 gram/5 4 g subcut WEEKLY 07/14/25 09/06/25 History mL(20%)-gly-IgA over 50 mcg/mL subcutaneous soln (Cuvitru) 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 sensor (Dexcom G7 08/09/25 08/09/25 History Sensor device) insulin lispro 100 unit/mL 1 sliding scale dose subcut 09/06/25 09/06/25 History subcutaneous cartridge (Humalog USEASDIRECTD U-100 Insulin) lorazepam 1 mg tablet 1 mg PO TID PRN anxiety 09/06/25 09/06/25 History ondansetron 4 mg disintegrating 12 mg PO HS PRN nausea and vomiting 09/06/25 09/06/25 History tablet prednisone 20 mg tablet 40 mg PO .COMPLEX 09/06/25 09/06/25 History prednisone 5 mg tablet 5 mg PO DAILY PRN gastrointestinal 09/06/25 09/06/25 History spasms or cramping Allergies Allergy/AdvReac Type Severity Reaction Status Date / Time phenazopyridine Allergy Severe Anaphylactic Verified 09/06/25 15:42 Shock prochlorperazine (From Allergy Severe BODY Verified 09/06/25 15:42 Compazine) BRIGHT RED/HOT, DIFFICULTY BREATHING sulfamethoxazole Allergy Mild HEADACHES Verified 09/06/25 15:42 AND NOSEBLEEDS trimethoprim Allergy Mild HEADACHES Verified 09/06/25 15:42 AND NOSEBLEEDS predine Allergy Unknown unknown Uncoded 08/09/25 13:32 Exam Narrative: tongue base cyst Assessment and Plan Assessment and plan (1) Dysphagia: Code(s): R13.10 - Dysphagia, unspecified Status: Acute Assessment and Plan: plan OR Microdirect laryngoscopy, unlikely to need microscope but we needed ready to go. Anesthesia general. Please use a smaller tube if possible. Total operative time should only be about 30 minutes. With excision of tongue basis. Risks were discussed bleeding infection damage to surrounding structures postoperative bleeding. Time-out for time off school inherent risk of medication or cotton cues. Failure to resolve symptoms. Dysphagia is complex in nature. Damage to dentition damage to any structure of the clavicles by myself. Damage to any structure during induction and maintenance of anesthesia including vocal cord paralysis. All these things can be permanent. Biggest risk failure to resolve symptoms. Patient voiced understanding of these risks and agreed. (2) Pharyngeal cyst: Code(s): J39.2 - Other diseases of pharynx Status: Acute
[2025-09-13] VITALS (7 sets, daily range): BP systolic 114–155; BP diastolic 69–80; PULSE 79–93; RESP 14–20; TEMP 36.5–36.6; O2SAT 97–99
--- OUTSIDE RECORDS SUMMARY | 2025-09-13 02:07 | XMS_ITS | Encounter Summary ---
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
--- OUTSIDE RECORDS SUMMARY | 2025-09-13 02:07 | XMS_ITS | Encounter Summary ---
Author Organization [facility] Address [address] [place] [address] Phone Care Team Providers Care Ornamenter Name Role Phone James Jordan MD Primary Care Provider Tez Raya MD Primary Care Provider [phone]- [phone] Encounter Details Date Type Department Care Team (Latest Contact Info) Description 04/01/2017 Orders Only WU CONVERSION Scanning, Provider Social History Tobacco Use Types Packs/Day Years Used Date Smoking Tobacco: Never Assessed Comments Unknown Sex and Gender Information Value Date Recorded Sex Assigned at Not on file 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
--- OUTSIDE RECORDS SUMMARY | 2025-09-13 02:07 | XMS_ITS | Encounter Summary ---
Author Organization 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
--- OUTSIDE RECORDS SUMMARY | 2025-09-13 02:07 | XMS_ITS | Encounter Summary ---
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
--- OUTSIDE RECORDS SUMMARY | 2025-09-13 02:07 | XMS_ITS | Encounter Summary ---
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
--- OUTSIDE RECORDS SUMMARY | 2025-09-13 02:07 | XMS_ITS | Encounter Summary ---
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
--- OUTSIDE RECORDS SUMMARY | 2025-09-13 02:07 | XMS_ITS | Data Portability ---
Author Organization JONNA TAYLERCornelius [facility] Address [address] [place] [address] Care Team Providers Care Scientific Database Curator Name Role Phone Yann SHEARER Linseed Oil Temperer [phone] DENIZ ELIZABETH City Editor Unavailable Assessment No assessment recorded. Plan of Treatment Reminders Order Date Submit Date Provider Last Modified By Organization Details Last Modified Time Details Appointments None recorded . Lab drug screen, urine 2019 020 [facility], [address] [place] [address], [address], [place], [address], 0 17:07:35 lipase, serum or plasma 2019 020 [facility], [address] [place] [address], [address], [place], [address], 0 17:07:36 HbA1c (hemoglo bin A1c), blood 2019 020 [facility], [address], [address], [place], [address], 0 09:11:04 lipid panel, serum 2019 020 [facility], [address], [address], [place], [address], 0 09:11:03 Referral diabetic ophthalm ology referral 2020 021 [email or web address], [address], [place], [address], 1 12:07:09 psychiat rist referral 2020 021 [email or web address] Not available 1 16:57:[address] referral - Recurent pancreat itis 2019 020 ankur Yan MD, [address] [facility] [place], [address], [place], [address], 0 10:11:44 gynecolo gist referral 2019 020 [facility] Not available 0 15:52:20 Procedures None recorded . Surgeries None recorded . Imaging MAMMO, screenin g, bilatera l 2020 021 [facility] ([facility]), [address] [place], [address], 1 11:15:53 US, abdomen, limited - Reported mass LUQ, left subcosta l margin 2019 020 [facility] ([facility]), [address] [place], [address], 0 10:32:34 Medication Orders acetamin ophen 300 mg-codei ne 30 mg tablet 2019 020 [id number], [address], [place], [id number], 0 15:57:53 Patient TargetsNo targets recorded. Patient Instructions Encounter Date Encounter Id Patient Instructions Last Modified By Organization Details Last Modified Time 10/19/2019 [id number] Please have the endocrinology referral resent with her new insurance Labs Follow up in 4 months oajao Not available 10/19/2019 15:54:31 Her medication reconciliation was done, she takes Metformin XR/24 hour 1000 mg BID instead of 2000 mg daily. She states that her reshipping clerk is aware. oajao Not available 10/19/2019 15:55:51 02/03/2020 [id number] Stress Incontinence: Care Instructions oajao Not available 02/04/2020 08:48:47 Tylenol #3, side effects were discussed GI follow up ER with worsening of her symptoms Follow up in 4 weeks ER reports Most recent office consultation notes from her industrial ecologist, Dr Yan oajustinao Not available 02/03/2020 15:39:55 She can be seeen in the office, however due to the current pandemic, office visits have been discouraged. She also has a lot of risk factors and should probably limit unnecessary exposure. oajao Not available 02/03/2020 18:40:07 02/23/2020 [id number] Labs as previous ly ordered US GI as previously referred or in the event that we are not making much progress, she may warrant a second opinion. Tylenol #3 as prescribed on the lat visit oajao Not available 02/23/2020 13:06:03 Detailed explanation oajao Not available 02/23/2020 13:06:12 07/13/2020 [id number] thyroid nodules: care instructions oajao Not available 07/13/2020 17:10:43 abdominal pain: care instructions oajao Not available 07/13/2020 17:09:01 ER report, daniel delcid Most recent consultation note from her bridge builder, Dr Shearer Follow up in 4 months oajao Not available 07/13/2020 19:44:31 11/07/2020 [id number] learning about breast cancer screening oajao Not available 11/07/2020 10:45:11 Most recent HBA1 C and lipid panel from [facility] Endocrinology note from Dr Padilla Follow up with the bridge builder and reshipping clerk She needs to clarify with her bridge builder how much HCTZ they want her on Follow up in 3 months and PRN Psychiatrist to see regarding the neeed for a BZD Addendum [facility] oajao Not available 11/07/2020 10:52:41 Detailed discuss ion Detailed visit Ms Brown ended the call oajao Not available 11/07/2020 10:55:17 Reason for Referral City Editor Referral for Sc reening for malignant neoplasm of cervix Referring Physician: James Jordan, Internal Medicine, Encounter Date: 10/19/2019 In File Operator Referral for Recurrent pancreatitis Recurrent pancreatitis Recurent [...] 162 mg/dL 100-19 9 Not Available [facility] ([facility]) [address] [place], [address], 02/24/2020 09:11:03 02/23/2002/24/2020 lipid panel , serum triglyceride s 117 mg/dL 0-149 Not Available [facility] ([facility]) [address] [place], [address], 02/24/2020 09:11:03 02/23/2002/24/2020 lipid panel , serum HDL cholesterol 49 mg/dL >39 Not Available [facility] ([facility]) [address] [place], [address], 02/24/2020 09:11:03 02/23/2002/24/2020 lipid panel , serum VLDL cholesterol acosta 23 mg/dL 5-40 Not Available [facility] ([facility]) [address] [place], [address], 02/24/2020 09:11:03 02/23/2002/24/2020 lipid panel , serum LDL cholesterol calc 90 mg/dL 0-99 Not Available [facility] ([facility]) [address] [place], [address], 02/24/2020 09:11:03 02/23/2002/24/2020 lipid panel , serum comment: COMMUNICATIONS TECHNOLOGIST Not Available [facility] ([facility]) [address] [place], [address], 02/24/2020 09:11:03 02/23/2002/24/2020 lipid panel , serum LDL/HDL ratio 1.8 ratio 0.0-3. 2 LDL/H DL Ratio Men Women 1/2 Avg.R isk 1.0 1.5 Avg.R isk 3.6 3.2 2X Avg.R isk 6.2 5.0 3X Avg.R isk 8.0 6.1 Not Available [facility] ([facility]) [address] [place], [address], 02/24/2020 09:11:03 02/23/2002/24/2020 HbA1c (hemo globi n A1c), blood hemoglobin A1C 8.6 % 4.8-5. 6 above high normal Predi abete s: 5.7 - 6.4 Diabe leo: >6.4 Glyce michael contr ol for adult s with diabe leo: <7.0 Not Available [facility] ([facility]) [address] [facility], [place], [address], 02/24/2020 09:11:04 02/23/2002/24/2020 diabe leo patie nt educa tion pdf image . Not Available [facility] ([facility]) [address] [place], [address], 02/24/2020 09:11:05 03/17/2003/18/2020 drug scree n, urine amphetamines , urine NEGATI VE NG/mL cutoff =1000 Amphe tamin e test inclu rah Amphe tamin e and Metha mphet amine . Not Available [facility] ([facility]) [address] [place], [address], 03/20/2020 17:07:35 03/17/20 20 03/18/2020 drug scree n, urine barbiturate NEGATI VE NG/mL cutoff =300 Not Available [facility] ([facility]) [address] [place], [address], 03/20/2020 17:07:35 03/17/20 20 03/18/2020 drug scree n, urine benzodiazepi lauren NEGATI VE NG/mL cutoff =300 Not Available [facility] ([facility]) [address] [place], [address], 03/20/2020 17:07:35 03/17/20 20 03/18/2020 drug scree n, urine cannabinoid NEGATI VE NG/mL cutoff =50 Not Available [facility] ([facility]) [address] [place], [address], 03/20/2020 17:07:35 03/17/20 20 03/18/2020 drug scree n, urine cocaine (metab.) NEGATI VE NG/mL cutoff =300 Not Available [facility] ([facility]) [address] [place], [address], 03/20/2020 17:07:35 03/17/20 20 03/18/2020 drug scree n, urine opiates SEE FINAL RESULT S NG/mL cutoff =300 Opiat e test inclu rah Codei ne and Morph ine only. Not Available [facility] ([facility]) [address] [place], [address], 03/20/2020 17:07:35 03/17/20 20 03/18/2020 drug scree n, urine phencyclidin e NEGATI VE NG/mL cutoff =25 Not Available [facility] ([facility]) [address] [place], [address], 03/20/2020 17:07:35 03/17/20 20 03/18/2020 drug scree n, urine methadone screen, urine NEGATI VE NG/mL cutoff =300 Not Available [facility] ([facility]) [address] [facility], [place], [address], 03/20/2020 17:07:35 03/17/20 20 03/18/2020 drug scree n, urine propoxyphene , urine NEGATI VE NG/mL cutoff =300 Not Available [facility] ([facility]) [address] [place], [address], 03/20/2020 17:07:35 03/17/20 20 03/20/2020 drug scree n, urine opiates NEGATI VE cutoff =300 Opiat e test inclu rah Codei ne and Morph ine only. Not Available [facility] ([facility]) [address] [facility], [place], [address], 03/20/2020 17:07:35 03/17/20 20 03/18/2020 lipas e, serum or plasm a lipase 30 U/L Not Available [facility] ([facility]) [address] [facility], [place], [address], 03/20/2020 17:07:36 08/04/20 20 08/08/2020 drug scree [...] Not Detec jone UNEXP ECTED ng/mg creat Becket codon e Not Detec jone UNEXP ECTED ng/mg creat Cyclo benza mckinley Not Detec jone UNEXP ECTED Aceta minop hen Not Detec jone UNEXP ECTED Aceta minop hen, as indic ated in the decla red medic ation list, is not alway s detec jone even when used as direc jone. Chlor pheni johana e Not Detec jnoe UNEXP ECTED ===== ===== ===== ===== ===== [...] johana e Codei ne Cyclo benza mckinley Becket codon e Not e: The testi ng [...] rona e Glime pirid e Gluca justyn Becket chlor othia zide (HCTZ ) Insul in Iprat ropiu m Topic al ===== ===== ===== ===== ===== ===== ===== ===== ===== ===== ===== ===== ===== === For clini acosta consu ltati on, pleas e call [phone]. ===== ===== ===== ===== ===== ===== ===== ===== ===== ===== ===== ===== ===== === Not Available [facility] [address], [place], [address], 08/08/2020 17:08:56 08/04/20 20 08/08/2020 drug scree n, urine pdf . Not Available [facility] [address] [facility], [place], [address], 08/08/2020 17:08:56 05/23/20 21 05/23/2021 lab* CMP Not Available [facility] [address] [place], [address], 05/23/2021 12:49:10 05/23/20 21 05/23/2021 lab* lipid panel Not Avai lable [facility] [address] [place], [address], 05/23/2021 12:49:10 05/23/20 21 05/23/2021 lab* A1C Not Available [facility] [address] [place], [address], 05/23/2021 12:49:10 10/28/19 20 10/28/2019 CT, abdom en + pelvi s, w/ contr ast No observ ation record ed. [facility] (Imaging) [address] [place], [address], 02/03/2020 15:04:45 10/31/19 20 10/31/2019 CT, abdom en + pelvi s, w/o contr ast No observ ation record ed. oajao [facility] (Imaging) [address] [place], [address], 02/03/2020 15:04:45 03/01/20 20 03/01/2020 US, abdom en, limit ed No observ ation record ed. [facility] (Imaging) [address] [place], [address], 07/13/2020 17:03:39 03/01/20 20 03/01/2020 US, head + neck, soft tissu e No observ ation record ed. [facility] (Imaging) [address] [place], [address], 07/13/2020 17:03:39 06/28/20 20 06/27/2020 CT, abdom en + pelvi s, w/o contr ast No observ ation record ed. [facility] (Imaging) [address] [place], [address], 07/13/2020 17:03:39 09/20/20 20 09/20/2020 XR, chest , 2 view No observ ation record ed. [facility] [address] [place], [address], 11/07/2020 10:10:27 04/08/20 23 04/08/2023 trans -thor acic echoc ardio gram (TTE) (PROC ) No observ ation record ed. [email or web address] [address], [place], [address], 04/08/2023 22:31:53 Result Notes None recorded. Problems Name Problem SNOMED Code Status Onset Date Resolution Date Notes Provider Name and Address Organization Details Recorded Time Diabetes mellitus 06284090 Active Not Available [facility] 2 00:28:43 Gastroesophag eal reflux disease 052851924 Active Not Available [facility] 2 00:28:43 Disorder of lipid metabolism 405834504 Active Not Available [facility] 2 00:28:42 Uncontrolled type 2 diabetes mellitus 085702342 Active Not Available [facility] 2 00:28:42 Genital herpes simplex 11899871 Active Not Available [facility] 2 00:28:42 Herpes simplex 65469218 Active Not Available [facility] 2 00:28:43 Severe persistent asthma 918471326 Active 2016 Not Available [facility] 2 00:28:43 Subluxation of patellofemora l joint 317574456 Active 2017 Not Available [facility] 2 00:28:43 Calcification of coronary artery 214608102 Active 2018 Not Available [facility] 2 00:28:42 Metabolic dysfunction-a ssociated steatohepatit is 735466919 Active 2018 Not Available [facility] 2 00:28:42 Urinary incontinence 739003721 Active 2019 Not Available [facility] 2 00:28:43 Recurrent pancreatitis 929023978 Active 2019 Not Available [facility] 2 00:28:42 Laboratory test result abnormal 370458986 Active 2020 Not Available [facility] 2 00:28:42 Essential hypertension 72987728 Active 2020 Not Available [facility] 2 00:28:43 Problem Notes Documentation Provider Name and Address Organization Details Recorded Time Allergy Consult Note : This document (1 of 1) was received from [email or web address] on 07/12/2023 through Direct Message along with the following message body content: Patient Name: PAULIE BROWN. Patient : 1975. Patient . JONNA Yusuf SINess 08/07/2023 15:17:04 Allergy Consult Note : This document (1 of 1) was received from [email or web address] on 08/03/2023 through Direct Message along with the following message body content: Patient Name: PAULIE BROWN. Patient : 1975. Patient . Keyshawn Hammond null, [facility] 08/14/2023 15:49:18 Procedures Surgical History Date Name Laterality Status Provider Name and Address Organization Details Recorded Time 0 EGD completed James Jordan MD Attn: Accounting,[address] [place], [address], [facility] 11/27/2019 10:17:13 0 Colonoscopy completed James Jordan MD Attn: Accounting,[address] [place], [address], [facility] 11/13/2019 12:41:40 Tonsillectomy completed James scott MD Attn: Accounting,[address] [place], [address], [facility] 11/28/2015 11:56:01 Imaging Results None recorded. Procedure Notes None recorded. Medical Equipment None Reported. Allergies Allergen ID Allergen Name Allergen Category Reaction Reaction Severity Criticality Documentation Date Start Date Code Code System Note Provider Name and Address Organization Details Recorded Time 312000 Compazine medicatio n other Not available Not available 11/07/202020138 6 RxNorm Elva Phillips MA null, [facility] 1 09:55:31 51372 aspirin medicatio n other Not available Not available 04/06/2015 1191 RxNorm Epist axis James Jordan MD Attn: Lali dennis,[address] [facility], [place], [address], [facility] 6 11:55:18 [address]7515 sulfameth oxazole / trimethop rim medicatio n Not available Not available Not available 06/30/2015 33960 RxNorm ? James Jordan MD Attn: Lali dennis,[address] [facility], [place], [address], [facility] 6 11:55:18 Medications Name Sig [...] Not Available Not Available Not Available Afluria 1286-1516 (PF) 45 mcg (15 mcg x 3)/0.5 mL IM syringe 03/08 completed Not Available Not Available Not Available Spiriva Respimat 1.25 mcg/actua tion solution for inhalatio n INHALE 2 PUFFS BY MOUTH DAILY active Not Available Not Available No t Available TechLITE Pen Needle 31 gauge x 5/16 USE TO INJECT INSULIN QID active Not Available Not Available No t Available Fluvirin 0211-3263 45 mcg (15 mcg x 3)/0.5 mL [...] weight Body temperature Heart rate Oxygen saturation Systolic And Diastolic Provider Name and Address Organization Details Last Updated DateTime 0 162.56 cm 31.8 kg/m2 66505.5 9 g 97.6 [degF] 80 /min 99 % 130/80 mm[Hg] Elva Phillips [place] [facility] 0 14:59:25 Date Recorded Body height Provider Name an d Address Organization Details Last Updated DateTime 11/07/2020 162.56 cm Elva Phillips [place] [facility] 01/25/2 021 09:51:42 Date Recorded Body height Provider Name an d Address Organization Details Last Updated DateTime 02/03/2020 162.56 cm Elva JULIETA Phillips [facility] 020 14:48:41 Date Recorded Body height Body mass index (BMI) Body weight Heart rate Oxygen saturation Respiratory rate Systolic And Diastolic Provider Name and Address Organization Details Last Updated DateTime 0 162.56 cm 30 kg/m2 45944.9 5 g 80 /min 100 % 14 /min 124/80 mm[Hg] Elva Phillips MA [facility] 0 12:17:51 Date Recorded Body height Provider Name an d Address Organization Details Last Updated DateTime 07/13/2020 162.56 cm Elva Phillips MA [facility] 020 15:57:24 Social History Question Answer Notes LastModified by Organizat ion Details LastModified Time Tobacco Smoking Status Never Smoker James Jordan MD Attn: Accounting,[address] [place], [address], [facility] 04/06/2015 13:16:18 Do You [...] available 2014 12:45:51 Medical History Condition Response High Blood Pressure Y Acid Reflux (GERD) Y High Cholesterol Y Diabetes Y Asthma Y Allergies Y Gynecological History Statement/Question Response Abnormal Pap [...] virus, quadrivalent, preservative 0 completed Not Available [facility] 01/02/2022 00:28:43 COVID-19, mRNA, LNP-S, PF, 100 mcg/0.5mL dose or 50 mcg/0.25mL dose 1 completed Not Available [facility] 01/02/2022 00:28:43 COVID-19, mRNA, LNP-S, PF, 100 mcg/0.5mL dose or 50 mcg/0.25mL dose 1 completed Not Available [facility] 01/02/2022 00:28:43 Influenza, split virus, quadrivalent, preservative 7 completed Not Available [facility] 10/31/2019 02:34:20 Influenza, split virus, quadrivalent, PF 8 completed Not Available [facility] 10/31/2019 02:45:31 Influenza, high-dose, trivalent, PF 5 completed Not Available [facility] 01/02/2022 00:28:43 Influenza, split virus, quadrivalent, preservative 9 completed Not Available [facility] 10/31/2019 02:38:15 Tdap 5 completed Not Available [facility] 10/31/2019 02:41:30 Pneumococcal conjugate PCV 13 5 completed Not Available [facility] 01/02/2022 00:28:43 pneumococcal polysaccharide PPV23 3 completed Not Available [facility] 01/02/2022 00:28:43 Influenza, split virus, quadrivalent, preservative 6 completed Not Available [facility] 01/02/2022 00:28:43 Past Encounters Encounter ID Performer Location Encounter Start Date Encounter Closed Date Diagnosis/Indication Diagnosis SNOMED-CT Code Diagnosis ICD10 Code Diagnosis IMO Codes Diagnosis Note [id number] MD Jacklyn Saavedra (Adult Med) [address] [place] [phone] 04/06/2015 12:30:11 04/06/2015 15:04:49 Diabetes mellitus 85939161 I think she can safely switch to once a day testing Gastroesop hageal reflux disease 497545541 No relief from Ranitidine , she has implemente d life style changes. She was prescribed Famotidine in January and she states that she was unaware that this was ever prescribed . RF Famotidine 40 [id number] MD Jacklyn Saavedra (Adult Med) [address] [place] [phone] 06/08/2015 11:23:28 06/08/2015 15:33:55 Disorder of lipid metabolism 529110059 She was previously well controlled on Atorvastat in, however her lipid panel is much worse on Simvastati n despite compliance . She however admits to missing a few doses of the medication due to ongoing family issues Uncontroll ed type 2 diabetes mellitus 682751197 Her HBA1C is now 7.7, previously 6.9. She is on 40mg of Prednisone and she will be going back down to 10 mg in another week. I believe this may be playing a role. [id number] Davion Pedersen PA-C [facility] [address] [place] [address] 06/30/2015 15:55:52 06/30/2015 16:26:38 Venereal disease screening 745064406 [id number] MD Jacklyn Saavedra (Adult Med) [address] [place] [id number] 11/28/2015 11:27:47 11/28/2015 16:13:12 Venereal disease screening 730556009 Z11.3 Uncontroll ed type 2 diabetes mellitus 588059325 E11.65 Her HBA1C is now 8.1, she is on 10mg of Prednisone , I will check her labs before deciding on the need for an increase in the dose of her Amaryl. Herpes simplex 19131354 B00.9 Positive HSV I & II 06/08/2015 Reported genital lesions, she was prescibed Valtrex, she now states that she never took the medication . I have discussed the significan ce of her positive HSV I & II test results with her and I have recommende d an annual STRATEGIC PARTNERSHIP REPRESENTATIVE follow up [id number] MD Jacklyn Saavedra (Adult Med) [address] [place] [phone] 10/03/2016 09:56:31 10/03/2016 15:39:48 Uncontrolled type 2 diabetes mellitus 368708535 E11.65 Her HbA1C is now 8.2, she is on 10mg of Prednisone , I will add Pioglitazo ne 15mg to her regimen, side effects were discussed. Disorder o f lipid metabolism 589054399 E78.9 Uncontroll ed on Simvastati n despite full compliance , I will switch her back to a more potent statin Acute asthma 535832191 J 45.901 Uncontroll ed despite maximum therapy, I will increase her Prednisone to 40mg for 5 days. I have tried to reach Dr. Shearer, I was transferre d to the [facility] office and then the OR's , I have asked Ms. Brown to let Dr. Shearer know about the short course of Prednisone . SHe was offered a treatment with nebulized medication s, she declined. Diabetes mellitus 653667 09 E11.9 [id number] MD Jacklyn Saavedra (Adult Med) [address] [place] [phone] 03/08/2017 15:16:44 03/12/2017 12:53:29 Uncontrolled type 2 diabetes mellitus 943585049 E11.65 Her HbA1C is now 10, she is on 30mg of Prednisone , I will increase her dose of Metformin and she needs to clarify the dose of her Glimepirid e, although I strongly suspect the need for a third agent Disorder o f lipid metabolism 635506884 E78.9 I switched her a more potent statin, she now thinks she is taking Fenofibrat e, Zocor and Lipitor, she will need to clarify her regimen. Benign ess ential hypertension 7012194 I10 Worsened by the Nucala infusion which has been discontinu ed, she will need an PILLO- in addition to her Amlodipine . Side effects were discussed, BMP in a few weeks and the opinion of an endocrinol ogist. [id number] MD Jacklyn Saavedra (Adult Med) [address] [place] [phone] 07/10/2017 15:47:30 07/10/2017 16:46:51 Uncontrolled type 2 diabetes mellitus 229702537 E11.65 Her HbA1C was 10, she is [...] of her phones. Benign ess ential hypertension 8238881 I10 She feels that it was made worse by the Nucala infusion which has been discontinu ed, she is on an PILLO- , HCTZ and Amlodipine . 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 Obese 367756182 E66.9 Counseled About weight loss, diet and excercise. Patient refused php mysql web developer consult Screening mammography 24 805102 Z12.31 Family his tory of malignant neoplasm of ovary 923960942 Z80.41 OFFERED GENETIC COUNSELING AND TESTING. 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 [id number] M23.51 Severe per sistent asthma 294406638 J45.50 On samples of Advair/Doni vent or Qvar/Duler a (covered by her insurance) [id number] MD Jacklyn Saavedra (Adult Med) [address] [place] [address]77-441 0 02/25/2018 14:30:24 02/25/2018 15:56:26 Uncontrolled type 2 diabetes mellitus 848672268 E11.65 Asthma 196093815 J45.90 9 Subluxatio n of patellofemoral joint 964631218 S83.001A [id number] MD Jacklyn Saavedra (Adult Med) [address] [place] [address] 09109-365 0 07/15/2018 11:59:42 07/16/2018 12:55:51 Administration of influenza vaccine 08978476 Z23 Uncontroll ed type 2 diabetes mellitus 936187731 E11.65 Screening for malignant neoplasm of breast 378748121 Z12.31 Medication monitoring 39 9579224 Z51.81 [id number] MD Jacklyn Saavedra (Adult Med) [address] [place] [address] 25409-245 0 01/08/2019 09:42:49 01/08/2019 10:43:41 Calcification of coronary artery 202744641 I25.84 Uncontroll ed type 2 diabetes mellitus 927209809 E11.65 Nausea and vomiting 1693 2000 R11.2 Most likely due to the Victoza Metabolic dysfunction-associate d steatohepatitis 224317379 K75.81 [id number] MD Jacklyn Saavedra (Adult Med) [address] [place] [address] 88043-628 0 02/05/2019 15:26:15 02/06/2019 09:11:50 Sinusitis 85433262 J32.9 Complete course of Azithromyc inRecently used Augmentin before her ER visit. Uncontroll ed type 2 diabetes mellitus 856080952 E11.65 Managed by her endocrinol ogist [id number] MD Jacklyn Saavedra (Adult Med) [address] [place] [address] 99136-486 0 04/21/2019 15:18:57 04/21/2019 16:29:50 Acute pharyngitis 036227132 J02.9 Pharyngiti s vs a dental source as she has a filling in the left lower molar Uncontroll ed type 2 diabetes mellitus 512211721 E11.65 Managed by her endocrinol ogist, she had an eye exam in December in [place] Asthma 034600383 J45.90 9 Discussed Eczema 54831117 L30.9 Screening for malignant neoplasm of breast 474145237 Z12.31 [id number] MD Jacklyn Saavedra (Adult Med) [address] [place] [address] 20224-868 0 07/29/2019 14:12:56 07/29/2019 14:58:33 Administration of influenza vaccine 88855070 Z23 Body mass index 30+ - obesity 325327337 Z68.31 Nausea 382744617 R11.0 Possible DM gastropare sis Headache 89665654 R51 The Tylenol #3 is for her acute pain onlyThe pain is most likely due to her sinusitis which was recently treated with antibiotic sILPMP data was reviewedCT scan if there is no improvemen t Eczema 35094350 L30.9 Uncontroll ed type 2 diabetes mellitus 338374255 E11.65 Managed by her endocrinol ogist [id number] James Jordan MD [facility] (Adult Med) [address] [place] [address] 51211-156 0 09/07/2019 15:39:22 09/07/2019 16:15:02 History of pancreatitis 5294238943 9107 Z87.19 The etiology is unclear.Me ds?Lipids? Metabolic dysfunction-associate d steatohepatitis 798496704 K75.81 Discussed Uncontroll ed type 2 diabetes mellitus 277256233 E11.65 Managed by her endocrinol ogist [id number] MD Jacklyn Saavedra (Adult Med) [address] [place] [address] 25499-237 0 10/19/2019 14:45:34 10/20/2019 09:27:25 Uncontrolled type 2 diabetes mellitus 687114019 E11.65 Managed by her endocrinol [id number] 8.2 09/08/2019 She needs a new endocrinol ogist Screening for malignant neoplasm of cervix 450041819 Z12.4 [id number] James Jordan MD [facility] (Adult Med) [address] [place] [address] 02/03/2020 14:37:50 02/04/2020 11:17:07 Recurrent pancreatitis 851294092 K86.1 Abdominal pain 03815321 R10.9 [place] She has had a [...] verge of polypharma cy. Urinary incontinence 165 042232 R32 She has requested incontinen ce pads [id number] James Jordan MD [facility] (Adult Med) [address] [place] [address] 02/23/2020 12:08:18 02/24/2020 05:19:55 Recurrent pancreatitis 964105050 K86.1 Abdominal mass 547984971 R19.00 Splenic tip?US Abdominal pain 40245471 R10.9 She has had a recent EGD [...] be on the verge of polypharma cy. [id number] MD Jacklyn Saavedra (Adult Med) [address] [place] [address] 07/13/2020 08:17:25 07/14/2020 08:53:56 Needs influenza immunization 342269271 Z28.3 Cyst of right ovary 1223 794159 4931495 N83.201 She has an appointmen t with a new gynecologi st in the [facility] Abdominal pain 14846936 R10.9 She has had a recent EGD [...] has a few pills left Thyroid nodule 146994177 E04.1 The US was ordered by her endocrinol ogist, she should follow up Drug of abuse screen 897 03293 Z02.83 Her most recent UDS did not confirm any opiates, she states that she takes the Hydrocodon e/Chlorphe niramine and Tylenol #3 PRN only. Immunization due 3806131 08 Z28.3 [id number] MD Jacklyn Saavedra (Adult Med) [address] [place] [address] 0 11/07/2020 08:05:29 11/08/2020 07:57:29 Uncontrolled type 2 diabetes mellitus 150175013 E11.65 Managed by her endocrinol [id number] 8.6 02/23/2020 Laboratory test result abnormal 821890526 R89.9 Her drug screen from 08/04/2020 is [...] on a PRN basis. Medication requested 182 189870 Z23 I am not willing to refill [...] and Hydrocodon e/Chlophen iramine cough syrup Anxiety 73742257 F41.9 Screening for malignant neoplasm of breast 618170122 Z12.31 Essential hypertension 96290608 I10 She needs to clarify with her [...] Lazaro Member ID Guarantor Name 10/16/2019 1 [facility] PRIOR TO 04/13/2021 (MEDICAID REPLACEMENT - HMO) Paulie Brown [id number] Paulie Brown 11/04/2020 1 [facility] PRIOR TO 05/14/2025 (MEDICAID REPLACEMENT - HMO) [id number] Paulie Brown [id number] Paulie Brown 06/30/2015 1 [facility] PRIOR TO 04/13/2021 (MEDICAID REPLACEMENT - HMO) Paulie Brown [id number] Paulie Brown 02/17/2018 1 [facility] (MEDICAID HMO) [id number] Paulie Brown [id number] Paulie Brown 01/08/2019 1 [facility] (MEDICAID HMO) Paulie Brown [id number] Paulie Brown Notes Date Note Type Note Provider Name and Address Organization Details Recorded Time 10/19/19 20 text/ht ml Diabetes F/UReported by PatientHPIFor context, patient reportshome blood sugar range highbut reportstaking aspirin daily,not missing doses of medications, andno side effects from medications. For review finger sticks, patient reportsfastin,pre lunch: ___,post lunch: 140-200, andpost dinner: 140-200. For labs, patient reportslast a1c result: 8.2. 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 James Jordan MD Attn: Accounting, [address] [place], [address], [facility] 10/19/2019 15:56:01 02/03/20 20 text/ht ml Abdominal PainReported by PatientAbdominal PainFor quality, patient reportspain. For onset/timing, patient reportsworsebut reportswax/wane. For associated symptoms, patient reportsnausea. For location, patient reportsluq. For severity, patient reportssevere. For duration, patient reportsconstant. For modifying factors, patient reportseating.ROS as noted in the HPI Phone visit due to the COVID-19 pandemic The pain was tolerable, now the pain is unbearableThe pancreatitis Ms Silva has been having a flare ups of her LUQ abdominal pain again, she had an EGD, colonoscopy, she was seen in the ER and in her industrial ecologist's office and told to follow up with her primary for her pancreatitis. James Jordan MD Attn: Accounting, [address] [facility], [place], [address], [facility] 02/04/2020 09:02:32 02/23/20 20 text/ht ml Abdominal PainReported by PatientAbdominal PainFor quality, patient reportspain. For onset/timing, patient reportsworsebut reportswax/wane. For associated symptoms, patient reportsnauseabut reportsno fever,no chills,no blood in the urine,no heartburn, andno shortness of breath. For location, patient reportsluq. For severity, patient reportssevere. For duration, patient reportsintermittent. For modifying factors, patient reportseating. For other, patient reportsdenies possible .ROS as noted in the HPI Just that pain hereI seen Yuriy Ms [...] her left thigh James Jordan MD Attn: Accounting, [address] [facility], [place], [address], [facility] 02/23/2020 13:08:34 07/13/20 20 text/ht ml Abdominal PainReported by PatientAbdominal PainFor quality, patient reportspain. For onset/timing, patient reportsworse. For location, patient reportsllqandrlq. For severity, patient reportsmild. For duration, patient reportsintermittentandconstant. For modifying factors, patient reportsnothing gives relief. For associated symptoms, patient reportsno fever,no chills,no blood in the urine,no heartburn, andno shortness of breath. For other, patient reportsdenies possible .ROS as noted in the HPI Phone visit due to the Covid 19 [...] from her pancreatitis. James Jordan MD Attn: Accounting, [address] [facility], [place], [address], [place] [facility] 07/13/2020 19:53:37 11/07/19 21 text/ht ml Hypertension F/UReported by PatientHPIFor associated symptoms, patient reportsno dizziness,no lightheadedness,no chest pain,no shortness of breath,no palpitations,no edema, andno calf pain with exertion. For lifestyle, patient reportsregular exerciseandlimiting/avoiding salt. For medications, patient reportstaking medications as directed,no side effects from medication, andchecks blood pressure at home, range: (141/82). Diabetes F/UReported by PatientHPIFor context, patient reportshome blood sugar range highbut reportsseeing eye doctor regularlyandchecking feet regularly. For review finger sticks, patient reportsfastin. For labs, patient reportslast a1c result: 8.6. For associated symptoms, patient reportsno weight gain,no weight loss,no dizziness,no sweats,no headaches,no confusion,no increased thirst,no increased appetite,no increased urination,no blurred vision,no numbness of feet, andno calluses on feet.ROS as noted in the HPI Phone visit due to the Covid 19 pandemic They wanted me to follow up with you from the ERRoutineAnd you can't refill my anxiety medicine? In the interim, she had elevated blood pressure and blood sugars shortly after her infusion and was seen in the ER at [facility] on 10/31/2020, she states that [...] in the past James Jordan MD Attn: Accounting, [address] [facility], [place], [address], [facility] 11/07/2020 10:55:34 OBGyn Episode No OBEpisode recorded.
--- OUTSIDE RECORDS SUMMARY | 2025-09-13 02:07 | XMS_ITS | Encounter Summary ---
Author Organization [facility] Address [address] [place] [address] Phone Care Team Providers Care Stress Analyst Name Role Phone James Jordan MD Primary Care Provider Tez Raya MD Primary Care Provider [phone] Encounter Details Date Type Department Care Team (Latest Contact Info) Description 02/25/2018 Orders Only WU CONVERSION Scanning, Provider Social History Tobacco Use Types Packs/Day Years Used Date Smoking Tobacco: Never Comments Unknown Sex and Gender Information Value Date Recorded Sex Assigned at Not on file Legal 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
--- OUTSIDE RECORDS SUMMARY | 2025-09-13 02:07 | XMS_ITS | Data Portability ---
Author Organization [facility], Main Office Address [address] [place] [address] Care Team Providers Care Motorcycle Maker Name Role Phone RICHARD CADE Primary Care Provider RICHARD CADE Referring Provider Assessment No assessment recorded. Plan of Treatment Reminders Order Date Submit Date Provider Last Modified By Organization Details Last Modified Time Details Appointments None recorded. Lab hemoglobin A1C, fingerstick 2024 025 [facility], [address] [place] [address], [address], 5 11:31:05 Referral gastroenter ologist referral - Choking sensation .Please eval and treat . Thank you, may have esophageal strictures? Please call patient to schedule an appointment . Thank you. 2024 025 [email or web address] [facility], [address], [address], [place], [address], 5 11:49:48 Procedures None recorded. Surgeries None recorded. Imaging MAMMO, screening, digital, bilateral 2024 025 [email or web address] [facility], [address], [address], [place], [address], 5 11:24:11 Medication Orders promethazin e-DM 6.25 mg-15 mg/5 mL oral syrup 2024 025 [email or web address] #30108, [address], [place], [id number], 5 09:17:28 nitroglycer in 0.4 mg sublingual tablet 2024 [facility] #46923, [address], [place], [id number], 5 09:15:11 acetaminoph en 300 mg-codeine 30 mg tablet 2024 [facility] #39249, [address], [place], [id number], 5 09:15:13 hydrochloro thiazide 25 mg tablet 2024 [facility] #80549, [address], [place], [id number], 5 09:15:16 fenofibrate 160 mg tablet 2024 025 [facility] #30968, [address], [place], [id number], 5 16:13:11 fluticasone propionate 50 mcg/actuati on nasal spray,suspe nsion [email or web address] [facility] #44119, [address], [place], [id number], 5 13:12:44 lorazepam 1 mg tablet 2024 025 [facility] #48662, [address], [place], [id number], 5 16:23:22 Humalog KwikPen (U-100) Insulin 100 unit/mL subcutaneou s 2024 025 [facility] #53482, [address], [place], [id number], 5 16:32:41 pantoprazol e 40 mg tablet,bina yed release 2024 025 [facility] #38081, [address], [place], [id number], 16:59:33 amoxicillin 875 mg-potassiu m clavulanate 125 mg tablet 2024 025 [facility] #42872, [address], [place], [id number], 5 16:23:21 prednisone 20 mg tablet 2024 [facility] #03786, [address], [place], [id number], 16:26:35 prednisone 20 mg tablet 2024 025 [facility] #63572, [address], [place], [id number], 5 10:47:23 azithromyci n 250 mg tablet 2024 025 [facility] #02384, [address], [place], [id number], 5 10:47:23 promethazin e-DM 6.25 mg-15 mg/5 mL oral syrup 2024 025 [facility] #42511, [address], [place], [id number], 5 10:47:59 amoxicillin 875 mg-potassiu m clavulanate 125 mg tablet 2024 025 [facility] #63914, [address], [place], [id number], 5 12:36:12 Depo-Medrol 80 mg/mL suspension for injection 2024 025 [email or web address] Not available 11:30:50 prednisone 20 mg tablet 2024 [facility] #91058, [address], [place], [id number], 5 11:02:04 erythromyci n 5 mg/gram (0.5 %) eye ointment 2024 [facility] #93898, [address], [place], [id number], 11:00:57 ofloxacin 0.3 % eye drops 2024 025 [facility] #18578, [address], [place], [id number], 11:00:55 ofloxacin 0.3 % eye drops 2024 025 [facility] #30331, [address], [place], [id number], 12:39:45 Pataday Once Daily Relief 0.2 % eye drops 2024 025 [facility] #[id number], [place], [id number], 5 12:41:53 Patient TargetsNo targets recorded. Patient Instructions Encounter Date Encounter Id Patient Instructions Last Modified By Organization Details Last Modified Time 10/29/2024 [id number] warm wet cloths on eyes 5 min every morning , ralph hands frequently [email or web address] Not available 11/04/2024 16:41:06 Reason for Referral Loan Auditor Referral for Choking sensation Choking sensation .Please eval and treat . Thank you, may have esophageal strictures? Please call patient to schedule an appointment. Thank you. Referring Physician: Richard Cade, Family Medicine, Encounter Date: 12/25/2024 Results Created Date Observation Date Name Description Value Unit Range Abnormal Flag Note LastModifiedBy Organization Detail LastModifiedTime 12/26/1912/25/2024 hemog lobin A1C, finge rstic k HgbA1C 8.1 Not Available [facility] [address], [place], [address], 12/25/2024 11:01:28 12/24/19 25 12/22/2024 XR, chest , 1 view No observ ation record ed. [address] [place], [address], 06/07/2025 14:49:51 03/26/20 25 03/26/2025 james bustamante study No observ ation record ed. [address] [place] [address], [address], 06/07/2025 17:12:13 04/19/20 25 04/15/2025 CT, sinus es, w/o contr ast No observ ation record ed. [address] [facility]iology [facility] [place] [address], [address], 06/07/2025 17:12:36 04/20/20 25 04/15/2025 CT, sinus es, w/o contr ast No observ ation record ed. [address] [place] [address], [address], 06/07/2025 17:12:57 Result Notes None recorded. Problems Name Problem SNOMED Code Status Onset Date Resolution Date Notes Provider Name and Address Organization Details Recorded Time Steatotic liver disease Active Not Available [employer] 4 18:49:51 Nausea 499049822 Active Not Available [facility] 4 18:49:52 Derangeme nt of knee 44225458 Active Not Available [facility] 4 18:49:52 Hyperchol esterolem ia 61828910 Active 2020 Not Available [facility] 4 18:49:51 Asthma 823579312 Active 2020 Not Available [facility] 4 18:49:51 Immunodef iciency disorder 622767619 Active 2020 getting infusions CHRISTIANO Peñaloza [address] [facility], [facility] [address], [place], [address] , [facility] [employer] 4 13:02:44 Occlusion of artery 6066716 Active 2020 Not Available [facility] 4 18:49:51 Bronchiti s 99012012 Active 2020 Not Available [facility] 4 18:49:51 Hypertens choco disorder 94871613 Active 2020 Not Available [facility] 4 18:49:51 Diabetes mellitus 80424703 Active 2020 Not Available [facility] 4 18:49:52 Pancreati tis 57059540 Active 2020 Not Available [facility] 4 18:49:52 Mixed hyperlipi demia 132371333 Active 2021 Not Available [facility] 4 18:49:51 Uncontrol led type 2 diabetes mellitus 346823931 Active 2021 Not Available [facility] 4 18:49:52 Fissure in skin 00802767 Active 2022 Not Available [facility] 4 18:49:52 Foot callus 964457326 Active 2022 Not Available [facility] 4 18:49:51 Pain in right foot 64835239472 9107 Active 2022 Not Available [facility] 4 18:49:51 Pain in bilateral feet 90966374503 275777 Active 2022 Not Available [facility] 4 18:49:51 Vitamin B12 deficienc y (non anemic) 25135769 Active 2022 Not Available [facility] 4 18:49:52 Chronic back pain 230096967 Active 2022 Not Available [facility] 4 18:49:51 Psoriasis 0718618 Active 2022 Not Available [facility] 4 18:49:52 Anxiety disorder 402375167 Active 2022 Not Available [facility] 4 18:49:51 Persisten t cough 273450762 Active 2022 Not Available [facility] 4 18:49:51 Anxiety 37026423 Active 2022 Not Available [facility] 4 18:49:52 Left upper quadrant pain 631904299 Active 2022 Not Available [facility] 4 18:49:51 Acute sinusitis 89498664 Active 2022 Not Available [facility] 4 18:49:51 Type 2 diabetes mellitus without complicat ion 637619802 Active 2022 Not Available [facility] 4 18:49:51 Well controlle d type 2 diabetes mellitus 239999061 Active 2022 Not Available [facility] 4 18:49:52 Exocrine pancreati c insuffici ency 01669243 Active 2022 Not Available [facility] 4 18:49:52 Spasm of back muscles 375623115 Active 2022 Not Available [facility] 4 18:49:51 Epigastri c pain 39728523 Active 2022 Not Available [facility] 4 18:49:52 Cobalamin deficienc y 687557846 Active 2022 Not Available [facility] 4 18:49:51 Chronic sinusitis 52570721 Active 2022 Not Available [facility] 4 18:49:51 Migraine 70578954 Active 2022 Not Available [facility] 4 18:49:51 Acute conjuncti vitis 88624063 Active 2022 Not Available [facility] 4 18:49:52 Cough 40754476 Active 2022 Not Available [facility] 4 18:49:52 Acute right otitis media 218259626 Active 2023 Not Available [facility] 4 18:49:51 Diverticu litis of colon 941364333 Active 2023 CHRISTIANO Peñaloza [address], [address], [place], [address] , [employer] [place] [facility] [employer] [facility] 4 10:10:45 Pain of right calf 61965124299 [address] Active 2023 CHRISTIANO Peñaloza [address], [address], [place], [address] , [employer] [place] [facility] [employer] [facility] 4 12:10:25 Angina pectoris 124503296 Active 2023 CHRISTIANO Peñaloza [address], [address], [place], [address] , [employer] [place] [facility] [employer] [facility] 4 11:16:40 Hypertrig lyceridem ia 539956371 Active 2023 CHRISTIANO Peñaloza [address], [address], [place], [address] , [employer] [facility] 4 09:19:06 Sinusitis 60329275 Active 2023 CHRISTIANO Peñaloza [address], [address], [place], [address] , [employer] [place] [employer] [facility] 4 12:15:33 Adult health examinati on Active 2023 CHRISTIANO Peñaloza [address], [address], [place], [address] , [place] [facility] 4 11:27:33 Allergic rhinitis 52735291 Active 2023 CHRISTIANO Peñaloza [address], [address], [place], [address] , [employer] [facility] [employer] 4 11:28:02 Gastroeso phageal reflux disease 920463572 Active 2023 Tran Tillman RN null, [employer] [facility] [employer] [facility] 4 14:28:50 Diverticu litis 709327849 Active 2023 CHRISTIANO Peñaloza [address], [address], [place], [address] , [facility] [employer] [facility] [employer] 4 13:03:13 Gastropar esis syndrome 980054489 Active 2023 CHRISTIANO Peñaloza [address], [address], [place], [address] , [employer] [facility] [employer] 4 13:08:58 Nausea and vomiting 15493363 Active 2023 Fanta Delarosa RN null, [employer] [facility] [employer] 4 15:13:43 Conjuncti vitis 5594004 Active 2024 CHRISTIANO Peñaloza [address], [address], [place], [address] , [employer] 5 12:38:51 Choking sensation 547974228 Active 2024 CHRISTIANO Peñaloza [address], [place], [address] , [employer] [facility] [employer] 5 10:43:27 Screening mammograp hy Active 2024 CHRISTIANO Peñaloza [address], [address], [place], [address] , [employer] [facility] [employer] 5 10:50:45 Notes:Some problems listed i n Documents: #[id number], #[id number] could not be added to this patient's chart. Please review these documents and add these problems to the patient's chart manually as needed. Problem Notes None recorded. Procedures Surgical History Date Name Laterality Status Provider Name and Address Organization Details Recorded Time 02/27/20 23 Callus Debridement 2-4 completed Ed Bishop DPM [address], [address], [place], [address], [employer] [facility] [employer] [facility] 02/26/2023 17:53:24 12/14/19 23 Callus Debridement 2-4 completed Ed Bishop DPM [address], [address], [place], [address], [employer] [facility] [employer] [facility] 12/13/2022 16:54:54 Tonsillectomy completed Not Available [facility] 12/12/2022 02:42:04 Imaging Results None recorded. Procedure Notes None recorded. Medical Equipment None Reported. Allergies Allergen ID Allergen Name Allergen Category Reaction Reaction Severity Criticality Documentation Date Start Date Code Code System Note Provider Name and Address Organization Details Recorded Time 4005 sulfameth oxazole / trimethop rim medicatio n Not available Not available Not available 12/12/2022 02013 RxNorm Not Available [facility] 3 02:51:50 4006 ibuprofen medicatio n Not available Not available Not available 12/12/2022 5640 RxNorm Tez Raya MD [address], [address], [place], [address], [employer] 3 06:26:56 4007 Compazine medicatio n Not available Not available Not available 12/12/2022 17807 6 RxNorm Not Available [facility] 3 02:51:50 4008 aspirin medicatio n Not available Not available Not available 12/12/2022 1191 RxNorm Not Available [facility] 3 02:51:50 02142 tomato allergeni c extract food Not available Not available Not available 12/31/2023 52117 9 RxNorm CHRISTIANO Peñaloza [address], [address], [place], [address], [employer] [facility] [employer] 4 10:47:12 Medications Name Sig Start Date [...] Not Available Not Available No t Available [employer] Ultra Test strips USE TO TEST FIVE [...] 1 TABLET BY MOUTH FOUR TIMES DAILY active Not Available Not [...] Available Not Available No t Available OneTouch Ultra2 Meter kit USE TO TEST BID 12/30 completed Not Available Not Available Not Available Januvia 100 mg tablet active Not Available Not Available Not Available olopatadi ne 0.2 % eye drops [...] Not Available Not Available [employer] Mar[employer] VHC spacer 12/30 completed Not Available Not Available [...] 2nd Gen Pen Needle 32 gauge x USE TO INJECT INSULIN 5X DAILY active [...] Available Not Available Not Available Dexcom G7 Implementation Manager USE DIRECTED active Not Available Not Available No t Available Dexcom G7 Sensor device CHANGE SENSOR EVERY 10 DAYS active Not Available Not Available No t Available Vitals Date Recorded Body height Body mass index (BMI) Body weight Body temperature Heart rate Oxygen saturation Systolic And Diastolic Provider Name and Address Organization Details Last Updated DateTime 5 162.56 cm 28.5 kg/m2 63387.9 7 g 98.1 [degF] 91 /min 98 % 150/90 mm[Hg] Nick Peña RN [place] [facility] [employer] 5 12:16:03 Date Recorded Body height Body mass index (BMI) Body weight Body temperature Oxygen saturation Heart rate Systolic And Diastolic Provider Name and Address Organization Details Last Updated DateTime 5 162.56 cm 28.6 kg/m2 69004.2 1 g 98.1 [degF] 95 % 78 /min 160/84 mm[Hg] Nick Peña RN [facility] [employer] [facility] 5 10:47:54 Date Recorded Body height Body mass index (BMI) Body weight Body temperature Oxygen saturation Heart rate Systolic And Diastolic Provider Name and Address Organization Details Last Updated DateTime 5 162.56 cm 27.7 kg/m2 14978.1 7 g 98.6 [degF] 97 % 89 /min 170/80 mm[Hg] Gaby Reardon RN [facility] [employer] [facility] 5 10:21:56 Date Recorded Body height Body mass index (BMI) Body weight Body temperature Systolic And Diastolic Provider Name and Address Organization Details Last Updated DateTime 02/09/2025 162.56 cm 28.5 kg/m2 28458.3 3 g 97.6 [degF] 142/82 mm[Hg] Ligia Singer [facility] 5 15:41:23 Date Recorded Body height Body mass index (BMI) Body weight Body temperature Oxygen saturation Heart rate Systolic And Diastolic Provider Name and Address Organization Details Last Updated DateTime 5 162.56 cm 28.2 kg/m2 28850.1 5 g 97.3 [degF] 99 % 88 /min 140/86 mm[Hg] Ligia Singer [facility] 5 09:02:55 Social History Question Answer Notes LastModified by Organizat ion Details LastModified Time Tobacco Smoking Status Never Smoker Not Available [employer] 12/12/2022 02:41:44 If You Are , What Was Your Level Of Alcohol Consumption Prior To ? None Information not available 12/13/2022 What Is Your Level Of Caffeine Consumption? Moderate [id number] Information not available 12/12/2022 How Much Tobacco Do You Chew? None [id number] Information not available 12/12/2022 In The 14 Days Before Symptom Onset, Have You Had Close Contact With A Laboratory-confirm ed COVID-19 While That Case Was Ill? No [id number] Information not available 12/12/2022 In The 14 Days Before Symptom Onset, Have You Had Close Contact With A Person Who Is Under Investigation For COVID-19 While That Person Was Ill? No [id number] Information not available 12/12/2022 Which Illicit Or Recreational Drugs Have You Used? None [id number] Information not available 12/12/2022 What Was The Date Of Your Most Recent Tobacco Screening? 12/13/2022 Information not available 12/13/2022 Has Tobacco Cessation Counseling Been Provided? No Information not available 12/13/2022 Have You Recently Traveled Abroad? No [id number] Information not available 12/12/2022 Sex: Unknown Functional Status Question Answer Note LastModified by Organizat ion Details LastModified Time Do you use any illicit or recreational drugs? No Information not available 12/13/2022 Do you or have you ever used any other forms of tobacco or nicotine? No Information not available 12/13/2022 What is your level of alcohol consumption? None [id number] Information not available 12/12/2022 Do you or have you ever used smokeless tobacco? Never used smokeless tobacco MIGRATION.[id number] Information not available 12/12/2022 Do you or have you ever used e-cigarettes or vape? Never used electronic cigarettes MIGRATION.[id number] Information not available 12/12/2022 Mental Status None recorded. Family History Relationship Description Onset Age of this Age Resolved Age Notes LastModified by Organization Details LastModified Time Sister Asthma [id number] Not available 12/12/2022 02:42:09 Sister Hypertensive disorder [id number] [id number] Not available 12/12/2022 02:42:09 Sister Diabetes mellitus MIGRATION.753 [id number] Not available 12/12/2022 02:42:09 Sister Hyperthyroid ism [email or web address] Not available 09/16 13:51:31 Father Asthma MIGRATION.971 [id number] Not available 12/12/2022 02:42:09 Father Hypertensive disorder MIGRATION.856 [id number] Not available 12/12/2022 02:42:09 Father Diabetes mellitus MIGRATION.197 [id number] Not available 12/12/2022 02:42:09 Father Family history of malignant neoplasm [id number] Not available 09/16 13:51:31 Mother Hypertensive disorder MIGRATION.534 [id number] Not available 12/12/2022 02:42:09 Mother Diabetes mellitus MIGRATION.766 [id number] Not available 12/12/2022 02:42:09 Mother Hyperthyroid ism Not available 09/16 13:51:31 Brother Hypertensive disorder MIGRATION.572 [id number] Not available 12/12/2022 02:42:09 Brother Diabetes mellitus MIGRATION.823 [id number] Not available 12/12/2022 02:42:09 Maternal Uncle Family history of malignant neoplasm [id number] Not available 09/16 13:51:31 Medical History Condition Response SLEEP APNEA N MRSA N ALLERGIES/HAYFEVER N LUNG DISEASE/DISORDER Y INSOMNIA N HISTORY OF DRUG ABUSE N RADIATION / CHEMOTHERAPY N COPD Y HIGH CHOLESTEROL / HYPERLIPIDEMIA Y HYPERTHYROIDISM N BLOOD DISEASES N EAR OR HEARING PROBLEMS N HYPOTHYROIDISM N SHINGLES N DEPRESSION (INCLUDING POST ) N HAVE YOU BEEN HOSPITALIZED OR SEEN IN [facility] IN THE PAST YEAR ? N STROKE/TIA N ULCERS N OBESITY N ANEURYSM N HISTORY WITH COMPLICATIONS WITH ANESTHES IA ? N USE OF BLOOD THINNERS Y NO SIGNIFICANT PAST MEDICAL HISTORY N DIABETES, TYPE Y PARATHYROID DISEASE N ENT N SEASONAL ALLERGIES Y HEARTBURN / REFLUX Y HEPATITIS / LIVER DISEASE N PULMONARY DISEASE Y SLEEP DISORDER N HEADACHES/MIGRAINES Y SEIZURES/EPILEPSY N CHF N PACEMAKER N DIZZINESS N HEART DISEASE/HEART PROBLEMS Y AIDS/HIV N KIDNEY DISEASE Y FRACTURES N LIVER DISEASE Y HYPERTENSION Y CANCER: SPECIFY N TOURETTE'S N BLOOD TRANSFUSION N ANESTHESIA COMPLICATIONS N ANEMIA/BLOOD DISORDER N CHRONIC EAR INFECTIONS N TUBERCULOSIS N Gynecological HistoryNo gynecological history recorded. Obstetrics History GPAL:G 0 P 0 0 0 0 Immunizations Vaccine Type Date Status Note Provider Nam e and Address Organization Details Recorded Time Influenza, split virus, quadrivalent, PF 10/17/2021 completed Not Available [facility] 18:49:53 Past Encounters Encounter ID Performer Location Encounter Start Date Encounter Closed Date Diagnosis/Indication Diagnosis SNOMED-CT Code Diagnosis ICD10 Code Diagnosis IMO Codes Diagnosis Note [id number] Tez Raya MD [facility] [place] [address] , [place] [address] 12/29/2020 00:00:00 12/29/2020 21:27:14 [id number] MD KENJI Ball IGRATION_ DEFAULT_1 _1 , 01/19/2021 00:00:00 01/19/2021 18:43:29 [id number] Tez Raya MD [facility] [place] [address] , [place] [address] 03/20/2021 00:00:00 03/20/2021 21:06:49 [id number] Tez Raya MD [facility] [place] [address] [place] [address] y , [place] [address] 04/04/2021 00:00:00 04/04/2021 21:10:27 [id number] Tez Raya MD [facility] [place] [address] [place] [address] y , [place] [address] 08/18/2021 00:00:00 08/18/2021 15:35:59 [id number] Franklin Newell MD [facility] [place] [address] [place] [address] 09/05/2021 00:00:00 09/05/2021 14:25:49 [id number] MD KENJI Ball IGRATION_ DEFAULT_1 _1 , 10/12/2021 00:00:00 10/12/2021 14:42:15 [id number] Tez Raya MD [facility] [place] [facility] [address] , [place] [address] 10/17/2021 00:00:00 10/17/2021 19:03:25 [id number] Tez Raya MD [facility] [place] [address] [place] [address] y , [place] [address] 12/08/2021 00:00:00 12/08/2021 21:37:50 [id number] Tez Raya MD [facility] [place] [address] , [place] [address] 12/22/2021 00:00:00 12/22/2021 15:40:58 [id number] Tez Raya MD [facility] Family Practice [place] Luisvi marcia [facility] [address] , [place] [address] 02/14/2022 00:00:00 02/15/2022 05:44:10 [id number] [facility] IGRATION_ DEFAULT_1 _1 , 04/12/2022 00:00:00 04/12/2022 12:37:24 [id number] Tez Raya MD [facility] Family Practice [place]edy [facility] [address] , [place] [address] 05/09/2022 00:00:00 05/09/2022 12:50:09 [id number] Tez Raya MD [facility] Family Practice Kriss[address] kennedy [facility] [address] , [place] [address] 06/05/2022 00:00:00 06/05/2022 10:38:59 [id number] Tez Raya MD [facility] Family Practice [place] k[place] [facility] [address] , [place] [address] 08/09/2022 00:00:00 08/09/2022 18:34:12 [id number] Rachael Padilla MD [facility] [place] [address] [address] [place] [address] 08/16/2022 00:00:00 08/16/2022 10:18:20 [id number] Tez Raya MD [facility] Family Practice Krissy kennedy [facility] , [place] [address] 09/17/2022 00:00:00 09/17/2022 20:22:56 [id number] Clarke garcia MD [facility] General Surgery [address] [place] [address] 09/25/2022 00:00:00 09/25/2022 16:12:12 [id number] Rachael Padilla MD [facility] [place] [address] [place] [address] 10/23/2022 00:00:00 10/23/2022 11:58:07 [id number] Tez Raya MD [facility] [place] [address] [place] [address] 11/02/2022 00:00:00 11/02/2022 17:54:55 [id number] Ed Bishop DPM [facility] Podiatry [place] [address] [place] [address] 12/13/2022 15:55:09 12/18/2022 16:20:52 Fissure in skin 03778650 R23.4 x1 bilateral heeldebrid ed without incidentCo ntinue AmlactinEd ucated on shoe gearRecomm end no further use of sandalsmay require orthoticsf ollow-up 1 month Foot callus 848338673 L8 4 as above Pain in bi lateral feet 4918711676 1569143 M79.671 M79.672 secondary to skin fissure and callusing of the heelno signs of infectionr ecommend supportive shoe gear [id number] Tez Raya MD [facility] Family Practice Krissy k[address]edy [address] [place] [address] 12/17/2022 11:48:54 12/17/2022 12:11:26 Asthma 551617963 J45.909 Breztri samples given x 4 [id number] Ed Bisohp DPM [facility] Podiatry [place] [address] [place] [address] 01/10/2023 16:21:51 01/11/2023 15:12:03 Fissure in skin 20142190 R23.4 x1 bilateral heeldebrid ed without incidentCo ntinue AmlactinEd ucated on shoe gearRecomm end no further use of sandalsmay require orthoticsf ollow-up 1 month Foot callus 516419639 L8 4 as aboveRx custom orthotics control heel and foot function to reduce friction and calluses Pain in bi lateral feet 5365333271 7623788 M79.671 M79.672 secondary to skin fissure and callusing of the heelno signs of infectionr ecommend supportive shoe gear Psoriasis 7822691 L40.9 referral rheumatolo gy [id number] Tez Raya MD [facility] Family Psychiatric Krissy kennedy [address] [place] [address] [place] [address] 02/01/2023 11:57:01 02/01/2023 12:36:53 Anxiety disorder 143076132 F41.9 May try taking 1/2 tab of lorazepam in the day time.F/u in 6 weeks. s/e of meds discussed with pt. [id number] Ed Bishop DPM [facility] Podiatry [place] [address] [facility] [address] [place] [address] 02/26/2023 16:51:20 02/26/2023 17:57:40 Fissure in skin 64216484 R23.4 x2 bilateral heeldebrid ed without incidentCo ntinue AmlactinEd ucated on shoe gearRecomm end no further use of sandalsfol low-up 1 month Foot callus 973144788 L8 4 as aboveRx custom orthotics Did not obtain [id number] Tez Raya MD [facility] Krissy kennedy [facility] [place] [address] 03/15/2023 10:39:52 03/15/2023 11:26:49 Anxiety 30186170 F41.9 Continue lorazepam as needed f/u in 3 months. [id number] Tez Raya MD [facility] Krissy kennedy [facility] [place] [address] 04/04/2023 14:00:35 04/04/2023 14:24:18 Pancreatitis 01609105 K85.90 Left upper quadrant pain 241943378 R10.12 Could be d/t gastropare sis. [id number] Tez Raya MD [facility] [address] [place] [address] 05/02/2023 13:53:15 05/02/2023 14:20:21 Acute sinusitis 38552489 J01.90 Simply saline nasal spray, hot packs to face [id number] Tez Raya MD [facility] [address] [place] [address] 06/10/2023 09:04:32 06/10/2023 09:30:27 Epigastric pain 57998658 R10.13 Was given doxy for stomach. Chronic back pain 065492 002 M54.9 [id number] Rachael Padilla MD [facility] End[place] [address] [place] [address] 06/13/2023 10:52:26 06/13/2023 11:51:16 Uncontrolled type 2 diabetes mellitus 071773870 E11.65 a1c of 8.3% down from 8.8%- [...] transition ed to see Dr. Hamlin at [facility] in October due to my resignatio n. She has refills up to 6 months for transition . Mixed hyperlipidemia 267 951400 E78.2 Continue statin therapy as LDL in range. Vitamin B1 2 deficiency (non anemic) 87834053 E53.8 Continue folic acid and B12 supplement ation. Exocrine p ancreatic insufficiency 13762199 K86.81 Continue zenpep to help regulate stools [...] answered and refills necessary at visit today. [id number] Tez Raya MD [facility] Krissy kennedy [address] [place] [address] [place] [address] 06/26/2023 14:24:59 06/26/2023 15:32:50 Chronic sinusitis 75795268 J32.9 Persistent cough 9894591 02 R05.3 [id number] Tez Raya MD [facility] Krissy kennedy [address] [place] [address] [place] [address] 07/31/2023 16:14:43 08/01/2023 08:06:52 Chronic sinusitis 00241245 J32.9 Use saline nasal spray ice packs to face Migraine 45717973 G43.90 9 [facility] Screening for malignant neoplasm of breast 776370865 Z12.39 [id number] Tez Raya MD [facility] Krissy kennedy [address] [place] [address] [place] [address] 10/01/2023 09:18:25 10/01/2023 10:02:32 Essential hypertension 63694489 I10 Type 2 lisa betes mellitus without complication 686012335 E11.9 Diabetes mellitus 078763 09 E11.9 [id number] Tez Raya MD [facility] Krissy kennedy [address] [place] [address] [place] [address] 11/26/2023 11:57:29 11/26/2023 12:26:51 Acute right otitis media 509655690 H66.91 Acute sinusitis 03558458 J01.90 Anxiety 53402480 F41.9 Asthma 223896109 J45.90 9 Chronic back pain 498247 002 M54.9 Hypertensive disorder 38 482017 I10 Immunodefi ciency disorder 719923376 D84.9 Type 2 lisa betes mellitus without complication 346101106 E11.9 Vitamin B1 2 deficiency (non anemic) 30679841 E53.8 [id number] Tez Raya MD [facility] Krissy kennedy [address] [place] [address] [place] [address] 12/31/2023 09:53:30 12/31/2023 10:22:58 Diverticulitis of colon 009592949 K57.32 Irritable bowel syndrome 99535798 K58.9 Pancreatitis 97982747 K8 5.90 Nausea 867514001 R11.0 Anxiety 73661734 F41.9 Asthma 358474888 J45.90 9 Chronic back pain 810193 002 M54.9 Cobalamin deficiency 190 756202 E53.8 Exocrine p ancreatic insufficiency 98013195 K86.81 Immunodefi ciency disorder 282833947 D84.9 Mixed hyperlipidemia 267 367314 E78.2 Steatotic liver disease 288507473 K76.0 Type 2 lisa betes mellitus without complication 899290799 E11.9 [id number] Inderjit Camarillo MD [facility] Jorge Luis marcia [facility] [place] [address] 01/28/2024 11:46:40 01/28/2024 12:13:47 Asthma 676828534 J45.909 Spasm of back muscles 20 7742098 M62.830 Pain of right calf 78454 02409 346710 M79.661 Anxiety 24675649 F41.9 Chronic back pain 590906 002 M54.9 Cobalamin deficiency 190 388329 E53.8 Diverticul itis of colon 931954567 K57.32 Exocrine p ancreatic insufficiency 41814690 K86.81 Hypertensive disorder 38 506647 I10 Immunodefi ciency disorder 395854849 D84.9 Mixed hyperlipidemia 267 717957 E78.2 Type 2 lisa betes mellitus without complication 800536225 E11.9 Psoriasis 7200189 L40.9 [id number] Inderjit Camarillo MD [facility] [place] [address] [place] [address] 02/25/2024 11:54:22 02/25/2024 12:33:18 Acute sinusitis 18347398 J01.90 Anxiety 22611559 F41.9 Asthma 828443625 J45.90 9 Cobalamin deficiency 190 589365 E53.8 Exocrine p ancreatic insufficiency 92929746 K86.81 Hypertensive disorder 38 721348 I10 Immunodefi ciency disorder 913510437 D84.9 Mixed hyperlipidemia 267 006198 E78.2 Type 2 lisa betes mellitus without complication 867289041 E11.9 Vitamin B1 2 deficiency (non anemic) 37256476 E53.8 [id number] Inderjit Camarillo MD [facility] [place] [address] [place] [address] 04/10/2024 11:53:05 04/10/2024 12:19:20 Diverticulitis of colon 562431095 K57.32 Sinusitis 13670544 J32.9 [id number] Inderjit Camarillo MD [facility] [place] [address] [place] [address] 05/12/2024 10:40:58 05/12/2024 11:28:00 Adult health examination 221332290 Z00.00 Allergic rhinitis 616600 04 J30.9 Anxiety disorder 3918956 06 F41.9 Asthma 004179665 J45.90 9 Chronic back pain 261995 002 M54.9 [id number] Inderjit Camarillo MD [facility] [address] [address] [place] [address] 07/29/2024 14:44:14 07/29/2024 15:33:08 Cough 78721981 R05.9 Acute righ t otitis media 832295584 H66.91 Asthma 934052299 J45.90 9 Anxiety 16657127 F41.9 Allergic rhinitis 649395 04 J30.9 Gastroesop hageal reflux disease 320592332 K21.9 Hypertensive disorder 38 674085 I10 Mixed hyperlipidemia 267 466947 E78.2 Type 2 lisa betes mellitus without complication 703011509 E11.9 Vitamin B1 2 deficiency (non anemic) 54642272 E53.8 [id number] Inderjit Camarillo MD [facility] Krissy eknnedy [address] [place] [address] [place] [address] 08/12/2024 11:41:52 08/12/2024 12:02:12 Well controlled type 2 diabetes mellitus 257430291 E11.9 Type 2 lisa betes mellitus without complication 817462021 E11.9 Allergic rhinitis 411065 04 J30.9 Anxiety 50594671 F41.9 Asthma 264523434 J45.90 9 Chronic back pain 926357 002 M54.9 Gastroesop hageal reflux disease 627362371 K21.9 Hypertensive disorder 38 934721 I10 Mixed hyperlipidemia 267 995618 E78.2 Psoriasis 1298815 L40.9 Steatotic liver disease 350613059 K76.0 [id number] Inderjit Camarillo MD [facility] Jorge Luis marcia [address] [place] [address] [place] [address] 08/26/2024 12:14:16 08/26/2024 13:17:14 Diverticulitis 124228401 K57.92 Hypercholesterolemia 136 80379 E78.00 Gastropare sis syndrome 403213083 K31.84 Exocrine p ancreatic insufficiency 80821279 K86.81 Epigastric pain 82168639 R10.13 Type 2 lisa betes mellitus without complication 108742557 E11.9 [id number] Inderjit Camarillo MD [place] [address] [place] [address] 09/16/2024 13:51:21 09/16/2024 14:26:25 Diverticulitis 142846101 K57.92 Irritable bowel syndrome 19482289 K58.9 Asthma 548479044 J45.90 9 [id number] Inderjit Camarillo MD [address] [address] 10/29/2024 12:07:37 10/29/2024 12:58:13 Acute conjunctivitis 68575835 H10.33 left [id number] Inderjit Camarillo MD [address] [address] 11/18/2024 10:33:47 11/18/2024 11:30:03 Type 2 diabetes mellitus without complication 799407209 E11.9 Conjunctivitis 3662861 H 10.9 Asthma 950958161 J45.90 9 Acute righ t otitis media 759873205 H66.91 [id number] Inderjit Camarillo MD [address] [address] 12/25/2024 10:05:03 12/25/2024 12:34:50 Choking sensation 439213360 R09.89 Bronchitis 96239061 J40 Screening mammography 24 065034 Z12.31 Type 2 lisa betes mellitus without complication 702833651 E11.9 [id number] Inderjit Camarillo MD [address] [address] 02/09/2025 15:30:46 02/09/2025 16:46:52 Hypertriglyceridemia 166533007 E78.2 Allergic rhinitis 304876 04 J30.9 Sinusitis 40636474 J32.9 Anxiety 80726619 F41.9 Uncontroll ed type 2 diabetes mellitus 348408292 E11.65 Gastroesop hageal reflux disease without esophagitis 883272915 K21.9 [id number] Inderjit Camarillo MD [address] [address] 02/24/2025 08:55:38 02/24/2025 09:28:25 Exocrine pancreatic insufficiency 41785162 K86.81 Essential hypertension 92903634 I10 Angina pectoris 25336975 0 I20.9 Bronchitis 13706091 J40 Allergic rhinitis 903836 04 J30.9 Anxiety 74136656 F41.9 Asthma 591538708 J45.90 9 Chronic back pain 848002 002 M54.9 Gastroesop hageal reflux disease 576947429 K21.9 Immunodefi ciency disorder 764946945 D84.9 Steatotic liver disease 038704277 K76.0 Well contr olled type 2 diabetes mellitus 270797432 E11.9 Vitamin B1 2 deficiency (non anemic) 91360055 E53.8 Health Concerns Section Related Observation LastModified by Organization Detai ls LastModified Time None Recorded Concern Status LastModified by Organization Details LastModified Time None Recorded Advance Directives Directive None Recorded Payers Insurance Date Sequence Insurance Name Policy Number Policy Lazaro Covered Member ID Lazaro Member ID Guarantor Name 09/01/2025 1 [facility] [employer] ON OR AFTER 04/13/21 (MEDICAID REPLACEMENT - HMO) [facility] [id number] [facility] Notes Date Note Type Note Provider Name and Address Organization Details Recorded Time 10/29/2024 text/html ROS as noted in the HPI eyes red . burning , ointment does not help CHRISTIANO Peñaloza [address], [place], [place], [address], [employer] 11/04/2024 16:41:29 11/18/2024 text/html ROS as noted in the HPI itchy , gravely eyes , CHRISTIANO Peñaloza [address], [place], [place], [address], [employer] 11/21/2024 09:43:00 12/25/2024 text/html ROS as noted in the HPI coughing , sore epigastrum from coughing so much , no fever CHRISTIANO Peñaloza [address], [place], [place], [address], [employer] 01/02/2025 12:43:02 02/09/2025 text/html ROS as noted in the HPI this is a recurring thing , they will not do an endoscopy because her blood sugar .is not controlled . No fever . also lispro does not work at all , wants to go back to [facility] CHRISTIANO Peñaloza [address], [address], [place], [address], [employer] 02/15/2025 12:05:23 02/24/2025 text/html ROS as noted in the HPI she just got her cough back , no fever . needs refills CHRISTIANO Peñaloza [address], [address], [place], [address], [employer] 02/28/2025 17:35:09 OBGyn Episode No OBEpisode recorded.
--- OUTSIDE RECORDS SUMMARY | 2025-09-13 02:07 | XMS_ITS | Clinical Summary ---
Author Organization [facility] Medical [facility] 2 Address [address] [facility] [place] [address] Care Team Providers Care Mind Reader Name Role Phone Tez Raya MD Primary Care Provider +1- [phone] Allergies Active Allergy Reactions Criticality Noted Date [...] by mouth every morning Active Dexcom G7 Fuel Handler miscIndications: Type 2 diabetes mellitus with hyperglycemia, with long-term current use of insulin ([facility]) Continuous glucose monitor 1 each Active cetirizine (ZyrTEC) 5 mg tablet TAKE 1 TABLET(5 MG) BY MOUTH TWICE DAILY 60 tablet 10 Active butalbitaL-aceta [id number] mg capsule TAKE 1 CAPSULE BY MOUTH [...] hyperglycemia, with long-term current use of insulin ([facility]) TAKE 2 TABLETS BY MOUTH TWICE DAILY [...] hyperglycemia, with long-term current use of insulin ([facility]) Inject 70 Units under the skin 2 (two) times a day 70 units am 70 pm 135 mL 3 025 2025 Active BD Alcohol Swabs pads, medicatedIndicat ions:Type 2 diabetes mellitus with hyperglycemia, with long-term current use of insulin ([facility]) Use to clean skin prior to insulin [...] hyperglycemia, with long-term current use of insulin ([facility]) USE TO TEST FIVE TIMES DAILY Dx: E11.65 1 each 025 Active lancets miscIndications: Type 2 diabetes mellitus with hyperglycemia, with long-term current use of insulin ([facility]) Microlet lancets USE TO TEST FIVE TIMES DAILY Dx: E11.65 100 each 11 025 Active glimepiride (AMARYL) 4 mg tabletIndication s:Type 2 diabetes mellitus with hyperglycemia, with long-term current use of insulin ([facility]) Take 1 tablet (4 mg total) by mouth 2 (two) times a day before breakfast and dinner 180 tablet 3 025 2025 Active EPINEPHrine 0.3 mg/0.3 mL auto-injection syringe Inject 0.3 mL (0.3 mg total) into the muscle as instructed as needed for anaphylaxis 2 each 2 025 Active ipratropium (ATROVENT) 0.02 % nebulizer solutionIndicati ons:Severe persistent asthma without complication ([facility]) USE 1 VIAL VIA NEBULIZER FOUR TIMES DAILY 300 mL 3 Active montelukast (SINGULAIR) 10 mg tablet Take 1 tablet (10 mg total) by mouth daily 90 tablet 3 025 Active Dexcom G6 Sensor deviceIndication s:Type 2 diabetes mellitus with hyperglycemia, with long-term current use of insulin ([facility]) Continuous glucose monitor. Change sensor every 10 days 10 each 3 025 Active Dexcom G6 Fuel Handler miscIndications: Type 2 diabetes mellitus with hyperglycemia, with long-term current use of insulin ([facility]) Continuous glucose monitor. 1 each 025 Active Dexcom G6 Transmitter deviceIndication s:Type 2 diabetes mellitus with hyperglycemia, with long-term current use of insulin ([facility]) Continuous glucose monitor. Change transmitter every 90 [...] a day before meals 116.1 mL 3 025 2025 Active predniSONE (DELTASONE) 20 mg tablet [...] Cuvitru subcutaneous infusion once a week Active benzonatate (TESSALON) 200 mg capsule Take [...] benzonatate (TESSALON) 200 mg capsule as needed 024 2024 Discontinued(D uplicate order) theophylline (THEODUR) 300 mg 12 hr tablet Take 1 tablet (300 mg total) by mouth nightly 30 tablet 11 2024 Discontinued cetirizine (ZyrTEC) 10 mg tablet TAKE 1 TABLET BY MOUTH THREE TIMES DAILY 90 tablet 10 024 2024 Discontinued predniSONE (DELTASONE) 10 mg tablet Take 3 tablets (30 mg) by mouth daily Hold while taking 40mg before IVIG infusion 90 tablet 11 024 2024 Discontinued famotidine (PEPCID) 40 mg tablet Take 1 tablet (40 mg total) by mouth 2 (two) times a day 60 tablet 2024 Discontinued(R eorder) insulin lispro (HumaLOG, ADMELOG) 100 unit/mL pen for injectionIndicat ions:Type 2 diabetes mellitus with hyperglycemia, with long-term current use of insulin ([facility]) INJECT 80-85 UNITS UNDER THE SKIN THREE TIMES DAILY BEFORE MEALS 225 mL 3 2024 Discontinued(R eorder) lancets 33 gauge misc Use to check blood sugar 4 times as instructed in case of CGM failure. 400 each 1 2024 Discontinued albuterol HFA (PROVENTIL HFA,VENTOLIN HFA,PROAIR HFA) 90 mcg/actuation inhalerIndicatio ns:Severe persistent asthma without complication (HCC) INHALE 2 PUFFS EVERY 4 HOURS NEEDED FOR WHEEZING. 8.5 g 3 2024 Discontinued predniSONE (DELTASONE) 20 mg tablet TAKE 2 TABLETS BY MOUTH THE DAY BEFORE, THE DAY OF,& THE DAY AFTER YOUR SCIG 24 tablet 3 025 2024 Discontinued insulin lispro (HumaLOG, ADMELOG) 100 unit/mL pen for injectionIndicat ions:Type 2 diabetes mellitus with hyperglycemia, with long-term current use of insulin ([facility]) Inject 80-85 units under the skin three times daily before meals 225 mL 3 025 2024 Discontinued insulin aspart (NovoLOG) 100 unit/mL (3 mL) pen for injectionIndicat ions:Type 2 diabetes mellitus with hyperglycemia, with long-term current use of insulin ([facility]) Inject 80-85 units under the skin three times daily before meals 225 mL 3 025 2024 Discontinued insulin lispro (HumaLOG, ADMELOG) 100 unit/mL pen for injectionIndicat ions:type 2 diabetes mellitus Inject 80-85 units under the skin three times daily before meals 225 mL 3 025 2024 Discontinued amoxicillin-clav ulanate (AUGMENTIN) 875-125 mg per tabletIndication s:Acute maxillary sinusitis, recurrence not specified Take 1 tablet by mouth 2 (two) times a day for 10 days 20 tablet 025 2024 Active Problems Problem Noted Date Diagnosed Date [...] Will update labs. Verified that she uses [employer]. Aware to check results/results letter in [employer]. Will contact by phone if needed. Assessment [...] mychart. Aware to check results/results letter in [employer]. Will contact by phone if needed. Assessment & Plan (11/14/2023 12:57 PM ASIC ENGINEER): Chronic problem. Controlled on current lisinopril 2.5mg daily, metoprolol XL 50mg daily, amlodipine 10mg daily, verapamil SR 240mg daily Assessment & Plan (08/12/2023 10:57 AM CDT): Chronic problem. Controlled on current Lisinopril 2.5mg daily, amlodipine 10mg daily, HCTZ 25mg daily. Severe persistent asthma with exacerbation 10/23 Hyperlipidemia associated with type 2 diabetes radha singh 06/06/2022 Assessment & Plan (07/21/2025 10:03 AM [...] fenofibrate 160mg. Last lipid panel: 02/27/24 LDL=67, NH=113. Will update labs.Verified that she uses [employer]. Aware to check results/results letter in [employer]. Will contact by phone if needed. Assessment & Plan (07/09/2024 10:12 AM CDT): Chronic problem. Not on goal on current Atorvastatin 40mg & fenofibrate 160mg. Last lipid panel: 02/27/24 LDL=67, HK=097. Assessment & Plan (02/27/2024 1:28 PM CDT): Chronic problem. Not on goal on current Atorvastatin 40mg & fenofibrate 160mg. Last lipid panel: 12/25/22 VVC=896, SC=012. Will update lipid panel today. Verified that she uses [employer]. Aware to check results/results letter in [employer]. Will contact by phone if needed. Assessment & Plan (11/14/2023 12:57 PM ASIC ENGINEER): Chronic problem. Not on goal on current Atorvastatin 40mg & fenofibrate 160mg. Last lipid panel: 12/25/22 ZSK=456, HM=790. Assessment & Plan (08/12/2023 10:58 AM CDT): Chronic problem. Not on goal on current Atorvastatin 40mg & fenofibrate 160mg. Last lipid panel: 12/25/22 XXM=686, XD=190. Assessment & Plan (06/07/2022 3:14 PM CDT): [...] UTD DM eye exam (03/04/24 no DMR [facility] in [place]). Had again 02/2025. Letter sent to get [...] UTD DM eye exam (03/04/24 no DMR [facility] in [place]). Had again 02/2025. Letter sent to get [...] UTD DM eye exam (06/2023). Appt at [facility] 03/04/24; no report rec'd. 3rd request letter sent Will update labs. Verified that she uses [employer]. Aware to check results/results letter in [employer]. Will contact by phone if needed. Strive [...] UTD DM eye exam (06/2023). Appt at [facility] next week. UTD on labs. Strive for [...] Not at goal. A1c decreased from 8.7% 11/14/23 to now 8.4%. Issues w/chronic steroids d/t chronic lung disease. Current medications: Metformin 1000 mg twice daily with meals Januvia 100mg daily (historical provider) Glimepiride 4mg before breakfast & dinner Lantus 70 units twice daily Lispro 70-75 units three times daily with meals; If over 300: 2-3 units every 4 hours until it started dropping. UTD DM eye exam (06/2023). Appt at [facility] next week. Will update labs. Verified that she uses [employer]. Aware to check results/results letter in [employer]. Will contact by phone if needed. Strive [...] infection. Assessment & Plan (11/14/2023 1:45 PM ASIC ENGINEER): Chronic problem. Not at goal. A1c increased [...] until it started dropping. Letter sent to [facility] for DM eye exam 06/2023. Will update MA/Cr today. Verified that she uses [employer]. Aware to check results/results letter in [employer]. Will contact by phone if needed. Strive [...] 20 Assessment & Plan (12/14/2021 12:48 PM ASIC ENGINEER): Hba1c was Lab Results Component Value Date HGBA1C 7.9 12/14/2021 today, indicating inadequate DM control with hypo and hyperglycemia Goal Hba1c and blood glucose explained Diet and exercise were advised Prevention and treatment of hyypoglcyemia were discussed with the patient Blood glucose monitoring : [employer] dada set up , now sharing [...] Department Care Team Description 09/02/2025 Orders Only [facility] [address] [place] [address] Office Building [address] [place] [address] Chastity Weiss NP 09/01/2025 11:00 AM ASIC ENGINEER Office Visit [facility] [address] [facility] Office Building [address] [place] [address] Chastity Weiss NP Acute maxillary sinusitis, recurrence not specified (Primary Dx); CVID (common variable immunodeficiency); Severe persistent asthma without complication (HCC); Allergic rhinitis due to other allergic trigger, unspecified seasonality 09/01/[address] [facility] Immunology [address] [place] [address] Building [address] [place] [address] Chastity Weiss NP 09/01/[address] [facility] [address] [place] [address] Building [address] [place] [address] Yann Manuel MD Med Management 09/01/[address] [facility] [address] [place] [address] Building [address] [place] [address] Yann Manuel MD Med Refill 08/18/2025 Orders Only [facility] Diabetes and Endocrinology [address] [place] [phone] Janet Walls NP Type 2 diabetes mellitus with hyperglycemia, with long-term current use of insulin (HCC) (Primary Dx) 08/17/2025 Orders Only [facility] Diabetes [facility] Endocrinology [address] [place] [phone] Janet Walls NP Type 2 diabetes mellitus with hyperglycemia, with long-term current use of insulin (HCC) 08/16/2025 Telephone [facility] Diabetes and Endocrinology [address] [place] [phone] Janet Walls NP Med Refill 08/06/[address] [address] Yann Manuel MD Prior Auth (Spiriva Respimat 1.25MCG/ACT aerosol) 08/05/[address] [facility] All[facility] Immunology [address] [place] [address] Office Building [address] [place] [phone] Yann Manuel MD 07/29/[address] [facility] Immunology [address] [place] [address] [address] [place] [address] Yann Manuel MD 07/29/[address] [facility] [address] [place] [address] [address] [place] [phone] Yann Manuel MD Med Management; Sick Visit 07/27/[address] [facility] Immunology [address] [facility] [address] [place] [phone] Alicia Brian RN Ammonium Lactate Cream Prior Auth 07/27/2025 Telephone [facility] Diabetes and Endocrinology [address] [place] [phone] Janet Walls NP Prior Auth (Dexcom G6 Sensor, Fuel Handler, and Transmitter) 07/21/2025 10:30 AM CDT Office Visit [facility] Diabetes and Endocrinology [address] [place] [phone] Janet Walls, LANG Type 2 diabetes mellitus with hyperglycemia, with long-term current use of insulin (HCC) (Primary Dx); Hypertension associated with type 2 diabetes mellitus (HCC); Hyperlipidemia associated with type 2 diabetes mellitus (HCC) 07/20/[address] [facility] Immunology [address] [place] [address] Building [address] [place] [address] Anai Lin CMA 06/29/2025 4:20 PM CDT Office Visit [facility] All[facility] Immunology [address] [place] [address] [address] [place] [phone] Yann Manuel MD Severe persistent asthma without [...] on file Legal Sex Female 8:27 AM ASIC ENGINEER Gender Identity Not on file Sexual Orientation Not on file Last Filed Vital Signs Vital Sign Reading Time Taken Comments Blood Pressure 147/87 09/01/2025 10:54 AM ASIC ENGINEER Pulse 90 09/01/2025 10:54 AM ASIC ENGINEER Temperature 36.8 C (98.2 F) 09/01/2025 10:54 AM ASIC ENGINEER Respiratory Rate 18 07/21/2025 10:07 AM CDT Oxygen Saturation 98% 09/01/2025 10:54 AM ASIC ENGINEER Inhaled Oxygen Concentration - - Weight 74.4 kg (164 lb) 09/01/2025 10:54 AM ASIC ENGINEER Height 160 cm (5' 3) 09/01/2025 10:54 AM ASIC ENGINEER Body Mass Index 29.05 09/01/2025 10:54 AM ASIC ENGINEER Plan of Treatment Health Maintenance Due Date [...] 02/04/2025, 08/12/2023, 02/01/2022 Foot Exam 02/04/2026 02/04/2025, 07/16, 12/14/2021 Lipid Panel 02/04/2026 02/04/2025, 02/11, 12/25/2022, [...] 10:1 5 AM CDT us Janet Walls NP POINT OF CARE TEST ORDERA BLES Final Result * (ABNORMAL) POCT glucose (07/21/2025 10:10 AM CDT) Glucose Blood, POC 248 Normal Fasting 70 - 100, Random <200 mg/dL Blood 07/21/2025 10:1 0 AM CDT us Janet Walls NP POINT OF CARE TEST ORDERA BLES Final [...] 5 AM CDT 02/04/2025 8:08 PM CDT Janet Walls NP LAB BLOOD ORDERABLES Dayanna l Result CECIL [address] [address] Department [place] [address] * Albumin Creatinine Ratio, Urine (02/04/2025 10:55 AM CDT) Albumin Ur 38.9 mg/L Comment: Interpretive Data No reference range established. Current interpretive data was last revised 2019. Creatinine Ur 250.5 mg/dL CECIL HANSON Comment: Interpretive Data No reference range established. Current interpretive data was last revised 2019. Albumin Creatinine Ratio, Ur 16 1 - 29 mg/g CECIL HANSON Urine 02/04/2025 10:5 5 AM CDT 02/04/2025 8:05 PM CDT us Janet Walls NP LAB URINE ORDERABLES Dayanna amber Result CECIL HANSON [address] [address] Department [place] [address] * Lipid panel (02/04/2025 10:55 AM CDT) [...] on 2018. Triglycerides 83 <=149 mg/dL CECIL HANSON Comment: Interpretive Data Ages [...] on 2018. HDL 53 >=40 mg/dL CECIL HANSON Comment: Interpretive Data Ages [...] NCEP Expert Panel. Circulation 2004;110:227 3. Brett Skaggs et al. ASHLEY Cardiol. 2019February 11;5(5):540-548. doi: 10.1001/jamacardio.2020.0013 Current Interpretive Data was [...] revised on 2018. Chol/HDL ratio 3 CECIL HANSON Blood 02/04/2025 10:5 5 AM CDT 02/04/2025 8:05 PM CDT us Janet Walls NP LAB BLOOD ORDERABLES Dayanna clark Result CECIL HANSON [address] [address] Department [place] [address] * DIABETES EYE EXAM (03/04/2024) SCRIBED DIABETIC DILATED EYE EXAM Normal 03/04/2024 us Historical Provider HEALTH MAINTENANCE Edited Result - Final from Last 3 Months or Most Recently Relevant to Health Maintenance Insurance [facility] Care Teams Mind Reader Relationship Specialty Start Date End Date Tez Raya MD [facility] [place] [address] PCP - General Family Medicine 10/23/21
--- OUTSIDE RECORDS SUMMARY | 2025-09-13 02:07 | XMS_ITS | Encounter Summary ---
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
--- OUTSIDE RECORDS SUMMARY | 2025-09-13 02:07 | XMS_ITS | Encounter Summary ---
Author Organization [facility] Address [address] [place] [address] Phone Care Team Providers Care Sheet Metal Roofer Name Role Phone Tez Raya MD Primary Care Provider +1- [phone] Encounter Details Date Type Department Care Team (Late st Contact Info) Description 07/05/2023 Orders Only [facility] Medicine Allergy and Immunology [address] [facility] Office Building [address] [place] [phone] Yann Manuel MD [address] [place] [id number] Social History Tobacco Use Types Packs/Day Years [...] on file 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 [place] [address] PCP - General Family Medicine 10/23/21 documented as of this encounter
--- OUTSIDE RECORDS SUMMARY | 2025-09-13 02:07 | XMS_ITS | Encounter Summary ---
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
--- OUTSIDE RECORDS SUMMARY | 2025-09-13 02:07 | XMS_ITS | Clinical Summary ---
Author Organization [facility] Address [address] [place] [address] Phone Care Team Providers Care Sports Photographer Name Role Phone Michelet Wallace MD Primary Care Provider [phone] Allergies Active Allergy Reactions Criticality Noted Date [...] Department Care Team Description 08/02/2025 [facility] [address] [place] [address] Harry Chandler, [place] CT SINUSES W/O CONTRAST, CT - HEAD/NECK 07/31/2025 5:05 PM CDT - 07/31/2025 10:11 PM CDT [facility] [address] [place] [address] Harry Weber, STOCKING AND BOX SHOP SUPERVISOR, ORACLE MANAGER Anxiety Discharge Disposition: Discharged to home or [...] and any related communication were provided by [facility]'s After Hours service, as documented in the medical record. Narrative 08/01/2025 4:51 AM CDT DICTATING PHYSICIAN: Jacob Spears M.D., [facility] EXAM: CT SOFT [...] - 08/01/2025 DICTATING PHYSICIAN: Jacob Spears M.D., [facility] EXAM: CT SOFT TISSUE NECK W [...] report and any related communication were [facility] After [facility], as documented in the medical record. Harry Castrejon Tia STOCKING AND BOX SHOP SUPERVISOR, ORACLE MANAGER IMG CT ORDERABLES Final Result * CT SINUSES [...] and any related communication were provided by [facility] After Hours service, as documented in the medical record. Narrative 08/01/2025 5:04 AM CDT DICTATING PHYSICIAN: Jacob Spears M.D., [facility] Exam: CT SINUSES [...] - 08/01/2025 DICTATING PHYSICIAN: Jacob Spears M.D., [facility] Exam: CT SINUSES W/O CONTRAST 07/31/2025 [...] report and any related communication were [facility] After [facility], as documented in the medical record. Harry Weber APRN, [place] IMG CT ORDERABLES Final Result * (ABNORMAL) URINALYSIS REFLEX IF INDICATED BY ABNORMAL RESULTS (07/31/2025 6:47 PM CDT) SPECIFIC GRAVITY 1.015 1.003 - 1.030 07/31/2025 7:05 PM CDT [facility] URINE PH 6.0 5.0 - 9.0 07/31/2025 7:05 PM CDT [facility] WBC ESTERASE Negative Negative 07/31/2025 7:05 PM CDT [facility] NITRITE Negative Negative 07/31/2025 7:05 PM CDT [facility] PROTEIN, RANDOM URINE Negative Negative 07/31/2025 7:05 PM CDT [facility] URINE GLUCOSE, QUAL 1000 mg/dL(A) Negative 07/31/2025 7:05 PM CDT [facility] URINE KETONES Negative Negative 07/31/2025 7:05 PM CDT [facility] UROBILINOGEN Normal Normal mg/dL 07/31/2025 7:05 PM CDT [facility] URINE BLOOD Negative Negative jimmie/ul 07/31/2025 7:05 PM CDT [facility] URINALYSIS COLOR Yellow 07/31/20 7:05 PM CDT [facility] URINALYSIS CLARITY Clear 07/31/2025 7:05 PM CDT [facility] Urine URINE SPECIMEN OBTAINED BY CLEAN CATCH PROCEDURE / Unknown Non-Phlebotomy Collection / Unknown 07/31/2025 6:47 PM CDT 07/31/2025 7:00 PM CDT us Harry Weber APRN, CNP URINE ORDERABLES Final Result [facility] [address] [place] [address] * (ABNORMAL) CBC with Auto Differential (07/31/2025 6:30 PM CDT) WBC 8.15 4.00 - 12.00 10(3)/mcL 07/31/2025 6:54 PM CDT [facility] RBC 4.73 3.80 - 5.30 10(6)/mcL 07/31/2025 6:54 PM CDT [facility] HEMOGLOBIN (HGB) 13.3 12.0 - 15.8 g/dL 07/31/2025 6:54 PM CDT [facility] HEMATOCRIT (HCT) 41.4 36.0 - 47.0 % 07/31/2025 6:54 PM CDT [facility] MCV 87.5 82.0 - 96.0 fL 07/31/2025 6:54 PM CDT [facility] MCH 28.1 26.0 - 34.0 pg 07/31/2025 6:54 PM CDT [facility] MCHC 32.1 31.0 - 36.0 g/dL 07/31/2025 6:54 PM CDT [facility] PLATELET COUNT 424 140 - 440 10(3)/mcL 07/31/2025 6:54 PM CDT [facility] RDW 12.7 11.8 - 15.5 % 07/31/2025 6:54 PM CDT [facility] MPV 10.6 9.7 - 12.4 fL 07/31/2025 6:54 PM CDT [facility] NEUTROPHILS 64.8 47.0 - 73.0 % 07/31/2025 6:54 PM CDT [facility] LYMPHOCYTES 25.4 18.0 - 42.0 % 07/31/2025 6:54 PM CDT [facility] MONOCYTES 7.5 4.0 - 12.0 % 07/31/2025 6:54 PM CDT [facility] EOSINOPHILS 0.9 0.0 - 5.0 % 07/31/2025 6:54 PM CDT [facility] BASOPHILS 0.9 0.0 - 1.0 % 07/31/2025 6:54 PM CDT [facility] IMMATURE GRANULOCYTE 0.5(H) 0.0 - 0.4 % 07/31/2025 6:54 PM CDT [facility] Comment:Immature Granulocyte s includes Metamyelocytes, Myelocytes, and Promyelocytes. ABSOLUTE NEUTROPHILS 5.29 1.60 - 7.70 10(3)/mcL 07/31/2025 6:54 PM CDT [facility] ABSOLUTE LYMPHOCYTES 2.07 1.30 - 3.20 10(3)/mcL 07/31/2025 6:54 PM CDT [facility] ABSOLUTE MONOCYTES 0.61 0.20 - 1.00 10(3)/mcL 07/31/2025 6:54 PM CDT [facility] ABSOLUTE EOSINOPHIL 0.07 0.00 - 0.40 10(3)/mcL 07/31/2025 6:54 PM CDT [facility] ABSOLUTE BASOPHILS 0.07 0.00 - 0.10 10(3)/[facility] 07/31/2025 6:54 PM CDT [facility] ABSOLUTE IMMATURE GRANULOCYTE 0.04(H) 0.00 - 0.03 10 (3) mcL. 07/31/2025 6:54 PM CDT [facility] NRBC PER 100 WBC 0 07/31/20 6:54 PM CDT [facility] Blood Venipuncture / Unknown 07/31/2025 6:30 PM CDT 07/31/2025 6:52 PM CDT Harry Weber APRN, ORACLE MANAGER HEMATOLOGY ORDERABLES F inal Result [facility] [address] [place] [address] * Thyroid Stimulating Hormone (TSH) [id number] (07/31/2025 6:30 PM CDT) TSH 3.339 0.300 - 5.000 mIU/L 07/31/2025 7:32 PM CDT [facility] Blood Venipuncture / Unknown 07/31/2025 6:30 PM CDT 07/31/2025 6:52 PM CDT Harry Weber APRN, ORACLE MANAGER CHEMISTRY ORDERABLES Fi nal Result Performing Organization Address [facility] Co de Phone Number [facility] [address] [place] [address] * Sed Rate (Esr) [id number] (07/31/2025 6:30 PM CDT) Pathologist [facility] ESR (SED RATE, ERYTHROCYTE SEDIMENTATION RATE) <1 <20 mm/h 07/31/2025 6:57 PM CDT [facility] Comment: Patients presenting with increased level of fibrinogen, gamma globulins, or abnormally shaped RBCs could affect the results for the erythrocyte sedimentation rate (ESR). Results should be clinically correlated. Blood Venipuncture / Unknown 07/31/2025 6:30 PM CDT 07/31/2025 6:52 PM CDT Harry Weber APRN, CNP HEMATOLOGY ORDERABLES F inal Result Performing Organization Address [facility] Co de Phone Number [facility] [address] [place] [address] * (ABNORMAL) Comprehensive Metabolic Panel (Cmp) [id number] (07/31/2025 6:30 PM CDT) [facility] SODIUM 138 136 - 145 mmol/L 07/31/2025 7:15 PM CDT [facility] POTASSIUM 4.1 3.5 - 5.1 mmol/L 07/31/2025 7:15 PM CDT [facility] CHLORIDE 104 98 - 107 mmol/L 07/31/2025 7:15 PM CDT [facility] CO2, VENOUS 23 22 - 30 mmol/L 07/31/2025 7:15 PM CDT [facility] ANION GAP 15.1 <18.0 mmol/L 07/31/2025 7:15 PM CDT [facility] GLUCOSE 283(H) 70 - 99 mg/dL 07/31/2025 7:15 PM CDT [facility] BUN 18 5 - 18 mg/dL 07/31/2025 7:15 PM CDT [facility] CREATININE, BLOOD 0.80 0.60 - 1.00 mg/dL 07/31/2025 7:15 PM CDT [facility] BUN/CREATININE RATIO 23(H) 12 - 20 ratio 07/31/2025 7:15 PM CDT [facility] TOTAL PROTEIN 7.2 6.0 - 8.0 g/dL 07/31/2025 7:15 PM CDT [facility] ALBUMIN 4.6 3.5 - 5.0 g/dL 07/31/2025 7:15 PM CDT [facility] A/G RATIO 1.8 1.0 - 2.2 07/31/2025 7:15 PM CDT [facility] CALCIUM 9.7 8.7 - 10.5 mg/dL 07/31/2025 7:15 PM CDT [facility] T BILI 0.3 0.2 - 1.2 mg/dL 07/31/2025 7:15 PM CDT [facility] SGOT (AST) 26 <43 U/L 07/31/2025 7:15 PM T [facility] SGPT (ALT) 37 <56 U/L 07/31/2025 7:15 PM CDT [facility] ALKALINE PHOSPHATASE 48 40 - 150 U/L 07/31/2025 7:15 PM CDT [facility] GFR, ESTIMATED >60 >=60 07/31/2025 7:15 PM CDT [facility] Comment: Creatinine Clearance is the preferred criteria for selecting drug dose adjustments in renally impaired patients. The GFR is provided as additional pertinent clinical information. GFR is reported in mL/min/1.73 sq m. Calculation based on the 2020 Chronic Kidney Disease Epidemiology Collaboration (CKD-EPI) equation refit without adjustment for race. GFR, EST. >60 >=60 025 7:15 PM CDT [facility] Comment: Creatinine Clearance is the preferred criteria for selecting drug dose adjustments in renally impaired patients. The GFR is provided as additional pertinent clinical information. GFR is reported in mL/min/1.73 sq m. Calculation based on the 2009 Chronic Kidney Disease Epidemiology Collaboration (CKD-EPI). GFR, EST. NONAFRICAN >60 >=60 07/31/2025 7:15 PM CDT [facility] Comment: Creatinine Clearance is the preferred criteria for selecting drug dose adjustments in renally impaired patients. The GFR is provided as additional pertinent clinical information. GFR is reported in mL/min/1.73 sq m. Calculation based on the 2009 Chronic Kidney Disease Epidemiology Collaboration (CKD-EPI). Blood Venipuncture / Unknown 07/31/2025 6:30 PM CDT 07/31/2025 6:52 PM CDT us Harry Weber APRN, CNP CHEMISTRY ORDERABLES Fi nal Result Performing Organization Address [facility] de Phone Number [facility] [address] [place] [address] * C-Reactive Protein Qnt (Crp) (07/31/2025 6:30 PM CDT) C-REACTIVE PROTEIN <0.10 <0.50 mg/dL 07/31/2025 7:27 PM CDT [facility] Blood Venipuncture / Unknown 07/31/2025 6:30 PM CDT 07/31/2025 6:52 PM CDT us Harry Weber APRN, CNP CHEMISTRY ORDERABLES Fi nal Result Performing Organization Address [facility] Co de Phone Number [facility] [address] [place] [address] * CT - HEAD/NECK (07/31/2025 12:00 AM CDT) 07/31/2025 us Provider Scan IMG CT ORDERABLES Final Result Performing Organization Address [facility] Co de Phone Number SCAN * HEMOGLOBIN, A1C (12/25/2022 12:00 AM CDT) HGB-A1C 9 % SCAN 12/25/2022 us Provider Scan CHEMISTRY ORDERABLES Final Resul t SCAN from Last 3 Months or Most Recently Relevant to Health Maintenance Insurance Care Teams Sports Photographer Relationship Specialty Start Date End Date Michelet Wallace MD [address] [place] [address] PCP - General Internal Medicine 07/31/25
[2025-09-13] MEDS: LACTATED RINGERS 1,000 ML 30 ML IV CONT (11:15)
--- NOTE | 2025-09-13 11:29 | WPDHPUPDATE1 ---
History and Physical Update Update Date/Time: 09/13/25 11:29 History and Physical has been reviewed, including an updated exam of the patient. There are NO changes in the patient's condition. Risks, benefits, and alternatives have been discussed and questions answered. Patient agrees to proceed with procedure.
--- NOTE | 2025-09-13 11:32 | WPDHPUPDATE1 ---
History and Physical Update Update Date/Time: 09/13/25 11:32 Tongue base cyst excision and direct laryngoscopy, possible microscope
--- NOTE | 2025-09-13 13:00 | SUR.PREOP ---
PATIENT AND FAMILY NOTIFIED OF DELAY.
--- NOTE | 2025-09-13 13:20 | WPDANESEPPF ---
Anes - Initial Pre Proc Eval Procedure: Operation Date: 09/13/25 12:45 Proposed Procedures p Direct Laryngoscopy, - Eliecer Pollard MD s Excision Cyst Base of Tongue - Eliecer Pollard MD Date/Time: 09/13/25 13:20 Surgeon: Eliecer Pollard MD Pre Op Diagnosis: other diseases of pharynx Patient Data Age: 50 Gender: F Height: 1.63 m Weight: 74.2 kg Last Vital Signs Temp 36.5 C 09/13/25 10:35 Pulse 86 09/13/25 10:35 Resp 20 09/13/25 10:35 BP 152/70 H 09/13/25 10:35 Pulse Ox 99 09/13/25 10:35 O2 Del Method Room Air 09/13/25 10:35 Allergies Allergy/AdvReac Type Severity Reaction Status Date / Time phenazopyridine Allergy Severe Anaphylactic Verified 09/13/25 11:40 Shock prochlorperazine (From Allergy Severe BODY Verified 09/13/25 11:40 Compazine) BRIGHT RED/HOT, DIFFICULTY BREATHING sulfamethoxazole Allergy Mild HEADACHES Verified 09/13/25 11:40 AND NOSEBLEEDS trimethoprim Allergy Mild HEADACHES Verified 09/13/25 11:40 AND NOSEBLEEDS predine Allergy Unknown unknown Uncoded 08/09/25 13:32 Home Medications ?Medication ?Instructions ?Recorded ?Confirmed ?Type atorvastatin 40 mg tablet 40 mg PO DAILY 01/23/22 09/13/25 History 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,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,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 01/23/22 08/09/25 History (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) budesonide-formoterol HFA 160 2 inh inhalation Q12H 01/23/22 09/13/25 History mcg-4.5 mcg/actuation aerosol inhaler (Symbicort) cholecalciferol (vitamin D3) 50 50 mcg PO DAILY 01/23/22 09/13/25 History mcg (2,000 unit) capsule (Vitamin D3) cyanocobalamin (vitamin B-12) 1,000 mcg sublingual DAILY 01/23/22 09/13/25 History 1,000 mcg sublingual tablet hydrochlorothiazide 25 mg tablet 25 mg PO DAILY 01/23/22 09/13/25 History metformin 500 mg tablet,extended 1,000 mg PO BID 01/23/22 09/13/25 History release 24 hr albuterol sulfate 2.5 mg/3 mL 1 ml inhalation .Q3 03/13/22 09/13/25 History (0.083 %) solution for nebulization albuterol sulfate 90 mcg/actuation 1 inh inhalation PRN 03/13/22 09/06/25 History aerosol inhaler amlodipine 10 mg tablet (Norvasc) 10 mg PO DAILY 03/13/22 09/13/25 History aspirin 81 mg tablet,delayed 81 mg PO DAILY 03/13/22 09/13/25 History release famotidine 40 mg tablet 1 tablet PO DAILY 03/13/22 09/13/25 History fenofibrate 160 mg tablet 1 tablet PO DAILY 03/13/22 09/13/25 History ipratropium bromide 0.02 % 1 ml inhalation Q2H 03/13/22 09/13/25 History solution for inhalation montelukast 10 mg tablet 1 tablet PO DAILY 03/13/22 09/13/25 History ibuprofen 800 mg tablet 800 mg PO TID PRN pain #30 tabs 04/04/22 09/13/25 Rx prednisolone sodium phosphate 30 30 mg PO DAILY 06/05/23 09/13/25 History mg disintegrating tablet cetirizine 10 mg capsule (Zyrtec) 10 mg PO TID 08/29/23 09/13/25 History insulin glargine 100 unit/mL (3 See Rx Instructions subcut .COMPLEX 08/29/23 09/13/25 History mL) subcutaneous pen (Lantus Solostar U-100 Insulin) pantoprazole 40 mg tablet,delayed 40 mg PO BID #60 tabs 10/15/24 09/13/25 Rx release ketotifen fumarate 0.025 % (0.035 1 drp EACH EYE BID 12/09/24 09/06/25 History %) eye drops lisinopril 2.5 mg tablet 2.5 mg PO BID 12/09/24 09/13/25 History cyclobenzaprine 10 mg tablet 10 mg PO TID 12/10/24 09/13/25 History triamcinolone acetonide 0.025 % 1 applic topical BID 12/10/24 09/06/25 History topical cream immun glob G 1 gram/5 4 g subcut WEEKLY 07/14/25 09/13/25 History mL(20%)-gly-IgA over 50 mcg/mL subcutaneous soln (Cuvitru) 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 sensor (Dexcom G7 08/09/25 08/09/25 History Sensor device) insulin lispro 100 unit/mL 1 sliding scale dose subcut 09/06/25 09/13/25 History subcutaneous cartridge (Humalog USEASDIRECTD U-100 Insulin) lorazepam 1 mg tablet 1 mg PO TID PRN anxiety 09/06/25 09/13/25 History ondansetron 4 mg disintegrating 12 mg PO HS PRN nausea and vomiting 09/06/25 09/06/25 History tablet prednisone 20 mg tablet 40 mg PO .COMPLEX 09/06/25 09/13/25 History prednisone 5 mg tablet 5 mg PO DAILY PRN gastrointestinal 09/06/25 09/06/25 History spasms or cramping Laboratory Tests 09/13/25 11:07 POC Capillary Glucose 219 H mg/dl (65-105) Patient hx anesthesia problems: none Family hx anesthesia problems: none Results Review: All pre-operative results and documents have been reviewed as part of the pre-operative evaluation. [facility] Past Medical History Medical History Common variable immunodeficiency Overweight (BMI 25.0-29.9) CAD (coronary artery disease) Screening mammogram, encounter for COPD (chronic obstructive pulmonary disease) home o2 at night Stomach ulcer Diabetes type 2, controlled Fatty liver History of hypertension High cholesterol GERD (gastroesophageal reflux disease) Headache Bronchitis Asthma Surgical History Surgical History H/O: hysterectomy (03/21/22) RATLH w/ salpingectomy History of tonsillectomy Family History Family History Father Asthma Hypertension Diabetes mellitus Sibling Asthma Hypertension sister and brother Diabetes mellitus sister and brother Hypothyroidism sister Mother Hypertension Diabetes mellitus Hypothyroidism Social History Social History Smoking status: Never smoker Second hand tobacco smoke exposure: No Alcohol intake: never Substance use: never Substance use type: does not use Lack of Transportation: No Lack of Food: Never True Current Housing: I Have Housing Concerned About Future Housing: No Difficulty Paying Gas/Electric Bills: YES Difficulty Paying for Meds: No Currently Unemployed: No Education: High School Diploma/GED Difficulty w/ Childcare or Family Care: No Living arrangements: with family Additional living arrangements comments: single Occupation/Education: unemployed Additional occupation/education comments: disabled Gender identity (if verbalized by the patient): Female Sexual Orientation (if Verbalized by the Patient): Straight or Heterosexual Spiritual care concerns: No Anes - Eval Final PreProcedure Day of Procedure 09/13/25 13:20 Patient weight: overweight Heart: regular rate and rhythm Lungs: clear to auscultation Airway: Mallampati scale class II Neurological: alert and oriented Last oral intake: >/= 8 hours ASA classification: IV Emergent: no Anesthetic plan: proceed Anesthesia type and monitoring: general ETT and standard monitoring Results Review: All pre-operative results and documents have been reviewed as part of the pre-operative evaluation. Informed Consent: The patient's anesthetic plan and its attendant risks and benefits were discussed with the patient/family/POA. Questions were solicited and answers provided to the satisfaction of the patient/family/POA.
--- NOTE | 2025-09-13 13:57 | WPDANESEPPF ---
Anes - Initial Pre Proc Eval Procedure: Operation Date: 09/13/25 12:45 Proposed Procedures p Direct Laryngoscopy, - Eliecer Pollard MD s Excision Cyst Base of Tongue - Eliecer Pollard MD Date/Time: 09/13/25 13:57 Surgeon: Eliecer Pollard MD Pre Op Diagnosis: other diseases of pharynx Patient Data Age: 50 Gender: F Height: 1.63 m Weight: 74.2 kg Last Vital Signs Temp 36.5 C 09/13/25 10:35 Pulse 86 09/13/25 10:35 Resp 20 09/13/25 10:35 BP 152/70 H 09/13/25 10:35 Pulse Ox 99 09/13/25 10:35 O2 Del Method Room Air 09/13/25 10:35 Allergies Allergy/AdvReac Type Severity Reaction Status Date / Time phenazopyridine Allergy Severe Anaphylactic Verified 09/13/25 11:40 Shock prochlorperazine (From Allergy Severe BODY Verified 09/13/25 11:40 Compazine) BRIGHT RED/HOT, DIFFICULTY BREATHING sulfamethoxazole Allergy Mild HEADACHES Verified 09/13/25 11:40 AND NOSEBLEEDS trimethoprim Allergy Mild HEADACHES Verified 09/13/25 11:40 AND NOSEBLEEDS predine Allergy Unknown unknown Uncoded 08/09/25 13:32 Home Medications ?Medication ?Instructions ?Recorded ?Confirmed ?Type atorvastatin 40 mg tablet 40 mg PO DAILY 01/23/22 09/13/25 History 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,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,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 01/23/22 08/09/25 History (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) budesonide-formoterol HFA 160 2 inh inhalation Q12H 01/23/22 09/13/25 History mcg-4.5 mcg/actuation aerosol inhaler (Symbicort) cholecalciferol (vitamin D3) 50 50 mcg PO DAILY 01/23/22 09/13/25 History mcg (2,000 unit) capsule (Vitamin D3) cyanocobalamin (vitamin B-12) 1,000 mcg sublingual DAILY 01/23/22 09/13/25 History 1,000 mcg sublingual tablet hydrochlorothiazide 25 mg tablet 25 mg PO DAILY 01/23/22 09/13/25 History metformin 500 mg tablet,extended 1,000 mg PO BID 01/23/22 09/13/25 History release 24 hr albuterol sulfate 2.5 mg/3 mL 1 ml inhalation .Q3 03/13/22 09/13/25 History (0.083 %) solution for nebulization albuterol sulfate 90 mcg/actuation 1 inh inhalation PRN 03/13/22 09/06/25 History aerosol inhaler amlodipine 10 mg tablet (Norvasc) 10 mg PO DAILY 03/13/22 09/13/25 History aspirin 81 mg tablet,delayed 81 mg PO DAILY 03/13/22 09/13/25 History release famotidine 40 mg tablet 1 tablet PO DAILY 03/13/22 09/13/25 History fenofibrate 160 mg tablet 1 tablet PO DAILY 03/13/22 09/13/25 History ipratropium bromide 0.02 % 1 ml inhalation Q2H 03/13/22 09/13/25 History solution for inhalation montelukast 10 mg tablet 1 tablet PO DAILY 03/13/22 09/13/25 History ibuprofen 800 mg tablet 800 mg PO TID PRN pain #30 tabs 04/04/22 09/13/25 Rx prednisolone sodium phosphate 30 30 mg PO DAILY 06/05/23 09/13/25 History mg disintegrating tablet cetirizine 10 mg capsule (Zyrtec) 10 mg PO TID 08/29/23 09/13/25 History insulin glargine 100 unit/mL (3 See Rx Instructions subcut .COMPLEX 08/29/23 09/13/25 History mL) subcutaneous pen (Lantus Solostar U-100 Insulin) pantoprazole 40 mg tablet,delayed 40 mg PO BID #60 tabs 10/15/24 09/13/25 Rx release ketotifen fumarate 0.025 % (0.035 1 drp EACH EYE BID 12/09/24 09/06/25 History %) eye drops lisinopril 2.5 mg tablet 2.5 mg PO BID 12/09/24 09/13/25 History cyclobenzaprine 10 mg tablet 10 mg PO TID 12/10/24 09/13/25 History triamcinolone acetonide 0.025 % 1 applic topical BID 12/10/24 09/06/25 History topical cream immun glob G 1 gram/5 4 g subcut WEEKLY 07/14/25 09/13/25 History mL(20%)-gly-IgA over 50 mcg/mL subcutaneous soln (Cuvitru) 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 sensor (Dexcom G7 08/09/25 08/09/25 History Sensor device) insulin lispro 100 unit/mL 1 sliding scale dose subcut 09/06/25 09/13/25 History subcutaneous cartridge (Humalog USEASDIRECTD U-100 Insulin) lorazepam 1 mg tablet 1 mg PO TID PRN anxiety 09/06/25 09/13/25 History ondansetron 4 mg disintegrating 12 mg PO HS PRN nausea and vomiting 09/06/25 09/06/25 History tablet prednisone 20 mg tablet 40 mg PO .COMPLEX 09/06/25 09/13/25 History prednisone 5 mg tablet 5 mg PO DAILY PRN gastrointestinal 09/06/25 09/06/25 History spasms or cramping Laboratory Tests 09/13/25 11:07 POC Capillary Glucose 219 H mg/dl (65-105) Patient hx anesthesia problems: none Family hx anesthesia problems: none Results Review: All pre-operative results and documents have been reviewed as part of the pre-operative evaluation. [facility] Past Medical History Medical History Common variable immunodeficiency Overweight (BMI 25.0-29.9) CAD (coronary artery disease) Screening mammogram, encounter for COPD (chronic obstructive pulmonary disease) home o2 at night Stomach ulcer Diabetes type 2, controlled Fatty liver History of hypertension High cholesterol GERD (gastroesophageal reflux disease) Headache Bronchitis Asthma Surgical History Surgical History H/O: hysterectomy (03/21/22) RATLH w/ salpingectomy History of tonsillectomy Family History Family History Father Asthma Hypertension Diabetes mellitus Sibling Asthma Hypertension sister and brother Diabetes mellitus sister and brother Hypothyroidism sister Mother Hypertension Diabetes mellitus Hypothyroidism Social History Social History Smoking status: Never smoker Second hand tobacco smoke exposure: No Alcohol intake: never Substance use: never Substance use type: does not use Lack of Transportation: No Lack of Food: Never True Current Housing: I Have Housing Concerned About Future Housing: No Difficulty Paying Gas/Electric Bills: YES Difficulty Paying for Meds: No Currently Unemployed: No Education: High School Diploma/GED Difficulty w/ Childcare or Family Care: No Living arrangements: with family Additional living arrangements comments: single Occupation/Education: unemployed Additional occupation/education comments: disabled Gender identity (if verbalized by the patient): Female Sexual Orientation (if Verbalized by the Patient): Straight or Heterosexual Spiritual care concerns: No Anes - Eval Final PreProcedure Day of Procedure 09/13/25 13:57 Patient weight: overweight Heart: regular rate and rhythm Lungs: normal air movement Airway: Mallampati scale class II Neurological: alert and oriented Last oral intake: >/= 8 hours ASA classification: III Emergent: no Anesthetic plan: proceed Anesthesia type and monitoring: general ETT and standard monitoring Results Review: All pre-operative results and documents have been reviewed as part of the pre-operative evaluation. Informed Consent: The patient's anesthetic plan and its attendant risks and benefits were discussed with the patient/family/POA. Questions were solicited and answers provided to the satisfaction of the patient/family/POA.
--- NOTE | 2025-09-13 14:35 | S_PTH ---
PATIENT: Gaby Carey LOC: [facility] U#:[id number] AGE/SX: 50/F ROOM: RE09/13/[address]: Eliecer Pollard MD : 1975 BED: DIS: 09/13/2025 SPEC #: [id number] RECD: 09/14/25 08:24 STATUS: ANA CRISTINA CROOK #: [id number] ALEX: 09/13/25 14:[address]: Eliecer Pollard DEPT: [facility] Surgical RECD BY: Uche Najera ENTERED: 09/14/25 08:24 SP TYPE: Surgical OTHR DR: Michelet WallaceMD Tissues: A - LESION Procedures: Gross and Microscopic Level 4
[2025-09-13] MEDS: OXYMETAZOLINE HCL 0.05% NAS 15 ML BTL (*BKC) 1 SPRAY NASAL (14:55)
--- NOTE | 2025-09-13 15:18 | W.PM.PROC2 ---
Procedure Note - Detailed Date of Procedure 09/13/25 Pre-op Diagnosis Dysphagia, pharyngeal cyst Post-op Diagnosis Same Procedure Performed 1. Microdirect laryngoscopy 2. Excision of tongue base/vallecular cysts Surgeon Eliecer Pollard MD Anesthesia General Indications See above Findings 3 vallecular tongue base cyst all removed minimal bleeding Description of Procedure Patient identified consent verified the preoperative holding area. Patient brought to the OR. Time-out performed. General anesthesia induced endotracheal tube secured airway. Patient prepped draped position procedure confirmed 2nd time-out performed. Dedo laryngoscope placed in the airway 3 tongue base vallecular cyst noted. Patient placed in suspension. Microdirect laryngoscopy was then performed. I excised the cyst with a combination of different angled scissors and cup forceps. Minimal bleeding the bleeding was easily stopped with application of Afrin-soaked pledgets. Once all 3 cysts route the patient taken out of suspension. Dedo laryngoscope maxillary tooth mouth guard was placed over the maxillary dentition was also removed all pledgets were accounted for nothing left in the airway. Bleeding 1 cc. Patient tolerated the procedure very well no complications. Patient taken to PACU. Estimated Blood Loss 1 Drains No Packing No Pathology Yes Complications No immediate complications Condition Stable Disposition PACU [facility] Billing Surgery - Charge Forward: Surgery Billing
[2025-09-13] MEDS: IPRATROPIUM 0.5 MG/ALBUTEROL SULFATE 2.5 MG (BASE) AMPUL.NEB 3 ML INHALATION (15:40)
[2025-09-13] MEDS: oxyCODONE HCL (*CRX) 5 MG TAB IR PO (16:14)
== END 2025-09-13 16:45 | disposition home or self-care (01) ==
PROVIDERS: PCP Internal Medicine; Visit Provider Otolaryngology
PROC: 0CJS8ZZ Inspection of Larynx, Via Natural or Artificial Opening Endoscopic (ICD-10-PCS; CPT 31536; principal; 2025-09-13 12:45)
PROC: (CPT 31536; 2025-09-13 12:45)
DX: J38.7 Other diseases of larynx (principal); E11.9 Type 2 diabetes mellitus without complications
CPT/HCPCS: 31536; 82948; 88305; 94640; A9270; J2003; J2250; J2405; J2704; J3010; J7120